=== PATIENT | female | born 1970 | race Two or more races ===

== ENCOUNTER 2020-06-28 10:24 | Outpatient (REF) | payer OTHER, SELFPAY ==
--- NOTE | 2020-06-28 10:35 | XR_ITS ---
EXAMINATION: XR KNEE, LEFT CLINICAL INFORMATION: Left knee pain. COMPARISON: None TECHNIQUE: Four views of the left knee. FINDINGS: Left knee joint spaces are maintained. No acute fracture or dislocation is seen. There is minimal spurring about the medial joint space compartment. No effusion is seen. There is mild spurring undersurface of the patella. XR/XR knee LT 4V IMPRESSION: No acute fracture or effusion of the left knee. Mild degenerative change patellofemoral joint.
== END 2020-06-28 10:25 | disposition home or self-care (01) ==
LOC: HO.XRAY 10:24
PROVIDERS: PCP Internal Medicine; Visit Provider Nurse Practitioner Family
DX: M25.562 Pain in left knee (principal)
CPT/HCPCS: 73564

== ENCOUNTER 2020-06-29 10:03 | Outpatient (REF) | payer OTHER, SELFPAY ==
[2020-06-29 12:09] LABS: Alanine Aminotransferase 20 U/L (0-31); Albumin Level 4.3 g/dL (3.5-5.0); Alkaline Phosphatase 37 U/L (39-117); Anion Gap 13 (12-20); Aspartate Amino Transferase 14 U/L (5-31); Bilirubin Total 0.3 mg/dL (0.0-1.0); Blood Urea Nitrogen 19 mg/dL (9-16); Calcium 9.6 mg/dL (8.4-10.2); Carbon Dioxide 28 mmol/L (22-29); Chloride 104 mmol/L (96-108); Cholesterol 229 mg/dL; Estimated Glomerular Filt Rate > 60; Glucose Fasting 83 mg/dL (60-99); HDL Cholesterol 54 mg/dL; LDL Cholesterol Calculated 155 mg/dl; Potassium 4.3 mmol/l (3.3-5.1); Sodium 141 mmol/L (135-145); Triglycerides 101 mg/dL
[2020-07-03 12:47] LABS: Vitamin D 25-OH, D2 <4 ng/mL; Vitamin D 25-OH, D3 21 ng/mL; Vitamin D 25-OH, Total 21 ng/mL (30-100)
== END 2020-06-29 10:04 | disposition home or self-care (01) ==
LOC: HO.LAB 10:03
PROVIDERS: PCP Internal Medicine; Visit Provider Internal Medicine
DX: E55.9 Vitamin D deficiency, unspecified (principal); M25.50 Pain in unspecified joint; E78.00 Pure hypercholesterolemia, unspecified; E11.9 Type 2 diabetes mellitus without complications
CPT/HCPCS: 36415; 80053; 80061; 82306

== ENCOUNTER 2020-08-25 20:12 | Emergency (ER) | payer OTHER, SELFPAY ==
--- NOTE | ~2020-08-25 | CT_ITS ---
EXAMINATION: CT ABDOMEN AND PELVIS WITHOUT CONTRAST CLINICAL INFORMATION: Left flank pain. COMPARISON: CT scan abdomen pelvis 10/06/2016. TECHNIQUE: Multidetector volumetric imaging was performed from the superior aspect of the liver through the pubic symphysis. Sagittal and coronal reformatted images were obtained on the technologist's workstation. This CT examination was performed using dose optimization techniques as appropriate, variously including the following: *Automated exposure control *Adjustment of mA and/or kV according to patient size (this includes techniques or standardized protocols for targeted exams where dose is matched to indication/reason for exam; i.e. extremities or head) *Use of iterative reconstruction technique DLP: 575 mGy-cm FINDINGS: LUNG BASES: The visualized lung bases are unremarkable. LIVER, GALLBLADDER, AND BILIARY TREE: Mild diffuse low attenuation of liver parenchyma due to fatty change. There is no focal liver lesion. There is no intrahepatic bile duct dilatation. The right lobe of liver measures 17 cm superior inferior. Status post cholecystectomy. PANCREAS: Unremarkable. SPLEEN: Unremarkable. ADRENAL GLANDS: Unremarkable. KIDNEYS AND URETERS: The kidneys are normal in size, shape, and attenuation. No hydronephrosis, hydroureter, or calculi seen. No perinephric stranding. BLADDER: Unremarkable. GASTROINTESTINAL TRACT: There are a few scattered diverticula of the sigmoid colon and left colon. There is no diverticulitis. There is no bowel wall thickening /edema. There is no bowel obstruction. There is a moderate volume of stool in the colon. The appendix is normal . The small bowel loops are unremarkable. The stomach is normal. There is no hiatal hernia. ABDOMINAL WALL: Small fat-containing umbilical hernia. LYMPH NODES: Normal. VASCULAR: Unremarkable. PELVIC VISCERA: Status post hysterectomy. OSSEOUS STRUCTURES: Mild degenerative spondylosis of thoracic spine. CT/CT abdomen pelvis wo con IMPRESSION: 1. No acute abnormality. Normal kidneys, ureter and bladder. 2. Diverticulosis of the colon. There is no acute change of the bowel. 3. Diffuse fatty change of liver. 4. Status post cholecystectomy.
[2020-08-25 20:14] VITALS: BP 123/85; PULSE 102; RESP 18; TEMP 36.8; O2SAT 100; BMI 31.8
--- NOTE | 2020-08-25 20:51 | ED.ABDPAIN ---
HPI - Abdominal Pain General Chief Complaint: Back Pain/Injury Stated Complaint: Flank Pain Time Seen by Provider: 08/25/20 20:51 Source: patient Mode of arrival: ambulatory Limitations: no limitations History of Present Illness HPI narrative: Patient's history of kidney stone in the past noticed sudden onset of sharp stabbing pain in left flank area since morning today radiating to the left lower abdomen associated with nausea no vomiting no fever patient does not have any history of back pain in the past MD elicited complaint: flank pain Pertinent past history: kidney stones Onset (ago): hour(s) Pain Consistency: constant Location: L flank Severity: moderate Quality: stabbing Radiation: LLQ Exacerbating factors: nothing Relieving factors: nothing Associated symptoms: nausea Treatments prior to arrival: NSAIDs Related Data Home Medications Medication Instructions Recorded Confirmed tolterodine 4 mg capsule,extended 4 mg PO DAILY 05/22/20 05/22/20 release 24 hr Previous Rx's Medication Instructions Recorded cholecalciferol (vitamin D3) 50 50 mcg PO DAILY 90 Days #90 cap 05/22/20 mcg (2,000 unit) capsule pantoprazole 40 mg tablet,delayed 40 mg PO DAILY 90 Days #90 tab 05/22/20 release tramadol 50 mg tablet 50 mg PO Q8H PRN 30 Days #90 tab 05/22/20 zolpidem 10 mg tablet 10 mg PO BEDTIME PRN 30 Days #30 05/22/20 tab cyclobenzaprine 10 mg tablet 10 mg PO BEDTIME 30 Days #30 tab 06/26/20 ibuprofen 800 mg tablet 800 mg PO Q8H PRN 10 Days #30 tab 06/26/20 prednisone 10 mg tablet 10 mg PO DAILY 9 Days #18 tab 06/26/20 tolterodine 4 mg capsule,extended 4 mg PO DAILY 90 Days #90 cap 08/17/20 release 24 hr duloxetine 30 mg capsule,delayed 30 mg PO DAILY 90 Days #90 cap 08/21/20 release cyclobenzaprine 10 mg PO Q8H #20 tab 08/25/20 tramadol 50 mg PO Q6H PRN #20 tab 08/25/20 Allergies Allergy/AdvReac Type Severity Reaction Status Date / Time trazodone Allergy Unknown Insomnia Verified 08/25/20 20:14 Review of Systems Review of Systems Constitutional : No Weight loss, No Fever, No Chills ENT/Mouth : No sore throat, No Rhinorrhea Eyes: No Eye Pain, No Swelling Cardiovascular : No Chest Pain, no palpitations Respiratory : No Cough, No Sputum, no shortness of breath Gastrointestinal : +Nausea, No Vomiting, No Diarrhea, ++ abdominal Pain, no black stools Genitourinary : No Dysuria, No Urinary Frequency Musculoskeletal : No joint pain, No Myalgias, No Joint Swelling Skin : No Skin Lesions, No rash Neuro : No Weakness, No Numbness, No Dizziness, No Headache Psych : No Anxiety/Panic, No Depression Heme/Lymph: No Bruising, No Lymphadenopathy Endocrine : No Polyuria, No Polydipsia All other systems reviewed and are negative Physical Exam Vital Signs: Vital Signs: Last Vital Signs Temp 98.3 F 08/25/20 20:14 Pulse 102 H 08/25/20 20:14 Resp 18 08/25/20 20:14 BP 123/85 08/25/20 20:14 Pulse Ox 100 08/25/20 20:14 Body Mass Index 31.8 Appearance: Alert. Oriented X3. In moderate distress. Eyes: Pupils equal, round and reactive to light. ENT: Pharynx normal. Neck: Normal inspection. Neck supple. CVS: Normal heart rate and rhythm. Pulses normal. Respiratory: No respiratory distress. Breath sounds normal. Abdomen: Soft and nontender. Bowel sounds are present, no mass palpable, left CVA tenderness ++ Skin: Skin warm and dry. Normal skin color. Normal skin turgor. Extremities: No lower extremity edema. Neuro: Oriented X 3. No motor deficit. No sensory deficit. MDM - Abdominal Pain MDM Narrative Medical decision making narrative: Patient with left flank pain urine showed slight amount of blood but CT scan is negative for any kidney stone likely muscular pain. Will discharge patient home on pain medication muscle relaxers Differential Diagnosis Differential diagnosis: Likely calculus of kidney Lab Data Attestation: I reviewed the patient's lab results. Result diagrams: 08/25/20 21:23 08/25/20 21:23 Labs: Lab Results 08/25/20 08/25/20 Range/Units 20:25 21:23 WBC 6.3 (4.8-10.8) X10*3/uL RBC 4.33 (4.20-5.50) X10*6/uL Hgb 12.7 (12.0-16.0) g/dl Hct 38.5 (37-47) % MCV 88.9 (80-98) fL MCH 29.3 (27.0-33.0) pg MCHC 33.0 (31.0-35.0) g/dl RDW 12.9 (11.0-16.0) % Plt Count 250 (160-400) X10*3/uL MPV 10.7 (9.4-12.3) fL Immature Gran % (Auto) 0.2 (0.0-0.4) % Neut % (Auto) 46.3 (45-73) % Lymph % (Auto) 41.1 H (20-40) % [place] % (Auto) 8.8 (2-11) % Eos % (Auto) 3.0 (0-4) % Baso % (Auto) 0.6 (0-2) % Lymph # (Auto) 2.6 (1.2-4.9) X10*3/uL [place] # (Auto) 0.6 (0.1-1.2) X10*3/uL Eos # (Auto) 0.2 (0.0-0.4) X10*3/uL Baso # (Auto) 0.0 (0.0-0.2) X10*3/uL Abs Immat Gran (auto) 0.01 (0.00-0.03) X10*3/uL Absolute Neuts (auto) 2.9 (2.0-8.3) X10*3/uL Absolute Nucleated RBC 0.000 (0.0-0.012) X10*3/uL Nucleated RBC % (auto) 0.0 (0.0-0.2) /100WBC Urine Color YELLOW Urine Appearance CLEAR Urine pH 6.0 (5.0-8.0) Ur Specific [place] 1.025 (1.005-1.025) Urine Protein NEG (NEG-TRACE) MG/DL Urine Glucose (UA) NEG (NEG) MG/DL Urine Ketones 5 (NEG) MG/DL Urine Blood 1+ H (NEG) Urine Nitrite NEG (NEG) Ur Leukocyte Esterase NEG (NEG) Urine RBC 10-14 H (0) /HPF Urine WBC 1-4 (0-4) /HPF Ur Squamous Epith Cells 4+ /LPF Urine Bacteria NONE /LPF Urine Mucus 1+ /LPF Discharge Plan Discharge Clinical Impression: Strain of lumbar region Qualifiers: Encounter type: initial encounter Qualified Code(s): S39.012A - Strain of muscle, fascia and tendon of lower back, initial encounter Patient Disposition: Home, Self-Care Instructions: Acute Low Back Pain (ED) Additional Instructions: Your back pain likely is muscular. Take pain medication and muscle relaxant as prescribed. Apply ice pack. Follow with PCP if not better Prescriptions: New tramadol 50 mg tablet 50 mg PO Q6H PRN (Reason: pain) Qty: 20 RF: 0 cyclobenzaprine 10 mg tablet 10 mg PO Q8H Qty: 20 RF: 0 No Action tolterodine 4 mg capsule,extended release 24hr 4 mg PO DAILY 90 Days Qty: 90 RF: 2 duloxetine 30 mg capsule,delayed release(DR/EC) 30 mg PO DAILY 90 Days Qty: 90 RF: 1 tolterodine 4 mg capsule,extended release 24hr 4 mg PO DAILY RF: 0 zolpidem 10 mg tablet 10 mg PO BEDTIME PRN (Reason: insomnia) 30 Days Qty: 30 RF: 0 tramadol 50 mg tablet 50 mg PO Q8H PRN (Reason: pain) 30 Days Qty: 90 RF: 0 pantoprazole 40 mg tablet,delayed release (DR/EC) 40 mg PO DAILY 90 Days Qty: 90 RF: 3 cholecalciferol (vitamin D3) 50 mcg (2,000 unit) capsule 50 mcg PO DAILY 90 Days Qty: 90 RF: 3 ibuprofen 800 mg tablet 800 mg PO Q8H PRN (Reason: pain) 10 Days Qty: 30 RF: 0 prednisone 10 mg tablet 10 mg PO DAILY 9 Days Qty: 18 RF: 0 cyclobenzaprine 10 mg tablet 10 mg PO BEDTIME 30 Days Qty: 30 RF: 0 PMFSH Past Medical History Medical History (Updated 08/25/20 @ 22:20 by Larry Krishnamurthy MD) Arnold-Chiari malformation GERD (gastroesophageal reflux disease) History of renal calculi Hypovitaminosis D Insomnia Kidney stone Knee pain, left Polyarthralgia Pure hypercholesterolemia Surgical History History of cholecystectomy History of cryosurgery S/P RUBÉN (total abdominal hysterectomy) Family History Family History Father Diabetes Hypertension Mother Cancer Breast cancer Maternal Grandmother Stroke Maternal Grandfather Cancer Esophageal cancer Paternal Grandfather Cancer Maternal Uncle Cancer Brain cancer Sister Breast cancer Social History Social History Smoking Status: Unknown if ever smoked Tobacco Type: Cigarette Cigarettes Per Day: 10 Use of substances other than those prescribed or required for medical reasons: Unknown Advance Directives: No
[2020-08-25 20:58] LABS: Glucose Urine UA NEG (NEG); Leukocyte Esterase Urine NEG (NEG); Nitrite Urine NEG (NEG); Specific Gravity - Urine 1.025 (1.005-1.025); Urine Blood 1+ (NEG); Urine Ketones 5 MG/DL (NEG); Urine Protein NEG (NEG-TRACE)
[2020-08-25 21:00] LABS: Appearance Urine CLEAR; Color Urine YELLOW
[2020-08-25 21:10] LABS: Mucus Urine 1+ /LPF; Squamous Epithelial Cell Urine 4+ /LPF
[2020-08-25] MEDS: 0.9 % Sodium Chloride 1,000 ML 999 ML IVCONT (21:14)
[2020-08-25 21:29] LABS: MANUAL DIFF FLAG NO
[2020-08-25 21:31] LABS: Basophils Percent Auto 0.6 % (0-2); Eosinophils Absolute Auto 0.2 X10*3/uL (0.0-0.4); Hematocrit 38.5 % (37-47); Hemoglobin 12.7 g/dl (12.0-16.0); Imm Gran Abs Auto 0.01 X10*3/uL (0.00-0.03); Imm Gran Pct Auto 0.2 % (0.0-0.4); Lymphocytes Absolute Auto 2.6 X10*3/uL (1.2-4.9); Lymphocytes Percent Auto 41.1 % (20-40); Mean Corpuscular Hemoglobin 29.3 pg (27.0-33.0); Mean Corpuscular Volume 88.9 fL (80-98); Mean Platelet Volume 10.7 fL (9.4-12.3); Monocytes Absolute Auto 0.6 X10*3/uL (0.1-1.2); Monocytes Percent Auto 8.8 % (2-11); Neutrophils Absolute Auto 2.9 X10*3/uL (2.0-8.3); Neutrophils Percent Auto 46.3 % (45-73); Platelet Count 250 X10*3/uL (160-400); Red Blood Count 4.33 X10*6/uL (4.20-5.50); Red Cell Distribution Width 12.9 % (11.0-16.0); White Blood Count 6.3 X10*3/uL (4.8-10.8)
[2020-08-25] MEDS: ondansetron HCL 4 MG/2 ML VIAL IVPUSH (21:32)
[2020-08-25] MEDS: Morphine Sulfate 4 MG/ML CARTRIDGE IVPUSH (21:32)
[2020-08-25] MEDS: Ketorolac Tromethamine 30 MG/ML VIAL IVPUSH (21:32)
[2020-08-25 22:24] LABS: Anion Gap 11 (12-20); Blood Urea Nitrogen 16 mg/dL (9-16); Calcium 8.6 mg/dL (8.4-10.2); Carbon Dioxide 25 mmol/L (22-29); Chloride 108 mmol/L (96-108); Creatinine Clr Calc Pharmacy 82.9; Estimated Glomerular Filt Rate > 60; Glucose Random 95 mg/dL (60-115); Potassium 3.7 mmol/L (3.3-5.1); Sodium 140 mmol/L (135-145)
== END 2020-08-25 23:10 | disposition home or self-care (01) ==
PROVIDERS: Emergency Provider Internal Medicine; PCP Internal Medicine
DX: S39.012A Strain of muscle, fascia and tendon of lower back, initial encounter (principal); X58.XXXA Exposure to other specified factors, initial encounter; Z87.442 Personal history of urinary calculi; Y93.9 Activity, unspecified; Y92.9 Unspecified place or not applicable; Y99.9 Unspecified external cause status; Z90.49 Acquired absence of other specified parts of digestive tract
CPT/HCPCS: 36415; 74176; 80048; 81001; 85025; 96361; 96374; 96375; 99284; J1885; J2270; J2405

== ENCOUNTER 2020-08-28 08:54 | Outpatient (REF) | payer OTHER, SELFPAY ==
--- NOTE | ~2020-08-28 | XR_ITS ---
EXAMINATION: XR LUMBOSACRAL SPINE CLINICAL INFORMATION: Low back pain COMPARISON: Lumbar spine 02/15/2020 TECHNIQUE: Three views of the lumbosacral spine. FINDINGS: The vertebral bodies and posterior elements are normal. The disc spaces are preserved and the vertebral alignment is normal. The paraspinal soft tissues are normal. XR/XR lumbar spine 2-3V IMPRESSION: Unremarkable lumbar spine exam.
[2020-08-28 10:00] LABS: MANUAL DIFF FLAG NO
[2020-08-28 10:15] LABS: Basophils Percent Auto 0.5 % (0-2); Eosinophils Absolute Auto 0.2 X10*3/uL (0.0-0.4); Hematocrit 42.8 % (37-47); Hemoglobin 13.9 g/dl (12.0-16.0); Imm Gran Abs Auto 0.03 X10*3/uL (0.00-0.03); Imm Gran Pct Auto 0.5 % (0.0-0.4); Lymphocytes Absolute Auto 1.9 X10*3/uL (1.2-4.9); Lymphocytes Percent Auto 29.2 % (20-40); Mean Corpuscular HGB Conc 32.5 g/dl (31.0-35.0); Mean Corpuscular Hemoglobin 28.8 pg (27.0-33.0); Mean Corpuscular Volume 88.8 fL (80-98); Mean Platelet Volume 10.6 fL (9.4-12.3); Monocytes Absolute Auto 0.5 X10*3/uL (0.1-1.2); Monocytes Percent Auto 7.1 % (2-11); Neutrophils Percent Auto 59.7 % (45-73); Platelet Count 256 X10*3/uL (160-400); Red Blood Count 4.82 X10*6/uL (4.20-5.50); Red Cell Distribution Width 13.2 % (11.0-16.0); White Blood Count 6.6 X10*3/uL (4.8-10.8)
[2020-08-28 11:22] LABS: Alanine Aminotransferase 24 U/L (0-31); Albumin Level 4.3 g/dL (3.5-5.0); Alkaline Phosphatase 36 U/L (39-117); Anion Gap 13 (12-20); Aspartate Amino Transferase 19 U/L (5-31); Bilirubin Total 0.8 mg/dL (0.0-1.0); Blood Urea Nitrogen 14 mg/dL (9-16); C Reactive Protein 0.14 mg/dL (< or = 0.50); Calcium 9.5 mg/dL (8.4-10.2); Carbon Dioxide 29 mmol/L (22-29); Chloride 103 mmol/L (96-108); Estimated Glomerular Filt Rate > 60; Glucose Random 108 mg/dL (60-115); Potassium 4.7 mmol/L (3.3-5.1); Rheumatoid Factor < 15.0 IU/mL (<15.0); Sodium 140 mmol/L (135-145); Total Protein 6.9 g/dL (6.5-8.0)
[2020-08-28 12:19] LABS: Erythrocyte Sedimentation Rate 6 MM/HR (0-20)
[2020-08-29 06:31] LABS: Lyme Abs Screen <0.90 index
[2020-08-29 15:46] LABS: Cyclic Citrullinated Peptide <16 UNITS
[2020-08-29 20:57] LABS: Anti Nuclear Antibody Screen NEGATIVE (NEGATIVE)
[2020-09-01 08:41] LABS: Vitamin D 25-OH, D2 <4 ng/mL; Vitamin D 25-OH, D3 22 ng/mL; Vitamin D 25-OH, Total 22 ng/mL (30-100)
== END 2020-08-28 08:55 | disposition home or self-care (01) ==
LOC: HO.LAB 08:54
PROVIDERS: PCP Internal Medicine; Visit Provider Student in an Organized Health Care Education/Training Program
DX: M25.50 Pain in unspecified joint (principal)
CPT/HCPCS: 36415; 72100; 80053; 82306; 84443; 85025; 85652; 86038; 86039; 86140; 86200; 86431; 86618; 99202

== ENCOUNTER → 2020-09-25 14:36 | Outpatient (BNVA) | payer OTHER, SELFPAY | PROVIDERS: PCP Internal Medicine; Visit Provider Student in an Organized Health Care Education/Training Program | DX: M25.50 Pain in unspecified joint (principal); M79.7 Fibromyalgia | CPT/HCPCS: 99212 ==

== ENCOUNTER 2020-12-19 17:30 | Emergency (ER) | payer OTHER, SELFPAY ==
[2020-12-19 18:08] VITALS: BP 141/77; PULSE 90; RESP 17; TEMP 35.8; O2SAT 99; BMI 32.8
[2020-12-19] MEDS: Ibuprofen 800 MG TABLET PO (18:31)
[2020-12-19] MEDS: cephALEXin 500 MG CAPSULE PO (18:31)
[2020-12-19] MEDS: Lidocaine HCl 1 % MPF 5 ML VIAL SUBCUT (18:31)
--- NOTE | 2020-12-19 18:39 | ED.SKABFB ---
HPI - Skin/Abscess/Foreign Bdy General Chief complaint: Skin/Abscess/Foreign Body Stated complaint: abscess? Time Seen by Provider: 12/19/20 18:00 Source: patient Mode of arrival: ambulatory Limitations: no limitations History of Present Illness MD complaint: abscess/boil Onset (ago): day(s) ( 3 days) Location: RLE Severity: severe Severity scale (1-10): >10 Quality: stabbing, aching, sharp and constant Pain Consistency: constant Relieving factors: none Exacerbating factors: palpation and movement Context: none Associated symptoms: denies other symptoms Treatments prior to arrival: none Related Data Previous Rx's Medication Instructions Recorded cholecalciferol (vitamin D3) 50 50 mcg PO DAILY 90 Days #90 cap 05/22/20 mcg (2,000 unit) capsule tolterodine 4 mg capsule,extended 4 mg PO DAILY 90 Days #90 cap 08/17/20 release 24 hr zolpidem 10 mg tablet 10 mg PO BEDTIME PRN 30 Days #30 09/27/20 tab tramadol 50 mg tablet 50 mg PO Q8H PRN 30 Days #90 tab 10/17/20 cyclobenzaprine 10 mg tablet 10 mg PO Q8H 30 Days #90 tab 11/12/20 ibuprofen 800 mg tablet 800 mg PO Q8H PRN 90 Days #270 tab 11/13/20 sennosides 8.6 mg capsule 8.6 mg PO BEDTIME PRN 90 Days #90 11/13/20 cap amitriptyline 25 mg tablet 25 mg PO BEDTIME #30 tab 12/08/20 acetaminophen [Tylenol Extra 1,000 mg PO QID PRN #14 tab 12/19/20 Strength] cephalexin 500 mg PO QID 10 Days #40 cap 12/19/20 doxycycline monohydrate 100 mg PO BID 10 Days #20 cap 12/19/20 ibuprofen 800 mg PO Q8H PRN #14 tab 12/19/20 oxycodone 5 mg PO BID PRN #10 tab 12/19/20 Allergies Allergy/AdvReac Type Severity Reaction Status Date / Time trazodone Allergy Intermediate Insomnia Verified 10/17/20 09:13 Review of Systems Review of Systems: Constitutional : No Fever, No Chills, Cardiovascular : No Chest Pain, No SOB Respiratory : No Dyspnea Gastrointestinal : No abdominal pain Musculoskeletal : No Joint Swelling Skin : positive abscess with surrounding erythema, no skin laceration, No Foreign bodies, No rash Neuro : No Weakness, No Numbness/tingling Psych : No SI/HI/thoughts of self injury Yes all other systems are reviewed and are negative [facility] Past Medical History Attestation statement: The following information was validated with the patient. Medical History Arnold-Chiari malformation Depression GERD (gastroesophageal reflux disease) History of renal calculi Hypovitaminosis D Insomnia Kidney stone Knee pain, left Obese Polyarthralgia Pure hypercholesterolemia Surgical History History of cholecystectomy History of cryosurgery S/P RUBÉN (total abdominal hysterectomy) Family History Family History Father Diabetes Hypertension Mother Cancer Breast cancer Maternal Grandmother Stroke Maternal Grandfather Cancer Esophageal cancer Paternal Grandfather Cancer Maternal Uncle Cancer Brain cancer Sister Breast cancer Social History Social History Alcohol intake: never Cigarettes Per Day: 10 Years Smoked: 20 Advance Directives: No Advance Directives Information Provided: No Patient : No Physical Exam Vital Signs: Vital Signs: Last Vital Signs Temp 96.5 F L 12/19/20 18:08 Pulse 90 12/19/20 18:08 Resp 17 12/19/20 18:08 BP 141/77 H 12/19/20 18:08 Pulse Ox 99 12/19/20 18:08 Body Mass Index 32.8 vital signs have been reviewed as normal and appeared to be correct. Blood pressure normal. Heart rate normal. Respiration rate normal. Temperature normal. Oxygen saturation normal. Appearance: Alert. Oriented X3. No acute distress. Head: Normal external exam. Normocephalic. Atraumatic. Eyes: PERRLA. EOMI. Conjunctiva and sclera normal. Eyelids normal. ENT: Pharynx normal. Uvula midline. Moist mucous membranes. Neck: Normal inspection. Neck supple. FROM. No adenopathy. No meningeal signs. CVS: Normal heart rate and rhythm. Respiratory: No respiratory distress. Painless inspiration. Back: Full range of motion noted. No rashes/lesion/induration/fluctuance or signs of infection noted. Skin: Skin warm and dry. Normal skin color. Normal skin turgor. No rashes/lesions/lacerations noted. tender small fluctuant abscess to right inner thigh with mild surrounding erythema. No streaking noted. No foreign bodies noted. Extremities: Extremities exhibit normal range of motion. Extremities nontender. Neuro: Oriented X 3. No motor deficit. No sensory deficit. Reflexes normal. Normal steady gait. No focal neuro deficits noted. Course Course Course Narrative: Patient is status post I&D of abscess. patient tolerated procedure well. No complications. No packing inserted. Will DC home with antibiotics and symptomatic treatment instructions to return if any new or worsening symptoms to follow up with primary care provider. Patient understands agrees with this plan. Procedures Abscess I/D Site: lower extremity Side (if applicable): right Local Anesthetic: lidocaine 1% Amount of anesthesia used (mL): 3 Technique: needle aspiration and incised with blade Amount of fluid expressed (mL): 3 Sent for culture/gram staining?: No Irrigation: Yes Packing used?: none Complications: other ( No complications) MDM - Skin/Abscess/Foreign Bdy Medical Records Attestation: I reviewed the patient's medical records. Discharge Plan Discharge Clinical Impression: Cellulitis, Abscess of skin or subcutaneous tissue Patient Disposition: Home, Self-Care Instructions: Cellulitis (ED), Abscess (ED) Prescriptions: New ibuprofen 800 mg tablet 800 mg PO Q8H PRN (Reason: pain) Qty: 14 RF: 0 acetaminophen [Tylenol Extra Strength] 500 mg tablet 1,000 mg PO QID PRN (Reason: fever or pain) Qty: 14 RF: 0 doxycycline monohydrate 100 mg capsule 100 mg PO BID 10 Days Qty: 20 RF: 0 cephalexin 500 mg capsule 500 mg PO QID 10 Days Qty: 40 RF: 0 oxycodone 5 mg tablet 5 mg PO BID PRN (Reason: pain) Qty: 10 RF: 0 No Action tolterodine 4 mg capsule,extended release 24hr 4 mg PO DAILY 90 Days Qty: 90 RF: 2 zolpidem 10 mg tablet 10 mg PO BEDTIME PRN (Reason: insomnia) 30 Days Qty: 30 RF: 0 cyclobenzaprine 10 mg tablet 10 mg PO Q8H 30 Days Qty: 90 RF: 6 senna 8.6 mg capsule 8.6 mg PO BEDTIME PRN (Reason: constipation) 90 Days Qty: 90 RF: 2 ibuprofen 800 mg tablet 800 mg PO Q8H PRN (Reason: pain) 90 Days Qty: 270 RF: 0 amitriptyline 25 mg tablet 25 mg PO BEDTIME Qty: 30 RF: 0 cholecalciferol (vitamin D3) 50 mcg (2,000 unit) capsule 50 mcg PO DAILY 90 Days Qty: 90 RF: 3 tramadol 50 mg tablet 50 mg PO Q8H PRN (Reason: pain) 30 Days Qty: 90 RF: 0 Referrals: Jayna Rodriguez MD [Primary Care Provider] - 2 days Print Language: Arabic
[2020-12-19] MEDS: oxyCODONE HCl Immed Release 5 MG TABLET PO (18:57)
== END 2020-12-19 19:01 | disposition home or self-care (01) ==
PROVIDERS: Emergency Provider Emergency Medicine; PCP Internal Medicine
DX: L02.415 Cutaneous abscess of right lower limb (principal); L03.115 Cellulitis of right lower limb
CPT/HCPCS: 10060; 99283; 99284

== ENCOUNTER 2021-02-01 08:11 | Outpatient (REF) | payer OTHER, SELFPAY ==
--- NOTE | 2021-02-01 08:26 | ECG_ITS ---
Test Reason : E78.00 Blood Pressure : / mmHG Vent. Rate : 073 BPM Atrial Rate : 073 BPM P-R Int : 130 ms QRS Dur : 086 ms QT Int : 388 ms P-R-T Axes : 049 008 013 degrees QTc Int : 427 ms Normal sinus rhythm Inferior infarct , age undetermined Abnormal ECG When compared with ECG of 01-MAY-2015 11:02, No significant change was found Referred By: Jayna Chaudhry Electronically Signed By:MARIAELENA RIVERA
[2021-02-01 09:38] LABS: Alanine Aminotransferase 34 U/L (0-31); Albumin Level 4.3 g/dL (3.5-5.0); Alkaline Phosphatase 40 U/L (39-117); Anion Gap 13 (12-20); Aspartate Amino Transferase 21 U/L (5-31); Bilirubin Total 0.6 mg/dL (0.0-1.0); Blood Urea Nitrogen 12 mg/dL (9-16); Calcium 9.6 mg/dL (8.4-10.2); Carbon Dioxide 27 mmol/L (22-29); Chloride 106 mmol/L (96-108); Cholesterol 218 mg/dL; Estimated Glomerular Filt Rate 56; Glucose Fasting 120 mg/dL (60-99); HDL Cholesterol 38 mg/dL; LDL Cholesterol Calculated 146 mg/dl; Potassium 4.5 mmol/L (3.3-5.1); Sodium 141 mmol/L (135-145); Total Protein 7.1 g/dL (6.5-8.0); Triglycerides 172 mg/dL
[2021-02-06 19:25] LABS: Vitamin D 25-OH, D2 <4 ng/mL; Vitamin D 25-OH, D3 30 ng/mL; Vitamin D 25-OH, Total 30 ng/mL (30-100)
== END 2021-02-01 08:12 | disposition home or self-care (01) ==
LOC: HO.LAB 08:11
PROVIDERS: PCP Internal Medicine; Visit Provider Internal Medicine
DX: E78.00 Pure hypercholesterolemia, unspecified (principal); E78.5 Hyperlipidemia, unspecified; E55.9 Vitamin D deficiency, unspecified
CPT/HCPCS: 36415; 80053; 80061; 82306; 93005

== ENCOUNTER 2021-02-26 08:56 | Outpatient (REF) | payer OTHER, SELFPAY ==
--- NOTE | ~2021-02-26 | XR_ITS ---
EXAMINATION: XR BILATERAL HIP CLINICAL INFORMATION: Pain bilaterally. COMPARISON: None. TECHNIQUE: AP pelvis and 2 views each hips. FINDINGS: AP Pelvis: There is normal symmetry of bilateral hip joints and SI joints. The pelvic bones are unremarkable without any fracture. There are multiple phleboliths in the pelvis. No mass or soft tissue abnormality seen. Right Hip: No visible acute fracture, dislocation or subluxation. No bony erosive changes. The soft tissues are normal. Left Hip: There is no visible acute fracture, dislocation or bony erosive changes. The soft tissues are normal. XR/XR hip RT min 2V IMPRESSION: Unremarkable AP pelvis and bilateral hip exam.
--- NOTE | ~2021-02-26 | XR_ITS ---
EXAMINATION: XR BILATERAL HIP CLINICAL INFORMATION: Pain bilaterally. COMPARISON: None. TECHNIQUE: AP pelvis and 2 views each hips. FINDINGS: AP Pelvis: There is normal symmetry of bilateral hip joints and SI joints. The pelvic bones are unremarkable without any fracture. There are multiple phleboliths in the pelvis. No mass or soft tissue abnormality seen. Right Hip: No visible acute fracture, dislocation or subluxation. No bony erosive changes. The soft tissues are normal. Left Hip: There is no visible acute fracture, dislocation or bony erosive changes. The soft tissues are normal. XR/XR hip LT min 2V IMPRESSION: Unremarkable AP pelvis and bilateral hip exam.
--- NOTE | ~2021-02-26 | FL_ITS ---
EXAMINATION: XR GI SERIES CLINICAL INFORMATION: Epigastric pain. COMPARISON: None TECHNIQUE: Routine upper GI air-contrast study is performed. FINDINGS: Following oral administration of thick barium and effervescent granules there is normal propagation of bolus from the oral cavity through the esophagus into stomach without any evidence of obstruction, narrowing or stricture. On placing patient supine and prone lying the course, caliber and peristalsis of the stomach and the duodenal bulb is normal. The mucosal pattern of the stomach and the duodenum is normal. Incidental note is made of a moderate size gastroesophageal reflux without hiatal hernia. FLUOROSCOPY TIME: 1.7 minutes DOSE AREA PRODUCT: 24.431 uGy-m2 (microgray-meter squared) FL/FL upper GI series IMPRESSION: Moderate gastroesophageal reflux without hiatal hernia.
== END 2021-02-26 08:57 | disposition home or self-care (01) ==
LOC: HO.XRAY 08:56
PROVIDERS: PCP Internal Medicine; Visit Provider Internal Medicine
DX: R10.13 Epigastric pain (principal); M25.551 Pain in right hip; M25.552 Pain in left hip
CPT/HCPCS: 73502; 74240

== ENCOUNTER 2021-03-15 07:09 | Outpatient (REF) | payer OTHER, SELFPAY ==
--- NOTE | ~2021-03-15 | XR_ITS ---
EXAMINATION: XR BOTH KNEES AP STANDING XR RIGHT KNEE, 2 VIEWS XR LEFT KNEE, 2 VIEWS CLINICAL INFORMATION: Pain. COMPARISON: Left knee radiographs dated 06/28/2020. Radiographs dated 03/16/2015. TECHNIQUE: Standing AP view of both knees and lateral and sunrise views of the right and left knee. FINDINGS: Right Knee: Mild medial compartment joint space narrowing. Small tricompartmental marginal osteophytes. No osseous erosion. No fracture or dislocation. No abnormal soft tissue calcification. Small joint effusion. Left Knee: Mild medial compartment joint space narrowing. Small tricompartmental marginal osteophytes. No osseous erosion. No fracture or dislocation. No abnormal soft tissue calcification. No significant joint effusion. XR/XR knee RT 2V IMPRESSION: RIGHT KNEE: Mild tricompartmental osteoarthritis, progressed when compared to the prior radiographs. Small joint effusion. LEFT KNEE: Mild tricompartmental osteoarthritis, unchanged.
--- NOTE | ~2021-03-15 | XR_ITS ---
EXAMINATION: XR BOTH KNEES AP STANDING XR RIGHT KNEE, 2 VIEWS XR LEFT KNEE, 2 VIEWS CLINICAL INFORMATION: Pain. COMPARISON: Left knee radiographs dated 06/28/2020. Radiographs dated 03/16/2015. TECHNIQUE: Standing AP view of both knees and lateral and sunrise views of the right and left knee. FINDINGS: Right Knee: Mild medial compartment joint space narrowing. Small tricompartmental marginal osteophytes. No osseous erosion. No fracture or dislocation. No abnormal soft tissue calcification. Small joint effusion. Left Knee: Mild medial compartment joint space narrowing. Small tricompartmental marginal osteophytes. No osseous erosion. No fracture or dislocation. No abnormal soft tissue calcification. No significant joint effusion. XR/XR knee LT 2V IMPRESSION: RIGHT KNEE: Mild tricompartmental osteoarthritis, progressed when compared to the prior radiographs. Small joint effusion. LEFT KNEE: Mild tricompartmental osteoarthritis, unchanged.
--- NOTE | ~2021-03-15 | XR_ITS ---
EXAMINATION: XR BOTH KNEES AP STANDING XR RIGHT KNEE, 2 VIEWS XR LEFT KNEE, 2 VIEWS CLINICAL INFORMATION: Pain. COMPARISON: Left knee radiographs dated 06/28/2020. Radiographs dated 03/16/2015. TECHNIQUE: Standing AP view of both knees and lateral and sunrise views of the right and left knee. FINDINGS: Right Knee: Mild medial compartment joint space narrowing. Small tricompartmental marginal osteophytes. No osseous erosion. No fracture or dislocation. No abnormal soft tissue calcification. Small joint effusion. Left Knee: Mild medial compartment joint space narrowing. Small tricompartmental marginal osteophytes. No osseous erosion. No fracture or dislocation. No abnormal soft tissue calcification. No significant joint effusion. XR/XR knee standing BI IMPRESSION: RIGHT KNEE: Mild tricompartmental osteoarthritis, progressed when compared to the prior radiographs. Small joint effusion. LEFT KNEE: Mild tricompartmental osteoarthritis, unchanged.
== END 2021-03-15 07:10 | disposition home or self-care (01) ==
LOC: HO.HOSX 07:09
PROVIDERS: Visit Provider Physician Assistant
DX: M17.0 Bilateral primary osteoarthritis of knee (principal)
CPT/HCPCS: 20610; 73560; 73565; 99202; J1040

== ENCOUNTER 2021-04-25 16:00 | Outpatient (RCR) | payer OTHER, SELFPAY ==
--- NOTE | 2021-04-03 12:52 | MHC.PT.EP ---
[facility] [place] [facility] [place] [facility] [place] [facility] [address] [phone] F: [phone] F: [phone] F: [phone] F: [phone] Physical Therapy Plan of Care Date of Evaluation: Date of Surgery: Diagnosis: Bilateral primary osteoarthritis of the knee Assessment: Pt is a 50yo F who presents with B knee pain. Pt reports initially she only had L knee pain but now it is bilateral. She also reports she recently had injections to B knees ~2-3 weeks ago and has had some relief. She presents today with current impairments in pain, decreased ROM, decreased strength, soft tissue restrictions, decreased muscle length, impaired body mechanics, and decreased balance. She is limited functionally by bending, squatting, prolonged standing, prolonged ambulation, and stair navigation. She is a good candidate for skilled PT services to address current impairments in order to facilitate return to OF. She will benefit from skilled PT services 2x/week for 4 weeks and will be reassessed at that time to determine if further PT services are necessary. Frequency and Duration: The patient will be seen 2x/week for 4 weeks Short Term Goals: Pt will be I with HEP to promote self management of symptoms Pt will improve AROM knee flexion by 5 degrees B Snf Goals: Pt will improve hip ABD strength by 1 grade to assist with standing functional tasks Pt will tolerate ambulation > 1 hour with pain < 3/10 Pt will demonstrate improvements in functional mobility as evidenced by statistically significant improvement in LEFI outcome measure. Treatment Plan: Modalities to reduce pain, spasms and effusion. Manual therapy to restore motion and function. Therapeutic exercise to improve strength and flexibility. Neuromuscular re-education for posture and balance. Therapeutic activities to return to functional activities of daily living. Electronically signed by: Viky Hameed, PT, DPT Please sign and return to therapist. Thank you for your referral.
--- NOTE | 2021-05-15 16:42 | MHC.PT.DC ---
[facility] [place] Office [place] Office [place] Office [address] Pablo Marcial [address] [phone] F: [phone] F: [phone] F: [phone] F: [phone] Physical Therapy Discharge Report Diagnosis: Bilateral primary osteoarthritis of the knee Date of Surgery: Date of Evaluation: 04/02/21 Date of Discharge: 05/15/21 Treatments to Date: 5 Cancellations to Date: 3 No Shows to Date: 1 Discharge Status: Visit Non-compliance Discharge Summary: Pt made good progress since SOC and was seen for PT from 04/02/21-04/25/21. Pt has had 3 cancellations and 1 no-show since SOC. Her last attended visit was 04/25/21 and she had a no-show for her last scheduled appointment. Pt is being D/C from skilled PT services at this time. Pt current level of function unknown at this time. Electronically signed by: Viky Hameed, PT, DPT Please sign and return to therapist. Thank you for your referral.
== END 2021-05-15 16:41 | disposition home or self-care (01) ==
LOC: HO.PT 16:00
PROVIDERS: PCP Internal Medicine; Visit Provider Physician Assistant
DX: M17.0 Bilateral primary osteoarthritis of knee (principal)
CPT/HCPCS: 97110; 97162; 97530

== ENCOUNTER → 2021-04-26 09:05 | Outpatient (BNVA) | payer OTHER, SELFPAY | PROVIDERS: PCP Internal Medicine; Visit Provider Physician Assistant | DX: M17.0 Bilateral primary osteoarthritis of knee (principal) | CPT/HCPCS: 99212 ==

== ENCOUNTER 2021-06-24 06:07 | Outpatient (REF) | payer OTHER, SELFPAY ==
[2021-06-24 06:16] LABS: MANUAL DIFF FLAG NO
[2021-06-24 07:44] LABS: Basophils Absolute Auto 0.1 X10*3/uL (0.0-0.2); Basophils Percent Auto 0.8 % (0-2); Eosinophils Absolute Auto 0.2 X10*3/uL (0.0-0.4); Eosinophils Percent Auto 2.8 % (0-4); Hematocrit 42.3 % (37.0-47.0); Hemoglobin 13.7 g/dl (12.0-16.0); Imm Gran Abs Auto 0.02 X10*3/uL (0.00-0.03); Imm Gran Pct Auto 0.3 % (0.0-0.4); Lymphocytes Percent Auto 38.6 % (20-40); Mean Corpuscular HGB Conc 32.4 g/dl (31.0-35.0); Mean Corpuscular Hemoglobin 28.9 pg (27.0-33.0); Mean Corpuscular Volume 89.2 fL (80.0-98.0); Mean Platelet Volume 10.9 fL (9.4-12.3); Monocytes Absolute Auto 0.7 X10*3/uL (0.1-1.2); Neutrophils Absolute Auto 3.8 x10*3/uL (2.0-8.3); Neutrophils Percent Auto 48.5 % (45-73); Platelet Count 260 X10*3/uL (160-400); Red Blood Count 4.74 X10*6/uL (4.20-5.50); Red Cell Distribution Width 13.6 % (11.0-16.0); White Blood Count 7.8 X10*3/uL (4.8-10.8)
[2021-06-24 08:06] LABS: Alanine Aminotransferase 23 U/L (0-31); Albumin Level 4.1 g/dL (3.5-5.0); Alkaline Phosphatase 44 U/L (39-117); Anion Gap 11 (12-20); Aspartate Amino Transferase 16 U/L (5-31); Bilirubin Total 0.7 mg/dL (0.0-1.0); Blood Urea Nitrogen 13 mg/dL (9-16); Calcium 9.8 mg/dL (8.4-10.2); Carbon Dioxide 26 mmol/L (22-29); Chloride 107 mmol/L (96-108); Cholesterol 195 mg/dL; Estimated Glomerular Filt Rate > 60; Glucose Fasting 109 mg/dL (60-99); HDL Cholesterol 41 mg/dL; LDL Cholesterol Calculated 126 mg/dl; Potassium 4.4 mmol/L (3.3-5.1); Sodium 140 mmol/L (135-145); Triglycerides 141 mg/dL
[2021-06-28 15:37] LABS: Vitamin D 25-OH, D2 <4 ng/mL; Vitamin D 25-OH, D3 24 ng/mL; Vitamin D 25-OH, Total 24 ng/mL (30-100)
== END 2021-06-24 06:08 | disposition home or self-care (01) ==
LOC: HO.LAB 06:07
PROVIDERS: PCP Internal Medicine; Visit Provider Internal Medicine
DX: E55.9 Vitamin D deficiency, unspecified (principal); F33.0 Major depressive disorder, recurrent, mild; E78.5 Hyperlipidemia, unspecified; D64.9 Anemia, unspecified
CPT/HCPCS: 36415; 80053; 80061; 82306; 85025

== ENCOUNTER 2021-10-08 11:37 | Emergency (ER) | payer OTHER, SELFPAY ==
--- NOTE | ~2021-10-08 | US_ITS ---
EXAMINATION: US PELVIS CLINICAL INFORMATION: Lower abdominal pain. Ovarian cyst on CT with free fluid COMPARISON: CT scan performed earlier today TECHNIQUE: Ultrasound of the pelvis is performed using both transabdominal and transvaginal transducers along with Doppler. Transvaginal imaging is performed due to inadequate visualization transabdominally. FINDINGS: Uterus: Surgically removed Adnexa: Both ovaries are visualized. There is normal color flow to the adnexa. There is no ovarian torsion. Right ovary measures 3.2 x 1.5 x 2.0 cm for a volume of 5.3 mL which includes a complex appearing 1.9 x 1.6 x 1.2 cm cyst. Left ovary measures 1.9 x 1.7 x 2.1 cm for a volume of 3.8 mL which includes a 1.3 x 1.0 x 1.1 cm complex left ovarian cyst. A small amount of free fluid is present in the cul-de-sac. US/US pelvic and transvaginal IMPRESSION: 1. Bilateral complex small ovarian cysts. 2. Small amount of free fluid in the cul-de-sac.
--- NOTE | ~2021-10-08 | CT_ITS ---
EXAMINATION: CT ABDOMEN AND PELVIS WITH CONTRAST CLINICAL INFORMATION: Diffuse abdominal tenderness COMPARISON: CT abdomen pelvis 08/25/2020 TECHNIQUE: Multidetector volumetric images were obtained from the superior aspect of the liver through the pubic symphysis following administration 85 mL of Omnipaque 350 intravenous contrast. Sagittal and coronal reformatted images were obtained on the technologist's workstation. Oral contrast: No This CT examination was performed using dose optimization techniques as appropriate, variously including the following: *Automated exposure control *Adjustment of mA and/or kV according to patient size (this includes techniques or standardized protocols for targeted exams where dose is matched to indication/reason for exam; i.e. extremities or head) *Use of iterative reconstruction technique DLP: 674 mGy-cm FINDINGS: LUNG BASES: Some minimal groundglass changes are present at the right lung base which appear improved compared with the prior LIVER, GALLBLADDER, AND BILIARY TREE: The liver attenuation is decreased suggesting hepatic steatosis. The liver is of normal size and contour. No focal hepatic lesion or biliary ductal dilatation is present. The gallbladder is surgically absent PANCREAS: Unremarkable. SPLEEN: Unremarkable. ADRENAL GLANDS: Unremarkable. KIDNEYS AND URETERS: The kidneys are normal in size, shape, and attenuation. No hydronephrosis, hydroureter, or calculi seen. No perinephric stranding. BLADDER: Unremarkable. GASTROINTESTINAL TRACT: The small and large bowel are unremarkable aside from colonic diverticula without diverticulitis.. The appendix is unremarkable. ABDOMINAL WALL: No significant hernia is appreciated. LYMPH NODES: Shotty retroperitoneal lymph nodes are seen but there is no adenopathy. VASCULAR: Unremarkable. Innumerable phleboliths are noted in the pelvis. PELVIC VISCERA: Status post hysterectomy. The ovaries appear to be present. A cyst is present in the right ovary measuring about 2 cm in size. A small amount of free intraperitoneal fluid is present in the pelvis. OSSEOUS STRUCTURES: Unremarkable. CT/CT abdomen pelvis w con IMPRESSION: 1. There is a right ovarian cyst present and new free intraperitoneal fluid. Status post hysterectomy. 2. Hepatic steatosis 3. Colonic diverticulosis without diverticulitis. Fleischner guidelines were followed.
[2021-10-08 11:39] VITALS: BP 152/103; PULSE 91; RESP 18; TEMP 36.7; O2SAT 98; BMI 32.8
--- NOTE | 2021-10-08 12:14 | ED_ITS ---
HPI - Abdominal Pain General Chief Complaint: Abdominal Pain Stated Complaint: abd pain Time Seen by Provider: 10/08/21 12:01 Source: patient Mode of arrival: ambulatory History of Present Illness HPI narrative: 50-year-old female with a past medical history of depression, diverticulitis, GERD, renal stones, polyarthralgia, HLD, s/p RUBÉN and cholecystectomy presenting to the ED complaining of lower abdominal pain x4hrs with associated co nstipation. Reports last BM 4 days ago, denies passing flatus. Denies fever, chills, nausea, vomiting, diarrhea, dysuria/hematuria MD elicited complaint: abdominal pain Pertinent past history: constipation Onset (ago): hour(s) Related Data Home Medications Medication Instructions Recorded Confirmed hydroxyzine HCl 25 mg tablet 12.5 - 25 mg PO TID PRN 02/19/21 07/10/21 lorazepam 1 mg tablet 0 mg PO 04/26/21 07/10/21 Previous Rx's Medication Instructions Recorded ibuprofen 800 mg tablet 800 mg PO Q8H PRN #14 tab 12/19/20 atorvastatin 10 mg tablet 10 mg PO BEDTIME 90 Days #90 tab 07/10/21 bupropion HCl 300 mg 24 hr tablet, 300 mg PO QAM 90 Days #90 tab 07/10/21 extended release cholecalciferol (vitamin D3) 50 50 mcg PO DAILY 90 Days #90 cap 07/10/21 mcg (2,000 unit) capsule cyclobenzaprine 10 mg tablet 10 mg PO Q8H 30 Days #90 tab 07/10/21 pantoprazole 40 mg tablet,delayed 40 mg PO DAILY 90 Days #90 tab 07/10/21 release sennosides 8.6 mg capsule (senna) 8.6 mg PO BEDTIME PRN 90 Days #90 07/10/21 cap tolterodine 4 mg capsule,extended 4 mg PO DAILY 90 Days #90 cap 07/10/21 release 24 hr tramadol 50 mg tablet 50 mg PO Q8H PRN 30 Days #90 tab 08/23/21 zolpidem 10 mg tablet 10 mg PO BEDTIME PRN 30 Days #30 08/23/21 tab sucralfate 1 gram tablet (Carafate) 1 g PO BID 30 Days #60 tab 09/28/21 Allergies Allergy/AdvReac Type Severity Reaction Status Date / Time trazodone Allergy Intermediate Insomnia Verified 10/08/21 11:38 Review of Systems Review of Systems Constitutional: No Fever, No Chills,No Fatigue, No Malaise ENT/Mouth: No Ear Pain, No Nasal Congestion, No sore throat, No Rhinorrhea, No Swallowing Difficulty Eyes: No Eye Pain, No Swelling, No Redness Cardiovascular: No Chest Pain, No SOB, No Edema, No Palpitations Respiratory: No Cough, No Sputum, No Dyspnea Gastrointestinal: No Nausea, No Vomiting, No Diarrhea, + Constipation, + Abdominal pain Genitourinary: No irregular bleeding, No Dysuria, No Urinary Frequency, No Hematuria, No Urinary Incontinence,No Flank Pain Musculoskeletal: No joint pain, No Myalgias, No Joint Swelling Skin: No Skin Lesions, No rash Neuro: No Weakness, No Dizziness, No Headache Yes all other systems are reviewed and are negative [facility] Past Medical History Attestation statement: The following information was validated with the patient. Medical History Arnold-Chiari malformation Bloody stools Depression Diverticulitis Epigastric pain GERD (gastroesophageal reflux disease) History of renal calculi Hypovitaminosis D Insomnia Kidney stone Knee pain Knee pain, left Left hip pain Mild recurrent major depression Obese Polyarthralgia Pure hypercholesterolemia Right hip pain Surgical History History of cholecystectomy History of cryosurgery S/P RUBÉN (total abdominal hysterectomy) Family History Family History Father Diabetes Hypertension Mother Cancer Breast cancer Maternal Grandmother Stroke Maternal Grandfather Cancer Esophageal cancer Paternal Grandfather Cancer Maternal Uncle Cancer Brain cancer Sister Breast cancer Social History Social History Alcohol intake: never Patient Tobacco Use Status: Current everyday Tobacco user Tobacco use type: Cigarette Cigarettes Per Day: 7 Years Smoked: 20 Advance Directives: No Advance Directives Information Provided: No Current occupational status: employed 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 Physical Exam ED Vital Signs: Vital Signs - 24 hr 10/08/21 11:39 10/08/21 12:35 10/08/21 14:22 Temperature 98.0 F 98.7 F 99.1 F Pulse Rate 91 67 76 Respiratory Rate 18 16 17 Blood Pressure 152/103 H 142/84 H 118/70 Pulse Oximetry 98 97 97 BMI result Body Mass Index 32.8 Const General: cooperative, healthy appearing and no acute distress Orientation/consciousness: patient oriented x3 Limitations: no limitations HENMT Head: Yes normal to inspection and Yes atraumatic Ears: hearing grossly normal bilaterally General nose exam: Normal external nose present Face and sinus: Yes normal facial exam Eyes General: appearance normal, both eyes and all related structures EOM: EOMs intact bilaterally Neck Neck: Yes normal visual inspection and Yes no meningeal signs Resp Effort & Inspection: normal respiratory effort and no respiratory distress Auscultation: clear to auscultation bilaterally, no rhonchi and no wheezes Cardio Rate: regular rate Heart sounds: S1 normal heart sound present and S2 normal heart sound present GI Inspection: Yes normal to inspection Palpation (GI): Soft to palpation, Tenderness to palpation present (GI) (Diffuse tenderness) in the LLQ and in the RLQ; Negative for with no rebound tenderness, no guarding and not rigid General: Yes no CVA tenderness Back/Spine/Pelvis Back: no CVA tenderness Skin Rashes: no rashes Wounds: no wounds Neuro General: patient oriented x3, tone normal and no meningeal signs Gait exam (Neuro): Normal gait present Extrem General: Yes normal to inspection Course Course Course Narrative: -1450--hypertension resolved with pain medication. No leukocytosis. Labs otherwise unremarkable -UA with RBCs/not infected CT abdomen pelvis w con IMPRESSION: 1.? There is a right ovarian cyst present and new free intraperitoneal fluid. Status post hysterectomy. 2.? Hepatic steatosis 3.? Colonic diverticulosis without diverticulitis. >> will obtain pelvic ultrasound for further evaluation US pelvic and transvaginal IMPRESSION: 1.? Bilateral complex small ovarian cysts. 2.? Small amount of free fluid in the cul-de-sac. >> results discussed with patient with park interpreter including worrisome signs and symptoms and strict return precautions and need follow-up with OBGYN. She verbalized understanding feel safe for discharge MDM - Abdominal Pain MDM Narrative Medical decision making narrative: 50-year-old female with a past medical history of depression, diverticulitis, GERD, renal stones, polyarthralgia, HLD, s/p RUBÉN and cholecystectomy presenting to the ED complaining of lower abdominal pain x4hrs with associated constipa tion. On exam hypertensive likely from pain, NAD, abdomen soft diffusely tender greatest and in a LLQ/RLQ, no rebound or guarding. Return for diverticulitis vs colitis vs SBO vs appendicitis vs cholecystitis/lithiasis. Lower concern for UTI/renal stone Plan: Labs, UA, CT, IVF, pain management, re-evaluate Medical Records Attestation: I reviewed the patient's medical records. Lab Data Attestation: I reviewed the patient's lab results. Result diagrams: 10/08/21 12:17 10/08/21 12:17 Labs: Lab Results 10/08/21 10/08/21 10/08/21 Range/Units 12:17 12:17 13:27 WBC 10.8 (4.8-10.8) X10*3/uL RBC 5.23 (4.20-5.50) X10*6/uL Hgb 14.9 (12.0-16.0) g/dl Hct 45.7 (37.0-47.0) % MCV 87.4 (80.0-98.0) fL MCH 28.5 (27.0-33.0) pg MCHC 32.6 (31.0-35.0) g/dl RDW 13.8 (11.0-16.0) % Plt Count 253 (160-400) X10*3/uL MPV 10.7 (9.4-12.3) fL Immature Gran % (Auto) 0.5 H (0.0-0.4) % Neut % (Auto) 80.0 H (45-73) % Lymph % (Auto) 12.9 L (20-40) % [place] % (Auto) 4.9 (2-11) % Eos % (Auto) 1.2 (0-4) % Baso % (Auto) 0.5 (0-2) % Lymph # (Auto) 1.4 (1.2-4.9) X10*3/uL [place] # (Auto) 0.5 (0.1-1.2) X10*3/uL Eos # (Auto) 0.1 (0.0-0.4) X10*3/uL Baso # (Auto) 0.1 (0.0-0.2) X10*3/uL Abs Immat Gran (auto) 0.05 H (0.00-0.03) X10*3/uL Absolute Neuts (auto) 8.6 H (2.0-8.3) x10*3/uL Absolute Nucleated RBC 0.000 (0.0-0.012) X10*3/uL Nucleated RBC % (auto) 0.0 (0.0-0.2) /100WBC Sodium 138 (135-145) mmol/L Potassium 4.6 (3.3-5.1) mmol/L Chloride 107 (96-108) mmol/L Carbon Dioxide 24 (22-29) mmol/L Anion Gap 12 (12-20) BUN 11 (9-16) mg/dL Creatinine 0.88 (0.5-1.4) mg/dL Estim Creat Clear Calc 79.3 Estimated GFR > 60 Random Glucose 111 (60-115) mg/dL Calcium 10.1 (8.4-10.2) mg/dL Magnesium 1.9 (1.6-2.6) mg/dL Total Bilirubin 0.7 (0.0-1.0) mg/dL Direct Bilirubin 0.3 (0.0-0.5) mg/dL AST 27 D (5-31) U/L ALT 39 H (0-31) U/L Alkaline Phosphatase 47 (39-117) U/L Total Protein 7.4 (6.5-8.0) g/dL Albumin 4.4 (3.5-5.0) g/dL Lipase 27 (8-78) U/L Urine Color YELLOW Urine Appearance CLEAR Urine pH 6.0 (5.0-8.0) Ur Specific [place] 1.010 (1.005-1.025) Urine Protein NEG (NEG-TRACE) MG/DL Urine Glucose (UA) NEG (NEG) MG/DL Urine Ketones NEG (NEG) MG/DL Urine Blood 1+ H (NEG) Urine Nitrite NEG (NEG) Ur Leukocyte Esterase NEG (NEG) Urine RBC 5-9 H (0) /HPF Urine WBC 0 (0-4) /HPF Ur Squamous Epith Cells 1+ /LPF Urine Bacteria NONE /LPF Discharge Plan Discharge Clinical Impression: Bilateral ovarian cysts, Free fluid in pelvis Patient Disposition: Home, Self-Care Instructions: Ovarian Cyst (ED) Additional Instructions: It is suspected that you ruptured an ovarian cyst today in the emergency department. Your blood work was otherwise reassuring. Take Tylenol and Motrin at home for pain. Stay hydrated. Please follow-up with her OBGYN If her symptoms persist or worsen, pain becomes unbearable, persistent nausea or vomiting or develops fever please return to the ED Se sospecha que te rompiste un quiste ov?rico hoy en el departamento de emergencias. Por lo dem?s, dunn an?lisis de juid fue tranquilizador. [place] Tylenol y Motrin en casa para el dolor. Mantente hidratado. Por favor, chata un seguimiento con udnn OBGYN Si сергей s?ntomas persisten o empeoran, el dolor se vuelve insoportable, n?useas o v?mitos persistentes o presenta fiebre, regrese al servicio de urgencias. Prescriptions: No Action tramadol 50 mg tablet 50 mg PO Q8H PRN (Reason: pain) 30 Days Qty: 90 0RF zolpidem 10 mg tablet 10 mg PO BEDTIME PRN (Reason: insomnia) 30 Days Qty: 30 0RF sucralfate [Carafate] 1 gram tablet 1 g PO BID 30 Days Qty: 60 0RF ibuprofen 800 mg tablet 800 mg PO Q8H PRN (Reason: pain) Qty: 14 0RF hydroxyzine HCl 25 mg tablet 12.5 - 25 mg PO TID PRN (Reason: anxiety) 0RF atorvastatin 10 mg tablet 10 mg PO BEDTIME 90 Days Qty: 90 1RF bupropion HCl 300 mg tablet extended release 24 hr 300 mg PO QAM 90 Days Qty: 90 1RF cholecalciferol (vitamin D3) 50 mcg (2,000 unit) capsule 50 mcg PO DAILY 90 Days Qty: 90 3RF cyclobenzaprine 10 mg tablet 10 mg PO Q8H 30 Days Qty: 90 6RF tolterodine 4 mg capsule,extended release 24hr 4 mg PO DAILY 90 Days Qty: 90 2RF senna 8.6 mg capsule 8.6 mg PO BEDTIME PRN (Reason: constipation) 90 Days Qty: 90 2RF pantoprazole 40 mg tablet,delayed release (DR/EC) 40 mg PO DAILY 90 Days Qty: 90 1RF lorazepam 1 mg tablet 0 mg PO 0RF Referrals: Ariel Cevallos MD [Physician] - 5 days Print Language: German
[2021-10-08] MEDS: Morphine Sulfate 2 MG/ML CARTRIDGE IVPUSH (12:15)
[2021-10-08] MEDS: 0.9 % Sodium Chloride 1,000 ML 999 ML IV (12:15)
[2021-10-08 12:23] LABS: MANUAL DIFF FLAG NO
[2021-10-08 12:25] LABS: Basophils Absolute Auto 0.1 X10*3/uL (0.0-0.2); Basophils Percent Auto 0.5 % (0-2); Eosinophils Absolute Auto 0.1 X10*3/uL (0.0-0.4); Eosinophils Percent Auto 1.2 % (0-4); Hematocrit 45.7 % (37.0-47.0); Hemoglobin 14.9 g/dl (12.0-16.0); Imm Gran Abs Auto 0.05 X10*3/uL (0.00-0.03); Imm Gran Pct Auto 0.5 % (0.0-0.4); Lymphocytes Absolute Auto 1.4 X10*3/uL (1.2-4.9); Lymphocytes Percent Auto 12.9 % (20-40); Mean Corpuscular HGB Conc 32.6 g/dl (31.0-35.0); Mean Corpuscular Hemoglobin 28.5 pg (27.0-33.0); Mean Corpuscular Volume 87.4 fL (80.0-98.0); Mean Platelet Volume 10.7 fL (9.4-12.3); Monocytes Absolute Auto 0.5 X10*3/uL (0.1-1.2); Monocytes Percent Auto 4.9 % (2-11); Neutrophils Absolute Auto 8.6 x10*3/uL (2.0-8.3); Platelet Count 253 X10*3/uL (160-400); Red Blood Count 5.23 X10*6/uL (4.20-5.50); Red Cell Distribution Width 13.8 % (11.0-16.0); White Blood Count 10.8 X10*3/uL (4.8-10.8)
[2021-10-08 12:35] VITALS: BP 142/84; PULSE 67; RESP 16; TEMP 37.1; O2SAT 97
[2021-10-08 13:06] LABS: Alanine Aminotransferase 39 U/L (0-31); Albumin Level 4.4 g/dL (3.5-5.0); Alkaline Phosphatase 47 U/L (39-117); Anion Gap 12 (12-20); Aspartate Amino Transferase 27 U/L (5-31); Bilirubin Direct 0.3 mg/dL (0.0-0.5); Bilirubin Total 0.7 mg/dL (0.0-1.0); Blood Urea Nitrogen 11 mg/dL (9-16); Calcium 10.1 mg/dL (8.4-10.2); Carbon Dioxide 24 mmol/L (22-29); Chloride 107 mmol/L (96-108); Creatinine Clr Calc Pharmacy 79.3; Estimated Glomerular Filt Rate > 60; Glucose Random 111 mg/dL (60-115); Lipase 27 U/L (8-78); Magnesium 1.9 mg/dL (1.6-2.6); Potassium 4.6 mmol/L (3.3-5.1); Sodium 138 mmol/L (135-145); Total Protein 7.4 g/dL (6.5-8.0)
[2021-10-08 13:39] LABS: Appearance Urine CLEAR; Color Urine YELLOW; Glucose Urine UA NEG (NEG); Leukocyte Esterase Urine NEG (NEG); Nitrite Urine NEG (NEG); UACC Culture Trigger NO; Urine Blood 1+ (NEG); Urine Ketones NEG (NEG); Urine Protein NEG (NEG-TRACE)
[2021-10-08] MEDS: iohexoL 350 MG/ML 100 ML INFUS..BTL IV (13:39)
[2021-10-08 14:05] LABS: Squamous Epithelial Cell Urine 1+ /LPF; WBC Urine 0 /HPF (0-4)
[2021-10-08 14:22] VITALS: BP 118/70; PULSE 76; RESP 17; TEMP 37.3; O2SAT 97
[2021-10-08 17:06] VITALS: BP 102/66; PULSE 63; RESP 14; TEMP 36.6; O2SAT 97
[2021-10-08] MEDS: Ketorolac Tromethamine 15 MG/ML VIAL IVPUSH (17:08)
--- NOTE | 2021-10-08 17:13 | PC.NURSE ---
Pt alert and oriented x4, calm and cooperative. States 4/10 lower abd pain, received IV pain meds prior to dc. IV removed. Vitals stable. pt ambulating steady on her feet. Educated on dc and stated an understanding. Left in private car without issues.
== END 2021-10-08 17:31 | disposition home or self-care (01) ==
PROVIDERS: Physician Assistant; Emergency Provider Student in an Organized Health Care Education/Training Program; PCP Internal Medicine
DX: N83.202 Unspecified ovarian cyst, left side (principal); N83.201 Unspecified ovarian cyst, right side; R93.5 Abnormal findings on diagnostic imaging of other abdominal regions, including retroperitoneum; K59.00 Constipation, unspecified; F17.210 Nicotine dependence, cigarettes, uncomplicated; Z90.49 Acquired absence of other specified parts of digestive tract; Z90.710 Acquired absence of both cervix and uterus
CPT/HCPCS: 36415; 74177; 76830; 76856; 80048; 80076; 81001; 83690; 83735; 85025; 96361; 96374; 96375; 99284; 99285; J1885; J2270; Q9967

== ENCOUNTER → 2022-01-28 12:32 | Outpatient (BNVA) | payer OTHER, SELFPAY | PROVIDERS: PCP Internal Medicine; Visit Provider Physician Assistant | DX: M17.0 Bilateral primary osteoarthritis of knee (principal) | CPT/HCPCS: 20610; 99212; J1040 ==

== ENCOUNTER → 2022-02-07 12:21 | Outpatient (BNVA) | payer OTHER, SELFPAY | PROVIDERS: PCP Internal Medicine; Visit Provider Internal Medicine Gastroenterology | DX: K92.1 Melena (principal); R10.13 Epigastric pain; K59.01 Slow transit constipation | CPT/HCPCS: 99202 ==

== ENCOUNTER 2022-02-07 12:59 | Outpatient (REF) | payer OTHER, SELFPAY ==
[2022-02-11 11:27] LABS: H Pylori Breath Test Negative (Negative)
== END 2022-02-07 13:00 | disposition home or self-care (01) ==
LOC: HO.LNP 12:59
PROVIDERS: Visit Provider Internal Medicine Gastroenterology
DX: K21.9 Gastro-esophageal reflux disease without esophagitis (principal); K92.1 Melena
CPT/HCPCS: 83013

== ENCOUNTER 2022-03-01 11:21 | Emergency (ER) | payer OTHER, SELFPAY ==
--- NOTE | ~2022-03-01 | US_ITS ---
EXAMINATION: US PELVIS CLINICAL INFORMATION: Sudden onset of left lower quadrant ovarian pain. COMPARISON: Previous dated 10/08/2021 TECHNIQUE: Ultrasound of the pelvis is performed using both transabdominal and transvaginal transducers along with Doppler. Transvaginal imaging is performed due to inadequate visualization transabdominally. FINDINGS: Uterus: The uterus has been removed. Ovaries are not visualized here. There is a small amount of free fluid present. US/US pelvic ovarian doppler IMPRESSION: Uterus has been removed. The ovaries are not visualized here. There is a small amount of free fluid
--- NOTE | ~2022-03-01 | CT_ITS ---
EXAMINATION: CT ABDOMEN AND PELVIS WITHOUT CONTRAST CLINICAL INFORMATION: Quadrant pain with history of stones and blood on urinalysis COMPARISON: 10/08/2021 TECHNIQUE: Multidetector volumetric imaging was performed from the superior aspect of the liver through the pubic symphysis. Sagittal and coronal reformatted images were obtained on the technologist's workstation. This CT examination was performed using dose optimization techniques as appropriate, variously including the following: *Automated exposure control *Adjustment of mA and/or kV according to patient size (this includes techniques or standardized protocols for targeted exams where dose is matched to indication/reason for exam; i.e. extremities or head) *Use of iterative reconstruction technique DLP: 593 mGy-cm FINDINGS: LUNG BASES: Mild right basilar atelectasis/infiltrate LIVER, GALLBLADDER, AND BILIARY TREE: The liver is normal in size, shape, and attenuation. No focal hepatic lesion or biliary ductal dilatation is present. Status post cholecystectomy PANCREAS: Unremarkable. SPLEEN: Unremarkable. ADRENAL GLANDS: Unremarkable. KIDNEYS AND URETERS: Nonhydronephrotic. No stone. BLADDER: Unremarkable. GASTROINTESTINAL TRACT: Abnormal soft tissue stranding adjacent to the proximal to mid sigmoid. This emanates to the pelvic sidewall. Findings would be most consistent with diverticulitis as there are diverticular in the region. Colitis of other etiology would cannot be excluded here. Otherwise the bowel pattern is nonobstructing. ABDOMINAL WALL: No significant hernia is appreciated. LYMPH NODES: Normal. VASCULAR: Unremarkable. PELVIC VISCERA: Unremarkable. OSSEOUS STRUCTURES: Unremarkable. CT/CT abdomen pelvis wo IV con IMPRESSION: Soft tissue stranding around the proximal to mid sigmoid emanating to the left pelvic sidewall and there is a diverticula felt to be present in the region. Findings would be most consistent with diverticulitis. No convincing evidence for drainable collection at this time. Some mild free fluid emanating into the deep pelvis. This may be reactive. Fleischner guidelines were followed.
--- NOTE | ~2022-03-01 | US_ITS ---
Indication: Inadequate exam, unable to see ovaries EXAMINATION: Pelvic ultrasound transabdominal transvaginal. Comparison study same day earlier and CT of 03/01/2022. Again the ovaries are not visualized on this study. There is felt to be a small amount of free fluid present. Patient is status post hysterectomy. US/US pelvic ovarian doppler IMPRESSION: Again the ovaries are not visualized here. If further evaluation of ovarian tissue is warranted recommend pelvic MRI pre and postcontrast
--- NOTE | ~2022-03-01 | US_ITS ---
EXAMINATION: US PELVIS CLINICAL INFORMATION: Sudden onset of left lower quadrant ovarian pain. COMPARISON: Previous dated 10/08/2021 TECHNIQUE: Ultrasound of the pelvis is performed using both transabdominal and transvaginal transducers along with Doppler. Transvaginal imaging is performed due to inadequate visualization transabdominally. FINDINGS: Uterus: The uterus has been removed. Ovaries are not visualized here. There is a small amount of free fluid present. US/US pelvic and transvaginal IMPRESSION: Uterus has been removed. The ovaries are not visualized here. There is a small amount of free fluid
[2022-03-01 12:25] VITALS: BP 130/64; PULSE 86; RESP 16; TEMP 36.4; O2SAT 98; BMI 31.8
[2022-03-01 12:45] LABS: Appearance Urine Clear; Color Urine Dark Yellow; Glucose Urine UA Negative (Negative); Leukocyte Esterase Urine Trace (Negative); Nitrite Urine Negative (Negative); PH 5.5 (5.0-9.0); Specific Gravity - Urine >= 1.030 (1.005-1.025); UMIC TRIGGER UACC YES; Urine Blood Moderate (2+) (Negative); Urine Ketones Trace mg/dL (Negative); Urine Protein Trace mg/dL (Neg-Trace)
[2022-03-01 12:48] LABS: UPreg QC Valid YES; Urine Pregnancy NEGATIVE (NEGATIVE)
[2022-03-01 12:50] LABS: Bacteria Urine None Seen (None Seen); Hyaline Casts Urine 0-2 /LPF (0-2); Squamous Epithelial Cell Urine 0-2 /HPF (0-2); WBC Urine 0-5 /HPF (0-5)
--- NOTE | 2022-03-01 13:22 | PC.NURSE ---
PT EATING CHIPS/DRINKING SODA IN WR
[2022-03-01] MEDS: ondansetron HCL 4 MG/2 ML VIAL IVPUSH (13:39)
[2022-03-01] MEDS: Morphine Sulfate 4 MG/ML CARTRIDGE IVPUSH (13:39)
--- NOTE | 2022-03-01 13:46 | ED_ITS ---
HPI - Abdominal Pain General Chief Complaint: Abdominal Pain Stated Complaint: lower abd pain l side Time Seen by Provider: 03/01/22 13:22 Source: patient Mode of arrival: ambulatory Limitations: no limitations History of Present Illness HPI narrative: 51-year-old female with a past medical history of depression, diverticulitis, GERD, renal stones, polyarthralgia, hyperlipidemia, status post RUBÉN, cholecystectomy and ovarian cyst with rupture presenting to the ER with complaints of sudden onset of left lower quadrant/suprapubic abdominal pain since yesterday. Reports associated subjective fevers. Denies any measured fevers, dizziness, headaches, neck pain/stiffness, trouble swallowing or breathing, sore throat, cough, nausea/vomiting/diarrhea constipation, black or bloody stools, flank pain, back pain, dysuria, hematuria, abnormal vaginal discharge, thoughts of STDs, rashes, recent falls or trauma, or any other symptoms complaints or concerns at this time. MD elicited complaint: abdominal pain Pertinent past history: other (Ovarian cyst with rupture) Onset (ago): day(s) (Since yesterday worse today) Pain Consistency: constant Location: LLQ and suprapubic Severity: severe Pain scale (0-10): 10 Quality: cramping, stabbing, aching and sharp Radiation: none Migration to: no migration Exacerbating factors: other (Palpation) Relieving factors: nothing Associated symptoms: denies other symptoms Related Data Home Medications Medication Instructions Recorded Confirmed hydroxyzine HCl 25 mg tablet 12.5 - 25 mg PO TID PRN anxiety 02/19/21 12/31/21 lorazepam 1 mg tablet 0 mg PO 04/26/21 12/31/21 Previous Rx's Medication Instructions Recorded cholecalciferol (vitamin D3) 50 50 mcg PO DAILY 90 days #90 caps 07/10/21 mcg (2,000 unit) capsule cyclobenzaprine 10 mg tablet 10 mg PO Q8H 30 days #90 tabs 07/10/21 sennosides 8.6 mg capsule (senna) 8.6 mg PO BEDTIME PRN constipation 07/10/21 90 days #90 caps tolterodine 4 mg capsule,extended 4 mg PO DAILY 90 days #90 caps 07/10/21 release 24 hr ibuprofen 800 mg tablet 800 mg PO Q8H PRN pain #14 tabs 05/23/22 sucralfate 1 gram tablet (Carafate) 1 g PO BID 30 days #60 tabs 01/01/22 amitriptyline 25 mg tablet 25 mg PO BEDTIME 90 days #90 tabs 01/03/22 atorvastatin 10 mg tablet 10 mg PO BEDTIME 90 days #90 tabs 01/21/22 pantoprazole 40 mg tablet,delayed 40 mg PO DAILY 90 days #90 tabs 01/21/22 release tramadol 50 mg tablet 50 mg PO Q8H PRN pain 30 days #90 01/25/22 tabs zolpidem 10 mg tablet 10 mg PO BEDTIME PRN insomnia 30 01/25/22 days #30 tabs peg-electrolyte solution 420 gram 240 ml PO Q10M #4,000 mL 02/07/22 oral solution (GaviLyte-N) levofloxacin 750 mg tablet 750 mg PO DAILY Diverticulitis 7 03/01/22 days #7 tabs metronidazole 500 mg tablet 500 mg PO TID Diverticulitis 7 03/01/22 days #21 tabs oxycodone 5 mg tablet 5 mg PO Q6H PRN pain #14 tabs 03/01/22 Allergies Allergy/AdvReac Type Severity Reaction Status Date / Time trazodone Allergy Intermediate Insomnia Verified 01/28/22 12:52 Review of Systems Review of Systems Constitutional : No Weight loss, No Fever, No Chills, No Night Sweats, No Fatigue, No Malaise ENT/Mouth : No Hearing loss, No Ear Pain, No Nasal Congestion, No Sinus Pain, No Hoarseness, No sore throat, No Rhinorrhea, No Swallowing Difficulty Eyes: No Eye Pain, No Swelling, No Redness, No Foreign Body, No Discharge, No Vision Changes Cardiovascular : No Chest Pain, No SOB, No Dyspnea on Exertion, No Orthopnea, No Edema, No Palpitations Respiratory : No Cough, No Sputum, No Wheezing, No Smoke Exposure, No Dyspnea Gastrointestinal : + llq abd pain, No Nausea, No Vomiting, No Diarrhea, No Constipation, No Hematochezia, No Melena Genitourinary : no irregular bleeding, No Dysuria, No Urinary Frequency, No Hematuria, No Urinary Incontinence, No Urgency, No Flank Pain, No Urinary Flow Changes, No Hesitancy Musculoskeletal : No joint pain, No Myalgias, No Joint Swelling Skin : No Skin Lesions, No rash Neuro : No Weakness, No Numbness, No Paresthesias, No Loss of Consciousness, No Dizziness, No Headache Psych : No Anxiety/Panic, No Depression, No SI/HI/AH/VH, No Social Issues, Heme/Lymph: No Bruising, No Bleeding,No Lymphadenopathy Endocrine : No Polyuria, No Polydipsia, No Temperature Intolerance Yes all other systems are reviewed and are negative FOR[facility]LY [facility] Past Medical History Attestation statement: The following information was validated with the patient. Source: old records reviewed and nursing notes reviewed Medical History Arnold-Chiari malformation Bloody stools Depression Diverticulitis Epigastric pain GERD (gastroesophageal reflux disease) History of renal calculi Hypovitaminosis D Insomnia Kidney stone Knee pain Knee pain, left Left hip pain Mild recurrent major depression Obese Polyarthralgia Pure hypercholesterolemia Right hip pain Surgical History History of cholecystectomy History of cryosurgery S/P RUBÉN (total abdominal hysterectomy) Family History Family History Father Diabetes Hypertension Mother Cancer Breast cancer Maternal Grandmother Stroke Maternal Grandfather Cancer Esophageal cancer Paternal Grandfather Cancer Maternal Uncle Cancer Brain cancer Sister Breast cancer Social History Social History Housing: House Alcohol intake: never Patient Tobacco Use Status: Current everyday Tobacco user Tobacco use type: Cigarette Cigarettes Per Day: 7 Years Smoked: 20 e-Cigarette/Vaping Use: Never Used Second Hand Smoke Exposure: No Advance Directives: No Advance Directives Information Provided: Yes service: No Current occupational status: employed 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 Oriented X3. No acute distress. Head: Normal external exam. Normocephalic. Eyes: PERRLA. EOMI. Conjunctiva and sclera normal. Eyelids normal. ENT: Pharynx normal. Uvula midline. Moist mucous membranes. No trismus noted. No drooling noted. No muffled voice noted. Neck: Normal inspection. Neck supple. FROM. No adenopathy. No meningeal signs. CVS: Normal heart rate and rhythm. Heart sound normal. No murmurs noted. Pulses normal throughout. Respiratory: No respiratory distress. Painless inspiration. Breath sounds normal. No wheezes/rales/rhonchi noted. Chest nontender. No accessory muscle usage noted or decreased air movement noted. Abdomen: Soft and moderate tenderness palpation to the left lower quadrant/right lower quadrant/suprapubic area with guarding. Nondistended. No rigidity. Bowel sounds normal in all 4 quadrants. No distention noted. No organomegaly noted. No visible injury noted. No rebound tenderness. Negative Rovsing sign. Neg ative obturator's sign. Negative psoas sign. Negative Bello sign. Back: No CVA tenderness. Full range of motion noted. Skin: Skin warm and dry. Normal skin color. Normal skin turgor. No rashes /lesions/lacerations noted. Extremities: Extremities exhibit normal range of motion. Extremities nontender. Neuro: Oriented X 3. No motor deficit. No sensory deficit. Reflexes normal. Normal steady gait. CN's II-XII intact bilaterally? Course Course Course Narrative: 13:30pm - 51-year-old female with a past medical history of depression, diverticulitis, GERD, renal stones, polyarthralgia, hyperlipidemia, status post RUBÉN, cholecystectomy and ovarian cyst with rupture presenting to the ER with complaints of sudden onset of left lower quadrant/suprapubic abdominal pain since yesterday. Reports associated subjective fevers. Plan: Will obtain labs, UA, UHCG, CT scan abdomen pelvis with IV contrast, ovarian/transvaginal/pelvic ultrasound. Provide 4 mg of Zofran and 4 mg of morphine and re-evaluate. Reevaluation(s) Reevaluation #1: - labs reviewed patient with leukocytosis of 11.4. - carbon dioxide 30. Otherwise all other labs are within normal limits. - UA revealed blood and trace of leukocytes. Urine negative. - transvaginal/ovarian ultrasound revealed uterus has been removed. The ovaries are not visualized here. There is small amount of free fluid. - therefore repeat ultrasound ordered at this time. - still pending CT scan of abdomen pelvis with IV contrast Time: 15:10 Reevaluation #2: CT scan abdomen pelvis revealed diverticulitis without perforation or evidence of an abscess. Ultrasound unable to evaluate or visualize ovaries although patient with diverticulitis elevated white blood cell count and left lower quadrant abdominal pain most likely this is not ovarian torsion this is diverticulitis. I explained to the patient that we will send her home antibiotics and symptomatic treatment instructions return if any new or worsening symptoms follow up with primary care provider. Patient understands ag sebastián with this plan. Time: 17:11 MDM - Abdominal Pain Medical Records Attestation: I reviewed the patient's medical records. Lab Data Attestation: I reviewed the patient's lab results. Result diagrams: 03/01/22 14:39 03/01/22 14:39 Labs: Lab Results 03/01/22 03/01/22 03/01/22 Range/Units 12:36 12:36 14:39 WBC 11.4 H (4.8-10.8) X10*3/uL RBC 5.04 (4.20-5.50) X10*6/uL Hgb 14.4 (12.0-16.0) g/dl Hct 43.9 (37.0-47.0) % MCV 87.1 (80.0-98.0) fL MCH 28.6 (27.0-33.0) pg MCHC 32.8 (31.0-35.0) g/dl RDW 14.4 (11.0-16.0) % Plt Count 218 (160-400) X10*3/uL MPV 10.6 (9.4-12.3) fL Immature Gran % (Auto) 0.3 (0.0-0.4) % Neut % (Auto) 70.6 (45-73) % Lymph % (Auto) 20.4 (20-40) % Cowley % (Auto) 7.3 (2-11) % Eos % (Auto) 1.0 (0-4) % Baso % (Auto) 0.4 (0-2) % Lymph # (Auto) 2.3 (1.2-4.9) X10*3/uL Cowley # (Auto) 0.8 (0.1-1.2) X10*3/uL Eos # (Auto) 0.1 (0.0-0.4) X10*3/uL Baso # (Auto) 0.1 (0.0-0.2) X10*3/uL Abs Immat Gran (auto) 0.03 (0.00-0.03) X10*3/uL Absolute Neuts (auto) 8.1 (2.0-8.3) x10*3/uL Absolute Nucleated RBC 0.000 (0.0-0.012) X10*3/uL Nucleated RBC % (auto) 0.0 (0.0-0.2) /100WBC Sodium (135-145) mmol/L Potassium (3.3-5.1) mmol/L Chloride (96-108) mmol/L Carbon Dioxide (22-29) mmol/L Anion Gap (12-20) BUN (9-16) mg/dL Creatinine (0.5-1.4) mg/dL Estim Creat Clear Calc Estimated GFR Random Glucose (60-115) mg/dL Calcium (8.4-10.2) mg/dL Total Bilirubin (0.0-1.0) mg/dL AST (5-31) U/L ALT (0-31) U/L Alkaline Phosphatase (39-117) U/L Total Protein (6.5-8.0) g/dL Albumin (3.5-5.0) g/dL Urine Color Dark Yellow Urine Appearance Clear Urine pH 5.5 (5.0-9.0) Ur Specific Rio >= 1.030 H (1.005-1.025) Urine Protein Trace (Neg-Trace) mg/dL Urine Glucose (UA) Negative (Negative) mg/dL Urine Ketones Trace (Negative) mg/dL Urine Blood Moderate (2+) H (Negative) Urine Nitrite Negative (Negative) Ur Leukocyte Esterase Trace H (Negative) Urine RBC 11-20 H (0-2) /HPF Urine WBC 0-5 (0-5) /HPF Ur Squamous Epith Cells 0-2 (0-2) /HPF Urine Bacteria None Seen (None Seen) Hyaline Casts 0-2 (0-2) /LPF Urine Test NEGATIVE (NEGATIVE) 03/01/22 Range/Units 14:39 WBC (4.8-10.8) X10*3/uL RBC (4.20-5.50) X10*6/uL Hgb (12.0-16.0) g/dl Hct (37.0-47.0) % MCV (80.0-98.0) fL MCH (27.0-33.0) pg MCHC (31.0-35.0) g/dl RDW (11.0-16.0) % Plt Count (160-400) X10*3/uL MPV (9.4-12.3) fL Immature Gran % (Auto) (0.0-0.4) % Neut % (Auto) (45-73) % Lymph % (Auto) (20-40) % Cowley % (Auto) (2-11) % Eos % (Auto) (0-4) % Baso % (Auto) (0-2) % Lymph # (Auto) (1.2-4.9) X10*3/uL Cowley # (Auto) (0.1-1.2) X10*3/uL Eos # (Auto) (0.0-0.4) X10*3/uL Baso # (Auto) (0.0-0.2) X10*3/uL Abs Immat Gran (auto) (0.00-0.03) X10*3/uL Absolute Neuts (auto) (2.0-8.3) x10*3/uL Absolute Nucleated RBC (0.0-0.012) X10*3/uL Nucleated RBC % (auto) (0.0-0.2) /100WBC Sodium 141 (135-145) mmol/L Potassium 4.0 (3.3-5.1) mmol/L Chloride 102 (96-108) mmol/L Carbon Dioxide 30 H (22-29) mmol/L Anion Gap 13 (12-20) BUN 14 (9-16) mg/dL Creatinine 0.90 (0.5-1.4) mg/dL Estim Creat Clear Calc 75.7 Estimated GFR > 60 Random Glucose 91 (60-115) mg/dL Calcium 9.5 (8.4-10.2) mg/dL Total Bilirubin 0.8 (0.0-1.0) mg/dL AST 21 (5-31) U/L ALT 28 (0-31) U/L Alkaline Phosphatase 53 (39-117) U/L Total Protein 7.1 (6.5-8.0) g/dL Albumin 4.2 (3.5-5.0) g/dL Urine Color Urine Appearance Urine pH (5.0-9.0) Ur Specific Rio (1.005-1.025) Urine Protein (Neg-Trace) mg/dL Urine Glucose (UA) (Negative) mg/dL Urine Ketones (Negative) mg/dL Urine Blood (Negative) Urine Nitrite (Negative) Ur Leukocyte Esterase (Negative) Urine RBC (0-2) /HPF Urine WBC (0-5) /HPF Ur Squamous Epith Cells (0-2) /HPF Urine Bacteria (None Seen) Hyaline Casts (0-2) /LPF Urine Test (NEGATIVE) Imaging Data Ovarian/transvaginal/pelvis ultrasound: Attestation: I personally reviewed and interpreted this imaging study as follows: Radiologist's impression: FINDINGS: Uterus: The uterus has been removed. Ovaries are not visualized here. There is a small amount of free fluid present. US/US pelvic and transvaginal IMPRESSION: Uterus has been removed. The ovaries are not visualized here. There is a small amount of free fluid CT scan abdomen pelvis without IV contrast: Attestation: I personally reviewed and interpreted this imaging study as follows: Radiologist's impression: FINDINGS: LUNG BASES: Mild right basilar atelectasis/infiltrate? LIVER, GALLBLADDER, AND BILIARY TREE: The liver is normal in size, shape, and attenuation. No focal hepatic lesion or biliary ductal dilatation is present. Status post cholecystectomy? PANCREAS: Unremarkable.? SPLEEN: Unremarkable.? ADRENAL GLANDS: Unremarkable.? KIDNEYS AND URETERS: Nonhydronephrotic. No stone.? BLADDER: Unremarkable.? GASTROINTESTINAL TRACT: Abnormal soft tissue stranding adjacent to the proximal to mid sigmoid. This emanates to the pelvic sidewall. Findings would be most consistent with diverticulitis as there are diverticular in the region. Colitis of other etiology would cannot be excluded here. Otherwise the bowel pattern is nonobstructing. ABDOMINAL WALL: No significant hernia is appreciated.? LYMPH NODES: Normal. VASCULAR: Unremarkable. PELVIC VISCERA: Unremarkable.? OSSEOUS STRUCTURES: Unremarkable.? CT/CT abdomen pelvis wo IV con IMPRESSION: Soft tissue stranding around the proximal to mid sigmoid emanating to the left pelvic sidewall and there is a diverticula felt to be present in the region. Findings would be most consistent with diverticulitis. No convincing evidence for drainable collection at this time. Some mild free fluid emanating into the deep pelvis. This may be reactive.? ? Fleischner guidelines were followed. Repeat ovarian ultrasound: Attestation: I personally reviewed and interpreted this imaging study as follows: Radiologist's impression: ndication: Inadequate exam, unable to see ovaries EXAMINATION: Pelvic ultrasound transabdominal transvaginal. Comparison study same day earlier and CT of 03/01/2022. Again the ovaries are not visualized on this study. There is felt to be a small amount of free fluid present. Patient is status post hysterectomy. US/US pelvic ovarian doppler IMPRESSION: Again the ovaries are not visualized here. If further evaluation of ovarian tissue is warranted recommend pelvic MRI pre and postcontrast Critical Care Time Critical Care Time Critical Care Time: Yes Total Critical Care Time: 60 Attestation: I personally attest to this time spent taking care of the patient Discharge Plan Discharge Clinical Impression: Diverticulitis Patient Disposition: Home, Self-Care Instructions: Diverticulitis (ED), Diverticulitis Diet (ED) Prescriptions: New levofloxacin 750 mg tablet 750 mg PO DAILY 7 Days Qty: 7 0RF metronidazole 500 mg tablet 500 mg PO TID 7 Days Qty: 21 0RF oxycodone 5 mg tablet 5 mg PO Q6H PRN (Reason: pain) Qty: 14 0RF Rx Instructions: Partial Fill upon patient request. No Action ibuprofen 800 mg tablet 800 mg PO Q8H PRN (Reason: pain) Qty: 14 0RF sucralfate [Carafate] 1 gram tablet 1 g PO BID 30 Days Qty: 60 0RF amitriptyline 25 mg tablet 25 mg PO BEDTIME 90 Days Qty: 90 1RF atorvastatin 10 mg tablet 10 mg PO BEDTIME 90 Days Qty: 90 1RF pantoprazole 40 mg tablet,delayed release (DR/EC) 40 mg PO DAILY 90 Days Qty: 90 1RF tramadol 50 mg tablet 50 mg PO Q8H PRN (Reason: pain) 30 Days Qty: 90 0RF zolpidem 10 mg tablet 10 mg PO BEDTIME PRN (Reason: insomnia) 30 Days Qty: 30 0RF hydroxyzine HCl 25 mg tablet 12.5 - 25 mg PO TID PRN (Reason: anxiety) cholecalciferol (vitamin D3) 50 mcg (2,000 unit) capsule 50 mcg PO DAILY 90 Days Qty: 90 3RF cyclobenzaprine 10 mg tablet 10 mg PO Q8H 30 Days Qty: 90 6RF tolterodine 4 mg capsule,extended release 24hr 4 mg PO DAILY 90 Days Qty: 90 2RF senna 8.6 mg capsule 8.6 mg PO BEDTIME PRN (Reason: constipation) 90 Days Qty: 90 2RF lorazepam 1 mg tablet 0 mg PO peg-electrolyte soln [GaviLyte-N] 420 gram recon soln 240 ml PO Q10M Qty: 4000 0RF Rx Instructions: until fecal effluent is clear Referrals: Lopez Herrera MD [Physician] - (Call to make a follow-up appointment within the next few weeks) Jayna Rodriguez MD [Primary Care Provider] - 2 days Print Language: Albanian
[2022-03-01 14:44] LABS: MANUAL DIFF FLAG NO
[2022-03-01 14:49] LABS: Basophils Absolute Auto 0.1 X10*3/uL (0.0-0.2); Basophils Percent Auto 0.4 % (0-2); Eosinophils Absolute Auto 0.1 X10*3/uL (0.0-0.4); Hematocrit 43.9 % (37.0-47.0); Hemoglobin 14.4 g/dl (12.0-16.0); Imm Gran Abs Auto 0.03 X10*3/uL (0.00-0.03); Imm Gran Pct Auto 0.3 % (0.0-0.4); Lymphocytes Absolute Auto 2.3 X10*3/uL (1.2-4.9); Lymphocytes Percent Auto 20.4 % (20-40); Mean Corpuscular HGB Conc 32.8 g/dl (31.0-35.0); Mean Corpuscular Hemoglobin 28.6 pg (27.0-33.0); Mean Corpuscular Volume 87.1 fL (80.0-98.0); Mean Platelet Volume 10.6 fL (9.4-12.3); Monocytes Absolute Auto 0.8 X10*3/uL (0.1-1.2); Monocytes Percent Auto 7.3 % (2-11); Neutrophils Absolute Auto 8.1 x10*3/uL (2.0-8.3); Neutrophils Percent Auto 70.6 % (45-73); Platelet Count 218 X10*3/uL (160-400); Red Blood Count 5.04 X10*6/uL (4.20-5.50); Red Cell Distribution Width 14.4 % (11.0-16.0); White Blood Count 11.4 X10*3/uL (4.8-10.8)
[2022-03-01 15:13] LABS: Alanine Aminotransferase 28 U/L (0-31); Albumin Level 4.2 g/dL (3.5-5.0); Alkaline Phosphatase 53 U/L (39-117); Anion Gap 13 (12-20); Aspartate Amino Transferase 21 U/L (5-31); Bilirubin Total 0.8 mg/dL (0.0-1.0); Blood Urea Nitrogen 14 mg/dL (9-16); Calcium 9.5 mg/dL (8.4-10.2); Carbon Dioxide 30 mmol/L (22-29); Chloride 102 mmol/L (96-108); Creatinine Clr Calc Pharmacy 75.7; Estimated Glomerular Filt Rate > 60; Glucose Random 91 mg/dL (60-115); Sodium 141 mmol/L (135-145); Total Protein 7.1 g/dL (6.5-8.0)
[2022-03-01] MEDS: Ketorolac Tromethamine 30 MG/ML VIAL IVPUSH (16:30)
== END 2022-03-01 17:27 | disposition home or self-care (01) ==
PROVIDERS: Emergency Provider Internal Medicine; PCP Internal Medicine
DX: K57.32 Diverticulitis of large intestine without perforation or abscess without bleeding (principal); R10.32 Left lower quadrant pain; E78.00 Pure hypercholesterolemia, unspecified; F17.210 Nicotine dependence, cigarettes, uncomplicated; Z90.49 Acquired absence of other specified parts of digestive tract; Z90.710 Acquired absence of both cervix and uterus; Z79.02 Long term (current) use of antithrombotics/antiplatelets; Z79.899 Other long term (current) drug therapy
CPT/HCPCS: 36415; 74176; 76830; 76856; 80053; 81001; 81025; 85025; 93975; 96374; 96375; 99283; 99284; J1885; J2270; J2405

== ENCOUNTER → 2022-03-06 07:39 | Outpatient (BNVA) | payer OTHER, SELFPAY | PROVIDERS: PCP Internal Medicine; Referring Provider Internal Medicine; Visit Provider Physician Assistant | DX: K57.92 Diverticulitis of intestine, part unspecified, without perforation or abscess without bleeding (principal) | CPT/HCPCS: 99212 ==

== ENCOUNTER 2022-04-28 08:08 | Outpatient (REF) | payer OTHER, SELFPAY ==
[2022-04-28 09:30] LABS: Alanine Aminotransferase 21 U/L (0-31); Albumin Level 4.3 g/dL (3.5-5.0); Alkaline Phosphatase 45 U/L (39-117); Anion Gap 14 (12-20); Aspartate Amino Transferase 20 U/L (5-31); Blood Urea Nitrogen 13 mg/dL (9-16); Calcium 9.7 mg/dL (8.4-10.2); Carbon Dioxide 25 mmol/L (22-29); Chloride 105 mmol/L (96-108); Cholesterol 222 mg/dL; Estimated Glomerular Filt Rate > 60; Glucose Fasting 108 mg/dL (60-99); HDL Cholesterol 48 mg/dL; LDL Cholesterol Calculated 154 mg/dl; Potassium 4.2 mmol/L (3.3-5.1); Sodium 140 mmol/L (135-145); Total Protein 7.1 g/dL (6.5-8.0); Triglycerides 101 mg/dL
[2022-04-28 10:34] LABS: Vitamin D 25-OH Total 23.3 ng/mL (>30)
== END 2022-04-28 08:09 | disposition home or self-care (01) ==
LOC: HO.LAB 08:08
PROVIDERS: PCP Internal Medicine; Visit Provider Internal Medicine
DX: E55.9 Vitamin D deficiency, unspecified (principal); E78.5 Hyperlipidemia, unspecified; E78.00 Pure hypercholesterolemia, unspecified
CPT/HCPCS: 36415; 80053; 80061; 82306

== ENCOUNTER 2022-05-13 07:54 | Day surgery (SDC) | payer OTHER, SELFPAY ==
[2022-05-02 13:37] VITALS: BMI 31.8
--- NOTE | 2022-05-12 10:56 | HO.ANESPROP2 ---
Documented by User: Breanne Graves NP 05/12/22 10:57 HPI - Anesthesia Eval Consult details Narrative: 51yo F for Upper Endoscopy and Colonoscopy PMFSH Active Problems Active Problems: All Active Problems (Updated 05/06/22 @ 13:57 by Jayna Chaudhry MD) Lumbar pain (Acute) Physical exam (Acute) Bartholin cyst (Acute) Fibromyalgia (Acute) Knee pain (Acute) Osteoarthritis of both knees (Acute) Diverticulitis (Acute) Mild recurrent major depression (Acute) Bloody stools (Acute) Epigastric pain (Acute) Right hip pain (Acute) Left hip pain (Acute) Depression (Acute) Obese (Acute) Knee pain, left (Acute) Hypovitaminosis D (Acute) Pure hypercholesterolemia (Acute) Insomnia (Acute) Arnold-Chiari malformation (Acute) GERD (gastroesophageal reflux disease) (Acute) Polyarthralgia (Acute) Past Medical History Medical History Arnold-Chiari malformation Bloody stools Depression Diverticulitis Epigastric pain GERD (gastroesophageal reflux disease) History of renal calculi Hypovitaminosis D Insomnia Kidney stone Knee pain, left Left hip pain Mild recurrent major depression Obese Polyarthralgia Pure hypercholesterolemia Right hip pain Family History Family History Father Diabetes Hypertension Cancer, Onset Age: 78 Mother Cancer Breast cancer Maternal Grandmother Stroke Maternal Grandfather Cancer Esophageal cancer Paternal Grandfather Cancer Maternal Uncle Cancer Brain cancer Sister Breast cancer Surgical History Surgical History H/O colonoscopy History of cholecystectomy History of cryosurgery Hx of cystoscopy S/P RUBÉN (total abdominal hysterectomy) Social History Social History Household Members Other:: Housing: House Alcohol intake: never Patient Tobacco Use Status: Current everyday Tobacco user Tobacco use type: Cigarette Cigarettes Per Day: 6 Years Smoked: 20 e-Cigarette/Vaping Use: Never Used Date Education Initiated: 05/13/22 Second Hand Smoke Exposure: No Use of substances other than those prescribed or required for medical reasons: No Are you DNR?: No Advance Directives: No Advance Directives Information Provided: Yes service: No Current occupational status: employed 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 Current occupational exposures/hazards: No Cognitive needs: No Hearing needs: No Vision needs: No Meds Allergies Allergy/AdvReac Type Severity Reaction Status Date / Time trazodone Allergy Intermediate Insomnia Verified 05/06/22 13:21 Exam Exam Date and Time: May 12, 2022 1056 Height,Weight and Vital Signs: Height 5 ft 3 in Weight 81.647 kg Pertinent Lab Results Pertinent Lab Results: Laboratory Tests 03/01/22 04/28/22 14:39 08:19 WBC 11.4 H Hgb 14.4 Hct 43.9 Plt Count 218 Sodium 140 Potassium 4.2 Chloride 105 Carbon Dioxide 25 BUN 13 Creatinine 0.90 Assessment and Plan Assessment Anesthesia Assessment: Chart Reviewed Documented by User: Bautista Pollack MD 05/13/22 09:39 [facility] Past Medical History Medical History Arnold-Chiari malformation Bloody stools Depression Diverticulitis Epigastric pain GERD (gastroesophageal reflux disease) History of renal calculi Hypovitaminosis D Insomnia Kidney stone Knee pain, left Left hip pain Mild recurrent major depression Obese Polyarthralgia Pure hypercholesterolemia Right hip pain Family History Family History Father Diabetes Hypertension Cancer, Onset Age: 78 Mother Cancer Breast cancer Maternal Grandmother Stroke Maternal Grandfather Cancer Esophageal cancer Paternal Grandfather Cancer Maternal Uncle Cancer Brain cancer Sister Breast cancer Family history of problems with anesthesia: No Surgical History Surgical History H/O colonoscopy History of cholecystectomy History of cryosurgery Hx of cystoscopy S/P RUBÉN (total abdominal hysterectomy) History of Problems with Anesthesia: No Social History Social History Household Members Other:: Housing: House Alcohol intake: never Patient Tobacco Use Status: Current everyday Tobacco user Tobacco use type: Cigarette Cigarettes Per Day: 6 Years Smoked: 20 e-Cigarette/Vaping Use: Never Used Date Education Initiated: 05/13/22 Second Hand Smoke Exposure: No Use of substances other than those prescribed or required for medical reasons: No Are you DNR?: No Advance Directives: No Advance Directives Information Provided: Yes service: No 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 occupational status: employed 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 Current occupational exposures/hazards: No Cognitive needs: No Hearing needs: No Vision needs: No Meds Allergies Allergy/AdvReac Type Severity Reaction Status Date / Time trazodone Allergy Intermediate Insomnia Verified 05/06/22 13:21 Exam Airway Mallampati Class: II TM Dist: >3cm Neck ROM: Full Loose/Missing/Broken Teeth: No Heart: [id number] Lungs: cta b/l Assessment and Plan Assessment Anesthesia Assessment: Anesthesia Plan Discussed Final Anesthetic Review Family History of Problems with Anesthesia: No History of Problems with Anesthesia: No NPO: Yes ASA Class: II Final Preanesthetic Review: No Changes in Pt Med Stat, Meds/Allgs Chart Reviewed, Consent Obtained/Reviewed and Anes Risks/Benef Reviewed Patient Risk: Intermediate Procedure Risk: Intermediate Assessment/Block/Sedation in SS: Assess/Block/Sedation-SS Anesthetic Plan Anesthetic Plan: MAC: and Agree w/ Assess. and Plan Disposition: Standard PACU
[2022-05-13 08:24] VITALS: BMI 31.8
[2022-05-13] MEDS: Lactated Ringers 1,000 ML 100 ML IVCONT (09:00)
[2022-05-13 09:04] VITALS: BP 119/65; PULSE 69; RESP 16; TEMP 37.1; O2SAT 95
--- NOTE | 2022-05-13 09:14 | P.HPSUR_ITS ---
Pre-Procedural Eval Section A Date of Service: 05/13/22 Section B Chief Complaint: Epigastric pain,reflux disease Details of Present Illness: hx of diverticulitis Relevant Family History (Specify if Yes): No Relevant Social History: Tobacco Use Present Medications: see Short Stay Collaborative assessment Medical History: Significant History (Arnold-Chiari malformation Bloody stools Depression Diverticulitis Epigastric pain GERD (gastroesophageal reflux disease) History of renal calculi Hypovitaminosis D Insomnia Kidney stone Knee pain, left Left hip pain Mild recurrent major depression Obese Polyarthralgia Pure hypercholesterolemia Righ) History of Previous Operations: Relevant previous surgery/procedure and date(s) (H/O colonoscopy History of cholecystectomy History of cryosurgery Hx of cystoscopy S/P RUBÉN (total abdominal hysterectomy)) Allergies: Allergies Allergy/AdvReac Type Severity Reaction Status Date / Time trazodone Allergy Intermediate Insomnia Verified 05/06/22 13:21 Review of Systems Sugical H&P ROS: Negative: Constitution, Cardiovascular, Respiratory, Neurological, Psychiatric, Hem-Onc, Allergic/Immunologic, Gastrointestinal, Genitourinary, Musculoskeletal, Integumentary, Endocrine and Eyes/Ears/Nose/Thro at Exam Surgical H&P Exam: Normal: HEENT, Normal: Heart, Normal: Lungs, Normal: Extremities, Normal: Abdomen, Normal: Skin and Normal: Neurological Plan Diagnosis/Plan: Unchanged I have reviewed the history and physical and performed a pertinent physical examination on my patient. No changes have occurred unless specified.
--- NOTE | 2022-05-13 09:16 | P.OP_ITS ---
Operative Note Operative Note Date of Service: 05/13/22 Narrative: Operative Information Procedure Description: EGD, Colonoscopy Indication: reflux, hx of diverticulitis Anesthesia: MAC FLEXIBLE TRANSORAL UPPER GASTROINTESTINAL ENDOSCOPY AND COLONOSCOPY PROCEDURE NOTE UPPER ENDOSCOPY Consent: Indications for the procedure and potential complications of bleeding, perforation, reaction to medications and missed diagnosis were discussed with the patient and informed consent was obtained. Instrument: Olympus GIF H 190 J mid size upper endoscope Monitoring: Vital signs and clinical assessment, continuous EKG monitoring, Pulse oximetry, Carbon Dioxide monitoring and blood pressure monitoring were done throughout the procedure. Procedure: The patient was placed in the left lateral decubitis position and pre-procedure medications were administered and a bite block was placed. The endoscope was inserted into the mouth and advanced under direct vision to the third part of duodenum. A careful inspection was made as the upper endoscope was withdrawn including a retroflexed examination of the proximal stomach; Findings and interventions are described below. Findings: Larynx:normal Esophagus: GE junction at 37 cm, diaphragm hiatus at 37 cm, bogginess and erythema at GEJ bx taken as well as from distal esophagus Stomach: Patchy erythema with few scattered erosions. Biopsies were obtained. Grade 2 flap valve on retroflexed examination of the cardia. Duodenum: Normal bulb and descending duodenum, Intervention: Biopsies as noted above COLONOSCOPY Instrument: Olympus variable stiffness pediatric scope 190L Colonoscopy Monitoring: Vital signs and clinical assessment, continuous EKG monitoring, Pulse oximetry, Carbon Dioxide monitoring and blood pressure monitoring were done throughout the procedure. Colon withdrawal time was 10 minutes. Procedure: The patient was placed in the left lateral decubitis position and pre-procedure medications were administered. After a digital rectal examination of the ano-rectum, the video colonoscope was inserted into the rectum and advanced through the colon to the cecum/TI. The colonoscope was slowly withdrawn in a retrograde panoramic fashion and the colon mucosa was carefully examined including a retroflexed view of the rectum. Findings and interventions are described below. Procedure Difficulty: easy Findings: Terminal Ileum-normal Cecum:normal Ascending Colon: 10 mm sessile polyp removed with cold forceps Transverse Colon -normal Descending Colon:normal Sigmoid Colon: moderate diverticulosis with luminal hypertrophy Rectum: Retroflexion with small inflammed internal hemorrhoids, grade I Anorectum - normal Colon preparation: [place] Bowel Preparation Scale Right colon; 3 Transverse colon: 2 Left colon; 2 (0 = Unprepared colon segment with mucosa not seen due to solid stool that cannot be cleared. 1 = Portion of mucosa of the colon segment seen, but other areas of the colon segment not well seen due to staining, residual stool and/or opaque liquid. 2 = Minor amount of residual staining, small fragments of stool and/or opaque liquid, but mucosa of colon segment seen well. 3 = Entire mucosa of colon segment seen well with no residual staining, small fragments of stool or opaque liquid) Impression and Post Procedure Diagnosis: Endoscopy Findings: esophagitis erosive gastritis Colonoscopy Findings: polyp internal hemorrhoids diverticular disease Plan: Await Pathology results Repeat Colonoscopy in 5 years due to polyp or earlier if clinically indicated High fiber diet leaflet avoid straining at stool, epsom salts and sitz bath, anusol supps or cream if h pylori pos then treat, check for nsaid use, check compliance with PPI Above findings were reviewed with the patient and relevant handouts were provided if indicated.
[2022-05-13 10:04] VITALS: BP 105/61; PULSE 66; RESP 16; TEMP 36.6; O2SAT 97
[2022-05-13 10:19] VITALS: BP 137/77; PULSE 70; RESP 16; TEMP 36.7; O2SAT 98
== END 2022-05-13 11:32 | disposition home or self-care (01) ==
PROVIDERS: PCP Internal Medicine; Visit Provider Internal Medicine Gastroenterology
PROC: (CPT 45380; principal; 2022-05-13 09:50)
DX: K21.00 Gastro-esophageal reflux disease with esophagitis, without bleeding (principal); K29.60 Other gastritis without bleeding; R10.13 Epigastric pain; D12.2 Benign neoplasm of ascending colon; K57.30 Diverticulosis of large intestine without perforation or abscess without bleeding; K64.0 First degree hemorrhoids; Z87.19 Personal history of other diseases of the digestive system; Z88.8 Allergy status to other drugs, medicaments and biological substances
CPT/HCPCS: 45380; 43239; 88305; 88342

== ENCOUNTER → 2022-05-30 11:19 | Outpatient (BNVA) | payer OTHER, SELFPAY | PROVIDERS: PCP Internal Medicine; Referring Provider Internal Medicine; Visit Provider Internal Medicine Gastroenterology | DX: K57.30 Diverticulosis of large intestine without perforation or abscess without bleeding (principal); K64.8 Other hemorrhoids; D12.6 Benign neoplasm of colon, unspecified; K20.90 Esophagitis, unspecified without bleeding; K29.60 Other gastritis without bleeding; Z98.890 Other specified postprocedural states | CPT/HCPCS: 99212 ==

== ENCOUNTER 2022-08-28 16:05 | Emergency (ER) | payer OTHER, SELFPAY ==
--- NOTE | ~2022-08-28 | CT_ITS ---
EXAMINATION: CT ABDOMEN AND PELVIS WITHOUT CONTRAST CLINICAL INFORMATION: Left lower quadrant and left upper quadrant abdominal pain with hematuria. COMPARISON: CT abdomen pelvis 03/01/2020 TECHNIQUE: Multidetector volumetric imaging was performed from the superior aspect of the liver through the pubic symphysis. Sagittal and coronal reformatted images were obtained on the technologist's workstation. This CT examination was performed using dose optimization techniques as appropriate, variously including the following: *Automated exposure control *Adjustment of mA and/or kV according to patient size (this includes techniques or standardized protocols for targeted exams where dose is matched to indication/reason for exam; i.e. extremities or head) *Use of iterative reconstruction technique DLP: 565 mGy-cm FINDINGS: LUNG BASES: The visualized lung bases are unremarkable. Some dependent groundglass changes are seen. LIVER, GALLBLADDER, AND BILIARY TREE: The liver is normal in size and shape but demonstrates markedly decreased attenuation consistent with hepatic steatosis.. No focal hepatic lesion or biliary ductal dilatation is present. Status post cholecystectomy. PANCREAS: Unremarkable. SPLEEN: Unremarkable. ADRENAL GLANDS: Unremarkable. KIDNEYS AND URETERS: The kidneys are normal in size, shape, and attenuation. No hydronephrosis, hydroureter, or calculi seen. No perinephric stranding. BLADDER: Unremarkable. GASTROINTESTINAL TRACT: Diverticular changes are present in the colon with an area of acute uncomplicated diverticulitis seen at the junction of the descending colon and sigmoid colon at the pelvic brim. Inflammatory changes are seen without extraluminal air or pericolonic fluid collections. The small bowel and remainder of the large bowel are unremarkable. The appendix is unremarkable. ABDOMINAL WALL: No significant hernia is appreciated. Tiny periumbilical hernia seen containing only fat. LYMPH NODES: Some shotty retroperitoneal lymph nodes are seen but there is no adenopathy. VASCULAR: Mild aortoiliac calcifications without aneurysm. PELVIC VISCERA: The uterus is not present. An abnormal adnexal mass is not seen. No free intraperitoneal fluid is present. OSSEOUS STRUCTURES: Unremarkable. CT/CT abdomen pelvis wo IV con IMPRESSION: 1. Acute uncomplicated diverticulitis at the junction of the descending and sigmoid colon. 2. Incidental note made of hepatic steatosis, cholecystectomy and hysterectomy. Fleischner guidelines were followed.
--- NOTE | 2022-08-28 16:12 | ED.ABDPAIN ---
HPI - Abdominal Pain General Chief Complaint: Abdominal Pain <ANIL Richards - Last Filed: 08/28/22 20:46> Stated Complaint: L sided abdominal pain/Nausea <ANIL Richards - Last Filed: 08/28/22 20:46> Time Seen by Provider: 08/29/22 01:56 <ANIL Richards - Last Filed: 08/28/22 20:46> Source: patient <Vasu Blair MD - Last Filed: 08/29/22 02:34> Mode of arrival: ambulatory <Vasu Blair MD - Last Filed: 08/29/22 02:34> Limitations: no limitations <Vasu Blair MD - Last Filed: 08/29/22 02:34> History of Present Illness HPI narrative: 51-year-old female who presents emergency department for evaluation of left lower abdominal pain times 2 days. She states the pain came on suddenly and got progressively worse. She describes the pain is a pressure-like pain which is constant and is 8/10. The patient had associated nausea with no vomiting or diarrhea. She states that the pain is worse if she pressures on her left lower side. She does have a history of diverticulitis and states the pain feels similar to her diverticulitis pain. <Vasu Blair MD - Last Filed: 08/29/22 02:34> Related Data Home Medications: Home Medications Medication Instructions Recorded Confirmed atorvastatin 10 mg tablet 10 mg PO DAILY 05/30/22 07/21/22 Previous Rx's Medication Instructions Recorded ibuprofen 800 mg tablet 800 mg PO Q8H PRN pain #14 tabs 11/04/21 peg-electrolyte solution 420 gram 240 ml PO Q10M #4,000 mL 02/07/22 oral solution (GaviLyte-N) cholecalciferol (vitamin D3) 50 50 mcg PO DAILY 90 days #90 caps 05/06/22 mcg (2,000 unit) capsule cyclobenzaprine 10 mg tablet 10 mg PO Q8H 30 days #90 tabs 05/06/22 pantoprazole 40 mg tablet,delayed 40 mg PO DAILY 90 days #90 tabs 05/06/22 release sucralfate 1 gram tablet (Carafate) 1 g PO BID 30 days #60 tabs 05/06/22 bupropion HCl 150 mg 24 hr tablet, 150 mg PO QAM 7 days #7 tabs 07/21/22 extended release pregabalin 50 mg capsule 50 mg PO BEDTIME 30 days #30 caps 07/21/22 tramadol 50 mg tablet 50 mg PO Q8H PRN pain 30 days #90 08/05/22 tabs zolpidem 10 mg tablet 10 mg PO BEDTIME PRN insomnia 30 08/05/22 days #30 tabs linaclotide 145 mcg capsule 145 mcg PO DAILY #30 caps 08/21/22 ciprofloxacin HCl 500 mg tablet 500 mg PO Q12H 7 days #14 tabs 08/29/22 (Cipro) metoclopramide HCl 10 mg tablet 10 mg PO Q6H PRN nausea and 08/29/22 (Reglan) vomiting #14 tabs metronidazole 500 mg tablet 500 mg PO TID 7 days #21 tabs 08/29/22 morphine 15 mg immediate release 15 mg PO Q4-6H PRN pain #10 tabs 08/29/22 tablet <ANIL Richards - Last Filed: 08/28/22 20:46> Allergies/Adverse Reactions: Allergies Allergy/AdvReac Type Severity Reaction Status Date / Time trazodone Allergy Intermediate Insomnia Verified 07/21/22 09:50 gabapentin AdvReac Intermediate dry mouth Verified 07/21/22 11:17 <ANIL Richards - Last Filed: 08/28/22 20:46> Review of Systems Review of Systems Yes all other systems are reviewed and are negative <Vasu Blair MD - Last Filed: 08/29/22 02:34> [facility] Past Medical History [facility] Narrative: Social history: She smokes 1/2 pack of cigarettes per day times many years. She denies alcohol use. She denies more drug use. <Vasu Blair MD - Last Filed: 08/29/22 02:34> Medical History: Medical History Arnold-Chiari malformation Bloody stools Depression Diverticulitis Epigastric pain GERD (gastroesophageal reflux disease) History of renal calculi Hypovitaminosis D Insomnia Kidney stone Knee pain, left Left hip pain Mild recurrent major depression Obese Polyarthralgia Pure hypercholesterolemia Right hip pain <ANIL Richards - Last Filed: 08/28/22 20:46> Surgical History: Surgical History H/O colonoscopy History of cholecystectomy History of cryosurgery History of esophagogastroduodenoscopy (EGD) Hx of cystoscopy S/P RUBÉN (total abdominal hysterectomy) <ANIL Richards - Last Filed: 08/28/22 20:46> Family History Family History: Family History Father Diabetes Hypertension Cancer, Onset Age: 78 Mother Cancer Breast cancer Maternal Grandmother Stroke Maternal Grandfather Cancer Esophageal cancer Paternal Grandfather Cancer Maternal Uncle Cancer Brain cancer Sister Breast cancer <ANIL Richards - Last Filed: 08/28/22 20:46> Social History Social History: Social History Household Members Other:: Housing: House Alcohol intake: never Patient Tobacco Use Status: Current everyday Tobacco user Tobacco use type: Cigarette Cigarettes Per Day: 6 Years Smoked: 20 Smoked in Last 30 Days: Yes e-Cigarette/Vaping Use: Never Used Second Hand Smoke Exposure: No Use of substances other than those prescribed or required for medical reasons: No Advance Directives: No Advance Directives Information Provided: No Patient : No service: No Current occupational status: employed Current occupation: [employer]/rt handed Current occupational exposures/hazards: No Cognitive needs: No Hearing needs: No Vision needs: Yes <ANIL Richards - Last Filed: 08/28/22 20:46> Physical Exam ED Vital Signs: Vital Signs - 24 hr 08/28/22 16:17 08/29/22 00:04 Temperature 97.8 F 98.0 F Pulse Rate 111 H 73 Respiratory Rate 18 13 Blood Pressure 155/97 H 103/55 L Pulse Oximetry 97 94 Oxygen Delivery Method Room Air Room Air BMI result Body Mass Index 30.9 <ANIL Richards - Last Filed: 08/28/22 20:46> Vital Signs - 24 hr 08/28/22 16:08/29/22 00:04 Temperature 97.8 F 98.0 F Pulse Rate 111 H 73 Respiratory Rate 18 13 Blood Pressure 155/97 H 103/55 L Pulse Oximetry 97 94 Oxygen Delivery Method Room Air Room Air BMI result Body Mass Index 30.9 <Vasu Blair MD - Last Filed: 08/29/22 02:34> Const General: cooperative and no acute distress <MD Aniya Jaramillo Last Filed: 08/29/22 02:34> Orientation/consciousness: oriented to person and oriented to place <MD Aniya Jaramillo Last Filed: 08/29/22 02:34> Limitations: no limitations <MD Aniya Jaramillo Last Filed: 08/29/22 02:34> HENMT Head: Yes normal to inspection, Yes normocephalic and Yes atraumatic <MD Aniya Jaramillo Last Filed: 08/29/22 02:34> Ears: external ears normal <MD Aniya Jaramillo Last Filed: 08/29/22 02:34> General nose exam: Normal external nose present <MD Aniya Jaramillo Last Filed: 08/29/22 02:34> Face and sinus: Yes normal facial exam <MD Aniya Jaramillo Last Filed: 08/29/22 02:34> Mouth: Normal oral and palatal mucosa present <MD Aniya Jaramillo Last Filed: 08/29/22 02:34> Throat: Yes posterior oropharynx normal <MD Aniya Jaramillo Last Filed: 08/29/22 02:34> Eyes General: appearance normal, both eyes and all related structures <MD Aniya Jaramillo Last Filed: 08/29/22 02:34> Pupils: Equal, round and reactive pupils present <MD Aniya Jaramillo Last Filed: 08/29/22 02:34> Neck Neck: Yes normal visual inspection, Yes no lymphadenopathy, Yes trachea midline and Yes supple <MD Aniya Jaramillo Last Filed: 08/29/22 02:34> Chest Chest palpation & inspection: normal inspection of the chest and normal palpation of entire chest wall <Vasu Blair MD - Last Filed: 08/29/22 02:34> Resp Effort & Inspection: normal respiratory effort and able to speak in complete sentences <Vasu Blair MD - Last Filed: 08/29/22 02:34> Auscultation: clear to auscultation bilaterally <Vasu Blair MD - Last Filed: 08/29/22 02:34> Cardio Rate: regular rate <Vasu Blair MD - Last Filed: 08/29/22 02:34> Rhythm: regular rhythm <MD Aniya Jaramillo Last Filed: 08/29/22 02:34> Heart sounds: S1 normal heart sound present, S2 normal heart sound present and no murmurs <Vasu Blair MD - Last Filed: 08/29/22 02:34> GI Inspection: Yes normal to inspection <MD Aniya Jaramillo Last Filed: 08/29/22 02:34> Palpation (GI): Soft to palpation, Tenderness to palpation present (GI) in the LLQ (My) and no guarding <Vasu Blair MD - Last Filed: 08/29/22 02:34> Auscultation: normal bowel sounds <MD Aniya Jaramillo Last Filed: 08/29/22 02:34> General: Yes no CVA tenderness <MD Aniya Jaramillo Last Filed: 08/29/22 02:34> Back/Spine/Pelvis Back: no CVA tenderness <MD Aniya Jaramillo Last Filed: 08/29/22 02:34> Skin General skin exam: no rashes or lesions noted <MD nAiya Jaramillo Last Filed: 08/29/22 02:34> Neuro General: oriented to person and oriented to place <MD Aniya Jaramillo Last Filed: 08/29/22 02:34> Cranial nerves: Yes CN's II-XII intact bilaterally and Yes Equal, round and reactive pupils present <MD Aniya Jaramillo Last Filed: 08/29/22 02:34> Cognition (Neuro): normal cognition <Vasu Blair MD - Last Filed: 08/29/22 02:34> Motor exam (neuro): 5/5 motor strength present throughout <Vasu Blair MD - Last Filed: 08/29/22 02:34> Extrem General: Yes normal to inspection <Vasu Blair MD - Last Filed: 08/29/22 02:34> Psych Appearance: grossly normal <Vasu Blair MD - Last Filed: 08/29/22 02:34> Speech and movement: Normal speech and movement present <Vasu Blair MD - Last Filed: 08/29/22 02:34> Affect: normal affect <Vasu Blair MD - Last Filed: 08/29/22 02:34> Attitude: cooperative <Vasu Blair MD - Last Filed: 08/29/22 02:34> Thought process: Normal thought process present <Vasu Blair MD - Last Filed: 08/29/22 02:34> Thought content: Normal thought content present <Vasu Blair MD - Last Filed: 08/29/22 02:34> Course Course Course Narrative: RME--51-year-old female with a PMHxof depression, diverticulitis, GERD, renal stones, polyarthralgia, hyperlipidemia, status post RUBÉN, cholecystectomy and ovarian cyst with rupture presenting to the ED c/o L side abdominal pain since last night with assoc nausea. Denies vomiting/diarrhea, urinary sx abdomen soft with LUQ/LLQ ttp, no rebound or guarding Labs, UA ordered. Likely will need CT w/IV contrast <ANIL Richards - Last Filed: 08/28/22 20:46> Medical Decision Making Medical Decision Making MDM Narrative: 51-year-old female who presents emergency department for evaluation of 2 days of left lower quadrant abdominal pain, patient does have a history of diverticulitis. Patient's examination did reveal left lower quadrant tenderness. Patient's laboratory evaluation included a CBC, CMP and lipase which were not negative. The CT scan of the patient's abdomen pelvis without IV contrast is consistent with descending/sigmoid diverticulitis which is uncomplicated. Patient was given Levaquin 750 mg orally, metronidazole 500 mg orally. Pain was treated with Toradol 60 mg IM. She was discharged home with a prescription for ciprofloxacin either mg twice a day for 7 days and metronidazole 500 mg 3 times a day for 7 days . She was also advised to take Tylenol for pain and morphine for pain not relieved by Tylenol. She was also given prescription for regular in for nausea and vomiting. <Vasu Blair MD - Last Filed: 08/29/22 02:34> Differential Diagnosis Differential Diagnoses: The differential diagnosis associated with the presentation includes <Vasu Blair MD - Last Filed: 08/29/22 02:34> Differential includes was not limited to gastritis,, kidney stone, diverticulitis, pancreatitis <Vasu Blair MD - Last Filed: 08/29/22 02:34> Lab Data [facility] Lab Attestation statement: I reviewed the patient's lab results. <Vasu Blair MD - Last Filed: 08/29/22 02:34> Please see [facility] for discussion <Vasu Blair MD - Last Filed: 08/29/22 02:34> Result Diagrams: 08/28/22 16:35 08/28/22 16:35 <ANIL Richards - Last Filed: 08/28/22 20:46> Labs: Lab Results 08/28/22 08/28/22 08/28/22 Range/Units 16:33 16:35 16:35 WBC 9.4 (4.8-10.8) X10*3/uL RBC 5.07 (4.20-5.50) X10*6/uL Hgb 14.3 (12.0-16.0) g/dl Hct 44.0 (37.0-47.0) % MCV 86.8 (80.0-98.0) fL MCH 28.2 (27.0-33.0) pg MCHC 32.5 (31.0-35.0) g/dl RDW 13.2 (11.0-16.0) % Plt Count 241 (160-400) X10*3/uL MPV 10.6 (9.4-12.3) fL Immature Gran % (Auto) 0.2 (0.0-0.4) % Neut % (Auto) 68.3 (45-73) % Lymph % (Auto) 22.6 (20-40) % [place] % (Auto) 6.9 (2-11) % Eos % (Auto) 1.7 (0-4) % Baso % (Auto) 0.3 (0-2) % Lymph # (Auto) 2.1 (1.2-4.9) X10*3/uL [place] # (Auto) 0.7 (0.1-1.2) X10*3/uL Eos # (Auto) 0.2 (0.0-0.4) X10*3/uL Baso # (Auto) 0.0 (0.0-0.2) X10*3/uL Abs Immat Gran (auto) 0.02 (0.00-0.03) X10*3/uL Absolute Neuts (auto) 6.5 (2.0-8.3) x10*3/uL Absolute Nucleated RBC 0.000 (0.0-0.012) X10*3/uL Nucleated RBC % (auto) 0.0 (0.0-0.2) /100WBC Sodium 142 (135-145) mmol/L Potassium 3.8 (3.3-5.1) mmol/L Chloride 106 (96-108) mmol/L Carbon Dioxide 26 (22-29) mmol/L Anion Gap 14 (12-20) BUN 14 (9-16) mg/dL Creatinine 0.88 (0.5-1.4) mg/dL Estim Creat Clear Calc 76.2 Estimated GFR > 60 Random Glucose 92 (60-115) mg/dL Calcium 9.5 (8.4-10.2) mg/dL Magnesium 1.9 (1.6-2.6) mg/dL Total Bilirubin 0.9 (0.0-1.0) mg/dL Direct Bilirubin 0.3 (0.0-0.5) mg/dL AST 15 (5-31) U/L ALT 20 (0-31) U/L Alkaline Phosphatase 47 (39-117) U/L Total Protein 6.8 (6.5-8.0) g/dL Albumin 4.1 (3.5-5.0) g/dL Lipase 26 (8-78) U/L Urine Color Yellow Urine Appearance Clear Urine pH 6.5 (5.0-9.0) Ur Specific [place] 1.025 (1.005-1.025) Urine Protein Negative (Neg-Trace) mg/dL Urine Glucose (UA) Negative (Negative) mg/dL Urine Ketones Trace (Negative) mg/dL Urine Blood Moderate (2+) H (Negative) Urine Nitrite Negative (Negative) Ur Leukocyte Esterase Negative (Negative) Urine RBC >20 H (0-2) /HPF Urine WBC 0-5 (0-5) /HPF Ur Squamous Epith Cells 0-2 (0-2) /HPF Urine Bacteria None Seen (None Seen) Hyaline Casts 0-2 (0-2) /LPF <ANIL Richards - Last Filed: 08/28/22 20:46> Lab Results 08/28/22 08/28/22 08/28/22 Range/Units 16:33 16:35 16:35 WBC 9.4 (4.8-10.8) X10*3/uL RBC 5.07 (4.20-5.50) X10*6/uL Hgb 14.3 (12.0-16.0) g/dl Hct 44.0 (37.0-47.0) % MCV 86.8 (80.0-98.0) fL MCH 28.2 (27.0-33.0) pg MCHC 32.5 (31.0-35.0) g/dl RDW 13.2 (11.0-16.0) % Plt Count 241 (160-400) X10*3/uL MPV 10.6 (9.4-12.3) fL Immature Gran % (Auto) 0.2 (0.0-0.4) % Neut % (Auto) 68.3 (45-73) % Lymph % (Auto) 22.6 (20-40) % [place] % (Auto) 6.9 (2-11) % Eos % (Auto) 1.7 (0-4) % Baso % (Auto) 0.3 (0-2) % Lymph # (Auto) 2.1 (1.2-4.9) X10*3/uL [place] # (Auto) 0.7 (0.1-1.2) X10*3/uL Eos # (Auto) 0.2 (0.0-0.4) X10*3/uL Baso # (Auto) 0.0 (0.0-0.2) X10*3/uL Abs Immat Gran (auto) 0.02 (0.00-0.03) X10*3/uL Absolute Neuts (auto) 6.5 (2.0-8.3) x10*3/uL Absolute Nucleated RBC 0.000 (0.0-0.012) X10*3/uL Nucleated RBC % (auto) 0.0 (0.0-0.2) /100WBC Sodium 142 (135-145) mmol/L Potassium 3.8 (3.3-5.1) mmol/L Chloride 106 (96-108) mmol/L Carbon Dioxide 26 (22-29) mmol/L Anion Gap 14 (12-20) BUN 14 (9-16) mg/dL Creatinine 0.88 (0.5-1.4) mg/dL Estim Creat Clear Calc 76.2 Estimated GFR > 60 Random Glucose 92 (60-115) mg/dL Calcium 9.5 (8.4-10.2) mg/dL Magnesium 1.9 (1.6-2.6) mg/dL Total Bilirubin 0.9 (0.0-1.0) mg/dL Direct Bilirubin 0.3 (0.0-0.5) mg/dL AST 15 (5-31) U/L ALT 20 (0-31) U/L Alkaline Phosphatase 47 (39-117) U/L Total Protein 6.8 (6.5-8.0) g/dL Albumin 4.1 (3.5-5.0) g/dL Lipase 26 (8-78) U/L Urine Color Yellow Urine Appearance Clear Urine pH 6.5 (5.0-9.0) Ur Specific [place] 1.025 (1.005-1.025) Urine Protein Negative (Neg-Trace) mg/dL Urine Glucose (UA) Negative (Negative) mg/dL Urine Ketones Trace (Negative) mg/dL Urine Blood Moderate (2+) H (Negative) Urine Nitrite Negative (Negative) Ur Leukocyte Esterase Negative (Negative) Urine RBC >20 H (0-2) /HPF Urine WBC 0-5 (0-5) /HPF Ur Squamous Epith Cells 0-2 (0-2) /HPF Urine Bacteria None Seen (None Seen) Hyaline Casts 0-2 (0-2) /LPF <Vasu Blair MD - Last Filed: 08/29/22 02:34> Radiology Impression Discussion of test interpretation with radiology: I have reviewed the radiologist's reading. <Vasu Blair MD - Last Filed: 08/29/22 02:34> Radiologist Impression: CT abdomen pelvis wo IV con IMPRESSION: 1. Acute uncomplicated diverticulitis at the junction of the descending and sigmoid colon. 2. Incidental note made of hepatic steatosis, cholecystectomy and hysterectomy. Fleischner guidelines were followed. Dictated By:Odilon Whitley MDSigned By:<Electronically signed by Odilon Whitley MD in [place]>[id number] <Vasu Blair MD - Last Filed: 08/29/22 02:34> Discharge Plan Discharge Clinical Impression: Diverticulitis of sigmoid colon <ANIL Richards - Last Filed: 08/28/22 20:46> Patient Disposition: Home, Self-Care <ANIL Richards - Last Filed: 08/28/22 20:46> Instructions: Diverticulitis (ED) <ANIL Richards - Last Filed: 08/28/22 20:46> Additional Instructions: Your blood work was unremarkable. Your CT scan is consistent with diverticulitis pain Take ciprofloxacin 500 mg pills, 1 pill every 12 hour for 7 days. Take Flagyl (metronidazole) 500 mg pills, 1 pill 3 times a day for 7 days Take ibuprofen 200 mg pills, 2 pills every 6 hours as needed for pain. Take Tylenol (acetaminophen) 2 pills every 6 hours as needed for pain. For pain not relieved by ibuprofen or Tylenol take morphine 15 mg pills, 1 pill every 4 hours as needed for pain. This medication will make you sleepy, do not drive or work while taking this medication. Morphine is a narcotic medication and can be addicting. If you are concerned about addiction you can ask the pharmacist for less pills or do not get this prescription filled. Stop taking tramadol while taking morphine. Take Reglan (metoclopramide) 10 mg pills, 1 pill every 6-8 hours as needed for nausea and vomiting Follow-up with your doctor in 2 days. Please return to the emergency department if your symptoms get worse or if you develop any symptoms that are concerning to you. <ANIL Richards - Last Filed: 08/28/22 20:46> Prescriptions: New metronidazole 500 mg tablet 500 mg PO TID 7 Days Qty: 21 0RF ciprofloxacin HCl [Cipro] 500 mg tablet 500 mg PO Q12H 7 Days Qty: 14 0RF morphine 15 mg tablet 15 mg PO Q4-6H PRN (Reason: pain) Qty: 10 0RF Rx Instructions: The patient may ask for partial fill; Partial Fill upon patient request. metoclopramide HCl [Reglan] 10 mg tablet 10 mg PO Q6H PRN (Reason: nausea and vomiting) Qty: 14 0RF No Action ibuprofen 800 mg tablet 800 mg PO Q8H PRN (Reason: pain) Qty: 14 0RF zolpidem 10 mg tablet 10 mg PO BEDTIME PRN (Reason: insomnia) 30 Days Qty: 30 0RF tramadol 50 mg tablet 50 mg PO Q8H PRN (Reason: pain) 30 Days Qty: 90 0RF linaclotide 145 mcg capsule 145 mcg PO DAILY Qty: 30 2RF cholecalciferol (vitamin D3) 50 mcg (2,000 unit) capsule 50 mcg PO DAILY 90 Days Qty: 90 3RF cyclobenzaprine 10 mg tablet 10 mg PO Q8H 30 Days Qty: 90 6RF pantoprazole 40 mg tablet,delayed release (DR/EC) 40 mg PO DAILY 90 Days Qty: 90 1RF sucralfate [Carafate] 1 gram tablet 1 g PO BID 30 Days Qty: 60 0RF bupropion HCl 150 mg tablet extended release 24 hr 150 mg PO QAM 7 Days Qty: 7 0RF pregabalin 50 mg capsule 50 mg PO BEDTIME 30 Days Qty: 30 0RF peg-electrolyte soln [GaviLyte-N] 420 gram recon soln 240 ml PO Q10M Qty: 4000 0RF Rx Instructions: until fecal effluent is clear atorvastatin 10 mg tablet 10 mg PO DAILY <ANIL Richards - Last Filed: 08/28/22 20:46>
[2022-08-28 16:17] VITALS: BP 155/97; PULSE 111; RESP 18; TEMP 36.6; O2SAT 97; BMI 30.9
[2022-08-28 16:40] LABS: MANUAL DIFF FLAG NO
[2022-08-28 16:43] LABS: Appearance Urine Clear; Color Urine Yellow; Glucose Urine UA Negative (Negative); Leukocyte Esterase Urine Negative (Negative); Nitrite Urine Negative (Negative); PH 6.5 (5.0-9.0); Specific Gravity - Urine 1.025 (1.005-1.025); UMIC TRIGGER UACC YES; Urine Blood Moderate (2+) (Negative); Urine Ketones Trace mg/dL (Negative); Urine Protein Negative (Neg-Trace)
[2022-08-28 16:45] LABS: Bacteria Urine None Seen (None Seen); Hyaline Casts Urine 0-2 /LPF (0-2); RBC Urine >20 /HPF (0-2); Squamous Epithelial Cell Urine 0-2 /HPF (0-2); WBC Urine 0-5 /HPF (0-5)
[2022-08-28 16:47] LABS: Basophils Percent Auto 0.3 % (0-2); Eosinophils Absolute Auto 0.2 X10*3/uL (0.0-0.4); Eosinophils Percent Auto 1.7 % (0-4); Hemoglobin 14.3 g/dl (12.0-16.0); Imm Gran Abs Auto 0.02 X10*3/uL (0.00-0.03); Imm Gran Pct Auto 0.2 % (0.0-0.4); Lymphocytes Absolute Auto 2.1 X10*3/uL (1.2-4.9); Lymphocytes Percent Auto 22.6 % (20-40); Mean Corpuscular HGB Conc 32.5 g/dl (31.0-35.0); Mean Corpuscular Hemoglobin 28.2 pg (27.0-33.0); Mean Corpuscular Volume 86.8 fL (80.0-98.0); Mean Platelet Volume 10.6 fL (9.4-12.3); Monocytes Absolute Auto 0.7 X10*3/uL (0.1-1.2); Monocytes Percent Auto 6.9 % (2-11); Neutrophils Absolute Auto 6.5 x10*3/uL (2.0-8.3); Neutrophils Percent Auto 68.3 % (45-73); Platelet Count 241 X10*3/uL (160-400); Red Blood Count 5.07 X10*6/uL (4.20-5.50); Red Cell Distribution Width 13.2 % (11.0-16.0); White Blood Count 9.4 X10*3/uL (4.8-10.8)
[2022-08-28 17:00] LABS: Alanine Aminotransferase 20 U/L (0-31); Albumin Level 4.1 g/dL (3.5-5.0); Alkaline Phosphatase 47 U/L (39-117); Anion Gap 14 (12-20); Aspartate Amino Transferase 15 U/L (5-31); Bilirubin Direct 0.3 mg/dL (0.0-0.5); Bilirubin Total 0.9 mg/dL (0.0-1.0); Blood Urea Nitrogen 14 mg/dL (9-16); Calcium 9.5 mg/dL (8.4-10.2); Carbon Dioxide 26 mmol/L (22-29); Chloride 106 mmol/L (96-108); Creatinine Clr Calc Pharmacy 76.2; Estimated Glomerular Filt Rate > 60; Glucose Random 92 mg/dL (60-115); Lipase 26 U/L (8-78); Magnesium 1.9 mg/dL (1.6-2.6); Potassium 3.8 mmol/L (3.3-5.1); Sodium 142 mmol/L (135-145); Total Protein 6.8 g/dL (6.5-8.0)
[2022-08-29 00:04] VITALS: BP 103/55; PULSE 73; RESP 13; TEMP 36.7; O2SAT 94
--- NOTE | 2022-08-29 01:11 | PC.NURSE ---
Patient is alert and oriented x3. She notes LLQ pain that increases upon palpation or when standing straight. Call armando within reach. Will continue to monitor.
[2022-08-29] MEDS: Ketorolac Tromethamine 60 MG/2 ML VIAL IM (02:26)
[2022-08-29] MEDS: levoFLOXacin 750 MG TABLET PO (02:26)
[2022-08-29] MEDS: metroNIDAZOLE 500 MG TABLET PO (02:26)
== END 2022-08-29 02:42 | disposition home or self-care (01) ==
PROVIDERS: Physician Assistant; Emergency Provider Emergency Medicine Emergency Medical Services; PCP Internal Medicine
DX: K57.32 Diverticulitis of large intestine without perforation or abscess without bleeding (principal); R10.32 Left lower quadrant pain; E78.00 Pure hypercholesterolemia, unspecified; F17.210 Nicotine dependence, cigarettes, uncomplicated; Z79.02 Long term (current) use of antithrombotics/antiplatelets; Z79.899 Other long term (current) drug therapy
CPT/HCPCS: 36415; 74176; 80048; 80076; 81001; 83690; 83735; 85025; 96372; 99284; J1885

== ENCOUNTER 2022-09-23 07:40 | Outpatient (REF) | payer OTHER, SELFPAY ==
[2022-09-23 08:45] LABS: Alanine Aminotransferase 24 U/L (0-31); Albumin Level 4.2 g/dL (3.5-5.0); Alkaline Phosphatase 50 U/L (39-117); Anion Gap 12 (12-20); Aspartate Amino Transferase 17 U/L (5-31); Blood Urea Nitrogen 13 mg/dL (9-16); Calcium 9.6 mg/dL (8.4-10.2); Carbon Dioxide 27 mmol/L (22-29); Chloride 107 mmol/L (96-108); Cholesterol 151 mg/dL; Estimated Glomerular Filt Rate > 60; Glucose Fasting 110 mg/dL (60-99); HDL Cholesterol 45 mg/dL; LDL Cholesterol Calculated 89 mg/dl; Potassium 4.1 mmol/L (3.3-5.1); Sodium 142 mmol/L (135-145); Total Protein 6.7 g/dL (6.5-8.0); Triglycerides 89 mg/dL
[2022-09-23 09:16] LABS: Folate 13.6 ng/mL (> or = 4.0); Vitamin B12 287 pg/mL (200-900); Vitamin D 25-OH Total 34.9 ng/mL (>30)
== END 2022-09-23 07:41 | disposition home or self-care (01) ==
LOC: HO.LAB 07:40
PROVIDERS: PCP Internal Medicine; Visit Provider Internal Medicine
DX: E55.9 Vitamin D deficiency, unspecified (principal); E78.5 Hyperlipidemia, unspecified; E53.8 Deficiency of other specified B group vitamins; M54.50 Low back pain, unspecified
CPT/HCPCS: 36415; 80053; 80061; 82306; 82607; 82746

== ENCOUNTER → 2022-09-26 11:02 | Outpatient (BNVA) | payer OTHER, SELFPAY | PROVIDERS: PCP Internal Medicine; Visit Provider Internal Medicine Gastroenterology | DX: K59.00 Constipation, unspecified (principal); K57.90 Diverticulosis of intestine, part unspecified, without perforation or abscess without bleeding; K21.9 Gastro-esophageal reflux disease without esophagitis; Z79.899 Other long term (current) drug therapy | CPT/HCPCS: 99212 ==

== ENCOUNTER 2023-02-24 10:53 | Outpatient (AMB) | payer OTHER, SELFPAY ==
[2023-02-24 11:02] VITALS: BP 114/66; PULSE 80; TEMP 36.7; O2SAT 96; BMI 32.2
--- NOTE | 2023-02-24 11:02 | MHC.OFFVIS ---
Intake Vital Signs 02/24/23 11:02 Height 5 ft 3 in Weight 181 lb 10.574 oz BMI 32.2 BP 114/66 Blood Pressure Location Rt brachial Position Sitting Pulse 80 Pulse Source Pulse Oximeter Temp 98.0 F Temp Source Skin Pulse Oximetry (%) 96 Intake Visit Reasons: Joint Pain Intake Note: New pt presents today for joint pain consult. C/o pain all over. States she saw rheum 2 years ago, and was diagnosed with FM. She was following up with PCP who prescribed Lyrica, per pt PCP informed her that per insurance, if she wants to keep receiving Lyrica she would need to be seen by rheum. Mold Repair Technician Required: Yes Mold Repair Technician Name: Yuri [id number] Information Interpreted: clinical only Accompanied by: Self / Same As Patient Allergies trazodone Allergy (Intermediate, Verified 02/24/23 11:18) Insomnia gabapentin Adverse Reaction (Intermediate, Verified 02/24/23 11:18) dry mouth Medication List - Last Reconciled 02/24/23 by Nicole Osuna MD atorvastatin 10 mg PO DAILY cholecalciferol (vitamin D3) 50 mcg PO DAILY 90 days cyclobenzaprine 10 mg PO Q8H PRN ibuprofen 800 mg PO Q8H PRN linaclotide 145 mcg PO DAILY metoclopramide HCl (Reglan) 10 mg PO Q6H PRN multivitamin 1 tab PO DAILY pantoprazole 40 mg PO DAILY 90 days pregabalin 50 mg PO BEDTIME psyllium husk (Metamucil) 0.4 grams PO BID sucralfate (Carafate) 1 g PO BID 30 days tramadol 50 mg PO Q8H PRN 30 days [wrist splint wear nightly & as much as possible throughout the day] zolpidem 10 mg PO BEDTIME PRN 30 days HPI HPI Comments History of Present Illness Details This is a 52-year-old female who was referred for fibromyalgia evaluation. Patient was started on Lyrica about 6 months ago by her PCP and she was told by her PCP that if she is to continue Lyrica her insurance requires her to be seen by Rheumatology. Patient was evaluated by Dr. Carrillo about 2 years ago and no evidence of autoimmune rheumatic disease was found. Patient states that gabapentin caused dry mouth, she had diarrhea with duloxetine. She feels about 70% improvement in her overall pain with Lyrica but she wakes up with 2 seconds of dizziness that rapidly self-resolved. She would like to continue taking Lyrica. Over the last 2 years she has been having neck stiffness. Worse with certain movements. She was diagnosed with bilateral carpal tunnel syndrome, worse on the right hand. The test was done back in . She was evaluated by hand surgeon who told her they would have to do 1 hand followed by the other hand, patient did not want to go through the surgery as she could not be out of work for such a long period of time. She preferred to do both hands in the same setting. Continues to have bilateral carpal tunnel symptoms. She had wrist splints in the past but she lost them. [facility] Medical History Diverticulitis Mild recurrent major depression Bloody stools Epigastric pain Right hip pain Left hip pain Depression Obese Kidney stone Knee pain, left Hypovitaminosis D Pure hypercholesterolemia History of renal calculi Insomnia Arnold-Chiari malformation GERD (gastroesophageal reflux disease) Polyarthralgia Surgical History History of esophagogastroduodenoscopy (EGD) Hx of cystoscopy H/O colonoscopy S/P RUBÉN (total abdominal hysterectomy) History of cryosurgery History of cholecystectomy Family History Father Diabetes Hypertension Cancer, Onset Age: 78 Mother Cancer Breast cancer Maternal Grandmother Stroke Maternal Grandfather Cancer Esophageal cancer Paternal Grandfather Cancer Maternal Uncle Cancer Brain cancer Sister Breast cancer Social History Household Members Other:: Housing: House Alcohol intake: never Patient Tobacco Use Status: Current everyday Tobacco user Tobacco use type: Cigarette Cigarettes Per Day: 6 Years Smoked: 20 e-Cigarette/Vaping Use: Never Used Second Hand Smoke Exposure: No service: No Current occupational status: employed 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 Current occupational exposures/hazards: No Cognitive needs: No Hearing needs: No Vision needs: Yes Review of Systems ENT Reports neck pain Musc Reports back pain, Reports arthralgias, Reports limited range of motion, Reports neck pain, Reports numbness, Reports stiffness and Reports tingling Neuro Reports numbness and Reports tingling Physical Exam Vital Signs: Last Vital Signs Temp 98.0 F 02/24/23 11:02 Pulse 80 02/24/23 11:02 BP 114/66 02/24/23 11:02 Pulse Ox 96 02/24/23 11:02 BMI result Body Mass Index 32.2 Const General: cooperative, healthy appearing and comfortable Nutritional Appearance: obese Orientation/consciousness: patient oriented x3 Limitations: no limitations HEENT Head: Yes normocephalic and Yes atraumatic Mouth: moist mucous membranes Resp Effort & Inspection: normal respiratory effort and able to speak in complete sentences Neuro General: patient oriented x3 Extrem Other: Positive Tinel sign bilaterally, more severe on the right Positive Spurling's test on the right Few fibromyalgia tender points Assessment & Plan Assessment & Plan (1) Fibromyalgia: Code(s): M79.7 - Fibromyalgia Plan: 52-year-old female with past medical history of fibromyalgia presents for follow-up. She was evaluated by Dr. Carrillo 2 years ago for polyarthralgia and no systemic autoimmune rheumatic disease was found. Clinical picture consistent with fibromyalgia. Patient could not tolerate gabapentin due to dry mouth, could not tolerate duloxetine due to diarrhea. She was prescribed Lyrica 50 mg nightly by her PCP 6 months ago with 70% improvement. Patient would like to continue Continue Lyrica 50 mg nightly. Refill sent (2) Cervicalgia: Code(s): M54.2 - Cervicalgia Plan: Will check a neck x-ray (3) Bilateral carpal tunnel syndrome: Code(s): G56.03 - Carpal tunnel syndrome, bilateral upper limbs Plan: Ordered bilateral wrist splints. Plan I spent 30 minutes reviewing patient's chart, evaluating patient, ordering diagnostic workup, counseling patient and documenting in the chart Orders: Orders XR cervical spine 4V Today M54.2 - Cervicalgia Medications: New [wrist splint] wear nightly & as much as possible throughout the day 2 ea 0RF G56.03 - Carpal tunnel syndrome, bilateral upper limbs Changed From pregabalin 50 mg PO BEDTIME 30 days 30 caps 1RF M79.7 - Fibromyalgia To pregabalin 50 mg PO BEDTIME 90 caps 1RF M79.7 - Fibromyalgia Quality Reporting (2019) Adult ([facility] 138/2) Smoking risk assessment performed?: Yes Patient Tobacco Use Status: Current everyday Tobacco user Coding Level of Care Code Est Pt Level 4 (70256) Diagnoses Fibromyalgia M79.7 Cervicalgia M54.2 Bilateral carpal tunnel syndrome G56.03
== END 2023-02-24 11:40 | disposition home or self-care (01) ==
PROVIDERS: PCP Internal Medicine; Visit Provider Student in an Organized Health Care Education/Training Program
DX: M79.7 Fibromyalgia (principal); M54.2 Cervicalgia; G56.03 Carpal tunnel syndrome, bilateral upper limbs
CPT/HCPCS: 99214

== ENCOUNTER → 2023-02-24 10:53 | Outpatient (BNVA) | payer OTHER, SELFPAY | PROVIDERS: PCP Internal Medicine; Visit Provider Student in an Organized Health Care Education/Training Program | DX: M79.7 Fibromyalgia (principal); M54.2 Cervicalgia; G56.03 Carpal tunnel syndrome, bilateral upper limbs; Z79.899 Other long term (current) drug therapy | CPT/HCPCS: 99212 ==

== ENCOUNTER 2023-03-03 12:19 | Outpatient (REF) | payer OTHER, SELFPAY ==
--- NOTE | ~2023-03-03 | XR_ITS ---
EXAMINATION: XR CERVICAL SPINE CLINICAL INFORMATION: Neck pain. COMPARISON: None available. TECHNIQUE: 6 views of the cervical spine. FINDINGS: Limited visualization of C6 and C7 due to overlying soft tissues. Moderate degenerative changes with hypertrophic change and loss of disc space height at C4-C5, C5-C6 and C6-C7. Facet hypertrophy and neural foraminal encroachment notable at C3-C4, C4-C5 and C5-C6 on the right. XR/XR cervical spine 4V IMPRESSION: Moderate degenerative changes at C4-C5, C5-C6 and C6-C7.
== END 2023-03-03 12:20 | disposition home or self-care (01) ==
LOC: HO.XRAY 12:19
PROVIDERS: PCP Internal Medicine; Visit Provider Student in an Organized Health Care Education/Training Program
DX: M54.2 Cervicalgia (principal)
CPT/HCPCS: 72050

== ENCOUNTER 2023-03-19 10:51 | Outpatient (AMB) | payer OTHER, SELFPAY ==
[2023-03-19 10:54] VITALS: BP 132/90; PULSE 88; BMI 32.2
--- NOTE | 2023-03-19 10:54 | A.OFFPC_ITS ---
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 Allergies trazodone Allergy (Intermediate, Verified 03/19/23 11:44) Insomnia gabapentin Adverse Reaction (Intermediate, Verified 03/19/23 11:44) dry mouth Medication List - Last Reconciled 03/19/23 by THOMAS Lopez atorvastatin 10 mg PO DAILY cholecalciferol (vitamin D3) 50 mcg PO DAILY 90 days cyclobenzaprine 10 mg PO Q8H PRN ibuprofen 800 mg PO Q8H PRN linaclotide 145 mcg PO DAILY metoclopramide HCl (Reglan) 10 mg PO Q6H PRN multivitamin 1 tab PO DAILY pantoprazole 40 mg PO DAILY 90 days pregabalin 50 mg PO BEDTIME psyllium husk (Metamucil) 0.4 grams PO BID sucralfate (Carafate) 1 g PO BID 30 days tramadol 50 mg PO Q8H PRN 30 days [wrist splint wear nightly & as much as possible throughout the day] zolpidem 10 mg PO BEDTIME PRN 30 days Tobacco use date assessed: 03/19/23 Dental Screening Dental Screen Date: 03/19/23 Did you have a dental visit in the last 12 months?: Yes Did you have a dental problem in the last 6 months where you did not have access to dental care?: No Was dental information given to patient?: Patient has dentist HPI Lump on Face 2 HPI0 Details Patient is a 52-year-old female who presents today for an office visit due to left face lump, swelling, pain for the past [address] Wilson. Medical history significant for GERD, hypercholesterolemia, depression, fibromyalgia, hypertension among others. Patient denies left side lump in the past, reports that this is increasing in size, no discharge. Denies ear pain, no teeth pain. Denies injury, no bug bites. [facility] Medical History Diverticulitis Mild recurrent major depression Bloody stools Epigastric pain Right hip pain Left hip pain Depression Obese Kidney stone Knee pain, left Hypovitaminosis D Pure hypercholesterolemia History of renal calculi Insomnia Arnold-Chiari malformation GERD (gastroesophageal reflux disease) Polyarthralgia Surgical History History of esophagogastroduodenoscopy (EGD) Hx of cystoscopy H/O colonoscopy S/P RUBÉN (total abdominal hysterectomy) History of cryosurgery History of cholecystectomy Family History Father Diabetes Hypertension Cancer, Onset Age: 78 Mother Cancer Breast cancer Maternal Grandmother Stroke Maternal Grandfather Cancer Esophageal cancer Paternal Grandfather Cancer Maternal Uncle Cancer Brain cancer Sister Breast cancer Social History Household Members Other:: Housing: House Alcohol intake: never Patient Tobacco Use Status: Current everyday Tobacco user Tobacco use type: Cigarette Cigarettes Per Day: 6 Years Smoked: 20 Packs per year/per ci.00 e-Cigarette/Vaping Use: Never Used Second Hand Smoke Exposure: No service: No Current occupational status: employed 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 How often do you have a drink containing alcohol?: Never Total Score: 0 Score Reviewed/Action Taken: No DIDIER-7 AMB Questionnaire DIDIER-7 Date DIDIER - 7 assessed: 07/21/22 Source: Developed by Drs. Arsh Mcintosh, Kristine Javier, Hemant Mabry and colleagues, with an educational sera from [employer] Review of Systems Const Denies body aches, Denies chills, Denies fever(s) and Denies headache(s) ENT Denies dizziness, Denies otalgia, Denies headache(s), Denies nasal discharge, Denies sinus pain and Denies sore throat Card Denies chest pain, Denies edema, Denies lightheadedness and Denies dyspnea Resp Denies dyspnea and Denies wheezing GI Denies abdominal pain Denies dysuria Musc Denies myalgias Skin/Breast Reports as per HPI and Denies rash Neuro Denies dizziness and Denies headache(s) Aller/Immun Denies wheezing Physical exam (Primary Care) Vital Signs: Last Vital Signs Pulse 88 03/19/23 10:54 BP 132/90 H 03/19/23 10:54 Oxygen Delivery Method Room Air 03/19/23 10:54 BMI result Body Mass Index 32.2 Tobacco/Smoking Status: Tobacco use Status Tobacco use date assessed 03/19/23 03/19/23 10:55 Patient Tobacco Use Status Current everyday Tobacco 03/19/23 10:55 Tobacco use type Cigarette 03/19/23 10:55 e-Cigarette/Vaping Use Never Used 03/19/23 10:55 Thrive Assessment: Date of Thrive Assessment Date Thrive assessed 07/21/22 03/19/23 10:55 Const General: cooperative and no acute distress Orientation/consciousness: patient oriented x3 HENMT Head: Yes normocephalic and Yes atraumatic Face and sinus: Yes sinuses nontender Mouth: oropharynx normal and moist mucous membranes Throat: Yes posterior oropharynx normal Eyes General: appearance normal, both eyes and all related structures Neck Neck: Yes normal visual inspection, Yes full ROM and Yes no lymphadenopathy Resp Effort & Inspection: normal respiratory effort and able to speak in complete sentences Auscultation: clear to auscultation bilaterally, no crackles, no rales, no rhonchi and no wheezes Cardio Rate: regular rate Rhythm: regular rhythm Heart sounds: S1 normal heart sound present and S2 normal heart sound present GI Auscultation: normal bowel sounds Skin Full body images: 2 1. Left distal cheek area raised area about [id number], tenderness noted, mild erythema, skin is intact, no discharge Neuro General: patient oriented x3 Gait exam (Neuro): Normal gait present Extrem General: Yes full ROM and No edema Office Procedures Flu Questionnaire Does the patient have a severe egg allergy?: No Does the patient have severe life threatening allergies?: No Does the patient have a fever or illness today?: No Has the patient ever had Guillain-[place] Syndrome?: No Has the patient ever had any past reaction to a flu shot?: No Immunizations flu vacc [id number] 6mos up(PF) 60 mcg(15 mcgx4)/0.5 mL IM syringe Performing Provider: THOMAS Lopez [place] [facility] [facility] [place] [facility] Documented (not given) by: YELITZA Red on 03/19/23 11:25 Reason Not Given: Patient Refused Assessment and Plan Assessment & Plan (1) Lump of skin: Code(s): R22.9 - Localized swelling, mass and lump, unspecified Plan: Left distal cheek area raised area about 8hmc9kg, tenderness noted, mild erythema, skin is intact, no discharge ? Cyst Start doxycycline b.i.d. for 10 days Encouraged warm compresses q.i.d. p.r.n. Notify office if no improvement after finishing antibiotic, will refer to general surgery for an evaluation Patient agreed with the plan Orders: Orders 2 Influenza [id number] Immunization Today Z23 - Encounter for immunization Medications: New 2 doxycycline hyclate 100 mg PO BID 20 tabs 0RF R22.9 - Localized swelling, mass and lump, unspecified Coding Level of Care Code Est Pt Level 3 (92453) Diagnoses Lump of skin R22.9
== END 2023-03-19 11:55 | disposition home or self-care (01) ==
PROVIDERS: PCP Internal Medicine; Visit Provider Nurse Practitioner Family
DX: R22.9 Localized swelling, mass and lump, unspecified (principal)
CPT/HCPCS: 99213

== ENCOUNTER 2023-03-20 11:19 | Outpatient (AMB) | payer OTHER, SELFPAY ==
--- NOTE | 2023-03-20 11:24 | MHC.OFFVIS ---
Intake Intake Visit Reasons: Incontinence (seen Dr. Simms 2019) Intake Note: New Patient presents for initial visit for incontinence Urology Medications: none Blood Thinner: none PVR: 5ml's Tumbler Machine Operator Required: No Accompanied by: Self / Same As Patient Allergies trazodone Allergy (Intermediate, Verified 03/23/23 15:33) Insomnia gabapentin Adverse Reaction (Intermediate, Verified 03/23/23 15:33) dry mouth Medication List - Last Reconciled 03/23/23 by PRASHANT Will atorvastatin 10 mg PO DAILY cholecalciferol (vitamin D3) 50 mcg PO DAILY 90 days cyclobenzaprine 10 mg PO Q8H PRN doxycycline hyclate 100 mg PO BID ibuprofen 800 mg PO Q8H PRN linaclotide 145 mcg PO DAILY metoclopramide HCl (Reglan) 10 mg PO Q6H PRN mirabegron ER (Myrbetriq) 25 mg PO DAILY 30 days multivitamin 1 tab PO DAILY pantoprazole 40 mg PO DAILY 90 days pregabalin 50 mg PO BEDTIME psyllium husk (Metamucil) 0.4 grams PO BID sucralfate (Carafate) 1 g PO BID 30 days tramadol 50 mg PO Q8H PRN 30 days [wrist splint wear nightly & as much as possible throughout the day] zolpidem 10 mg PO BEDTIME PRN 30 days HPI HPI Comments History of Present Illness Details Ashley is a very pleasant 52-year-old female patient of Dr. Steve Chaudhry. She has a past medical history of diverticulitis, depression, epigastric pain, depression, nephrolithiasis, hypercholesteremia, insomnia, GERD, polyarthralgia, and arnold-chiari malformation. She presents to the office today as a new patient for urinary incontinence. In discussion with the patient today she reports to be doing and feeling well. She reports previously following up with Dr. Gomez in 2019 for microscopic hematuria and urinary incontinence. She reports having had a cystoscopy and bladder biopsy in the past and reports being told biopsy results were negative. She reports having tried oxybutynin and tolderadine and experiencing dry mouth and constipation however did feel lower urinary tract symptoms improved. When asked she reports urinary frequency, urinary urgency, and episodes of incontinence if not near a bathroom. She otherwise denies nocturia, hematuria, dysuria, foul smelling urine, changes to urinary stream, flank pain, fever, and or chills. In office urinalysis results reviewed with the patient today. PVR 5 mL. Microscopic hematuria noted in UA today otherwise WNL. Discussed at length potential causes for microscopic hematuria as well as stress incontinence. When asked she does report a long standing smoking history of over 30 years and is currently smoking approximately 10 cigarettes per day she otherwise denies any known chemical exposure. Discussed obtaining CT urogram, urine cytology, and in office cystoscopy for further assessment evaluation. Discussed at length surveillance monitoring verses further microscopic hematuria workup in the setting of nicotine dependence. [facility] Medical History Diverticulitis Mild recurrent major depression Bloody stools Epigastric pain Right hip pain Left hip pain Depression Obese Kidney stone Knee pain, left Hypovitaminosis D Pure hypercholesterolemia History of renal calculi Insomnia Arnold-Chiari malformation GERD (gastroesophageal reflux disease) Polyarthralgia Surgical History History of esophagogastroduodenoscopy (EGD) Hx of cystoscopy H/O colonoscopy S/P RUBÉN (total abdominal hysterectomy) History of cryosurgery History of cholecystectomy Family History Father Diabetes Hypertension Cancer, Onset Age: 78 Mother Cancer Breast cancer Maternal Grandmother Stroke Maternal Grandfather Cancer Esophageal cancer Paternal Grandfather Cancer Maternal Uncle Cancer Brain cancer Sister Breast cancer Social History Household Members Other:: Housing: House Alcohol intake: never Patient Tobacco Use Status: Current everyday Tobacco user Tobacco use type: Cigarette Cigarettes Per Day: 6 Years Smoked: 20 e-Cigarette/Vaping Use: Never Used Second Hand Smoke Exposure: No service: No Current occupational status: employed 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 Current occupational exposures/hazards: No Cognitive needs: No Hearing needs: No Vision needs: Yes Review of Systems Const Reports as per HPI Eyes Reports no additional complaints ENT Reports no additional complaints Card Reports as per HPI Resp Reports as per HPI GI Reports as per HPI Reports as per HPI Musc Reports as per HPI Neuro Reports no additional complaints Psych Reports as per HPI Endo Reports as per HPI Physical Exam Const General: cooperative, healthy appearing, comfortable, no acute distress, well developed, alert and awake Orientation/consciousness: patient oriented x3 Limitations: no limitations HEENT Head: Yes normal to inspection, Yes normocephalic and Yes atraumatic Ears: hearing grossly normal bilaterally Eyes General: appearance normal, both eyes and all related structures Neck Neck: Yes normal visual inspection and Yes trachea midline Chest Chest palpation & inspection: normal inspection of the chest Resp Effort & Inspection: normal respiratory effort and able to speak in complete sentences Cardio Rate: regular rate GI Inspection: Yes normal to inspection General: Yes no CVA tenderness Back/Spine/Pelvis Back: no CVA tenderness Skin General skin exam: no rashes or lesions noted Neuro General: patient oriented x3 Extrem General: Yes normal to inspection Psych Appearance: grossly normal and well kempt Mental Status: mental status grossly normal Speech and movement: Normal speech and movement present and Clear speech present Affect: normal affect Attitude: cooperative Thought process: Normal thought process present Thought content: Normal thought content present Insight: Fair insight present (Psych) Judgement: Fair judgement present (Psych) Office Procedures Post Void Residual Post Residual Void Post Void Residual (PVR): 5 [id number] Void Residual by ultrasound Results AMB Urinalysis, Automated UA Leukoctes 0 Ena/uL Last Edit by Libersy Angelica on 03/20/23 11:51 UA Nitrite Negative Last Edit by Clifford Thames on 03/20/23 11:51 UA Urobilinogen 0.2 mg/dL Last Edit by Libersy NickiThoora on 03/20/23 11:51 UA Protein 0 mg/dL Last Edit by RFMicronjudit on 03/20/23 11:51 UA pH 6.0 Last Edit by Clifford Thames on 03/20/23 11:51 UA Blood 25 Cristian/uL Last Edit by Libersy NickiThoora on 03/20/23 11:51 UA Specific [place] 1.030 Last Edit by Clifford Thames on 03/20/23 11:51 UA Ketone Negative Last Edit by Clifford Thames on 03/20/23 11:51 UA Bilirubin 0 mg/dL Last Edit by Clifford Thames on 03/20/23 11:51 UA Glucose 0 mg/dL Last Edit by Leesa Dominguez on 03/20/23 11:51 Results Reviewed Results Reviewed: Laboratory Last Values Urine pH (Auto) 6.0 03/20/23 11:27 Specific [place] (Auto) 1.030 03/20/23 11:27 Urine Protein (Auto) 0 mg/dL 03/20/23 11:27 Glucose (UA)(Auto) 0 mg/dL 03/20/23 11:27 Urine Ketones (Auto) Negative 03/20/23 11:27 Urine Blood (Auto) 25 Cristian/uL 03/20/23 11:27 Urine Nitrite (Auto) Negative 03/20/23 11:27 Urine Bilirubin (Auto) 0 mg/dL 03/20/23 11:27 Urine Urobilinogen (Auto) 0.2 mg/dL 03/20/23 11:27 Leukocyte Esterase (Auto) 0 Ena/uL 03/20/23 11:27 Assessment & Plan Assessment & Plan (1) Microhematuria: Code(s): R31.29 - Other microscopic hematuria (2) Mixed incontinence urge and stress: Code(s): N39.46 - Mixed incontinence (3) Urinary frequency: Code(s): R35.0 - Frequency of micturition Plan In office urinalysis results reviewed with the patient today; as noted above; will send for urine cytology. PVR-5ml's Will obtain CT urogram for further assessment evaluation. BUN and creatinine ordered for imaging. Discussed at length importance of limiting/quitting cigarette smoking for overall health and well-being. Discussed at length potential causes for lower urinary tract symptoms patient is experiencing Start Myrbetriq as discussed and prescribed. Discussed pelvic floor therapy. Follow-up in office cystoscopy with imaging and labs to be completed prior; or sooner with any issues, concerns, and or questions. Orders: Orders AMB Urinalysis Automated 03/20/23 Z13.9 - Encounter for screening, unspecified Blood Urea Nitrogen 03/20/23 R31.29 - Other microscopic hematuria Creatinine 03/20/23 R31.29 - Other microscopic hematuria AMB Post Void Residual by ultrasound 03/20/23 Z13.9 - Encounter for screening, unspecified CT urogram 03/20/23 R31.29 - Other microscopic hematuria Urine Cytology 03/20/23 R31.29 - Other microscopic hematuria Medications: New mirabegron ER (Myrbetriq) 25 mg PO DAILY 30 days 30 tabs 1RF N30.10 - Interstitial cystitis (chronic) without hematuria, N32.81 - Overactive bladder, R35.1 - Nocturia, R39.15 - Urgency of urination Patient Instructions: The patient had an opportunity to ask questions regarding the treatment plan. All questions were answered. Physical exam, labs, and imaging were discussed and reviewed in detail. As well as risks, benefits, and discussion of treatment choices. No major barriers to understanding were identified. The patient expressed understanding and agreement with the above treatment plan. The patient was made aware they should contact our office by phone for worsening of their current condition, the appearance of new symptoms, or with any questions or concerns. Compliance is encouraged with any medications and follow up testing that is ordered. It is a privilege to be allowed the opportunity to participate in? your urological care.? Again, if you have any questions or concerns If you have any questions or concerns please do not hesitate to contact me. The office is [phone]. This note is constructed using voice recognition software. While every effort has been made to ensure accuracy tipple oiler errors may have been included. Yours sincerely, THOMAS Will- Quality Reporting (2019) Adult ([facility] 138/08/06/68) Smoking risk assessment performed?: Yes Patient Tobacco Use Status: Current everyday Tobacco user Coding Level of Care Code New Pt Level 4 (16984) Diagnoses Microhematuria R31.29 Mixed incontinence urge and stress N39.46 Urinary frequency R35.0 CPT Codes Post Residual Void - PVR CPT Code: 63012-Poqg Void Residual by ultrasound ([id number])
== END 2023-03-20 12:11 | disposition home or self-care (01) ==
PROVIDERS: PCP Internal Medicine; Visit Provider Nurse Practitioner Family
DX: Z13.9 Encounter for screening, unspecified (principal)
CPT/HCPCS: 99204

== ENCOUNTER 2023-03-20 11:19 | Outpatient (REF) | payer OTHER, SELFPAY | END 2023-03-20 11:20 | disposition home or self-care (01) | LOC: HO.LNP 11:19 | PROVIDERS: PCP Internal Medicine; Visit Provider Nurse Practitioner Family | DX: R31.29 Other microscopic hematuria (principal); R35.0 Frequency of micturition; N39.46 Mixed incontinence | CPT/HCPCS: 51798; 81003; 88112 ==

== ENCOUNTER 2023-03-26 12:05 | Outpatient (REF) | payer OTHER, SELFPAY ==
[2023-03-26 13:00] LABS: Blood Urea Nitrogen 18 mg/dL (9-16); Estimated Glomerular Filt Rate > 60
== END 2023-03-26 12:06 | disposition home or self-care (01) ==
LOC: HO.LAB 12:05
PROVIDERS: PCP Internal Medicine; Visit Provider Nurse Practitioner Family
DX: R31.29 Other microscopic hematuria (principal)
CPT/HCPCS: 36415; 82565; 84520

== ENCOUNTER 2023-04-13 08:11 | Outpatient (REF) | payer OTHER, SELFPAY ==
[2023-04-13 09:23] LABS: Alanine Aminotransferase 23 U/L (0-31); Albumin Level 3.9 g/dL (3.5-5.0); Alkaline Phosphatase 40 U/L (39-117); Anion Gap 14 (12-20); Aspartate Amino Transferase 19 U/L (5-31); Bilirubin Total 0.5 mg/dL (0.0-1.0); Blood Urea Nitrogen 16 mg/dL (9-16); Calcium 9.6 mg/dL (8.4-10.2); Carbon Dioxide 23 mmol/L (22-29); Chloride 109 mmol/L (96-108); Cholesterol 226 mg/dL (<200); Estimated Glomerular Filt Rate > 60; Glucose Fasting 110 mg/dL (60-99); HDL Cholesterol 42 mg/dL (>40); LDL Cholesterol Calculated 168 mg/dL (<100); Potassium 4.3 mmol/L (3.3-5.1); Sodium 142 mmol/L (135-145); Total Protein 6.9 g/dL (6.5-8.0); Triglycerides 84 mg/dL (<150)
[2023-04-13 09:25] LABS: Vitamin D 25-OH Total 25.2 ng/mL (>30)
== END 2023-04-13 08:12 | disposition home or self-care (01) ==
LOC: HO.LAB 08:11
PROVIDERS: PCP Internal Medicine; Visit Provider Internal Medicine
DX: E78.5 Hyperlipidemia, unspecified (principal); E55.9 Vitamin D deficiency, unspecified; M54.50 Low back pain, unspecified
CPT/HCPCS: 36415; 80053; 80061; 82306

== ENCOUNTER 2023-04-22 15:35 | Outpatient (REF) | payer OTHER, SELFPAY ==
--- NOTE | ~2023-04-22 | CT_ITS ---
EXAMINATION: CT UROGRAM WITHOUT AND WITH CONTRAST CLINICAL INFORMATION: Reason for Exam R31.29 - Other microscopic hematuria COMPARISON: CT abdomen and pelvis 08/28/2022 TECHNIQUE: Noncontrast helical scanning was performed with submillimeter collimation through the abdomen and pelvis. Postcontrast helical scanning was then repeated with submillimeter collimation through the abdomen and pelvis in the pyelographic/urographic phase using split dose technique with 85 mL of Omnipaque 350 intravenous contrast. Sagittal and coronal 2-D reconstructions were obtained. 3D POSTPROCESSING: Multiple 3-D volumetric and CPR images were processed from the initial data set by the geodetic surveyor technologist at the modality workstation under concurrent physician supervision. This CT examination was performed using dose optimization techniques as appropriate, variously including the following: *Automated exposure control *Adjustment of mA and/or kV according to patient size (this includes techniques or standardized protocols for targeted exams where dose is matched to indication/reason for exam; i.e. extremities or head) *Use of iterative reconstruction technique DLP: 813 mGycm FINDINGS: KIDNEYS, URETERS, BLADDER: Specific attention was given to the kidneys, ureters, and bladder. The right kidney measures 10.6 cm in size and the left kidney measures 10.4 cm in size. NONCONTRAST: No nephrolithiasis. No ureterolithiasis. Numerous gonadal vein and pelvic phleboliths. POSTCONTRAST NEPHROGRAPHIC/UROGRAPHIC: Symmetric nephrograms. No suspicious renal lesions. Symmetric urinary excretion. No filling defects in the collecting system. BLADDER: No bladder calculus or discrete bladder mass. PELVIC VISCERA: Suspect hysterectomy. No pelvic mass per OTHER: LUNG BASES: Dependent attenuation changes. No suspicious lung nodule. LIVER, GALLBLADDER, AND BILIARY TREE: Hepatic steatosis. No discrete liver mass. Cholecystectomy. No biliary ductal dilatation. PANCREAS: No discrete mass or ductal dilatation. SPLEEN: Unremarkable. ADRENAL GLANDS: No adrenal mass. GASTROINTESTINAL TRACT: The small bowel is normal in caliber. The appendix is normal. Colonic diverticulosis without evidence of acute diverticulitis. ABDOMINAL WALL: Small fat-containing periumbilical hernia. LYMPH NODES: No adenopathy. VASCULAR: No aortic aneurysm. Mild aortoiliac atherosclerosis. OSSEOUS STRUCTURES: Mild degenerative changes. CT/CT urogram IMPRESSION: No explanation for hematuria. No nephrolithiasis. No discrete renal or bladder mass. Normal CT urogram.
[2023-04-22] MEDS: iohexoL 350 MG/ML 100 ML INFUS..BTL IV (16:22)
== END 2023-04-22 15:36 | disposition home or self-care (01) ==
LOC: HO.CT 15:35
PROVIDERS: PCP Internal Medicine; Visit Provider Nurse Practitioner Family
DX: R31.29 Other microscopic hematuria (principal)
CPT/HCPCS: 74178; Q9967

== ENCOUNTER 2023-04-23 13:42 | Outpatient (AMB) | payer OTHER, SELFPAY ==
--- NOTE | 2023-04-23 14:38 | A.OFFVIS_ITS ---
Intake Intake Visit Reasons: 4w/cysto/CT/labs Intake Note: Patient presents today for a CYSTOSCOPY Procedure: Meds: None Allergies to Antibiotic: No Known Allergies Blood Thinner: None Urinalysis test cleared for Cysto Disposable Uro-G Cystoscope Cannula: Lot: [id number] Exp: 10/22/2024 Steam Table Attendant Required: No Information Interpreted: non-clinical & clinical Duct Layer Supervisor: Duct Layer Supervisor Present Accompanied by: Daughter Allergies trazodone Allergy (Intermediate, Verified 06/04/23 14:10) Insomnia gabapentin Adverse Reaction (Intermediate, Verified 06/04/23 14:10) dry mouth HPI HPI Comments History of Present Illness Details Ashley is a 52-year-old female who presents today to the office for a follow-up. 04/23/2023-- She is followed today for a cystoscopy procedure. She was last seen by Jayant Adams on 03/20/2023 for microscopic hematuria. She denies any blood in the urine. She has had CT urogram on 04/22/2023; however, it is pending. I reviewed the CAT scan of the abdomen/pelvis results from 08/28/2022 revealed that there are no kidney stones. I reviewed the cytology report from 03/24/2023 revealed negative for malignant cells. Cystoscopy procedure: Consent was obtained for the procedure. Cystoscopy findings: No suspicious bladder lesions noted. prominent vasculature Review of chart: Last visit: 03/20/2023--Ashley is a very pleasant 52-year-old female patient of Dr. Steve Chaudhry. She has a past medical history of diverticulitis, depression, epigastric pain, depression, nephrolithiasis, hypercholesteremia, insomnia, GERD, polyarthralgia, and arnold-chiari malformation. She presents to the office today as a new patient for urinary incontinence. In discussion with the patient today she reports to be doing and feeling well. She reports previously following up with Dr. Gomez in 2020 for microscopic hematuria and urinary incontinence. She reports having had a cystoscopy and bladder biopsy in the past and reports being told biopsy results were negative. She reports having tried oxybutynin and tolderadine and experiencing dry mouth and constipation however did feel lower urinary tract symptoms improved. When asked she reports urinary frequency, urinary urgency, and episodes of incontinence if not near a bathroom. She otherwise denies nocturia, hematuria, dysuria, foul smelling urine, changes to urinary stream, flank pain, fever, and or chills. In office urinalysis results reviewed with the patient today. PVR 5 mL. Microscopic hematuria noted in UA today otherwise WNL. Discussed at length potential causes for microscopic hematuria as well as stress incontinence. When asked she does report a long standing smoking history of over 30 years and is currently smoking approximately 10 cigarettes per day she otherwise denies any known chemical exposure. Discussed obtaining CT urogram, urine cytology, and in office cystoscopy for further assessment evaluation. Discussed at length surveillance monitoring verses further microscopic hematuria workup in the setting of nicotine dependence. 04/23/2023: Plan: Follow-up with Jayant Adams in 6 months. [facility] Medical History Family history of breast cancer Epidermoid cyst of skin of cheek Diverticulitis Mild recurrent major depression Bloody stools Epigastric pain Right hip pain Left hip pain Depression Obese Kidney stone Knee pain, left Hypovitaminosis D Pure hypercholesterolemia History of renal calculi Insomnia Arnold-Chiari malformation GERD (gastroesophageal reflux disease) Polyarthralgia Surgical History History of removal of cyst (~05/28/23) History of esophagogastroduodenoscopy (EGD) Hx of cystoscopy H/O colonoscopy S/P RUBÉN (total abdominal hysterectomy) History of cryosurgery History of cholecystectomy Family History Father Diabetes Hypertension Cancer, Onset Age: 78 Mother Cancer Breast cancer, Onset Age: 53 Maternal Grandmother Stroke Maternal Grandfather Cancer Esophageal cancer Paternal Grandfather Cancer Maternal Uncle Cancer Brain cancer Sister Breast cancer, Onset Age: 48 Social History Household Members Other:: Housing: House Alcohol intake: never Patient Tobacco Use Status: Current everyday Tobacco user Tobacco use type: Cigarette Cigarettes Per Day: 6 Years Smoked: 20 e-Cigarette/Vaping Use: Never Used Second Hand Smoke Exposure: No service: No Current occupational status: employed 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 Information consent for procedure given to the patient. Discussed technical aspects, risks, benefits and alternatives in full. Addressed all of the patient's questions and concerns regarding the procedure. The patient demonstrated knowledge and understanding. They wish to proceed with this procedure. Preparation The patient was prepped in the usual manner. A bander hand was present and in the room. Genitalia was prepped with betadine solution in a sterile manner. Lidocaine Jelly 2% was placed into the urethra and 16Fr flexible Olympus cystoscope was inserted into the meatus after adequate lubrication. Time out per protocol performed. Bladder Inspection Bladder Inspection: The bladder was inspected in its entirety with utilization retroflexion displaying: Tumor(s): none visualized Trabeculation: N/A Mucosal Erthema: N/A, prominent vasculature Orifices: normal shape and position Urethra: normal Cystoscopy findings: WNL, no suspicious bladder lesions visualized [id number] DISPOSABLE SCOPE URO-G FLEXIBLE SCOPE Procedure code (CPT) selection complete Office Meds lidocaine HCl 2 % mucosal jelly in applicator Performing Provider: Dimitri Skinner MD Performing Location[place] [facility] Administered by: Izabel Gerardo RN on 04/23/23 15:02 Dose Route Admin Location Dispensed Lot Number Expiration Date [facility] [employer] 10 mL intra-urethral 20 mL naproxen 500 mg tablet Performing Provider: Dimitri Skinner MD Performing Location: [facility] Administered by: Izabel Gerardo RN on 04/23/23 15:02 Dose Route Admin Location Dispensed Lot Number Expiration Date [facility] [employer] 500 mg PO 1 tab ciprofloxacin HCl 500 mg tablet Performing Provider: Dimitri Skinner MD Performing Location: [facility] Administered by: Izabel Gerardo RN on 04/23/23 15:02 2 Dose Route Admin Location Dispensed Lot Number Expiration Date [employer] [employer] 500 mg PO 1 tab Results AMB Urinalysis, Automated UA Leukoctes 0 Ena/uL Last Edit by YELITZA Ferrara on 04/23/23 15:17 UA Nitrite Negative Last Edit by Rosio Huerta [facility] on 04/23/23 15:17 UA Urobilinogen 0.2 mg/dL Last Edit by Rosio Huerta [facility] on 04/23/23 15:1 7 UA Protein 0 mg/dL Last Edit by Rosio Huerta [facility] on 04/23/23 15:17 UA pH 6.0 Last Edit by Rosio Huerta [facility] on 04/23/23 15:17 UA Blood 80 Cristian/uL Last Edit by Rosio Huerta [facility] on 04/23/23 15:17 2+ Rosio Huerta 04/23/23 15:17 UA Specific [place] 1.015 Last Edit by Rosio Huerta [facility] on 04/23/23 15: 17 UA Ketone Last Edit by Rosio Huerta [facility] on 04/23/23 15:17 UA Bilirubin 0 mg/dL Last Edit by Rosio Huerta [facility] on 04/23/23 15:17 UA Glucose 0 mg/dL Last Edit by Rosio Huerta [facility] on 04/23/23 15:17 Results Reviewed Results Reviewed: Laboratory Last Values Urine pH (Auto) 6.0 04/23/23 15:06 Specific [place] (Auto) 1.015 04/23/23 15:06 Urine Protein (Auto) 0 mg/dL 04/23/23 15:06 Glucose (UA)(Auto) 0 mg/dL 04/23/23 15:06 Urine Blood (Auto) 80 Cristian/uL 04/23/23 15:06 Urine Nitrite (Auto) Negative 04/23/23 15:06 Urine Bilirubin (Auto) 0 mg/dL 04/23/23 15:06 Urine Urobilinogen (Auto) 0.2 mg/dL 04/23/23 15:06 Leukocyte Esterase (Auto) 0 Ena/uL 04/23/23 15:06 Diagnosis Urine: Negative for high-grade urothelial carcinoma. COMMENT: Examination of a monolayer preparation slide shows many benign squamous cells, occasional benign urothelial cells, few lymphocytes, and few red blood cells. Clinical History Microscopic hematuria Material Received Urine Gross Description 30 cc cloudy yellow fluid Date of Service: 08/28/22 EXAMINATION: CT ABDOMEN AND PELVIS WITHOUT CONTRAST CLINICAL INFORMATION: Left lower quadrant and left upper quadrant abdominal pain with hematuria. COMPARISON: CT abdomen pelvis 03/01/2020 FINDINGS: LUNG BASES: The visualized lung bases are unremarkable. Some dependent groundglass changes are seen. LIVER, GALLBLADDER, AND BILIARY TREE: The liver is normal in size and shape but demonstrates markedly decreased attenuation consistent with hepatic steatosis.. No focal hepatic lesion or biliary ductal dilatation is present. Status post cholecystectomy. PANCREAS: Unremarkable. SPLEEN: Unremarkable. ADRENAL GLANDS: Unremarkable. KIDNEYS AND URETERS: The kidneys are normal in size, shape, and attenuation. No hydronephrosis, hydroureter, or calculi seen. No perinephric stranding. BLADDER: Unremarkable. GASTROINTESTINAL TRACT: Diverticular changes are present in the colon with an area of acute uncomplicated diverticulitis seen at the junction of the descending colon and sigmoid colon at the pelvic brim. Inflammatory changes are seen without extraluminal air or pericolonic fluid collections. The small bowel and remainder of the large bowel are unremarkable. The appendix is unremarkable. ABDOMINAL WALL: No significant hernia is appreciated. Tiny periumbilical hernia seen containing only fat. LYMPH NODES: Some shotty retroperitoneal lymph nodes are seen but there is no adenopathy. VASCULAR: Mild aortoiliac calcifications without aneurysm. PELVIC VISCERA: The uterus is not present. An abnormal adnexal mass is not seen. No free intraperitoneal fluid is present. OSSEOUS STRUCTURES: Unremarkable. IMPRESSION: 1. Acute uncomplicated diverticulitis at the junction of the descending and sigmoid colon. 2. Incidental note made of hepatic steatosis, cholecystectomy and hysterectomy. Assessment & Plan Assessment & Plan (1) Microhematuria: Code(s): R31.29 - Other microscopic hematuria (2) Mixed incontinence urge and stress: Code(s): N39.46 - Mixed incontinence (3) Urinary frequency: Code(s): R35.0 - Frequency of micturition Plan Follow-up with PAPER FOLDING MACHINE OPERATOR. Jayant Solano in 6 months. Orders: Orders AMB Cystoscopy 04/23/23 N39.46 - Mixed incontinence, R31.29 - Other microscopic hematuria AMB Urinalysis Automated 04/23/23 Z13.9 - Encounter for screening, unspecified Patient Instructions: The patient had an opportunity to ask questions regarding treatment plan. All questions were answered. Imaging, Laboratory studies and physical exam results were discussed and reviewed in detail. No major barriers to understanding were identified. The patient expressed understanding and agreement with the above treatment plan. The patient is aware they should contact our office by phone for worsening of their current condition or the appearance of new symptoms. Compliance is encouraged with any medications and followup testing that is ordered. It is a privilege to be allowed the opportunity to participate in the urologic care of your patient. If you have any questions or concerns regarding treatment for the above conditions please do not hesitate to contact me. The office telephone contact is [phone]. This note is constructed in part using voice recognition software. While every effort has been made to ensure accuracy global account executive errors may have been included. Yours sincerely, Dimitri Skinner MD Quality Reporting (2019) Adult ([facility] 138/08/06/68) Smoking risk assessment performed?: Yes Patient Tobacco Use Status: Current everyday Tobacco user Coding Level of Care Code Procedure Only Diagnoses Microhematuria R31.29 Mixed incontinence urge and stress N39.46 Urinary frequency R35.0 CPT Codes Cystoscopy - CPT: 61624-[id number] ([id number])
== END 2023-04-23 15:20 | disposition home or self-care (01) ==
PROVIDERS: PCP Internal Medicine; Visit Provider Urology
DX: N39.46 Mixed incontinence (principal); R31.29 Other microscopic hematuria; Z13.9 Encounter for screening, unspecified
CPT/HCPCS: 52000

== ENCOUNTER → 2023-04-23 13:42 | Outpatient (BNVA) | payer OTHER, SELFPAY | PROVIDERS: PCP Internal Medicine; Visit Provider Urology | DX: R31.29 Other microscopic hematuria (principal); N39.46 Mixed incontinence; R35.0 Frequency of micturition; Z87.442 Personal history of urinary calculi | CPT/HCPCS: 52000; 81003 ==

== ENCOUNTER 2023-05-12 14:23 | Outpatient (AMB) | payer OTHER, SELFPAY ==
--- NOTE | 2023-05-12 14:27 | MHC.PC.OV ---
Vital Signs 05/12/23 14:28 Height 5 ft 3 in Weight 184 lb BMI 32.6 BP 132/80 Blood Pressure Location Lt brachial Position Sitting Intake Visit Reasons: PE Intake Note: Patient here for a physical exam Intake Coordinator Required: No Accompanied by: Self / Same As Patient Allergies trazodone Allergy (Intermediate, Verified 05/12/23 14:50) Insomnia gabapentin Adverse Reaction (Intermediate, Verified 05/12/23 14:50) dry mouth Medication List - Last Reconciled 05/12/23 by Jayna Chaudhry MD atorvastatin 10 mg PO DAILY cholecalciferol (vitamin D3) 50 mcg PO DAILY 90 days cyclobenzaprine 10 mg PO Q8H PRN ibuprofen 800 mg PO Q8H PRN linaclotide 145 mcg PO DAILY metoclopramide HCl (Reglan) 10 mg PO Q6H PRN mirabegron ER (Myrbetriq) 25 mg PO DAILY 30 days multivitamin 1 tab PO DAILY pantoprazole 40 mg PO DAILY 90 days pregabalin 50 mg PO BEDTIME psyllium husk (Metamucil) 0.4 grams PO BID sucralfate (Carafate) 1 g PO BID 30 days tramadol 50 mg PO Q8H PRN 30 days [wrist splint wear nightly & as much as possible throughout the day] zolpidem 10 mg PO BEDTIME PRN 30 days Tobacco use date assessed: 03/19/23 Dental Screening Dental Screen Date: 05/12/23 Did you have a dental visit in the last 12 months?: Yes Did you have a dental problem in the last 6 months where you did not have access to dental care?: No Was dental information given to patient?: Patient has dentist HPI HPI Comments History of Present Illness Details This is a 52-year-old female with mild recurrent major depression and Arnold-Chiari malformation that comes for her physical exam. Last colonoscopy was last year showing tubular adenoma. Last Pap smear was 2021 and was normal. Last mammogram as per patient was February 2023 and was normal in [place]. Depression has been in remission. Last MRI of the brain was over a year ago that she does complain of occasional headaches. No chest pain or shortness of breath. Had a pimple in left side of the chin a while ago and still has the lump. [facility] Medical History Diverticulitis Mild recurrent major depression Bloody stools Epigastric pain Right hip pain Left hip pain Depression Obese Kidney stone Knee pain, left Hypovitaminosis D Pure hypercholesterolemia History of renal calculi Insomnia Arnold-Chiari malformation GERD (gastroesophageal reflux disease) Polyarthralgia Surgical History History of esophagogastroduodenoscopy (EGD) Hx of cystoscopy H/O colonoscopy S/P RUBÉN (total abdominal hysterectomy) History of cryosurgery History of cholecystectomy Family History Father Diabetes Hypertension Cancer, Onset Age: 78 Mother Cancer Breast cancer Maternal Grandmother Stroke Maternal Grandfather Cancer Esophageal cancer Paternal Grandfather Cancer Maternal Uncle Cancer Brain cancer Sister Breast cancer Social History Household Members Other:: Housing: House Alcohol intake: never Patient Tobacco Use Status: Current everyday Tobacco user Tobacco use type: Cigarette Cigarettes Per Day: 6 Years Smoked: 20 e-Cigarette/Vaping Use: Never Used Second Hand Smoke Exposure: No service: No Current occupational status: employed 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 Arsh Mcintosh, Kristine Javier, Hemant Mabry and colleagues, with an educational sera from [employer]. Review of Systems Const All systems reviewed & are unremarkable except as noted in HPI and below Eyes Reports no additional complaints, Denies change in vision and Denies other visual disturbances Card Denies chest pain at rest, Denies chest pain with activity, Denies edema, Denies irregular heart rhythm, Denies claudication, Denies dyspnea, Denies dyspnea on exertion, Denies orthopnea, Denies paroxysmal nocturnal dyspnea and Denies slow heart rate Resp Denies cough, Denies dyspnea and Denies dyspnea on exertion GI Denies abdominal pain, Denies change in bowel habits, Denies excessive flatus, Denies nausea and Denies vomiting Denies urinary incontinence, Denies urinary hesitancy and Denies urinary urgency Musc Denies abnormal gait, Denies atrophy, Denies deformity and Denies limited range of motion Skin/Breast Denies bleeding lesions, Denies changing lesions and Denies rash Neuro Denies abnormal gait, Denies behavioral changes, Denies confusion and Denies lack of coordination Psych Denies behavioral changes and Denies confusion Physical exam (Primary Care) Vital Signs: Last Vital Signs BP 132/80 05/12/23 14:28 BMI result Body Mass Index 32.6 Tobacco/Smoking Status: Tobacco use Status Tobacco use date assessed 03/19/23 05/12/23 14:33 Patient Tobacco Use Status Current everyday Tobacco 05/12/23 14:33 Tobacco use type Cigarette 05/12/23 14:33 e-Cigarette/Vaping Use Never Used 05/12/23 14:33 Thrive Assessment: Date of Thrive Assessment Date Thrive assessed 07/21/22 05/12/23 14:33 Const General: No confusion Orientation/consciousness: patient oriented x3 and No confusion HENMT Head: Yes normal to inspection, Yes normocephalic and Yes atraumatic Ears: external ears normal Eyes General: appearance normal, both eyes and all related structures Eyelids: Yes eyelids normal Conjunctivae: conjunctivae normal Neck Neck: Yes normal visual inspection and Yes supple Resp Effort & Inspection: normal respiratory effort Auscultation: clear to auscultation bilaterally Cardio Jugular venous distension: no JVD Rate: regular rate Rhythm: regular rhythm Heart sounds: S1 normal heart sound present and S2 normal heart sound present GI Inspection: Yes normal to inspection Palpation (GI): Soft to palpation and nontender Auscultation: normal bowel sounds Skin Other: lump in face located in lest side of the jaw Neuro General: patient oriented x3, no focal motor deficits and No confusion Extrem General: Yes full ROM Psych Appearance: grossly normal Office Procedures Flu Questionnaire Does the patient have a severe egg allergy?: No Immunizations flu vacc [id number] 6mos up(PF) 60 mcg(15 mcgx4)/0.5 mL IM syringe Performing Provider: Jayna Chaudhry MD [facility] Documented (not given) by: YELITZA Mcknight on 05/12/23 15:06 Reason Not Given: Patient Refused Assessment and Plan Assessment & Plan (1) Physical exam: Code(s): Z00.00 - Encounter for general adult medical examination without abnormal findings Plan: Repeat in a year. (2) Mild recurrent major depression: Code(s): F33.0 - Major depressive disorder, recurrent, mild Plan: In remission. (3) Arnold-Chiari malformation: Code(s): Q07.00 - Arnold-Chiari syndrome without spina bifida or hydrocephalus Plan: MRI of the brain ordered. Orders: Orders MR head/brain wo con Today Q07.00 - Arnold-Chiari syndrome without spina bifida or hydrocephalus Influenza 2006-1051 Immunization Today Z23 - Encounter for immunization Coding Level of Care Code Est Pt Prev Care 40-64y(60544) Diagnoses Physical exam Z00.00 Mild recurrent major depression F33.0 Arnold-Chiari malformation Q07.00 Time Spent (min) 35
[2023-05-12 14:28] VITALS: BP 132/80; BMI 32.6
== END 2023-05-12 15:06 | disposition home or self-care (01) ==
PROVIDERS: Visit Provider Internal Medicine
DX: Z00.00 Encounter for general adult medical examination without abnormal findings (principal); F33.0 Major depressive disorder, recurrent, mild; Q07.00 Arnold-Chiari syndrome without spina bifida or hydrocephalus
CPT/HCPCS: 99396

== ENCOUNTER 2023-05-18 08:36 | Outpatient (AMB) | payer OTHER, SELFPAY ==
--- NOTE | 2023-05-18 08:41 | A.OFFVIS_ITS ---
Intake Vital Signs 05/18/23 08:46 Height 5 ft 3 in Weight 186 lb BMI 32.9 BP 135/74 Blood Pressure Location Rt brachial Position Sitting Pulse 75 Intake Visit Reasons: cutaneous abscess of face Intake Note: This patient presents for an assessment for cutaneous abscess of the face. Patient c/o; Onset over 3 months, reports increase in size, reports completing one round of antibiotics but was not effective. Distribution Coordinator Required: No Accompanied by: Self / Same As Patient Allergies trazodone Allergy (Intermediate, Verified 05/18/23 08:47) Insomnia gabapentin Adverse Reaction (Intermediate, Verified 05/18/23 08:47) dry mouth Medication List - Last Reconciled 05/18/23 by Jaylan Álvarez MD atorvastatin 10 mg PO DAILY cholecalciferol (vitamin D3) 50 mcg PO DAILY 90 days cyclobenzaprine 10 mg PO Q8H PRN ibuprofen 800 mg PO Q8H PRN linaclotide 145 mcg PO DAILY metoclopramide HCl (Reglan) 10 mg PO Q6H PRN mirabegron ER (Myrbetriq) 25 mg PO DAILY 30 days multivitamin 1 tab PO DAILY pantoprazole 40 mg PO DAILY 90 days pregabalin 50 mg PO BEDTIME psyllium husk (Metamucil) 0.4 grams PO BID sucralfate (Carafate) 1 g PO BID 30 days tramadol 50 mg PO Q8H PRN 30 days [wrist splint wear nightly & as much as possible throughout the day] zolpidem 10 mg PO BEDTIME PRN 30 days HPI cutaneous abscess of face HPI Details 52-year-old female referred for a cyst o n the face. She has noticed this lump on the left side of her cheek on the lower part for about 3 months now. She feels that this been getting bigger in size. Furthermore, she says that this occasionally get swollen. She says at some point she was on antibiotics but this did not help. She denies any drainage from the area. She denies any insect bite or trauma to the area. [facility] Medical History (Updated 05/18/23 @ 09:09 by Jaylan Álvarez MD) Family history of breast cancer Epidermoid cyst of skin of cheek Diverticulitis Mild recurrent major depression Bloody stools Epigastric pain Right hip pain Left hip pain Depression Obese Kidney stone Knee pain, left Hypovitaminosis D Pure hypercholesterolemia History of renal calculi Insomnia Arnold-Chiari malformation GERD (gastroesophageal reflux disease) Polyarthralgia Surgical History History of esophagogastroduodenoscopy (EGD) Hx of cystoscopy H/O colonoscopy S/P RUBÉN (total abdominal hysterectomy) History of cryosurgery History of cholecystectomy Family History Father Diabetes Hypertension Cancer, Onset Age: 78 Mother Cancer Breast cancer, Onset Age: 53 Maternal Grandmother Stroke Maternal Grandfather Cancer Esophageal cancer Paternal Grandfather Cancer Maternal Uncle Cancer Brain cancer Sister Breast cancer, Onset Age: 48 Social History Household Members Other:: Housing: House Alcohol intake: never Patient Tobacco Use Status: Current everyday Tobacco user Tobacco use type: Cigarette Cigarettes Per Day: 6 Years Smoked: 20 e-Cigarette/Vaping Use: Never Used Second Hand Smoke Exposure: No service: No Current occupational status: employed 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 Current occupational exposures/hazards: No Cognitive needs: No Hearing needs: No Vision needs: Yes Review of Systems Const Denies chills and Denies fever(s) Card Denies chest pain, Denies dyspnea and Denies dyspnea on exertion Resp Denies cough, Denies dyspnea and Denies dyspnea on exertion GI Denies hematochezia and Denies change in bowel habits Denies hematuria Musc Denies back pain and Denies limited range of motion Neuro Denies focal weakness and Denies convulsions Psych Denies depression and Denies mood swings Physical Exam Vital Signs: Last Vital Signs Pulse 75 05/18/23 08:46 BP 135/74 05/18/23 08:46 BMI result Body Mass Index 32.9 Const General: comfortable and no acute distress Orientation/consciousness: patient oriented x3 HEENT Other: Lower part of the left cheek with note of cystic induration, about 1.2 cm in diameter, nonfluctuant, non erythematous at this time, no discharge Neck Neck: Yes no lymphadenopathy Resp Auscultation: clear to auscultation bilaterally Cardio Rhythm: regular rhythm GI Palpation (GI): Soft to palpation, nontender and no guarding Neuro General: patient oriented x3 Assessment & Plan Assessment & Plan (1) Epidermoid cyst of skin of cheek: Code(s): L72.0 - Epidermal cyst Plan: She has this cyst on the left cheek as described above. She wants to proceed with excision. I explained the technique of excision under local anesthesia. I reviewed the risks including but not limited to bleeding, infections, postop pain, poor healing, scar formation, as well as the benefits and alternatives. She understands and wants to proceed This will be done at the minor procedure room under local anesthesia. (2) Family history of breast cancer: Code(s): Z80.3 - Family history of malignant neoplasm of breast Plan: She states that her sister was diagnosed to have breast cancer the age of 48. Her mother was diagnosed of breast cancer in her 70s I explained to her the option of proceeding with neck testing because of this family history. She says that both her family members and already been tested and were negative and she says that she is not interested in any genetic counseling or genetic testing. Quality Reporting (2019) Adult ([facility] 138/08/06/68) Smoking risk assessment performed?: Yes Patient Tobacco Use Status: Current everyday Tobacco user Coding Level of Care Code New Pt Level 4 (85199) Diagnoses Epidermoid cyst of skin of cheek L72.0 Family history of breast cancer Z80.3
[2023-05-18 08:46] VITALS: BP 135/74; PULSE 75; BMI 32.9
== END 2023-05-18 09:07 | disposition home or self-care (01) ==
PROVIDERS: PCP Internal Medicine; Visit Provider Surgery
DX: L72.0 Epidermal cyst (principal); Z80.3 Family history of malignant neoplasm of breast
CPT/HCPCS: 99204

== ENCOUNTER → 2023-05-18 08:36 | Outpatient (BNVA) | payer OTHER, SELFPAY | PROVIDERS: PCP Internal Medicine; Visit Provider Surgery | DX: L72.0 Epidermal cyst (principal); Z80.3 Family history of malignant neoplasm of breast | CPT/HCPCS: 99202 ==

== ENCOUNTER 2023-05-28 10:28 | Outpatient (REF) | payer OTHER, SELFPAY ==
[2023-05-28 10:55] VITALS: BMI 33.8
[2023-05-28 11:01] VITALS: BP 123/75; PULSE 71; RESP 16; TEMP 36.7; O2SAT 99
[2023-05-28 12:14] VITALS: BP 133/78; PULSE 69; RESP 16; O2SAT 97
--- NOTE | 2023-05-28 13:01 | W.PM.OPN ---
Operative Note Operative Note Date of Service: 05/28/23 Narrative: Preop diagnosis: Left cheek cyst Postop diagnosis: The same Procedure: Excision of left cheek cyst under local anesthesia Surgeon: Jaylan Álvarez MD The patient is a 52-year-old female with a cystic induration on the left cheek with and frequent swelling. She understood the technique of excision under local anesthesia. She was aware of the risks, benefits, and alternatives She was brought to the minor procedure room. She was placed supine with the head turned to the right to expose the cystic induration of the left cheek area near the angle of the lip. This was about a 1 cm induration. I infiltrated the area with lidocaine 1%. I made an incision on the skin overlying this cystic induration using blade 15. And carried this incision through the full-thickness of the skin subcutaneous fat. I then used fine scissors to excise this entire indurated area off of the rest of the subcutaneous layer. This was sent as specimen. This was about a 1 cm cystic induration . I irrigated the area of excision and closed the incision with full-thickness nylon 5 0 interrupted sutures. Steri-Strips were applied. The procedure was completed. She tolerated the procedure well. There were no immediate complications. Estimated blood loss about 15 cc. She was given wound care instructions.
== END 2023-05-28 10:29 | disposition home or self-care (01) ==
LOC: HO.MS 10:28
PROVIDERS: PCP Internal Medicine; Visit Provider Surgery
PROC: (CPT 11441; principal; 2023-05-28 11:30)
DX: L72.0 Epidermal cyst (principal)
CPT/HCPCS: 11441; 88304

== ENCOUNTER → 2023-05-28 10:28 | Outpatient (BNV) | payer OTHER, SELFPAY | PROVIDERS: PCP Internal Medicine; Visit Provider Surgery | DX: L72.0 Epidermal cyst (principal) | CPT/HCPCS: 11442 ==

== ENCOUNTER 2023-06-04 13:56 | Outpatient (AMB) | payer OTHER, SELFPAY ==
--- NOTE | 2023-06-04 13:58 | MHC.OFFVIS ---
Intake Intake Visit Reasons: S/P excision of cyst left cheek Intake Note: This patient presents for a post-op assessment status post excision left cheek cyst. Pt c/o; reports no complaints at this time. Society Reporter Required: No Accompanied by: Self / Same As Patient Allergies trazodone Allergy (Intermediate, Verified 06/04/23 14:10) Insomnia gabapentin Adverse Reaction (Intermediate, Verified 06/04/23 14:10) dry mouth HPI S/P excision of cyst left cheek HPI Details She underwent excision of a cyst from the left cheek under local anesthesia last 05/28/2023. She tolerated procedure well. She currently denies significant complaints. [facility] Medical History Family history of breast cancer Epidermoid cyst of skin of cheek Diverticulitis Mild recurrent major depression Bloody stools Epigastric pain Right hip pain Left hip pain Depression Obese Kidney stone Knee pain, left Hypovitaminosis D Pure hypercholesterolemia History of renal calculi Insomnia Arnold-Chiari malformation GERD (gastroesophageal reflux disease) Polyarthralgia Surgical History History of removal of cyst (~05/28/23) History of esophagogastroduodenoscopy (EGD) Hx of cystoscopy H/O colonoscopy S/P RUBÉN (total abdominal hysterectomy) History of cryosurgery History of cholecystectomy Family History Father Diabetes Hypertension Cancer, Onset Age: 78 Mother Cancer Breast cancer, Onset Age: 53 Maternal Grandmother Stroke Maternal Grandfather Cancer Esophageal cancer Paternal Grandfather Cancer Maternal Uncle Cancer Brain cancer Sister Breast cancer, Onset Age: 48 Social History Household Members Other:: Housing: House Alcohol intake: never Patient Tobacco Use Status: Current everyday Tobacco user Tobacco use type: Cigarette Cigarettes Per Day: 6 Years Smoked: 20 e-Cigarette/Vaping Use: Never Used Second Hand Smoke Exposure: No service: No Current occupational status: employed 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 Current occupational exposures/hazards: No Cognitive needs: No Hearing needs: No Vision needs: Yes Review of Systems Const Denies chills and Denies fever(s) Card Denies chest pain, Denies dyspnea and Denies dyspnea on exertion Resp Denies cough, Denies dyspnea and Denies dyspnea on exertion GI Denies hematochezia and Denies change in bowel habits Denies hematuria Musc Denies back pain and Denies limited range of motion Neuro Denies focal weakness and Denies convulsions Psych Denies depression and Denies mood swings Physical Exam Const General: comfortable and no acute distress HEENT Other: Excision site on the left cheek is well healed sutures intact, no evidence of infection Assessment & Plan Assessment & Plan (1) Epidermoid cyst of skin of cheek: Code(s): L72.0 - Epidermal cyst Plan: Status post excision. Her incision is well healed. I removed her sutures. Her path report showed a ruptured epidermal cyst. She can follow up on a p.r.n. basis. Quality Reporting (2020) Adult ([facility] 138/08/06/68) Smoking risk assessment performed?: Yes Patient Tobacco Use Status: Current everyday Tobacco user Coding Level of Care Code Global (79750) Diagnoses Epidermoid cyst of skin of cheek L72.0
== END 2023-06-04 14:29 | disposition home or self-care (01) ==
PROVIDERS: PCP Internal Medicine; Visit Provider Surgery
DX: L72.0 Epidermal cyst (principal)
CPT/HCPCS: 99024

== ENCOUNTER → 2023-06-04 13:56 | Outpatient (BNVA) | payer OTHER, SELFPAY | PROVIDERS: PCP Internal Medicine; Visit Provider Surgery | DX: Z48.817 Encounter for surgical aftercare following surgery on the skin and subcutaneous tissue (principal); Z98.890 Other specified postprocedural states | CPT/HCPCS: 99212 ==

== ENCOUNTER 2023-06-17 10:07 | Outpatient (AMB) | payer OTHER, SELFPAY ==
--- NOTE | 2023-06-17 10:11 | MHC.OFFVIS ---
Intake Vital Signs 06/17/23 10:18 Height 5 ft 2 in Weight 188 lb 14.978 oz BMI 34.6 BP 124/66 Blood Pressure Location Rt brachial Position Sitting Pulse 92 Pulse Source Pulse Oximeter Temp 97.7 F Temp Source Skin Pulse Oximetry (%) 100 Intake Visit Reasons: FMS Intake Note: Patient last seen 02/24/23, presents today for FMS follow up and test results. C/o pain all the time, asking if lyrica dose can be increased Produce Weigher Required: No Accompanied by: Self / Same As Patient Allergies trazodone Allergy (Intermediate, Verified 06/17/23 10:20) Insomnia gabapentin Adverse Reaction (Intermediate, Verified 06/17/23 10:20) dry mouth Medication List - Last Reconciled 06/17/23 by Nicole Osuna MD atorvastatin 10 mg PO DAILY cholecalciferol (vitamin D3) 50 mcg PO DAILY 90 days cyclobenzaprine 10 mg PO Q8H PRN ibuprofen 800 mg PO Q8H PRN linaclotide 145 mcg PO DAILY metoclopramide HCl (Reglan) 10 mg PO Q6H PRN mirabegron ER (Myrbetriq) 25 mg PO DAILY 30 days multivitamin 1 tab PO DAILY pantoprazole 40 mg PO DAILY 90 days pregabalin 100 mg (2 x 50 mg) PO BEDTIME psyllium husk (Metamucil) 0.4 grams PO BID sucralfate (Carafate) 1 g PO BID 30 days tramadol 50 mg PO Q8H PRN 30 days [wrist splint wear nightly & as much as possible throughout the day] zolpidem 10 mg PO BEDTIME PRN 30 days HPI HPI Comments History of Present Illness Details 52-year-old female with fibromyalgia returns for follow-up. She states that she is having diffuse joint pain, especially as the weather is getting colder. She has pain in her neck, hands, knees, lower back. Initial history: This is a 52-year-old female who was referred for fibromyalgia evaluation. Patient was started on Lyrica about 6 months ago by her PCP and she was told by her PCP that if she is to continue Lyrica her insurance requires her to be seen by Rheumatology. Patient was evaluated by Dr. Carrillo about 2 years ago and no evidence of autoimmune rheumatic disease was found. Patient states that gabapentin caused dry mouth, she had diarrhea with duloxetine. She feels about 70% improvement in her overall pain with Lyrica but she wakes up with 2 seconds of dizziness that rapidly self-resolved. She would like to continue taking Lyrica. Over the last 2 years she has been having neck stiffness. Worse with certain movements. She was diagnosed with bilateral carpal tunnel syndrome, worse on the right hand. The test was done back in . She was evaluated by hand surgeon who told her they would have to do 1 hand followed by the other hand, patient did not want to go through the surgery as she could not be out of work for such a long period of time. She preferred to do both hands in the same setting. Continues to have bilateral carpal tunnel symptoms. She had wrist splints in the past but she lost them. [facility] Medical History Family history of breast cancer Epidermoid cyst of skin of cheek Diverticulitis Mild recurrent major depression Bloody stools Epigastric pain Right hip pain Left hip pain Depression Obese Kidney stone Knee pain, left Hypovitaminosis D Pure hypercholesterolemia History of renal calculi Insomnia Arnold-Chiari malformation GERD (gastroesophageal reflux disease) Polyarthralgia Surgical History History of removal of cyst (~05/28/23) History of esophagogastroduodenoscopy (EGD) Hx of cystoscopy H/O colonoscopy S/P RUBÉN (total abdominal hysterectomy) History of cryosurgery History of cholecystectomy Family History Father Diabetes Hypertension Cancer, Onset Age: 78 Mother Cancer Breast cancer, Onset Age: 53 Maternal Grandmother Stroke Maternal Grandfather Cancer Esophageal cancer Paternal Grandfather Cancer Maternal Uncle Cancer Brain cancer Sister Breast cancer, Onset Age: 48 Social History Household Members Other:: Housing: House Alcohol intake: never Patient Tobacco Use Status: Current everyday Tobacco user Tobacco use type: Cigarette Cigarettes Per Day: 6 Years Smoked: 20 e-Cigarette/Vaping Use: Never Used Second Hand Smoke Exposure: No service: No Current occupational status: employed 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 Current occupational exposures/hazards: No Cognitive needs: No Hearing needs: No Vision needs: Yes Review of Systems ENT Reports neck pain Musc Reports back pain, Reports arthralgias, Reports limited range of motion, Reports neck pain and Reports stiffness Physical Exam Vital Signs: Last Vital Signs Temp 97.7 F 06/17/23 10:18 Pulse 92 06/17/23 10:18 BP 124/66 06/17/23 10:18 Pulse Ox 100 06/17/23 10:18 BMI result Body Mass Index 34.6 Const General: cooperative, healthy appearing and comfortable Nutritional Appearance: obese Orientation/consciousness: patient oriented x3 Limitations: no limitations HEENT Head: Yes normocephalic and Yes atraumatic Mouth: moist mucous membranes Resp Effort & Inspection: normal respiratory effort and able to speak in complete sentences Neuro General: patient oriented x3 Extrem Other: Bilateral knee pain with flexion Few fibromyalgia tender points Assessment & Plan Assessment & Plan (1) Fibromyalgia: Code(s): M79.7 - Fibromyalgia Plan: 52-year-old female with past medical history of fibromyalgia presents for follow-up. Her symptoms have been worse since the weather has been colder. Will increase Lyrica to 100 mg nightly and assess response Follow-up in 6 months (2) Cervicalgia: Code(s): M54.2 - Cervicalgia Plan: Neck x-ray showed multilevel degenerative disc disease. Patient is not interested in PT. Advised patient to use a heating pad Plan I spent 18 minutes reviewing patient's chart, evaluating patient, counseling patient and documenting in the chart Medications: Changed From pregabalin 50 mg PO BEDTIME 90 caps 1RF M79.7 - Fibromyalgia To pregabalin 100 mg (2 x 50 mg) PO BEDTIME 180 caps 1RF M79.7 - Fibromyalgia Quality Reporting (2019) Adult ([facility] 138/08/06/68) Smoking risk assessment performed?: Yes Patient Tobacco Use Status: Current everyday Tobacco user Coding Level of Care Code Est Pt Level 3 (67326) Diagnoses Fibromyalgia M79.7 Cervicalgia M54.2
[2023-06-17 10:18] VITALS: BP 124/66; PULSE 92; TEMP 36.5; O2SAT 100; BMI 34.6
== END 2023-06-17 10:45 | disposition home or self-care (01) ==
PROVIDERS: PCP Internal Medicine; Visit Provider Student in an Organized Health Care Education/Training Program
DX: M79.7 Fibromyalgia (principal); M54.2 Cervicalgia
CPT/HCPCS: 99213

== ENCOUNTER → 2023-06-17 10:07 | Outpatient (BNVA) | payer OTHER, SELFPAY | PROVIDERS: PCP Internal Medicine; Visit Provider Student in an Organized Health Care Education/Training Program | DX: M79.7 Fibromyalgia (principal); M54.2 Cervicalgia | CPT/HCPCS: 99212 ==

== ENCOUNTER 2023-06-19 13:19 | Outpatient (REF) | payer OTHER, SELFPAY ==
--- NOTE | ~2023-06-19 | MR_ITS ---
EXAMINATION: MR BRAIN WITHOUT CONTRAST CLINICAL INFORMATION: Arnold-Chiari syndrome without spina bifida or hydrocephalus COMPARISON: MR brain 01/14/2017 TECHNIQUE: MRI of the brain was obtained using routine sequences without contrast. FINDINGS: There is no reduced diffusion to suggest acute infarct. Susceptibility weighted sequence is within normal limits. No midline shift. Redemonstrated low-lying cerebellar tonsils terminating approximately 9 mm below the foramen magnum. The ventricles and sulci are normal in size and configuration. No evidence of acute hydrocephalus. Dilated perivascular space along the inferior right basal ganglia. Intracranial flow voids are preserved. Scattered polypoid mucosal thickening in the paranasal sinuses. The mastoid air cells are well-aerated. Mildly heterogeneous marrow signal without focal expansile/destructive osseous lesion. MR/MR head/brain wo con IMPRESSION: Stable Chiari I malformation and stable ventricular caliber.
== END 2023-06-19 13:20 | disposition home or self-care (01) ==
LOC: HO.MRI 13:19
PROVIDERS: PCP Internal Medicine; Visit Provider Internal Medicine
DX: Q07.00 Arnold-Chiari syndrome without spina bifida or hydrocephalus (principal)
CPT/HCPCS: 70551

== ENCOUNTER 2023-10-05 14:26 | Outpatient (AMB) | payer OTHER, SELFPAY ==
[2023-10-05 14:27] VITALS: BP 122/80; PULSE 91; BMI 34.7
--- NOTE | 2023-10-05 14:27 | MHC.OFFVIS ---
Vital Signs 10/05/23 14:27 Height 5 ft 2 in Weight 190 lb BMI 34.7 BP 122/80 Blood Pressure Location Rt brachial Position Sitting Pulse 91 Intake Visit Reasons: recurrent cyst left cheek Intake Note: This patient presents for an assessment for recurrent cyst left cheek. Pt c/o; Onset Jun 2023, reports mass, reports drainage. Offset Platemaker Required: Yes Offset Platemaker Language: Orthopedic Assistant Name: Sabas Information Interpreted: non-clinical & clinical Accompanied by: Self / Same As Patient Allergies trazodone Allergy (Intermediate, Verified 10/05/23 14:34) Insomnia gabapentin Adverse Reaction (Intermediate, Verified 10/05/23 14:34) dry mouth Medication List - Last Reconciled 10/05/23 by Jaylan Álvarez MD atorvastatin 10 mg PO DAILY cholecalciferol (vitamin D3) 50 mcg PO DAILY 90 days cyclobenzaprine 10 mg PO Q8H PRN ibuprofen 800 mg PO Q8H PRN linaclotide 145 mcg PO DAILY metoclopramide HCl (Reglan) 10 mg PO Q6H PRN mirabegron ER (Myrbetriq) 25 mg PO DAILY 30 days multivitamin 1 tab PO DAILY pantoprazole 40 mg PO DAILY 90 days pregabalin 100 mg (2 x 50 mg) PO BEDTIME psyllium husk (Metamucil) 0.4 grams PO BID sucralfate (Carafate) 1 g PO BID 30 days tramadol 50 mg PO Q8H PRN 30 days [wrist splint wear nightly & as much as possible throughout the day] zolpidem 10 mg PO BEDTIME PRN 30 days HPI HPI recurrent cyst left cheek: Details: 52-year-old female here for recurrent cyst on the left cheek. She would undergone excision of a cyst from the left cheek last May,. However, she says that this has recurred and she wants this removed again She denies any other issues. Her path report from last year shows granulation tissue transected at the margins. This was consistent with a ruptured epidermal cyst. [facility] Medical History Family history of breast cancer Epidermoid cyst of skin of cheek Diverticulitis Mild recurrent major depression Bloody stools Epigastric pain Right hip pain Left hip pain Depression Obese Kidney stone Knee pain, left Hypovitaminosis D Pure hypercholesterolemia History of renal calculi Insomnia Arnold-Chiari malformation GERD (gastroesophageal reflux disease) Polyarthralgia Surgical History History of removal of cyst (~05/28/23) History of esophagogastroduodenoscopy (EGD) Hx of cystoscopy H/O colonoscopy S/P RUBÉN (total abdominal hysterectomy) History of cryosurgery History of cholecystectomy Family History Father Diabetes Hypertension Cancer, Onset Age: 78 Mother Cancer Breast cancer, Onset Age: 53 Maternal Grandmother Stroke Maternal Grandfather Cancer Esophageal cancer Paternal Grandfather Cancer Maternal Uncle Cancer Brain cancer Sister Breast cancer, Onset Age: 48 Social History Household Members Other:: Housing: House Alcohol intake: never Patient Tobacco Use Status: Current everyday Tobacco user Tobacco use type: Cigarette Cigarettes Per Day: 6 Years Smoked: 20 e-Cigarette/Vaping Use: Never Used Second Hand Smoke Exposure: No service: No Current occupational status: employed 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 Current occupational exposures/hazards: No Cognitive needs: No Hearing needs: No Vision needs: Yes Review of Systems Const Denies chills and Denies fever(s) Card Denies chest pain, Denies dyspnea and Denies dyspnea on exertion Resp Denies cough, Denies dyspnea and Denies dyspnea on exertion GI Denies hematochezia and Denies change in bowel habits Denies hematuria Musc Denies back pain and Denies limited range of motion Neuro Denies focal weakness and Denies convulsions Psych Denies depression and Denies mood swings Physical Exam Const General: comfortable and no acute distress Orientation/consciousness: patient oriented x3 HEENT Other: On the left cheek near the angle of the lip is note of a cystic induration, about 1.2 cm in diameter, home based assistant with an epidermal cyst Neck Neck: Yes no lymphadenopathy Resp Auscultation: clear to auscultation bilaterally Cardio Rhythm: regular rhythm GI Palpation (GI): Soft to palpation, nontender and no guarding Neuro General: patient oriented x3 Quality Reporting (2019) Adult ([facility] 138/08/06/68) Smoking risk assessment performed?: Yes Patient Tobacco Use Status: Current everyday Tobacco user Assessment & Plan Assessment & Plan (1) Epidermoid cyst of skin of cheek: Code(s): L72.0 - Epidermal cyst Category: Medical Plan: She has a recurrent cyst on the left cheek as described above. She wants this removed again. I explained the technique of excision under local anesthesia. I reviewed the risks including but not limited to bleeding, infections, poor healing and scabbing, as well as the benefits and alternatives. She wants to proceed. This will be scheduled as an office procedure under local anesthesia.
== END 2023-10-05 14:49 | disposition home or self-care (01) ==
LOC: HO.HGS 14:26
PROVIDERS: PCP Internal Medicine; Visit Provider Surgery
DX: L72.0 Epidermal cyst (principal)
CPT/HCPCS: 99213

== ENCOUNTER → 2023-10-05 14:26 | Outpatient (BNVA) | payer OTHER, SELFPAY | PROVIDERS: PCP Internal Medicine; Visit Provider Surgery | DX: L72.0 Epidermal cyst (principal) | CPT/HCPCS: 99212 ==

== ENCOUNTER 2023-10-14 09:43 | Outpatient (REF) | payer OTHER, SELFPAY | END 2023-10-14 09:44 | disposition home or self-care (01) | LOC: HO.LNP 09:43 | PROVIDERS: PCP Internal Medicine; Visit Provider Surgery | DX: L72.0 Epidermal cyst (principal) | CPT/HCPCS: 11442; 88304 ==

== ENCOUNTER 2023-10-14 09:43 | Outpatient (AMB) | payer OTHER, SELFPAY ==
--- NOTE | 2023-10-14 09:52 | A.OFFVIS_ITS ---
Intake Visit Reasons: excision (L) cheek cyst Intake Note: In office procedure: excision (L) cheek cyst. Executive Sous Chef Required: Yes Executive Sous Chef Language: Car Checker Name: Sabas Information Interpreted: non-clinical & clinical Accompanied by: Self / Same As Patient Allergies trazodone Allergy (Intermediate, Verified 10/14/23 09:53) Insomnia gabapentin Adverse Reaction (Intermediate, Verified 10/14/23 09:53) dry mouth HPI HPI excision (L) cheek cyst: Details: She is here for excision of a left cheek cyst. [facility], LAT[facility] Medical History Family history of breast cancer Epidermoid cyst of skin of cheek Diverticulitis Mild recurrent major depression Bloody stools Epigastric pain Right hip pain Left hip pain Depression Obese Kidney stone Knee pain, left Hypovitaminosis D Pure hypercholesterolemia History of renal calculi Insomnia Arnold-Chiari malformation GERD (gastroesophageal reflux disease) Polyarthralgia Surgical History History of removal of cyst (~05/28/23) History of esophagogastroduodenoscopy (EGD) Hx of cystoscopy H/O colonoscopy S/P RUBÉN (total abdominal hysterectomy) History of cryosurgery History of cholecystectomy Family History Father Diabetes Hypertension Cancer, Onset Age: 78 Mother Cancer Breast cancer, Onset Age: 53 Maternal Grandmother Stroke Maternal Grandfather Cancer Esophageal cancer Paternal Grandfather Cancer Maternal Uncle Cancer Brain cancer Sister Breast cancer, Onset Age: 48 Social History Household Members Other:: Housing: House Alcohol intake: never Patient Tobacco Use Status: Current everyday Tobacco user Tobacco use type: Cigarette Cigarettes Per Day: 6 Years Smoked: 20 e-Cigarette/Vaping Use: Never Used Second Hand Smoke Exposure: No service: No Current occupational status: employed 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 Lidocaine 1% was used for local anesthesia. I made an elliptical incision on this area of induration using blade 15 and this was carried down through the full-thickness of the skin and subcutaneous fat to excise this entire indurated tissue. An area measuring about 1.7 by 1 cm was removed. The incision was closed with full-thickness nylon 5-0 interrupted sutures. Dressings were applied using Steri-Strips.. She tolerated the procedure well. There were no immediate complications. 88206-[place] face/ear/eyelid/nose/lip/mucous membrane 1.1cm-2cm Procedure code (CPT) selection complete Quality Reporting (2019) Adult ([facility] 138/08/06/68) Smoking risk assessment performed?: Yes Patient Tobacco Use Status: Current everyday Tobacco user Assessment & Plan Assessment & Plan (1) Epidermoid cyst of skin of cheek: Code(s): L72.0 - Epidermal cyst Category: Medical Plan: Excision was done under local anesthesia in the office. She tolerated procedure well. She was given wound care instructions. She will be seen in the office next week for removal sutures. Coding Level of Care Code Procedure Only Diagnoses Epidermoid cyst of skin of cheek L72.0 CPT Codes Face/Ear/Eyelid/Nose/Lip/Mucous Membrane - CPT: 44266-[place] face/ear/eyelid/nose/lip/mucous membrane 1.1cm-2cm ([id number])
== END 2023-10-14 10:13 | disposition home or self-care (01) ==
PROVIDERS: PCP Internal Medicine; Visit Provider Surgery
DX: L72.0 Epidermal cyst (principal)
CPT/HCPCS: 11442

== ENCOUNTER 2023-10-22 08:21 | Outpatient (AMB) | payer OTHER, SELFPAY ==
--- NOTE | 2023-10-22 08:25 | MHC.OFFVIS ---
Intake Visit Reasons: s/p excision (L) cheek cyst Intake Note: This patient presents for a post-op assessment status post excision left cheek cyst. Patient c/o; reports no complaints. Tread Tuber Machine Operator Required: Yes Tread Tuber Machine Operator Language: Kiln Packer Name: Sabas Information Interpreted: non-clinical & clinical Accompanied by: Self / Same As Patient Allergies trazodone Allergy (Intermediate, Verified 10/22/23 08:29) Insomnia gabapentin Adverse Reaction (Intermediate, Verified 10/22/23 08:29) dry mouth HPI HPI s/p excision (L) cheek cyst: Details: She underwent excision of a left cheek cyst last week under local anesthesia. She tolerated the procedure well. She currently denies complaints. [facility] Medical History Family history of breast cancer Epidermoid cyst of skin of cheek Diverticulitis Mild recurrent major depression Bloody stools Epigastric pain Right hip pain Left hip pain Depression Obese Kidney stone Knee pain, left Hypovitaminosis D Pure hypercholesterolemia History of renal calculi Insomnia Arnold-Chiari malformation GERD (gastroesophageal reflux disease) Polyarthralgia Surgical History History of removal of cyst (~05/28/23) History of esophagogastroduodenoscopy (EGD) Hx of cystoscopy H/O colonoscopy S/P RUBÉN (total abdominal hysterectomy) History of cryosurgery History of cholecystectomy Family History Father Diabetes Hypertension Cancer, Onset Age: 78 Mother Cancer Breast cancer, Onset Age: 53 Maternal Grandmother Stroke Maternal Grandfather Cancer Esophageal cancer Paternal Grandfather Cancer Maternal Uncle Cancer Brain cancer Sister Breast cancer, Onset Age: 48 Social History Household Members Other:: Housing: House Alcohol intake: never Patient Tobacco Use Status: Current everyday Tobacco user Tobacco use type: Cigarette Cigarettes Per Day: 6 Years Smoked: 20 e-Cigarette/Vaping Use: Never Used Second Hand Smoke Exposure: No service: No Current occupational status: employed 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 Current occupational exposures/hazards: No Cognitive needs: No Hearing needs: No Vision needs: Yes Review of Systems Const Denies chills and Denies fever(s) Card Denies chest pain, Denies dyspnea and Denies dyspnea on exertion Resp Denies cough, Denies dyspnea and Denies dyspnea on exertion GI Denies hematochezia and Denies change in bowel habits Denies hematuria Musc Denies back pain and Denies limited range of motion Neuro Denies focal weakness and Denies convulsions Psych Denies depression and Denies mood swings Physical Exam Const General: comfortable and no acute distress HEENT Other: Excision site on the left cheek is well healed, not infected, sutures intact Quality Reporting (2019) Adult ([facility] 13808/06/68) Smoking risk assessment performed?: Yes Patient Tobacco Use Status: Current everyday Tobacco user Assessment & Plan Assessment & Plan (1) Epidermoid cyst of skin of cheek: Code(s): L72.0 - Epidermal cyst Category: Medical Plan: Status post excision. The incision is well healed. I removed all her sutures. Her path report shows a ruptured epidermal cyst. She can follow up on a p.r.n. basis Coding Level of Care Code Global (32289) Diagnoses Epidermoid cyst of skin of cheek L72.0
== END 2023-10-22 08:47 | disposition home or self-care (01) ==
PROVIDERS: PCP Internal Medicine; Visit Provider Surgery
DX: L72.0 Epidermal cyst (principal)
CPT/HCPCS: 99024

== ENCOUNTER 2023-10-22 08:21 | Outpatient (REF) | payer OTHER, SELFPAY ==
[2023-10-22 16:54] LABS: Urine Cytology See Pathology rpt
== END 2023-10-22 08:22 | disposition home or self-care (01) ==
LOC: HO.LAB 08:21
PROVIDERS: Urology; PCP Internal Medicine; Visit Provider Surgery
DX: R31.29 Other microscopic hematuria (principal); N39.46 Mixed incontinence; R35.0 Frequency of micturition; L72.0 Epidermal cyst
CPT/HCPCS: 81003; 88112; 99212

== ENCOUNTER 2023-10-22 11:19 | Outpatient (AMB) | payer OTHER, SELFPAY ==
--- NOTE | 2023-10-22 11:23 | A.OFFVIS_ITS ---
Intake Visit Reasons: 6m follow up Intake Note: Patient presents today for a 6 months follow-up: FAUSTO Meds- Myrbetriq Allergies to Antibiotic- No Known Allergies Blood Thinner- None Vegetable Farm Manager Required: No Accompanied by: Self / Same As Patient Allergies trazodone Allergy (Intermediate, Verified 10/22/23 11:25) Insomnia gabapentin Adverse Reaction (Intermediate, Verified 10/22/23 11:25) dry mouth Medication List - Last Reconciled 10/22/23 by Dimitri Skinner MD atorvastatin 10 mg PO DAILY cholecalciferol (vitamin D3) 50 mcg PO DAILY 90 days cyclobenzaprine 10 mg PO Q8H PRN ibuprofen 800 mg PO Q8H PRN linaclotide 145 mcg PO DAILY metoclopramide HCl (Reglan) 10 mg PO Q6H PRN multivitamin 1 tab PO DAILY pantoprazole 40 mg PO DAILY 90 days pregabalin 100 mg (2 x 50 mg) PO BEDTIME psyllium husk (Metamucil) 0.4 grams PO BID sucralfate (Carafate) 1 g PO BID 30 days tolterodine ER 4 mg PO DAILY tramadol 50 mg PO Q8H PRN 30 days [wrist splint wear nightly & as much as possible throughout the day] zolpidem 10 mg PO BEDTIME PRN 30 days HPI Comments Details: 10/22/23--Ashley is a 52-year-old female past medical history of diverticulitis, depression, epigastric pain, depression, nephrolithiasis, hypercholesteremia, insomnia, GERD, polyarthralgia, and arnold-chiari malformation, who presents today to the office for a follow-up for persistent microscopic hematuria, h/o nicotine use. Denies gross hematuria. She complains of urinary urgency and frequency. She was prescribed Myrbetriq end-stage she was not able to fill the prescription because it was too expensive. She states that she used tolterodine in the past which helped a little. I will restart tolterodine but increase it to b.i.d.. Review of chart: 04/23/2023-- She is followed today for a cystoscopy procedure. She was last seen by Jayant Adams on 03/20/2023 for microscopic hematuria. She denies any blood in the urine. She has had CT urogram on 04/22/2023; however, it is pending. I reviewed the CAT scan of the abdomen/pelvis results from 08/28/2022 revealed that there are no kidney stones. I reviewed the cytology report from 03/24/2023 revealed negative for malignant cells. Cystoscopy procedure: Consent was obtained for the procedure. Cystoscopy findings: No suspicious bladder lesions noted. prominent vasculature 03/20/2023--Ashley is a very pleasant 52-year-old female patient of Dr. Steve Chaudhry. She has a past medical history of diverticulitis, depression, epigastric pain, depression, nephrolithiasis, hypercholesteremia, insomnia, GERD, polyarthralgia, and arnold-chiari malformation. She presents to the office today as a new patient for urinary incontinence. In discussion with the patient today she reports to be doing and feeling well. She reports previously following up with Dr. Gomez in 2019 for microscopic hematuria and urinary incontinence. She reports having had a cystoscopy and bladder biopsy in the past and reports being told biopsy results were negative. She reports having tried oxybutynin and tolderadine and experiencing dry mouth and constipation however did feel lower urinary tract symptoms improved. When asked she reports urinary frequency, urinary urgency, and episodes of incontinence if not near a bathroom. She otherwise denies nocturia, hematuria, dysuria, foul smelling urine, changes to urinary stream, flank pain, fever, and or chills. In office urinalysis results reviewed with the patient today. PVR 5 mL. Microscopic hematuria noted in UA today otherwise WNL. Discussed at length potential causes for microscopic hematuria as well as stress incontinence. When asked she does report a long standing smoking history of over 30 years and is currently smoking approximately 10 cigarettes per day she otherwise denies any known chemical exposure. Discussed obtaining CT urogram, urine cytology, and in office cystoscopy for further assessment evaluation. Discussed at length surveillance monitoring verses further microscopic hematuria workup in the setting of nicotine dependence. 10/22/23: Plan: urine for cytology. Tolterodine 4 mg b.i.d. follow-up in 4 months. PFSH Medical History Family history of breast cancer Epidermoid cyst of skin of cheek Diverticulitis Mild recurrent major depression Bloody stools Epigastric pain Right hip pain Left hip pain Depression Obese Kidney stone Knee pain, left Hypovitaminosis D Pure hypercholesterolemia History of renal calculi Insomnia Arnold-Chiari malformation GERD (gastroesophageal reflux disease) Polyarthralgia Surgical History History of removal of cyst (~05/28/23) History of esophagogastroduodenoscopy (EGD) Hx of cystoscopy H/O colonoscopy S/P RUBÉN (total abdominal hysterectomy) History of cryosurgery History of cholecystectomy Family History Father Diabetes Hypertension Cancer, Onset Age: 78 Mother Cancer Breast cancer, Onset Age: 53 Maternal Grandmother Stroke Maternal Grandfather Cancer Esophageal cancer Paternal Grandfather Cancer Maternal Uncle Cancer Brain cancer Sister Breast cancer, Onset Age: 48 Social History Household Members Other:: Housing: House Alcohol intake: never Patient Tobacco Use Status: Current everyday Tobacco user Tobacco use type: Cigarette Cigarettes Per Day: 6 Years Smoked: 20 e-Cigarette/Vaping Use: Never Used Second Hand Smoke Exposure: No service: No Current occupational status: employed 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 Current occupational exposures/hazards: No Cognitive needs: No Hearing needs: No Vision needs: Yes Review of Systems Const All systems reviewed & are unremarkable except as noted in HPI and below Reports no additional complaints Eyes Reports no additional complaints ENT Reports no additional complaints Card Reports no additional complaints Resp Reports no additional complaints GI Reports no additional complaints Reports as per HPI Musc Reports no additional complaints Skin/Breast Reports system reviewed and no additional complaints, except as documented Neuro Reports no additional complaints Psych Reports no additional complaints Endo Reports no additional complaints Bay/Lymph Reports no additional complaints Aller/Immun Reports no additional complaints Results AMB Urinalysis, Automated UA Leukoctes 0 Ena/uL Last Edit by Rosio Huerta Shan on 10/22/23 11:36 UA Nitrite Negative Last Edit by Rosio Huerta Shan on 10/22/23 11:36 UA Urobilinogen 0 mg/dL Last Edit by Rosio Huerta A on 10/22/23 11:36 UA Protein 15 mg/dL Last Edit by Rosio Huerta A on 10/22/23 11:36 UA pH 6.0 Last Edit by Rosio Huerta A on 10/22/23 11:36 UA Blood 10 Cristian/uL Last Edit by Rosio Huerta Shan on 10/22/23 11:36 UA Specific [place] 1.030 Last Edit by Rosio Huerta Shan on 10/22/23 11: 36 UA Ketone Negative Last Edit by Rosio Huerta Shan on 10/22/23 11:36 UA Bilirubin 0 mg/dL Last Edit by Rosio Huerta Shan on 10/22/23 11:36 UA Glucose 0 mg/dL Last Edit by Rosio Huerta [facility] on 10/22/23 11:36 Quality Reporting (2019) Adult ([facility] 138/08/06/68) Smoking risk assessment performed?: Yes Patient Tobacco Use Status: Current everyday Tobacco user Results Reviewed Results Reviewed: Laboratory Last Values Urine pH (Auto) 6.0 10/22/23 11:35 Specific [place] (Auto) 1.030 10/22/23 11:35 Urine Protein (Auto) 15 mg/dL 10/22/23 11:35 Glucose (UA)(Auto) 0 mg/dL 10/22/23 11:35 Urine Ketones (Auto) Negative 10/22/23 11:35 Urine Blood (Auto) 10 Cristian/uL 10/22/23 11:35 Urine Nitrite (Auto) Negative 10/22/23 11:35 Urine Bilirubin (Auto) 0 mg/dL 10/22/23 11:35 Urine Urobilinogen (Auto) 0 mg/dL 10/22/23 11:35 Leukocyte Esterase (Auto) 0 Ena/uL 10/22/23 11:35 Diagnosis Urine: Negative for high-grade urothelial carcinoma. COMMENT: Examination of a monolayer preparation slide shows many benign squamous cells, occasional benign urothelial cells, few lymphocytes, and few red blood cells. Clinical History Microscopic hematuria Material Received Urine Gross Description 30 cc cloudy yellow fluid Date of Service: 08/28/22 EXAMINATION: CT ABDOMEN AND PELVIS WITHOUT CONTRAST CLINICAL INFORMATION: Left lower quadrant and left upper quadrant abdominal pain with hematuria. COMPARISON: CT abdomen pelvis 03/01/2020 FINDINGS: LUNG BASES: The visualized lung bases are unremarkable. Some dependent groundglass changes are seen. LIVER, GALLBLADDER, AND BILIARY TREE: The liver is normal in size and shape but demonstrates markedly decreased attenuation consistent with hepatic steatosis.. No focal hepatic lesion or biliary ductal dilatation is present. Status post cholecystectomy. PANCREAS: Unremarkable. SPLEEN: Unremarkable. ADRENAL GLANDS: Unremarkable. KIDNEYS AND URETERS: The kidneys are normal in size, shape, and attenuation. No hydronephrosis, hydroureter, or calculi seen. No perinephric stranding. BLADDER: Unremarkable. GASTROINTESTINAL TRACT: Diverticular changes are present in the colon with an area of acute uncomplicated diverticulitis seen at the junction of the descending colon and sigmoid colon at the pelvic brim. Inflammatory changes are seen without extraluminal air or pericolonic fluid collections. The small bowel and remainder of the large bowel are unremarkable. The appendix is unremarkable. ABDOMINAL WALL: No significant hernia is appreciated. Tiny periumbilical hernia seen containing only fat. LYMPH NODES: Some shotty retroperitoneal lymph nodes are seen but there is no adenopathy. VASCULAR: Mild aortoiliac calcifications without aneurysm. PELVIC VISCERA: The uterus is not present. An abnormal adnexal mass is not seen. No free intraperitoneal fluid is present. OSSEOUS STRUCTURES: Unremarkable. IMPRESSION: 1. Acute uncomplicated diverticulitis at the junction of the descending and sigmoid colon. 2. Incidental note made of hepatic steatosis, cholecystectomy and hysterectomy. Assessment & Plan Assessment & Plan (1) Microhematuria: Code(s): R31.29 - Other microscopic hematuria Category: Medical (2) Mixed incontinence urge and stress: Code(s): N39.46 - Mixed incontinence Category: Medical (3) Urinary frequency: Code(s): R35.0 - Frequency of micturition Category: Medical Plan urine for cytology. Tolterodine 4 mg b.i.d. follow-up in 4 months. Orders: Orders AMB Urinalysis Automated Today Z13.9 - Encounter for screening, unspecified Urine Cytology Today R31.29 - Other microscopic hematuria Medications: New tolterodine ER 4 mg PO DAILY 60 caps 3RF Discontinued mirabegron ER (Myrbetriq) Discontinued Reason: Patient Refused 25 mg PO DAILY 30 days 30 tabs 1RF N30.10 - Interstitial cystitis (chronic) without hematuria, N32.81 - Overactive bladder, R35.1 - Nocturia, R39.15 - Urgency of urination Patient Instructions: The patient had an opportunity to ask questions regarding treatment plan. The patient expressed understanding and agreement with the above treatment plan. The patient is aware they should contact our office by phone for worsening of their current condition or the appearance of new symptoms. Compliance is encouraged with any medications and followup testing that is ordered. It is a privilege to be allowed the opportunity to participate in the urologic care of your patient. If you have any questions or concerns regarding treatment for the above conditions please do not hesitate to contact me. The office telephone contact is [phone]. This note is constructed in part using voice recognition software. While every effort has been made to ensure accuracy shade cutter errors may have been included. Yours sincerely, Dimitri Skinner MD Coding Level of Care Code Est Pt Level 4 (48447) Diagnoses Microhematuria R31.29 Mixed incontinence urge and stress N39.46 Urinary frequency R35.0
== END 2023-10-22 11:48 | disposition home or self-care (01) ==
PROVIDERS: PCP Internal Medicine; Visit Provider Urology
DX: R31.29 Other microscopic hematuria (principal); N39.46 Mixed incontinence; R35.0 Frequency of micturition; Z13.9 Encounter for screening, unspecified
CPT/HCPCS: 99214

== ENCOUNTER 2023-11-16 14:01 | Outpatient (AMB) | payer OTHER, SELFPAY ==
[2023-11-16 14:08] VITALS: BP 130/86; BMI 34.7
--- NOTE | 2023-11-16 14:08 | A.OFFPC_ITS ---
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 Technician Required: No Accompanied by: Self / Same As Patient Allergies trazodone Allergy (Intermediate, Verified 11/16/23 14:32) Insomnia gabapentin Adverse Reaction (Intermediate, Verified 11/16/23 14:32) dry mouth Medication List - Last Reconciled 11/16/23 by Jayna Chaudhry MD atorvastatin 10 mg PO DAILY cholecalciferol (vitamin D3) 50 mcg PO DAILY 90 days cyclobenzaprine 10 mg PO Q8H PRN ibuprofen 800 mg PO Q8H PRN linaclotide 145 mcg PO DAILY pantoprazole 40 mg PO DAILY 90 days pregabalin 100 mg (2 x 50 mg) PO BEDTIME tolterodine ER 4 mg PO DAILY tramadol 50 mg PO Q8H PRN 30 days [wrist splint wear nightly & as much as possible throughout the day] zolpidem 10 mg PO BEDTIME PRN 30 days Tobacco use date assessed: 11/16/23 Dental Screening Dental Screen Date: 11/16/23 Did you have a dental visit in the last 12 months?: Yes Did you have a dental problem in the last 6 months where you did not have access to dental care?: No Was dental information given to patient?: Patient has dentist HPI HPI Comments History of Present Illness Details This is a 53-year-old female with mild recurrent major depression in remission, GERD, fibromyalgia, pure hypercholesterolemia, Arnold-Chiari malformation type 1 and chronic idiopathic constipation that comes today for follow-up on her conditions. Depression has been in remission and she declines any treatment. GERD stable with PPIs. Fibromyalgia well controlled with Lyrica and tramadol but does admit that she can not use Lyrica on a daily basis because if she takes it at bedtime she wakes up dizzy for about 30 minutes. On statins for elevated cholesterol. Had an MRI of the brain in 2023 showing a stable Arnold-Chiari malformation type 1 showing no symptoms. Constipation stable with Linzess. Denies any chest pain or shortness on breath. She does have diffuse joint pain due to fibromyalgia and makes her work slower and gets tired more easily. [facility] Medical History (Updated 11/16/23 @ 15:40 by Jayna Chaudhry MD) Family history of breast cancer Epidermoid cyst of skin of cheek Diverticulitis Mild recurrent major depression Bloody stools Epigastric pain Right hip pain Left hip pain Depression Obese Kidney stone Knee pain, left Hypovitaminosis D Pure hypercholesterolemia History of renal calculi Insomnia Arnold-Chiari malformation GERD (gastroesophageal reflux disease) Polyarthralgia Surgical History History of removal of cyst (~05/28/23) History of esophagogastroduodenoscopy (EGD) Hx of cystoscopy H/O colonoscopy S/P RUBÉN (total abdominal hysterectomy) History of cryosurgery History of cholecystectomy Family History Father Diabetes Hypertension Cancer, Onset Age: 78 Mother Cancer Breast cancer, Onset Age: 53 Maternal Grandmother Stroke Maternal Grandfather Cancer Esophageal cancer Paternal Grandfather Cancer Maternal Uncle Cancer Brain cancer Sister Breast cancer, Onset Age: 48 Social History Household Members Other:: Housing: House Alcohol intake: never Patient Tobacco Use Status: Current everyday Tobacco user Tobacco use type: Cigarette Cigarettes Per Day: 6 Years Smoked: 20 Packs per year/per ci.00 e-Cigarette/Vaping Use: Never Used Second Hand Smoke Exposure: No service: No Current occupational status: employed 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 1. Little interest or pleasure in doing things: not at all 2. Feeling down, depressed, or hopeless: not at all 3. Trouble falling or staying asleep, or sleeping too much: not at all 4. Feeling tired or having little energy: not at all 5. Poor appetite or overeating: not at all 6. Feeling bad about yourself - or that you are a failure or have let yourself or your family down: not at all 7. Trouble concentrating on things, such as reading the newspaper or watching television: not at all 8. Moving or speaking so slowly that other people could have noticed. Or the opposite - being so fidgety or restless that you have been moving around a lot more than usual: not at all 9. Thoughts that you would be better off or of hurting yourself in some way: not at all Total score: 0 Depression Screening Interpretation: Negative Depression Screening Done: Yes 11395 - PHQ-9 Billing: Yes Source: Developed by Drs. Arsh Mcintosh, Kristine Javier, Hemant Mabry and colleagues, with an educational sera from [employer]. Thrive Questionnaire Date Thrive assessed: 11/16/23 I am a: Patient What is your living situation today?: I have a steady place to live Within the past 12 months, did the food you bought not last and you didn't have the money to get more?: Never true Within the past 12 months, did you worry whether your food would run out before you got money to buy more?: Never true Do you have trouble paying for medicines?: No Do you have trouble getting transportation to medical appointments?: No Do you have trouble paying your heating and electricity bill?: No Do you have trouble taking care of your child, family member or friend?: No Do you have trouble with day-to-day activities such as bathing, preparing meals, shopping, managing finances, etc.?: No Are you currently unemployed and looking for a job?: No Are you interested in more education?: No Please select the resources that you would like help with: None Currently or been in a relationship where the following occur: no concerns reported THRIVE Score: 0 AUDIT C Alcohol Use Questionnaire (AUDIT-C) 1. How often do you have a drink containing alcohol?: Never Total Score: 0 Score Reviewed/Action Taken: No DIDIER-7 AMB Questionnaire DIDIER-7 Date DIDIER - 7 assessed: 11/16/23 Feeling nervous, anxious, or on edge: 0 = Not at all Not being able to stop or control worryin = Not at all Worrying too much about different things: 0 = Not at all Trouble relaxin = Not at all Being so restless that it is hard to sit still: 0 = Not at all Becoming easily annoyed or irritable: 0 = Not at all Feeling afraid as if something awful might happen: 0 = Not at all Total DIDIER-7 score (0-4 normal; 5-9 mild; 10-14 moderate; 15-21 severe): 0 Source: Developed by Drs. Arsh Mcintosh, Kristine Javier, Hemant Mabry and colleagues, with an educational sera from [employer]. DIDIER-7 Assessment Billing DIDIER-7 Assessment Tool: DIDIER-7 Assessment 41302 Review of Systems Const All systems reviewed & are unremarkable except as noted in HPI and below Card Denies chest pain at rest, Denies chest pain with activity, Denies edema, Denies irregular heart rhythm, Denies claudication, Denies dyspnea, Denies dyspnea on exertion, Denies orthopnea, Denies paroxysmal nocturnal dyspnea and Denies slow heart rate Resp Denies cough, Denies dyspnea and Denies dyspnea on exertion Musc Denies atrophy, Denies deformity and Denies limited range of motion Physical exam (Primary Care) Vital Signs: Last Vital Signs BP 130/86 11/16/23 14:08 BMI result Body Mass Index 34.7 Tobacco/Smoking Status: Tobacco use Status Tobacco use date assessed 11/16/23 11/16/23 14:20 Patient Tobacco Use Status Current everyday Tobacco 11/16/23 14:20 Tobacco use type Cigarette 11/16/23 14:20 e-Cigarette/Vaping Use Never Used 11/16/23 14:20 PHQ-9: PHQ-9 Score PHQ-9: Total score 0 11/16/23 14:44 Depression Screening Interpretation: Negative Thrive Assessment: Date of Thrive Assessment Date Thrive assessed 11/16/23 11/16/23 14:20 Currently or been in a relationship where the following occur: no concerns reported Resp Effort & Inspection: normal respiratory effort Auscultation: clear to auscultation bilaterally Cardio Jugular venous distension: no JVD Rate: regular rate Rhythm: regular rhythm Heart sounds: S1 normal heart sound present and S2 normal heart sound present Extrem General: Yes full ROM Assessment and Plan Assessment & Plan (1) Mild recurrent major depression: Code(s): F33.0 - Major depressive disorder, recurrent, mild Plan: In remission. (2) Arnold-Chiari malformation: Code(s): Q07.00 - Arnold-Chiari syndrome without spina bifida or hydrocephalus Plan: Continue yearly MRIs of the brain. (3) GERD (gastroesophageal reflux disease): Code(s): K21.9 - Gastro-esophageal reflux disease without esophagitis Qualifiers: Esophagitis presence: esophagitis presence not specified Qualified Code(s): K21.9 - Gastro-esophageal reflux disease without esophagitis Plan: Continue PPIs (4) Pure hypercholesterolemia: Code(s): E78.00 - Pure hypercholesterolemia, unspecified Plan: Continue statins. Advise low-cholesterol diet. (5) Fibromyalgia: Code(s): M79.7 - Fibromyalgia Plan: Continue Lyrica and tramadol. (6) Chronic idiopathic constipation: Code(s): K59.04 - Chronic idiopathic constipation Plan: Continue Linzess. Orders: Orders Lipid Panel Today E78.5 - Hyperlipidemia, unspecified Vitamin D 25-OH Total Today E55.9 - Vitamin D deficiency, unspecified Comprehensive [place]. Panel Fast Today M79.7 - Fibromyalgia Medications: New clotrimazole 1% 1 appl topical BID 30 grams 1RF 4 weeks Coding Level of Care Code Est Pt Level 4 (21785) Complex EM visit Add On G2211 Diagnoses Mild recurrent major depression F33.0 Arnold-Chiari malformation Q07.00 Gastroesophageal reflux disease, unspecified whether esophagitis present K21.9 Esophagitis presence: esophagitis presence not specified Pure hypercholesterolemia E78.00 Fibromyalgia M79.7 Chronic idiopathic constipation K59.04 Additional Codes DIDIER-7 Assessment Billing - DIDIER-7 Assessment Tool: DIDIER-7 Assessment 88484 ([id number]) Time Spent (min) 24
== END 2023-11-16 14:50 | disposition home or self-care (01) ==
PROVIDERS: PCP Internal Medicine; Visit Provider Internal Medicine
DX: E78.00 Pure hypercholesterolemia, unspecified (principal); F33.0 Major depressive disorder, recurrent, mild; Q07.00 Arnold-Chiari syndrome without spina bifida or hydrocephalus; K21.9 Gastro-esophageal reflux disease without esophagitis; M79.7 Fibromyalgia; K59.04 Chronic idiopathic constipation
CPT/HCPCS: 99214; G2211

== ENCOUNTER 2023-12-21 10:36 | Outpatient (AMB) | payer OTHER, SELFPAY ==
--- NOTE | 2023-12-21 10:38 | MHC.OFFVIS ---
Vital Signs 12/21/23 10:43 Height 5 ft 2 in Weight 190 lb 0.615 oz BMI 34.8 BP 124/80 Blood Pressure Location Lt brachial Position Sitting Pulse 74 Pulse Source Pulse Oximeter Pulse Oximetry (%) 98 Oxygen Delivery Method Room Air Intake Visit Reasons: FMS Intake Note: Patient presents for FMS. Feeling higher pain than before and feeling very fatigue. Feeling numbness on fingers on right hand. Allergies trazodone Allergy (Intermediate, Verified 12/21/23 10:43) Insomnia gabapentin Adverse Reaction (Intermediate, Verified 12/21/23 10:43) dry mouth Medication List - Last Reconciled 12/21/23 by Nicole Osuna MD atorvastatin 10 mg PO DAILY cholecalciferol (vitamin D3) 50 mcg PO DAILY 90 days clotrimazole 1% 1 appl topical BID 4 weeks cyclobenzaprine 10 mg PO Q8H PRN ibuprofen 800 mg PO Q8H PRN linaclotide 145 mcg PO DAILY pantoprazole 40 mg PO DAILY 90 days pregabalin 100 mg (2 x 50 mg) PO BEDTIME tolterodine ER 4 mg PO DAILY tramadol 50 mg PO Q8H PRN 30 days [wrist splint wear nightly & as much as possible throughout the day] zolpidem 10 mg PO BEDTIME PRN 30 days HPI Comments Details: 53-year-old female with fibromyalgia returns for follow-up. She states that increasing the Lyrica from 50 mg to 100 mg nightly was helpful. She continues to have diffuse pain however. She has been having right hand tingling and numbness. She stated that years ago she had the nerve conduction test and was told that she has carpal tunnel syndrome, surgery was suggested and she declined. She stated that wrist splints make her more numb and itchy. She has been having neck pain. Difficulty with range of motion of her neck. Has done PT in the past and it did not help. Initial history: This is a 52-year-old female who was referred for fibromyalgia evaluation. Patient was started on Lyrica about 6 months ago by her PCP and she was told by her PCP that if she is to continue Lyrica her insurance requires her to be seen by Rheumatology. Patient was evaluated by Dr. Carrillo about 2 years ago and no evidence of autoimmune rheumatic disease was found. Patient states that gabapentin caused dry mouth, she had diarrhea with duloxetine. She feels about 70% improvement in her overall pain with Lyrica but she wakes up with 2 seconds of dizziness that rapidly self-resolved. She would like to continue taking Lyrica. Over the last 2 years she has been having neck stiffness. Worse with certain movements. She was diagnosed with bilateral carpal tunnel syndrome, worse on the right hand. The test was done back in . She was evaluated by hand surgeon who told her they would have to do 1 hand followed by the other hand, patient did not want to go through the surgery as she could not be out of work for such a long period of time. She preferred to do both hands in the same setting. Continues to have bilateral carpal tunnel symptoms. She had wrist splints in the past but she lost them. [facility] Medical History Family history of breast cancer Epidermoid cyst of skin of cheek Diverticulitis Mild recurrent major depression Bloody stools Epigastric pain Right hip pain Left hip pain Depression Obese Kidney stone Knee pain, left Hypovitaminosis D Pure hypercholesterolemia History of renal calculi Insomnia Arnold-Chiari malformation GERD (gastroesophageal reflux disease) Polyarthralgia Surgical History History of removal of cyst (~05/28/23) History of esophagogastroduodenoscopy (EGD) Hx of cystoscopy H/O colonoscopy S/P RUBÉN (total abdominal hysterectomy) History of cryosurgery History of cholecystectomy Family History Father Diabetes Hypertension Cancer, Onset Age: 78 Mother Cancer Breast cancer, Onset Age: 53 Maternal Grandmother Stroke Maternal Grandfather Cancer Esophageal cancer Paternal Grandfather Cancer Maternal Uncle Cancer Brain cancer Sister Breast cancer, Onset Age: 48 Social History Household Members Other:: Housing: House Alcohol intake: never Patient Tobacco Use Status: Current everyday Tobacco user Tobacco use type: Cigarette Cigarettes Per Day: 6 Years Smoked: 20 e-Cigarette/Vaping Use: Never Used Second Hand Smoke Exposure: No service: No Current occupational status: employed 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 Current occupational exposures/hazards: No Cognitive needs: No Hearing needs: No Vision needs: Yes Review of Systems ENT Reports neck pain Musc Reports back pain, Reports arthralgias, Reports limited range of motion, Reports neck pain, Reports numbness and Reports stiffness Neuro Reports numbness Physical Exam Vital Signs: Last Vital Signs Pulse 74 12/21/23 10:43 BP 124/80 12/21/23 10:43 Pulse Ox 98 12/21/23 10:43 Oxygen Delivery Method Room Air 12/21/23 10:43 BMI result Body Mass Index 34.8 Const General: cooperative, healthy appearing and comfortable Nutritional Appearance: obese Orientation/consciousness: patient oriented x3 Limitations: no limitations HEENT Head: Yes normocephalic and Yes atraumatic Mouth: moist mucous membranes Resp Effort & Inspection: normal respiratory effort and able to speak in complete sentences Neuro General: patient oriented x3 Extrem Other: Few fibromyalgia tender points Positive Tinel sign bilaterally Quality Reporting (2019) Adult ([facility] 138/08/06/68) Smoking risk assessment performed?: Yes Patient Tobacco Use Status: Current everyday Tobacco user Assessment & Plan Assessment & Plan (1) Fibromyalgia: Code(s): M79.7 - Fibromyalgia Category: Medical Plan: 53-year-old female with past medical history of fibromyalgia presents for follow-up. Fibromyalgia symptoms improved since Lyrica was increased to 100 mg nightly Continue Lyrica 100 mg nightly Refilled. Follow-up in 6 months (2) Cervicalgia: Code(s): M54.2 - Cervicalgia Category: Medical Plan: Neck x-ray showed multilevel degenerative disc disease. Patient is not interested in PT. provided patient with a printout of home exercises (3) Bilateral carpal tunnel syndrome: Code(s): G56.03 - Carpal tunnel syndrome, bilateral upper limbs Category: Medical Plan: She stated that years ago she had the nerve conduction test and was told that she has carpal tunnel syndrome, surgery was suggested and she declined.? She stated that wrist splints make her more numb and itchy. Will check a repeat EMG/NCV of both upper extremities. If positive, will refer to hand surgeon Plan I spent 28 minutes reviewing patient's chart, evaluating patient, ordering diagnostic workup, counseling patient and documenting in the chart Orders: Orders [place] electromyogram (EMG) Today G56.03 - Carpal tunnel syndrome, bilateral upper limbs Medications: Refilled pregabalin 100 mg (2 x 50 mg) PO BEDTIME 180 caps 1RF M79.7 - Fibromyalgia Coding Level of Care Code Est Pt Level 4 (27111) Diagnoses Fibromyalgia M79.7 Cervicalgia M54.2 Bilateral carpal tunnel syndrome G56.03
[2023-12-21 10:43] VITALS: BP 124/80; PULSE 74; O2SAT 98; BMI 34.8
== END 2023-12-21 10:57 | disposition home or self-care (01) ==
PROVIDERS: PCP Internal Medicine; Visit Provider Student in an Organized Health Care Education/Training Program
DX: M79.7 Fibromyalgia (principal); M54.2 Cervicalgia; G56.03 Carpal tunnel syndrome, bilateral upper limbs
CPT/HCPCS: 99214

== ENCOUNTER → 2023-12-21 10:36 | Outpatient (BNVA) | payer OTHER, SELFPAY | PROVIDERS: PCP Internal Medicine; Visit Provider Student in an Organized Health Care Education/Training Program | DX: M79.7 Fibromyalgia (principal); M54.2 Cervicalgia; G56.03 Carpal tunnel syndrome, bilateral upper limbs; Z79.899 Other long term (current) drug therapy | CPT/HCPCS: 99212 ==

== ENCOUNTER 2024-01-05 08:09 | Outpatient (REF) | payer OTHER, SELFPAY ==
--- NOTE | 2024-01-05 08:11 | EMG_ITS ---
Bilateral median and ulnar motor and sensory studies were performed. Bilateral radial sensory studies were performed and paraspinal muscles were tested with a needle. IMPRESSION: 1. Moderately severe bilateral median neuropathy across carpal tunnel. 2. Mild bilateral ulnar neuropathy across cubital tunnel. MD TRAN Benson/GARY / [id number]
== END 2024-01-05 08:10 | disposition home or self-care (01) ==
LOC: HO.NEURO 08:09
PROVIDERS: PCP Internal Medicine; Visit Provider Student in an Organized Health Care Education/Training Program
DX: G56.03 Carpal tunnel syndrome, bilateral upper limbs (principal)
CPT/HCPCS: 95886; 95911

== ENCOUNTER 2024-01-22 14:10 | Outpatient (AMB) | payer OTHER, SELFPAY ==
--- NOTE | 2024-01-22 14:12 | A.OFFVIS_ITS ---
Intake Visit Reasons: 3m follow up Intake Note: Patient presents today for a 3 months follow-up: Meds- Tolterodine Allergies to Antibiotic- No Known Allergies Blood Thinner- None Manuscripts Archivist Required: No Accompanied by: Self / Same As Patient Allergies trazodone Allergy (Intermediate, Verified 02/12/24 10:44) Insomnia gabapentin Adverse Reaction (Intermediate, Verified 02/12/24 10:44) dry mouth HPI Comments Details: 01/22/24--FU regarding urinary symptoms urgency and incontinence. She was seen last on 10/22/23 and prescribed detrol, she states she has been taking the medication one daily and has less pressure and pain in the bladder area but still is leaking. She is instructed to take detrol bid, if no improvement di scussed further eval with urod. Review of chart: 10/22/23--Ashley is a 52-year-old female past medical history of diverticulitis, depression, epigastric pain, depression, nephrolithiasis, hypercholesteremia, insomnia, GERD, polyarthralgia, and arnold-chiari malformation, who presents today to the office for a follow-up for persistent microscopic hematuria, h/o nicotine use. Denies gross hematuria. She complains of urinary urgency and frequency. She was prescribed Myrbetriq end-stage she was not able to fill the prescription because it was too expensive. She states that she used tolterodine in the past which helped a little. I will restart tolterodine but increase it to b.i.d.. 04/23/2023-- She is followed today for a cystoscopy procedure. She was last seen by Jayant Adams on 03/20/2023 for microscopic hematuria. She denies any blood in the urine. She has had CT urogram on 04/22/2023; however, it is pending. I reviewed the CAT scan of the abdomen/pelvis results from 08/28/2022 revealed that there are no kidney stones. I reviewed the cytology report from 03/24/2023 revealed negative for malignant cells. Cystoscopy procedure: Consent was obtained for the procedure. Cystoscopy findings: No suspicious bladder lesions noted. prominent vasculature 03/20/2023--Ashley is a very pleasant 52-year-old female patient of Dr. Steve Chaudhry. She has a past medical history of diverticulitis, depression, epigastric pain, depression, nephrolithiasis, hypercholesteremia, insomnia, GERD, polyarthralgia, and arnold-chiari malformation. She presents to the office today as a new patient for urinary incontinence. In discussion with the patient today she reports to be doing and feeling well. She reports previously following up with Dr. Gomez in 2019 for microscopic hematuria and urinary incontinence. She reports having had a cystoscopy and bladder biopsy in the past and reports being told biopsy results were negative. She reports having tried oxybutynin and tolderadine and experiencing dry mouth and constipation however did feel lower urinary tract symptoms improved. When asked she reports urinary frequency, urinary urgency, and episodes of incontinence if not near a bathroom. She otherwise denies nocturia, hematuria, dysuria, foul smelling urine, changes to urinary stream, flank pain, fever, and or chills. In office urinalysis results reviewed with the patient today. PVR 5 mL. Microscopic hematuria noted in UA today otherwise WNL. Discussed at length potential causes for microscopic hematuria as well as stress incontinence. When asked she does report a long standing smoking history of over 30 years and is currently smoking approximately 10 cigarettes per day she otherwise denies any known chemical exposure. Discussed obtaining CT urogram, urine cytology, and in office cystoscopy for further assessment evaluation. Discussed at length surveillance monitoring verses further microscopic hematuria workup in the setting of nicotine dependence. [facility] Medical History Family history of breast cancer Epidermoid cyst of skin of cheek Diverticulitis Mild recurrent major depression Bloody stools Epigastric pain Right hip pain Left hip pain Depression Obese Kidney stone Knee pain, left Hypovitaminosis D Pure hypercholesterolemia History of renal calculi Insomnia Arnold-Chiari malformation GERD (gastroesophageal reflux disease) Polyarthralgia Surgical History History of removal of cyst (~05/28/23) History of esophagogastroduodenoscopy (EGD) Hx of cystoscopy H/O colonoscopy S/P RUBÉN (total abdominal hysterectomy) History of cryosurgery History of cholecystectomy Family History Father Diabetes Hypertension Cancer, Onset Age: 78 Mother Cancer Breast cancer, Onset Age: 53 Maternal Grandmother Stroke Maternal Grandfather Cancer Esophageal cancer Paternal Grandfather Cancer Maternal Uncle Cancer Brain cancer Sister Breast cancer, Onset Age: 48 Social History Household Members Other:: Housing: House Alcohol intake: never Patient Tobacco Use Status: Current everyday Tobacco user Tobacco use type: Cigarette Cigarettes Per Day: 6 Years Smoked: 20 e-Cigarette/Vaping Use: Never Used Second Hand Smoke Exposure: No service: No Current occupational status: employed 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 Current occupational exposures/hazards: No Cognitive needs: No Hearing needs: No Vision needs: Yes Review of Systems Const All systems reviewed & are unremarkable except as noted in HPI and below Reports no additional complaints Eyes Reports no additional complaints ENT Reports no additional complaints Card Reports no additional complaints Resp Reports no additional complaints GI Reports no additional complaints Reports as per HPI Musc Reports no additional complaints Skin/Breast Reports system reviewed and no additional complaints, except as documented Neuro Reports no additional complaints Psych Reports no additional complaints Endo Reports no additional complaints Bay/Lymph Reports no additional complaints Aller/Immun Reports no additional complaints Results AMB Urinalysis, Automated UA Leukoctes 0 Ena/uL Last Edit by Supriya Rodrigues CMA on 01/22/24 14:22 UA Nitrite Negative Last Edit by Supriya Rodrigues CMA on 01/22/24 14:22 UA Urobilinogen 0.2 mg/dL Last Edit by Supriya Rodrigues CMA on 01/22/24 14:22 UA Protein 15 mg/dL Last Edit by Supriya Rodrigues CMA on 01/22/24 14:22 UA pH 6.5 Last Edit by Supriya Rodrigues CMA on 01/22/24 14:22 UA Blood 10 Cristian/uL Last Edit by Supriya Rodrigues CMA on 01/22/24 14:22 UA Specific Bomont 1.020 Last Edit by Supriya Rodrigues CMA on 01/22/24 14:22 UA Ketone Negative Last Edit by Supriya Rodrigues CMA on 01/22/24 14:22 UA Bilirubin 0 mg/dL Last Edit by Supriya Rodrigues CMA on 01/22/24 14:22 UA Glucose 0 mg/dL Last Edit by Supriya Rodrigues CMA on 01/22/24 14:22 Quality Reporting (2019) Adult ([facility] 138/08/06/68) Smoking risk assessment performed?: Yes Patient Tobacco Use Status: Current everyday Tobacco user Results Reviewed Results Reviewed: Laboratory Last Values Urine pH (Auto) 6.5 01/22/24 14:16 Specific Bomont (Auto) 1.020 01/22/24 14:16 Urine Protein (Auto) 15 mg/dL 01/22/24 14:16 Glucose (UA)(Auto) 0 mg/dL 01/22/24 14:16 Urine Ketones (Auto) Negative 01/22/24 14:16 Urine Blood (Auto) 10 Cristian/uL 01/22/24 14:16 Urine Nitrite (Auto) Negative 01/22/24 14:16 Urine Bilirubin (Auto) 0 mg/dL 01/22/24 14:16 Urine Urobilinogen (Auto) 0.2 mg/dL 01/22/24 14:16 Leukocyte Esterase (Auto) 0 Ena/uL 01/22/24 14:16 Diagnosis Urine: Negative for high-grade urothelial carcinoma. COMMENT: Examination of a monolayer preparation slide shows many benign squamous cells, occasional benign urothelial cells, few lymphocytes, and few red blood cells. Clinical History Microscopic hematuria Material Received Urine Gross Description 30 cc cloudy yellow fluid Date of Service: 08/28/22 EXAMINATION: CT ABDOMEN AND PELVIS WITHOUT CONTRAST CLINICAL INFORMATION: Left lower quadrant and left upper quadrant abdominal pain with hematuria. COMPARISON: CT abdomen pelvis 03/01/2020 FINDINGS: LUNG BASES: The visualized lung bases are unremarkable. Some dependent groundglass changes are seen. LIVER, GALLBLADDER, AND BILIARY TREE: The liver is normal in size and shape but demonstrates markedly decreased attenuation consistent with hepatic steatosis.. No focal hepatic lesion or biliary ductal dilatation is present. Status post cholecystectomy. PANCREAS: Unremarkable. SPLEEN: Unremarkable. ADRENAL GLANDS: Unremarkable. KIDNEYS AND URETERS: The kidneys are normal in size, shape, and attenuation. No hydronephrosis, hydroureter, or calculi seen. No perinephric stranding. BLADDER: Unremarkable. GASTROINTESTINAL TRACT: Diverticular changes are present in the colon with an area of acute uncomplicated diverticulitis seen at the junction of the descending colon and sigmoid colon at the pelvic brim. Inflammatory changes are seen without extraluminal air or pericolonic fluid collections. The small bowel and remainder of the large bowel are unremarkable. The appendix is unremarkable. ABDOMINAL WALL: No significant hernia is appreciated. Tiny periumbilical hernia seen containing only fat. LYMPH NODES: Some shotty retroperitoneal lymph nodes are seen but there is no adenopathy. VASCULAR: Mild aortoiliac calcifications without aneurysm. PELVIC VISCERA: The uterus is not present. An abnormal adnexal mass is not seen. No free intraperitoneal fluid is present. OSSEOUS STRUCTURES: Unremarkable. IMPRESSION: 1. Acute uncomplicated diverticulitis at the junction of the descending and sigmoid colon. 2. Incidental note made of hepatic steatosis, cholecystectomy and hysterectomy. Assessment & Plan Assessment & Plan (1) Microhematuria: Code(s): R31.29 - Other microscopic hematuria Category: Medical (2) Mixed incontinence urge and stress: Code(s): N39.46 - Mixed incontinence Category: Medical (3) Urinary frequency: Code(s): R35.0 - Frequency of micturition Category: Medical Plan Tolterodine 4 mg b.i.d. follow-up in 4 months. Orders: Orders AMB Urinalysis Automated 01/22/24 R31.29 - Other microscopic hematuria Medications: Changed From tolterodine ER 4 mg PO DAILY 60 caps 3RF To tolterodine ER 4 mg PO BID 60 caps 3RF 30 days Patient Instructions: The patient had an opportunity to ask questions regarding treatment plan. The patient expressed understanding and agreement with the above treatment plan. The patient is aware they should contact our office by phone for worsening of their current condition or the appearance of new symptoms. Compliance is encouraged with any medications and followup testing that is ordered. It is a privilege to be allowed the opportunity to participate in the urologic care of your patient. If you have any questions or concerns regarding treatment for the above conditions please do not hesitate to contact me. The office telephone contact is [phone]. This note is constructed in part using voice recognition software. While every effort has been made to ensure accuracy gymnasium teacher errors may have been included. Yours sincerely, Dimitri Skinner MD Coding Level of Care Code Est Pt Level 4 (73791) Diagnoses Microhematuria R31.29 Mixed incontinence urge and stress N39.46 Urinary frequency R35.0
== END 2024-01-22 14:41 | disposition home or self-care (01) ==
PROVIDERS: PCP Internal Medicine; Visit Provider Urology
DX: R31.29 Other microscopic hematuria (principal); N39.46 Mixed incontinence; R35.0 Frequency of micturition
CPT/HCPCS: 99214

== ENCOUNTER → 2024-01-22 14:10 | Outpatient (BNVA) | payer OTHER, SELFPAY | PROVIDERS: PCP Internal Medicine; Visit Provider Urology | DX: R31.29 Other microscopic hematuria (principal); N39.46 Mixed incontinence; R35.0 Frequency of micturition; Z87.442 Personal history of urinary calculi | CPT/HCPCS: 81003; 99212 ==

== ENCOUNTER 2024-02-12 10:03 | Outpatient (AMB) | payer OTHER, SELFPAY ==
--- NOTE | 2024-02-12 10:38 | MHC.OFFVIS ---
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 EMG done on 01/05/24. Patient reports her symptoms started years ago and is now gradually getting worse. She expresses pain, numbness and tingling everyday. She experiences the most numbness at night when she is asleep or when she is driving. She expresses she feels electric shocks when she goes to grab objects and lift. She says she drops everything she picks up. She has difficulty w/ lifting, gripping, and grasping. When she extends her arms she says she has pain in her bilateral elbows. She has utilized braces in the past but found no relief. She is here today to also discuss surgery. She would like to start with her right. 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 Patient reports that she continues to experience numbness, tingling, pain in bilateral hands, right worse than left. Symptoms are intermittent, but daily, and worse at night. Patient reports that all digits of bilateral hands are involved in the numbness and tingling. Patient reports that she knows that the EMG was positive for both carpal and cubital tunnel syndromes bilaterally, and then she is familiar with the treatment options, as her father had to undergo the same procedure many years ago. Patient would like to proceed with surgery on the right side 1st. No other acute complaints or concerns at this time. [facility] Medical History Family history of breast cancer Epidermoid cyst of skin of cheek Diverticulitis Mild recurrent major depression Bloody stools Epigastric pain Right hip pain Left hip pain Depression Obese Kidney stone Knee pain, left Hypovitaminosis D Pure hypercholesterolemia History of renal calculi Insomnia Arnold-Chiari malformation GERD (gastroesophageal reflux disease) Polyarthralgia Surgical History History of removal of cyst (~05/28/23) History of esophagogastroduodenoscopy (EGD) Hx of cystoscopy H/O colonoscopy S/P RUBÉN (total abdominal hysterectomy) History of cryosurgery History of cholecystectomy Family History Father Diabetes Hypertension Cancer, Onset Age: 78 Mother Cancer Breast cancer, Onset Age: 53 Maternal Grandmother Stroke Maternal Grandfather Cancer Esophageal cancer Paternal Grandfather Cancer Maternal Uncle Cancer Brain cancer Sister Breast cancer, Onset Age: 48 Social History Household Members Other:: Housing: House Alcohol intake: never Patient Tobacco Use Status: Current everyday Tobacco user Tobacco use type: Cigarette Cigarettes Per Day: 6 Years Smoked: 20 e-Cigarette/Vaping Use: Never Used Second Hand Smoke Exposure: No service: No Current occupational status: employed 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 No thenar or intrinsic wasting. Slightly weakened APB muscle firing on the right when compared to the left Good finger cross. Vascular: Capillary refill brisk. ROM: Patient can make a fist and extend all their digits. Skin: No lacerations or abrasions noted. General: No ecchymosis. No erythema or evidence of infection. Positive Tinel's at the right wrist Quality Reporting (2019) Adult ([facility] 138/08/06/68) Smoking risk assessment performed?: Yes Patient Tobacco Use Status: Current everyday Tobacco user Results Reviewed Results Reviewed: IMPRESSION: 1. Moderately severe bilateral median neuropathy across carpal tunnel. 2. Mild bilateral ulnar neuropathy across cubital tunnel. MD TRAN Benson/GARY Assessment & Plan Assessment & Plan (1) Cubital tunnel syndrome, bilateral: Code(s): G56.23 - Lesion of ulnar nerve, bilateral upper limbs Category: Medical (2) Bilateral carpal tunnel syndrome: Code(s): G56.03 - Carpal tunnel syndrome, bilateral upper limbs Category: Medical Plan 1. Carpal tunnel syndrome, right 2. Cubital tunnel syndrome, right Symptoms intermittent, but daily, worse at night I educated the patient about the condition. I discussed both operative and nonoperative treatment options. The patient would like to proceed with surgery. The risks and benefits of operative treatment were discussed with the patient and the patient wishes to proceed with surgery. These risks include, but are not limited to, risk of damage to blood vessels, nerves, tendons, infection, recurrence, incomplete relief of preoperative symptoms, persistent pain, possible need for further surgery, and the risks associated with regional blocks and/or anesthesia. Plan is to take the patient to the operating room at some point in the next few weeks for the following procedures: 1. Cubital tunnel release, right, under general anesthesia 2. Carpal tunnel syndrome, right, under general anesthesia All of the preoperative paperwork including the consent was discussed today. All of the patient's questions were answered in the clinic today. The patient understands that they will be in contact with our regional vice president surgical sales to discuss scheduling their procedure. Patient denies diabetes, blood thinners, asthma, heart issues, lung issues, kidney issues Patient reports current smoking, but then she will stop smoking prior to surgery and during the recovery period. Patient will follow-up preoperatively, sooner with any acute concerns 3. Cubital tunnel syndrome, left 4. Carpal tunnel syndrome, left Symptoms intermittent, but daily, worse night The patient would like to proceed with operative treatment on the right side 1st, as she finds the side more bothersome We will discuss operative treatment of the left side on the patient's entered the recovery period for the procedure on the right side Patient is amenable to this plan Coding Level of Care Code Est Pt Level 4 (54223) Diagnoses Cubital tunnel syndrome, bilateral G56.23 Bilateral carpal tunnel syndrome G56.03
== END 2024-02-12 11:25 | disposition home or self-care (01) ==
PROVIDERS: PCP Internal Medicine
DX: G56.23 Lesion of ulnar nerve, bilateral upper limbs (principal); G56.03 Carpal tunnel syndrome, bilateral upper limbs
CPT/HCPCS: 99214

== ENCOUNTER → 2024-02-12 10:03 | Outpatient (BNVA) | payer OTHER, SELFPAY | PROVIDERS: PCP Internal Medicine | DX: G56.03 Carpal tunnel syndrome, bilateral upper limbs (principal); G56.23 Lesion of ulnar nerve, bilateral upper limbs | CPT/HCPCS: 99212 ==

== ENCOUNTER 2024-04-13 11:14 | Outpatient (AMB) | payer OTHER, SELFPAY ==
--- NOTE | 2024-04-13 11:21 | A.OFFVIS_ITS ---
Intake Visit Reasons: Pre-Rt Cubital/Rt CTR 04/18/24 Intake Note: Ashley is a 53 yo right hand dominant female who presents today pre-operatively for a right cubital and right carpal tunnel release scheduled for 04/18/[address] Case. Consent signed in office today. Allergies trazodone Allergy (Intermediate, Verified 04/13/24 11:29) Insomnia gabapentin Adverse Reaction (Intermediate, Verified 04/13/24 11:29) dry mouth HPI HPI Pre-Rt Cubital/Rt CTR 04/18/24: Details: Ashley is a 53 year old right hand dominant woman who presents to discuss her right carpal & cubital tunnel syndrome. She complains of numbness to all digits of her right hand. Symptoms constant in the median nerve distribution, and somewhat better in the small finger. Symptoms worse at night or with activities. PFSH Medical History Family history of breast cancer Epidermoid cyst of skin of cheek Diverticulitis Mild recurrent major depression Bloody stools Epigastric pain Right hip pain Left hip pain Depression Obese Kidney stone Knee pain, left Hypovitaminosis D Pure hypercholesterolemia History of renal calculi Insomnia Arnold-Chiari malformation GERD (gastroesophageal reflux disease) Polyarthralgia Surgical History History of removal of cyst (~05/28/23) History of esophagogastroduodenoscopy (EGD) Hx of cystoscopy H/O colonoscopy S/P RUBÉN (total abdominal hysterectomy) History of cryosurgery History of cholecystectomy Family History Father Diabetes Hypertension Cancer, Onset Age: 78 Mother Cancer Breast cancer, Onset Age: 53 Maternal Grandmother Stroke Maternal Grandfather Cancer Esophageal cancer Paternal Grandfather Cancer Maternal Uncle Cancer Brain cancer Sister Breast cancer, Onset Age: 48 Social History Household Members Other:: Housing: House Alcohol intake: never Patient Tobacco Use Status: Current everyday Tobacco user Tobacco use type: Cigarette Cigarettes Per Day: 6 Years Smoked: 20 e-Cigarette/Vaping Use: Never Used Second Hand Smoke Exposure: No service: No Current occupational status: employed 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 Current occupational exposures/hazards: No Cognitive needs: No Hearing needs: No Vision needs: Yes Review of Systems Const All systems reviewed & are unremarkable except as noted in HPI and below Physical Exam Const General: cooperative, healthy appearing and no acute distress Orientation/consciousness: patient oriented x3 HEENT Head: Yes normocephalic and Yes atraumatic Eyes EOM: EOMs intact bilaterally Resp Effort & Inspection: normal respiratory effort and able to speak in complete sentences Cardio Jugular venous distension: no JVD Skin General skin exam: turgor normal Rashes: no rashes Neuro General: patient oriented x3 Extrem Other: Evaluation of Right Upper Extremity: The patient is alert, oriented, and in no acute distress Neuro: Dense numbness in the median nerve distribution. Normal sensation to the small finger Vascular: Cap refill brisk ROM: She can make a fist and extend all her digits Skin: No lacerations or abrasions. General: No Ecchymosis. No Erythema or evidence of infection. Nerve Conduction Study: IMPRESSION: 1. Moderately severe bilateral median neuropathy across carpal tunnel. 2. Mild bilateral ulnar neuropathy across cubital tunnel. Henok Lentz MD 01/05/2024 Psych Appearance: grossly normal Affect: normal affect Attitude: cooperative Quality Reporting (2019) Adult ([facility] 138/08/06/68) Smoking risk assessment performed?: Yes Patient Tobacco Use Status: Current everyday Tobacco user Assessment & Plan Assessment & Plan (1) Cubital tunnel syndrome, bilateral: Code(s): G56.23 - Lesion of ulnar nerve, bilateral upper limbs Category: Medical (2) Bilateral carpal tunnel syndrome: Code(s): G56.03 - Carpal tunnel syndrome, bilateral upper limbs Category: Medical Plan Assessment & Plan: 1. Right carpal tunnel syndrome, moderate-severe With dense numbness 2. Right cubital tunnel syndrome, mild Symptoms intermittent, but daily, worse at night I educated her about this condition I discussed operative and non-operative treatment options The patient would like to proceed with surgery I explained the risks of her sensation not returning, but that surgery is important to maintain muscle function and preserve any sensation possible. She expressed understanding I explained that it may take up to 9 months post-operatively for any sensation to return. The risks and benefits of operative treatment were discussed with the patient and the patient wishes to proceed with surgery. These risks include, but are not limited to risk of damage to blood vessels, nerves, tendons, infection, recurrence, incomplete relief of preoperative symptoms, persistent pain, possible need for further surgery and the risks associated with regional blocks and anesthesia. The plan is to take the patient to the operating room sometime on 04/18/24for the following procedures: 1. Right cubital tunnel release vs transposition, under general 2. Right carpal tunnel release, under general All of the preoperative paperwork including the consent was reviewed today. All the patient's questions were answered. The patient understands that they will be contacted by our phlebotomy director soon to schedule this procedure She denies Diabetes, blood thinners, asthma, heart, lung, kidney issues 3. Left carpal tunnel syndrome, moderate-severe 4. Left cubital tunnel syndrome, mild Not assessed today in clinic We can discuss this at a future appointment Scribed for Eda Case MD by Clif Hanna, medical assistant per diem, on 04/13/24 at 11:35 AM, EST. Coding Level of Care Code Est Pt Level 4 (38022) Diagnoses Cubital tunnel syndrome, bilateral G56.23 Bilateral carpal tunnel syndrome G56.03
== END 2024-04-13 12:10 | disposition home or self-care (01) ==
LOC: HO.HOS 11:15
PROVIDERS: PCP Internal Medicine; Visit Provider Orthopaedic Surgery
DX: G56.23 Lesion of ulnar nerve, bilateral upper limbs (principal); G56.03 Carpal tunnel syndrome, bilateral upper limbs
CPT/HCPCS: 99214

== ENCOUNTER → 2024-04-13 11:14 | Outpatient (BNVA) | payer OTHER, SELFPAY | PROVIDERS: PCP Internal Medicine; Visit Provider Orthopaedic Surgery | DX: G56.23 Lesion of ulnar nerve, bilateral upper limbs (principal); G56.03 Carpal tunnel syndrome, bilateral upper limbs | CPT/HCPCS: 99212 ==

== ENCOUNTER 2024-04-18 05:58 | Day surgery (SDC) | payer OTHER, SELFPAY ==
[2024-04-14 08:53] VITALS: BMI 34.7
[2024-04-18] VITALS (7 sets, daily range): BP systolic 131–152; BP diastolic 80–94; PULSE 70–91; RESP 15–18; TEMP 36.1–36.9; O2SAT 94–99; BMI 35.2
[2024-04-18] MEDS: Lactated Ringers 1,000 ML 50 ML IVCONT (06:31)
--- NOTE | 2024-04-18 07:27 | HO.ANESPROP2 ---
HPI - Anesthesia Eval Consult details Narrative: cubital tunnel PMFSH Active Problems Active Problems: All Active Problems Cubital tunnel syndrome, bilateral (Acute) Chronic idiopathic constipation (Acute) Abscess of face (Acute) Urinary frequency (Acute) Mixed incontinence urge and stress (Acute) Microhematuria (Acute) Lump of skin (Acute) Cervicalgia (Acute) Bilateral carpal tunnel syndrome (Acute) Hypertension (Acute) Lumbar pain (Acute) Physical exam (Acute) Osteoarthritis of both knees (Acute) Knee pain (Acute) Fibromyalgia (Acute) Bartholin cyst (Acute) Family history of breast cancer (Acute) Epidermoid cyst of skin of cheek (Acute) Diverticulitis (Acute) Mild recurrent major depression (Acute) Bloody stools (Acute) Epigastric pain (Acute) Right hip pain (Acute) Left hip pain (Acute) Depression (Acute) Obese (Acute) Knee pain, left (Acute) Hypovitaminosis D (Acute) Pure hypercholesterolemia (Acute) Insomnia (Acute) Arnold-Chiari malformation (Acute) GERD (gastroesophageal reflux disease) (Acute) Polyarthralgia (Acute) Past Medical History Medical History Family history of breast cancer Epidermoid cyst of skin of cheek Diverticulitis Mild recurrent major depression Bloody stools Epigastric pain Right hip pain Left hip pain Depression Obese Kidney stone Knee pain, left Hypovitaminosis D Pure hypercholesterolemia History of renal calculi Insomnia Arnold-Chiari malformation GERD (gastroesophageal reflux disease) Polyarthralgia Family History Family History Father Diabetes Hypertension Cancer, Onset Age: 78 Mother Cancer Breast cancer, Onset Age: 53 Maternal Grandmother Stroke Maternal Grandfather Cancer Esophageal cancer Paternal Grandfather Cancer Maternal Uncle Cancer Brain cancer Sister Breast cancer, Onset Age: 48 Family history of problems with anesthesia: No Surgical History Surgical History History of removal of cyst (~05/28/23) History of esophagogastroduodenoscopy (EGD) Hx of cystoscopy H/O colonoscopy S/P RUBÉN (total abdominal hysterectomy) History of cryosurgery History of cholecystectomy History of Problems with Anesthesia: No Social History Social History Household Members Other:: Housing: House Alcohol intake: never Patient Tobacco Use Status: Current everyday Tobacco user Tobacco use type: Cigarette Cigarettes Per Day: 6 Years Smoked: 20 e-Cigarette/Vaping Use: Never Used Second Hand Smoke Exposure: No Have you been hit, kicked, punched, or otherwise hurt by someone within the past year? 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 Current occupational exposures/hazards: No Cognitive needs: No Hearing needs: No Vision needs: Yes Meds Allergies Allergy/AdvReac Type Severity Reaction Status Date / Time trazodone Allergy Intermediate Insomnia Verified 04/13/24 11:29 gabapentin AdvReac Intermediate dry mouth Verified 04/13/24 11:29 Active Medications: Current Medications Lactated Ringer's (Lr) 1,000 mls @ 50 mls/hr IVCONT .Q20H HOSSEIN Last Admin: 04/18/24 06:31 Dose: 50 mls/hr Exam Height,Weight and Vital Signs: Height 5 ft 2 in Weight 87.23 kg Last Vital Signs Temp 98.5 F 04/18/24 06:05 Pulse 75 04/18/24 06:05 Resp 18 04/18/24 06:05 BP 143/85 H 04/18/24 06:05 Pulse Ox 97 04/18/24 06:05 O2 Del Method Room Air 04/18/24 06:05 Airway Mallampati Class: II TM Dist: >3cm Heart: rrr Lungs: cta Assessment and Plan Assessment Anesthesia Assessment: Anesthesia Plan Discussed Final Anesthetic Review Family History of Problems with Anesthesia: No History of Problems with Anesthesia: No NPO: Yes ASA Class: III Final Preanesthetic Review: No Changes in Pt Med Stat, Meds/Allgs Chart Reviewed, Consent Obtained/Reviewed and Anes Risks/Benef Reviewed Patient Risk: Intermediate Procedure Risk: Low Anesthetic Plan Anesthetic Plan: GA Disposition: Standard PACU
--- NOTE | 2024-04-18 07:45 | P.OP_ITS ---
Operative Note Operative Note Date of Service: 04/18/24 Narrative: Operative Note Narrative: Preop diagnosis: 1. Right Cubital tunnel syndrome 2. Right carpal tunnel syndrome Postop diagnosis: Same Procedure: 1. Right cubital tunnel release 2. Right carpal tunnel release Surgeon: Eda Case MD Service Dispatcher: None Anesthesia: General Anesthesia Findings: Thickening and fibrosis about the ulnar nerve at the cubital tunnel Implants: none Tourniquet time: 54 minutes EBL: 5.0 ml Specimen: none Drains: None Complications: None Disposition: Brought to the recovery room in stable condition Plan: Follow-up in 10-14 days for wound check, and suture removal Indications: The patient is 53 years old with right cubital tunnel syndrome and carpal tunnel syndrome . The risks and benefits of operative treatment, including but not limited to risk of damage to blood vessels, nerves, tendons, infection, recurrence, persistent pain or numbness, incomplete resolution of preoperative symptoms, or need for further surgery were discussed with the patient and they wished to proceed with surgery. Procedure: Once consent was obtained patient was brought back to the operating suite and placed in the operating table in a supine position. Perioperative antibiotics and anesthesia was administered by the anesthesia team. The limb was prepped and draped in a standard surgical fashion, and a sterile tourniquet applied to the proximal aspect of the right upper extremity. The limb was elevated exsanguinated with Esmarch bandage and the tourniquet inflated to 250 mm of mercury for a total tourniquet time of 54 minutes. Once assured that we had a good block, a 2.0 cm longitudinal incision was made centered over the right carpal tunnel. The incision was made through the skin to the subcutaneous tissues using a #15 blade. Dissection was made down to the level of the transverse carpal ligament with care being taken to protect the palmar cutaneous nerve. Once the transverse carpal ligament was clearly visualized, a longitudinal incision was made in the transverse carpal ligament 1st using a #15 blade, then using tenotomy scissors under direct visualization. Care was taken to look for and protect the motor branch of the median nerve when seen in this area. Once satisfied with our carpal tunnel release the wound was irrigated with normal saline. A 6 cm gently curved but longitudinally oriented incision was made centered over the cubital tunnel of the right upper extremity. Incision was made through the skin to the subcutaneous tissues using a # 15 Blade. I then dissected down to the level of the medial epicondyle and the cubital tunnel using tenotomy scissors. Care was taken to protect the medial antebrachial cutaneous nerve. The ulnar nerve was identified just posterior to the medial intermuscular septu m. The ulnar nerve was released in a proximal to distal direction using tenotomy in iris scissors while directly visualizing and protecting the ulnar nerve. Thickening and fibrosis was appreciated about the ulnar nerve as it passed through the cubital tunnel, and the patient was noted to have a rather deep groove between the olecranon and the medial epicondyle. The ulnar nerve was assessed as I passed the elbow through full flexion and extension and was found to remain stable within its groove. At this point the tourniquet was deflated and hemostasis obtained with a brief period of local pressure and bipolar electrocautery. The wound was copiously irrigated with normal saline. The subcutaneous layer was closed with 4-0 Vicryl suture, and the skin edges were reapproximated with 5-0 nylon suture. The wound was infiltrated with some 0.25% plain Marcaine for postop pain control and sterile dressings and a posterior splint was applied. The patient appears to have tolerated the procedure well and with no complications. All digits were well vascularized at the conclusion of the case.
--- NOTE | 2024-04-18 07:45 | MHC.SHP ---
Pre-Procedural Eval Section A - 24 Hr Update-Section A only Date of Service: 04/18/24 The patient is an INPATIENT: No Changes since office visit: No Cold of Flu in the past 2 weeks, No New Medical Problems, No Changes in Medication and No Patient answered all questions The patient has been examined within 24 hours of the surgical procedure. The History & Physical has been completed within 30 days and I have reviewed it.: Yes Section B - Complete if H&P > 30 days Chief Complaint: carpal tunnel,lesion of ulnar nerve Allergies: Allergies Allergy/AdvReac Type Severity Reaction Status Date / Time trazodone Allergy Intermediate Insomnia Verified 04/13/24 11:29 gabapentin AdvReac Intermediate dry mouth Verified 04/13/24 11:29 Plan I have reviewed the history and physical and performed a pertinent physical examination on my patient. No changes have occurred unless specified. Time Spent With Patient Time: Total time managing care of this patient today ____ minutes.
== END 2024-04-18 11:27 | disposition home or self-care (01) ==
PROVIDERS: PCP Internal Medicine; Visit Provider Orthopaedic Surgery
PROC: (CPT 64718; principal; 2024-04-18 07:30)
PROC: (CPT 64721; 2024-04-18 07:30)
DX: G56.01 Carpal tunnel syndrome, right upper limb (principal); G56.21 Lesion of ulnar nerve, right upper limb; R20.0 Anesthesia of skin; M25.50 Pain in unspecified joint; E78.00 Pure hypercholesterolemia, unspecified; E55.9 Vitamin D deficiency, unspecified; F33.0 Major depressive disorder, recurrent, mild; Q07.00 Arnold-Chiari syndrome without spina bifida or hydrocephalus; Z79.899 Other long term (current) drug therapy; Z88.8 Allergy status to other drugs, medicaments and biological substances; Z98.890 Other specified postprocedural states; F17.210 Nicotine dependence, cigarettes, uncomplicated
CPT/HCPCS: 64721; 64718; J0690; J1100; J2003; J2004; J2250; J2405; J2704; J2795; J3010

== ENCOUNTER → 2024-04-18 05:58 | Outpatient (BNV) | payer OTHER, SELFPAY | PROVIDERS: PCP Internal Medicine; Visit Provider Orthopaedic Surgery | DX: G56.21 Lesion of ulnar nerve, right upper limb (principal); G56.01 Carpal tunnel syndrome, right upper limb | CPT/HCPCS: 64718; 64721 ==

== ENCOUNTER 2024-05-03 10:54 | Outpatient (AMB) | payer OTHER, SELFPAY ==
--- NOTE | 2024-05-03 11:03 | MHC.OFFVIS ---
Vital Signs 05/03/24 11:04 Height 5 ft 2 in Weight 185 lb BMI 33.8 Handedness Right Intake Visit Reasons: PO-Rt Cubital/Rt CTR 04/18/24 Intake Note: Ashley is a 53 year old right hand dominant female who presents today post operatively s/p right carpal tunnel and right cubital release w/ Dr Case DOS:04/18/2024. Patient reports she feels great. Her numbness and tingling has resolved. She denies any locking or cramping of her right hand and fingers. She would like to discuss a left carpal tunnel release. Allergies trazodone Allergy (Intermediate, Verified 05/03/24 11:04) Insomnia gabapentin Adverse Reaction (Intermediate, Verified 05/03/24 11:04) dry mouth HPI HPI PO-Rt Cubital/Rt CTR 04/18/24: Details: Patient is a 53-year-old female who presents for postoperative evaluation status post right cubital and carpal tunnel releases, DOS 04/18/2024. Patient states that she has been recovering very well, and she has no complaints or concerns at this time. Patient denies any ongoing numbness or tingling in the right hand. PFSH Medical History Family history of breast cancer Epidermoid cyst of skin of cheek Diverticulitis Mild recurrent major depression Bloody stools Epigastric pain Right hip pain Left hip pain Depression Obese Kidney stone Knee pain, left Hypovitaminosis D Pure hypercholesterolemia History of renal calculi Insomnia Arnold-Chiari malformation GERD (gastroesophageal reflux disease) Polyarthralgia Surgical History History of removal of cyst (~05/28/23) History of esophagogastroduodenoscopy (EGD) Hx of cystoscopy H/O colonoscopy S/P RUBÉN (total abdominal hysterectomy) History of cryosurgery History of cholecystectomy Family History Father Diabetes Hypertension Cancer, Onset Age: 78 Mother Cancer Breast cancer, Onset Age: 53 Maternal Grandmother Stroke Maternal Grandfather Cancer Esophageal cancer Paternal Grandfather Cancer Maternal Uncle Cancer Brain cancer Sister Breast cancer, Onset Age: 48 Social History Household Members Other:: Housing: House Alcohol intake: never Patient Tobacco Use Status: Current everyday Tobacco user Tobacco use type: Cigarette Cigarettes Per Day: 6 Years Smoked: 20 e-Cigarette/Vaping Use: Never Used Second Hand Smoke Exposure: No service: No Current occupational status: employed 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 Current occupational exposures/hazards: No Cognitive needs: No Hearing needs: No Vision needs: Yes Review of Systems Const All systems reviewed & are unremarkable except as noted in HPI and below Physical Exam Vital Signs: BMI result Body Mass Index 33.8 Const General: cooperative, healthy appearing and no acute distress Orientation/consciousness: patient oriented x3 HEENT Head: Yes normocephalic and Yes atraumatic Eyes EOM: EOMs intact bilaterally Resp Effort & Inspection: normal respiratory effort and able to speak in complete sentences Cardio Jugular venous distension: no JVD Skin General skin exam: turgor normal Rashes: no rashes Neuro General: patient oriented x3 Extrem Other: Evaluation of Right Upper Extremity: The patient is alert, oriented, and in no acute distress Neuro: Normal Sensation of the tips of all digits of the right hand at this time Vascular: Cap refill brisk ROM: She can make a fist and extend all her digits Skin: No lacerations or abrasions. General: No Ecchymosis. No Erythema or evidence of infection. Psych Appearance: grossly normal Affect: normal affect Attitude: cooperative Quality Reporting (2019) Adult ([facility] 138/08/06/68) Smoking risk assessment performed?: Yes Patient Tobacco Use Status: Current everyday Tobacco user Assessment & Plan Assessment & Plan (1) Cubital tunnel syndrome, bilateral: Code(s): G56.23 - Lesion of ulnar nerve, bilateral upper limbs Category: Medical (2) Bilateral carpal tunnel syndrome: Code(s): G56.03 - Carpal tunnel syndrome, bilateral upper limbs Category: Medical Plan 1. Right cubital tunnel syndrome status post cubital tunnel release 2. Right carpal tunnel syndrome status post carpal tunnel DOS 04/18/2024 Patient appears to be recovering well postoperatively Patient is educated about the typical recovery course Patient appears to be recovering very well from her right-sided surgery, and is offered the opportunity to get signed up for left-sided surgery at this time However, patient states she would prefer to hold off on left-sided surgery due to time off from work and symptoms not bothering her nearly as much Patient is educated on potential risks of waiting to on carpal and cubital tunnel releases, namely dense numbness Patient states understanding Patient will follow-up when she is ready it was left-sided surgery, sooner with any acute concerns Coding Level of Care Code Global ([id number]) Diagnoses Cubital tunnel syndrome, bilateral G56.23 Bilateral carpal tunnel syndrome G56.03
[2024-05-03 11:04] VITALS: BMI 33.8
== END 2024-05-03 11:17 | disposition home or self-care (01) ==
PROVIDERS: PCP Internal Medicine
DX: G56.23 Lesion of ulnar nerve, bilateral upper limbs (principal); G56.03 Carpal tunnel syndrome, bilateral upper limbs
CPT/HCPCS: 99024

== ENCOUNTER → 2024-05-03 10:54 | Outpatient (BNVA) | payer OTHER, SELFPAY | PROVIDERS: PCP Internal Medicine | DX: Z47.89 Encounter for other orthopedic aftercare (principal); Z98.890 Other specified postprocedural states; Z86.69 Personal history of other diseases of the nervous system and sense organs | CPT/HCPCS: 99212 ==

== ENCOUNTER 2024-05-11 08:22 | Outpatient (REF) | payer OTHER, SELFPAY ==
[2024-05-11 09:50] LABS: Alanine Aminotransferase 26 U/L (0-31); Albumin Level 4.1 g/dL (3.5-5.0); Alkaline Phosphatase 52 U/L (39-117); Anion Gap 14 (12-20); Aspartate Amino Transferase 22 U/L (5-31); Bilirubin Total 0.5 mg/dL (0.0-1.0); Blood Urea Nitrogen 15 mg/dL (9-16); Calcium 9.3 mg/dL (8.4-10.2); Carbon Dioxide 25 mmol/L (22-29); Chloride 107 mmol/L (96-108); Cholesterol 160 mg/dL (<200); Estimated Glomerular Filt Rate > 60; Glucose Fasting 120 mg/dL (60-99); HDL Cholesterol 46 mg/dL (>40); LDL Cholesterol Calculated 92 mg/dL (<100); Potassium 4.2 mmol/L (3.3-5.1); Sodium 142 mmol/L (135-145); Triglycerides 114 mg/dL (<150)
[2024-05-11 09:52] LABS: Vitamin D 25-OH Total 24.3 ng/mL (>30)
== END 2024-05-11 08:23 | disposition home or self-care (01) ==
LOC: HO.LAB 08:22
PROVIDERS: PCP Internal Medicine; Visit Provider Internal Medicine
DX: M79.7 Fibromyalgia (principal); E55.9 Vitamin D deficiency, unspecified; E78.5 Hyperlipidemia, unspecified
CPT/HCPCS: 36415; 80053; 80061; 82306

== ENCOUNTER 2024-05-17 14:22 | Outpatient (AMB) | payer OTHER, SELFPAY ==
--- NOTE | 2024-05-17 14:23 | A.OFFPC_ITS ---
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 Accompanied by: Self / Same As Patient Allergies trazodone Allergy (Intermediate, Verified 05/17/24 14:43) Insomnia gabapentin Adverse Reaction (Intermediate, Verified 05/17/24 14:43) dry mouth Medication List - Last Reconciled 05/17/24 by Jayna Chaudhry MD atorvastatin 10 mg PO DAILY cholecalciferol (vitamin D3) 50 mcg PO DAILY 90 days linaclotide (Linzess) 145 mcg PO DAILY oxycodone-acetaminophen 5-325 mg 1 tab PO Q6H PRN pantoprazole 40 mg PO DAILY 90 days pregabalin 100 mg (2 x 50 mg) PO BEDTIME tolterodine ER 4 mg PO BID 30 days tramadol 50 mg PO Q8H PRN 30 days [wrist splint wear nightly & as much as possible throughout the day] zolpidem 10 mg PO BEDTIME PRN 30 days Tobacco use date assessed: 11/16/23 Dental Screening Dental Screen Date: 11/16/23 HPI HPI Comments History of Present Illness Details The patient is a 53-year-old female presenting for an annual physical examination. She has a history of several chronic conditions, including pre- diabetes, with a recent blood sugar level of 120 indicating proximity to the diabetes diagnostic threshold. She has been informed of the necessity to monitor her glucose levels and repeat testing in four months. The patient reports insomnia exacerbated by Trazodone, and she uses Zolpidem for sleep as well as Linzess for constipation. She has experienced surgeries, including bilateral carpal tunnel release and cyst removal. Gastroesophageal reflux disease is managed with Pantoprazole. The patient has a significant maternal and paternal history of breast and prostate cancer, respectively. She expresses a desire to cease smoking, having reduced her tobacco consumption significantly over the years. - Recommended low-dose CT for lung cance r screening due to smoking history. - Recent mammography performed this year with normal results. - Colonoscopy conducted in 2021; to be r epeated in five years. - Vitamin D supplementation recommended due to deficiency (current level 24.5). [facility] History Family history of breast cancer Epidermoid cyst of skin of cheek Diverticulitis Mild recurrent major depression Bloody stools Epigastric pain Right hip pain Left hip pain Depression Obese Kidney stone Knee pain, left Hypovitaminosis D Pure hypercholesterolemia History of renal calculi Insomnia Arnold-Chiari malformation GERD (gastroesophageal reflux disease) Polyarthralgia Surgical History Cubital tunnel syndrome, bilateral History of removal of cyst (~05/28/23) History of esophagogastroduodenoscopy (EGD) Hx of cystoscopy H/O colonoscopy S/P RUBÉN (total abdominal hysterectomy) History of cryosurgery History of cholecystectomy Family History Father Diabetes Hypertension Cancer, Onset Age: 78 Mother Cancer Breast cancer, Onset Age: 53 Maternal Grandmother Stroke Maternal Grandfather Cancer Esophageal cancer Paternal Grandfather Cancer Maternal Uncle Cancer Brain cancer Sister Breast cancer, Onset Age: 48 Social History Household Members Other:: Housing: House Alcohol intake: never Patient Tobacco Use Status: Current everyday Tobacco user Tobacco use type: Cigarette Cigarettes Per Day: 6 Years Smoked: 20 e-Cigarette/Vaping Use: Never Used Second Hand Smoke Exposure: No service: No Current occupational status: employed 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 1. Little interest or pleasure in doing things: not at all 2. Feeling down, depressed, or hopeless: not at all 3. Trouble falling or staying asleep, or sleeping too much: more than half the days 4. Feeling tired or having little energy: more than half the days 5. Poor appetite or overeating: more than half the days 6. Feeling bad about yourself - or that you are a failure or have let yourself or your family down: not at all 7. Trouble concentrating on things, such as reading the newspaper or watching television: not at all 8. Moving or speaking so slowly that other people could have noticed. Or the opposite - being so fidgety or restless that you have been moving around a lot more than usual: not at all 9. Thoughts that you would be better off or of hurting yourself in some way: not at all Total score: 6 Depression Screening Interpretation: Positive Depression Screening Follow-up: Existing condition, In treatment and Follow-up Visit Requested Depression Screening Done: Yes 41229 - PHQ-9 Billing: Yes Source: Developed by Drs. Arsh Mcintosh, Kristine Javier, Hemant Mabry and colleagues, with an educational sera from [employer]. Thrive Questionnaire Date Thrive assessed: 05/17/24 I am a: Patient What is your living situation today?: I have a steady place to live Within the past 12 months, did the food you bought not last and you didn't have the money to get more?: Never true Within the past 12 months, did you worry whether your food would run out before you got money to buy more?: Never true Do you have trouble paying for medicines?: No Do you have trouble getting transportation to medical appointments?: No Do you have trouble paying your heating and electricity bill?: No Do you have trouble taking care of your child, family member or friend?: No Do you have trouble with day-to-day activities such as bathing, preparing meals, shopping, managing finances, etc.?: No Are you currently unemployed and looking for a job?: No Are you interested in more education?: No Please select the resources that you would like help with: None Currently or been in a relationship where the following occur: No concerns reported THRIVE Score: 0 AUDIT C Alcohol Use Questionnaire (AUDIT-C) 1. How often do you have a drink containing alcohol?: Never Total Score: 0 Score Reviewed/Action Taken: No DIDIER-7 AMB Questionnaire DIDIER-7 Date DIDIER - 7 assessed: 05/17/24 Feeling nervous, anxious, or on edge: 0 = Not at all Not being able to stop or control worryin = Several days Worrying too much about different things: 1 = Several days Trouble relaxin = Several days Being so restless that it is hard to sit still: 0 = Not at all Becoming easily annoyed or irritable: 0 = Not at all Feeling afraid as if something awful might happen: 0 = Not at all Total DIDIER-7 score (0-4 normal; 5-9 mild; 10-14 moderate; 15-21 severe): 3 Source: Developed by Drs. Arsh Mcintosh, Kristine Javier, Hemant Mabry and colleagues, with an educational sera from [employer]. DIDIER-7 Assessment Billing DIDIER-7 Assessment Tool: DIDIER-7 Assessment 38058 Review of Systems Const All systems reviewed & are unremarkable except as noted in HPI and below Card Denies chest pain at rest, Denies chest pain with activity, Denies edema, Denies irregular heart rhythm, Denies claudication, Denies dyspnea, Denies dyspnea on exertion, Denies orthopnea, Denies paroxysmal nocturnal dyspnea and Denies slow heart rate Resp Denies cough, Denies dyspnea and Denies dyspnea on exertion GI Denies abdominal pain, Denies change in bowel habits, Denies excessive flatus, Denies nausea and Denies vomiting Physical exam (Primary Care) Vital Signs: Last Vital Signs BP 122/80 05/17/24 14:24 BMI result Body Mass Index 34.4 BMI Assessment/Plan discussion: High BMI High, discussed plan: lifestyle, weight reduction, dietary and physical activity Tobacco/Smoking Status: Tobacco use Status Tobacco use date assessed 11/16/23 05/17/24 14:31 Patient Tobacco Use Status Current everyday Tobacco 05/17/24 14:31 Tobacco use type Cigarette 05/17/24 14:31 e-Cigarette/Vaping Use Never Used 05/17/24 14:31 Are you ready to quit: No Tobacco cessation counseling provided: Yes Items discussed: Nicotine replacement and QuitWorks Relapse Prevention: discussed the importance of a supportive environment, discussed negative mood or depression after quitting, weight gain after smoking is common and discussed dietary, exercise and/or lifestyle changes Number of minutes spent counselin CPT code: 10585 - 4-10 Minutes PHQ-9: PHQ-9 Score PHQ-9: Total score 6 05/18/24 07:54 Depression Screening Interpretation: Positive Depression Screening Follow-up: Existing condition, In treatment and Follow-up Visit Requested Thrive Assessment: Date of Thrive Assessment Date Thrive assessed 05/17/24 05/17/24 14:35 Currently or been in a relationship where the following occur: No concerns reported HENCT Head: Yes normal to inspection, Yes normocephalic and Yes atraumatic Ears: external ears normal Eyes General: appearance normal, both eyes and all related structures Eyelids: Yes eyelids normal Conjunctivae: conjunctivae normal Neck Neck: Yes normal visual inspection and Yes supple Resp Effort & Inspection: normal respiratory effort Auscultation: clear to auscultation bilaterally Cardio Jugular venous distension: no JVD Rate: regular rate Rhythm: regular rhythm Heart sounds: S1 normal heart sound present and S2 normal heart sound present GI Inspection: Yes normal to inspection Palpation (GI): Soft to palpation and nontender Auscultation: normal bowel sounds Skin General skin exam: no rashes or lesions noted Neuro General: no focal motor deficits Extrem General: Yes full ROM Psych Appearance: grossly normal Office Procedures Flu Questionnaire Does the patient have a severe egg allergy?: No Immunizations Fluarix Triv 2498-1212 (PF) 45 mcg (15 mcg x 3)/0.5 mL IM syringe Performing Provider: Jayna Chaudhry MD [place] [facility] Documented (not given) by: YELITZA Mcknight on 05/17/24 14:36 Reason Not Given: Patient Refused Coding Level of Care Code Est Pt Prev Care 40-64y(27047) Diagnoses Physical exam Z00.00 Mild recurrent major depression F33.0 Additional Codes DIDIER-7 Assessment Billing - DIDIER-7 Assessment Tool: DIDIER-7 Assessment 37876 ([id number]) PHQ-9 - 38134 - PHQ-9 Billing: Yes ([id number]) Vital Signs *Quality* - CPT code: 77964 - 4-10 Minutes ([id number]) Time Spent (min) 35 Assessment & Plan Assessment & Plan (1) Physical exam: Code(s): Z00.00 - Encounter for general adult medical examination without abnormal findings Category: Medical (2) Mild recurrent major depression: Code(s): F33.0 - Major depressive disorder, recurrent, mild Category: Medical Plan - Pre-diabetes: Monitor blood glucose levels; follow-up testing in four months. - Dyslipidemia: Continue Atorvastatin 10 mg daily; lipid profile shows improvement. - Vitamin D deficiency: Initiate vitamin D supplementation. - Gastroesophageal Reflux Disease: Continue Pantoprazole as prescribed. - Chronic spinal pain: Continue Lyrica and monitor for side effects; advise on gradual progression with exercise. - Nicotine dependence: Encourage smoking cessation and support systems. - Ensure timely completion of health maintenance procedures including lung cancer screening. Patient was informed and verbally consented to the use of an ambient scribe for clinic note documentation during this visit. I informed the patient of her pre-diabetic status, emphasizing the importance of monitoring glucose levels and re-evaluation after four months. We discussed the risks associated with smoking and the benefits of cessation, and she expressed willingness to reduce intake further. We reviewed the importance of vitamin D supplementation given the current deficiency and its implications. I explained the necessity of continued management of GERD with Pantoprazole and confirmed the effectiveness of Linzess for constipation. Discussions around pain management included the effectiveness of Lyrica, with monitoring for any adverse effects. I recommended ongoing surveillance through regular healthcare maintenance and screenings as necessary. Orders: Orders Influenza [id number] Immunization 05/17/24 Z23 - Encounter for immunization Comprehensive [place]. Panel Fast 4 Months K59.04 - Chronic idiopathic constipati on Vitamin D 25-OH Total 4 Months E55.9 - Vitamin D deficiency, unspecified Lipid Panel 4 Months E78.5 - Hyperlipidemia, unspecified Referrals Lung Cancer Screening Referral F17.200 - Nicotine dependence, unspecified, uncomplicated Medications: Refilled pantoprazole 40 mg PO DAILY 90 days 90 tabs 1RF cholecalciferol (vitamin D3) 50 mcg PO DAILY 90 days 90 caps 3RF E55.9 - Vitamin D deficiency, unspecified atorvastatin 10 mg PO DAILY 90 tabs 0RF tramadol 50 mg PO Q8H 30 days PRN 90 tabs 0RF pain zolpidem 10 mg PO BEDTIME 30 days PRN 30 tabs 0RF insomnia G47.00 - Insomnia, unspecified Patient Instructions: - Take vitamin D supplementation as advised. - Continue current medications including Atorvastatin, Lyrica, Zolpidem, and Pantoprazole. - Commence lung cancer screening given smoking history. - Monitor blood glucose levels and return for follow-up testing in four months. - Gradually introduce more exercise into daily routine to manage spinal pain, ensuring proper posture. - Continue reducing smoking; pursue smoking cessation support. - Return for regular health screenings as advised.
[2024-05-17 14:24] VITALS: BP 122/80; BMI 34.4
== END 2024-05-17 14:59 | disposition home or self-care (01) ==
PROVIDERS: PCP Internal Medicine; Visit Provider Internal Medicine
DX: Z00.00 Encounter for general adult medical examination without abnormal findings (principal); F33.0 Major depressive disorder, recurrent, mild

== ENCOUNTER → 2024-05-17 14:22 | Outpatient (BNVA) | payer OTHER, SELFPAY | PROVIDERS: PCP Internal Medicine; Visit Provider Internal Medicine | DX: Z00.00 Encounter for general adult medical examination without abnormal findings (principal); F33.0 Major depressive disorder, recurrent, mild | CPT/HCPCS: 90471; 96127; 99396 ==

== ENCOUNTER 2024-06-22 10:06 | Outpatient (AMB) | payer OTHER, SELFPAY ==
--- NOTE | 2024-06-22 10:11 | MHC.OFFVIS ---
Vital Signs 06/22/24 10:15 Height 5 ft 2 in Weight 191 lb 9.307 oz BMI 35.0 BP 130/90 H Blood Pressure Location Lt brachial Position Sitting Pulse 69 Pulse Source Pulse Oximeter Pulse Oximetry (%) 99 Oxygen Delivery Method Room Air Intake Visit Reasons: SLE Intake Note: Patient presents for SLE. Allergies trazodone Allergy (Intermediate, Verified 06/22/24 10:14) Insomnia gabapentin Adverse Reaction (Intermediate, Verified 06/22/24 10:14) dry mouth Medication List - Last Reconciled 06/22/24 by Nicole Osuna MD atorvastatin 10 mg PO DAILY cholecalciferol (vitamin D3) 50 mcg PO DAILY 90 days linaclotide (Linzess) 145 mcg PO DAILY oxycodone-acetaminophen 5-325 mg 1 tab PO Q6H PRN pantoprazole 40 mg PO DAILY 90 days pregabalin 75 mg PO BEDTIME tolterodine ER 4 mg PO BID 30 days tramadol 50 mg PO Q8H PRN 30 days [wrist splint wear nightly & as much as possible throughout the day] zolpidem 10 mg PO BEDTIME PRN 30 days HPI Comments Details: 53-year-old female with fibromyalgia returns for follow-up. She had her right carpal tunnel release and cubital tunnel release procedures. Per patient she feels much better. She is planning to do the left hand as well but not right now. She states that she continues to use the Lyrica, she can not take it every day as it causes some dizziness and lightheadedness in the morning, but it does help her pain, she uses it about 3 days a week. She continues to have diffuse pain. Her told her that she snores at night Initial history: This is a 52-year-old female who was referred for fibromyalgia evaluation. Patient was started on Lyrica about 6 months ago by her PCP and she was told by her PCP that if she is to continue Lyrica her insurance requires her to be seen by Rheumatology. Patient was evaluated by Dr. Carrillo about 2 years ago and no evidence of autoimmune rheumatic disease was found. Patient states that gabapentin caused dry mouth, she had diarrhea with duloxetine. She feels about 70% improvement in her overall pain with Lyrica but she wakes up with 2 seconds of dizziness that rapidly self-resolved. She would like to continue taking Lyrica. Over the last 2 years she has been having neck stiffness. Worse with certain movements. She was diagnosed with bilateral carpal tunnel syndrome, worse on the right hand. The test was done back in . She was evaluated by hand surgeon who told her they would have to do 1 hand followed by the other hand, patient did not want to go through the surgery as she could not be out of work for such a long period of time. She preferred to do both hands in the same setting. Continues to have bilateral carpal tunnel symptoms. She had wrist splints in the past but she lost them. [facility] Medical History Family history of breast cancer Epidermoid cyst of skin of cheek Diverticulitis Mild recurrent major depression Bloody stools Epigastric pain Right hip pain Left hip pain Depression Obese Kidney stone Knee pain, left Hypovitaminosis D Pure hypercholesterolemia History of renal calculi Insomnia Arnold-Chiari malformation GERD (gastroesophageal reflux disease) Polyarthralgia Surgical History Cubital tunnel syndrome, bilateral History of removal of cyst (~05/28/23) History of esophagogastroduodenoscopy (EGD) Hx of cystoscopy H/O colonoscopy S/P RUBÉN (total abdominal hysterectomy) History of cryosurgery History of cholecystectomy Family History Father Diabetes Hypertension Cancer, Onset Age: 78 Mother Cancer Breast cancer, Onset Age: 53 Maternal Grandmother Stroke Maternal Grandfather Cancer Esophageal cancer Paternal Grandfather Cancer Maternal Uncle Cancer Brain cancer Sister Breast cancer, Onset Age: 48 Social History Household Members Other:: Housing: House Alcohol intake: never Patient Tobacco Use Status: Current everyday Tobacco user Tobacco use type: Cigarette Cigarettes Per Day: 6 Years Smoked: 20 e-Cigarette/Vaping Use: Never Used Second Hand Smoke Exposure: No service: No Current occupational status: employed 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 Current occupational exposures/hazards: No Cognitive needs: No Hearing needs: No Vision needs: Yes Review of Systems Musc Reports back pain, Reports arthralgias, Reports limited range of motion and Reports stiffness Physical Exam Vital Signs: Last Vital Signs Pulse 69 06/22/24 10:15 BP 130/90 H 06/22/24 10:15 Pulse Ox 99 06/22/24 10:15 Oxygen Delivery Method Room Air 06/22/24 10:15 BMI result Body Mass Index 35.0 Const General: cooperative, healthy appearing and comfortable Nutritional Appearance: obese Orientation/consciousness: patient oriented x3 Limitations: no limitations HEENT Head: Yes normocephalic and Yes atraumatic Mouth: moist mucous membranes Resp Effort & Inspection: normal respiratory effort and able to speak in complete sentences Neuro General: patient oriented x3 Extrem Other: multiple fibromyalgia tender points Quality Reporting (2019) Adult ([facility] 138/08/06/68) Smoking risk assessment performed?: Yes Patient Tobacco Use Status: Current everyday Tobacco user Assessment & Plan Assessment & Plan (1) Fibromyalgia: Code(s): M79.7 - Fibromyalgia Category: Medical Plan: 53-year-old female with past medical history of fibromyalgia presents for follow-up. Discussed management of fibromyalgia. Advised patient to incorporate some light exercises, consider aquatherapy, swimming or light weights. Advised patient to get request a sleep study from her PCP to rule out CESAR She is currently on Lyrica 100 mg nightly. She states that Lyrica does provide reasonable relief but she can not take it every day as it causes dizziness and lightheadedness in the morning, she takes it 3 days a week Reduce Lyrica dose to 75 mg nightly Follow-up in 6 months Plan I spent 18 minutes reviewing patient's chart, evaluating patient, counseling patient and documenting in the chart Medications: Changed From pregabalin 100 mg (2 x 50 mg) PO BEDTIME 180 caps 1RF M79.7 - Fibromyalgia To pregabalin 75 mg PO BEDTIME 90 caps 1RF M79.7 - Fibromyalgia Refilled pregabalin 75 mg PO BEDTIME 30 caps 5RF M79.7 - Fibromyalgia Coding Level of Care Code Est Pt Level 3 (57375) Diagnoses Fibromyalgia M79.7
[2024-06-22 10:15] VITALS: BP 130/90; PULSE 69; O2SAT 99; BMI 35.0
== END 2024-06-22 10:33 | disposition home or self-care (01) ==
PROVIDERS: PCP Internal Medicine; Visit Provider Student in an Organized Health Care Education/Training Program
DX: M79.7 Fibromyalgia (principal)
CPT/HCPCS: 99213

== ENCOUNTER → 2024-06-22 10:06 | Outpatient (BNVA) | payer OTHER, SELFPAY | PROVIDERS: PCP Internal Medicine; Visit Provider Student in an Organized Health Care Education/Training Program | DX: M79.7 Fibromyalgia (principal) | CPT/HCPCS: 99212 ==

== ENCOUNTER 2024-07-19 07:49 | Outpatient (REF) | payer OTHER, SELFPAY ==
--- NOTE | ~2024-07-19 | XR_ITS ---
CLINICAL HISTORY: M25.569 - Pain in unspecified knee 3 view left knee Comparison: None Findings: No fractures or dislocations. No significant arthritic change or erosions. No joint effusion. No radiopaque foreign body. IMPRESSION: 1. No acute findings. This document has been electronically signed by: Chaitanya Barahona MD on 07/20/2024 19:06:28
--- OUTSIDE RECORDS SUMMARY | 2024-07-19 07:52 | XMS_ITS | Encounter Summary ---
Author Organization [facility] Address [address] [place] [address] Care Team Providers Care Fixed Income Analyst Name Role Phone Jayna Chaudhry MD Primary Care Provider [phone] Reason for Visit * Reason Onset Date Comments Appointment 07/06/2024 Encounter Details Date Type Department Care Team ([facility] st Contact Info) Description 07/06/2024 Telephone Obstetrics and Gynecology [address] [phone] Marbella Mcclain MD [address], [place] Appointment Social History Tobacco Use Types Packs/Day Years Used Date Smoking Tobacco: Every Day Cigarettes Smokeless Tobacco: Never Alcohol Use Standard Drinks/Week Comments No 0 (1 standard drink = 0.6 oz pur e alcohol) Sex and Gender Information Value Date Recorded Sex Assigned at Not on file Gender Identity Not on file Sexual Orientation Not on file Job Start Date Occupation Industry Not on file Not on file Not on file documented as of this encounter Progress Notes * Priscilla Shaffer MA - 07/07/2024 10:53 AM EST Appt was made 07/12/24 * Sangeetha Jarrett - 07/06/2024 11:11 AM EST Pt calling, states was giving an appt saul/ soham on 09/15/24, but she is unable to make it as she has appt with pcp same day. Pls advise documented in this encounter Plan of Treatment Upcoming Encounters Date Type Department Care Team (Late st Contact Info) Description 08/23/2024 2:30 PM EDT Office Visit Obstetrics and Gynecology - [address] [phone] Marbella Mcclain MD [address], [place] 11/21/2024 9:45 AM EDT Office Visit Obstetrics and Gynecology - [address] [phone] Melinda Solitario, [address] 02/14/2025 3:30 PM EDT Appointment Radiology Department - [address] [phone] documented as of this encounter Visit Diagnoses Not on filedocumented in this encounter Care Teams Fixed Income Analyst Relationship Specialty Start Date End Date Jayna Chaudhry MD [address] [place] [address] , [address] Physician Associ D/B/A: [facility] [place] PCP - General Internal Medicine 07/20/14 documented as of this encounter
--- OUTSIDE RECORDS SUMMARY | 2024-07-19 07:52 | XMS_ITS | Encounter Summary ---
Author Organization [facility] Address [address] [place] [address] Care Team Providers Care Bond Analyst Name Role Phone Jayna Chaudhry MD Primary Care Provider [phone] Encounter Details Date Type Department Care Team ([facility] st Contact Info) Description 07/13/2024 Telephone Obstetrics and Gynecology - [place] [id number] [place], [place] [phone] Marbella Mcclain MD [address] [place], [place] Social History Tobacco Use Types Packs/Day Years Used Date Smoking Tobacco: Every Day Cigarettes Smokeless Tobacco: Never Alcohol Use Standard Drinks/Week Comments No 0 (1 standard drink = 0.6 oz pur e alcohol) Housing Instability Answer Date Recorde d Are you worried that in the next 2 months you may not have stable housing? No 07/11/2024 Food Access & Nutrition Answer Date Rec orded Do you have access to a vari ety of food including fruits and vegetables? Yes 07/11/2024 Access to Healthcare Answer Date Record ed Within the last 3 months, ho w many times did you visit the emergency department for your medical care? 0 07/11/2024 Health Literacy Answer Date Recorded How often do you need to hav e someone help you when you read instructions, pamphlets, or other written material from your doctor or pharmacy? Never 07/11/2024 Caregiver: How often do you need to have someone help you when you read instructions, pamphlets, or other written material from your doctor or pharmacy? Not on file 07/11/2024 Financial Risk Answer Date Recorded How hard is it for you to pa y for the very basics like food, housing, medical care, and air conditioning / heating? Not very hard 07/11/2024 Transportation Answer Date Recorded Has the lack of transportati on kept you from meetings, work, or from getting things needed for daily living? No Has the lack of transportati on kept you from medical appointments or from getting medications? No 07/11/2024 Social Isolation Answer Date Recorded How often do you feel lonely or isolated from th ose around you? Never 07/11/2024 Food Risk Answer Date Recorded Within the past 12 months we worried whether our food would run out before we got money to buy more. Never true 07/11/2024 Within the past 12 months th e food we bought just didn't last and we didn't have money to get more. Never true 07/11/2024 Dependent Care Answer Date Recorded Do you need help finding or paying for care for your loved ones. For example, child care education coordinator or elderly care for an older adult? No 07/11/2024 Education Answer Date Recorded Do you think completing more education or training, like finishing a GED, going to college, or learning a trade, would be helpful for you? No 07/11/2024 Employment and Income Answer Date Recor ded During the last four weeks, have you been actively looking for work? No 07/11/2024 Living Situation Answer Date Recorded What is your living situation? 0 07/11/2024 Sex and Gender Information Value Date Recorded Sex Assigned at Not on file Gender Identity Not on file Sexual Orientation Not on file Job Start Date Occupation Industry Not on file Not on file Not on file documented as of this encounter Ordered Prescriptions Prescription Sig Dispensed Refills Start Date End Da te mometasone (ELOCON) 0.1 % ointment Apply a thin layer to the affected area twice daily for two weeks, then nightly 30 g 07/13/2024 documented in this encounter Progress Notes * Nadia Funez RN - 07/13/2024 4:54 PM EST Called pt to let her know new rx was sent * Nadia Funez RN - 07/13/2024 3:25 PM EST Will send request to provider for different rx * Sangeetha Jarrett - 07/13/2024 2:48 PM EST Pt calling, states the vagina ointment (lidex) rxd yesterday is not covered by her insurance. Pt ask if another rx can be sent. Pls advise documented in this encounter Plan of Treatment Upcoming Encounters Date Type Department Care Team (Late st Contact Info) Description 08/23/2024 2:30 PM EDT Office Visit Obstetrics and Gynecology - [address] [phone] Marbella Mcclain MD [address] [place] [address] 11/21/2024 9:45 AM EDT Office Visit Obstetrics and Gynecology - [address] [phone] Melinda Solitario, [address] 02/14/2025 3:30 PM EDT Appointment Radiology Department - [address] [phone] documented as of this encounter Visit Diagnoses Not on filedocumented in this encounter Discontinued Medications Medication Sig Discontinue Reason Start Date End Da te fluocinonide (LIDEX) 0.05 % ointmentIndications:Lic henification and lichen simplex chronicus Apply a thin layer to the affected area twice daily for two weeks, then nightly 07/12/2024 07/13/2024 documented as of this encounter Additional Health Concerns Assessment Noted Time PHQ-9 Depression Total Score: 0 07/11/19 9:07 PM EST documented as of this encounter Care Teams Bond Analyst Relationship Specialty Start Date End Date Richa, Jayna R, MD [address] [facility] , [address] [facility] D/B/A: [facility] PCP - General Internal Medicine 07/20/14 documented as of this encounter
--- OUTSIDE RECORDS SUMMARY | 2024-07-19 07:52 | XMS_ITS | Clinical Summary ---
Author Organization [facility] [address] [facility] Address [address] [place] [address] Phone Care Team Providers Care Od Grinder Operator Name Role Phone Jayna Chaudhry MD Primary Care Provider [phone] Allergies No known active allergies Medications Medication Sig Dispensed Refills Start Date End Date Status tramadol HCl (TRAMADOL ORAL) Take by mouth. Unknown mg Active omeprazole (PriLOSEC) [address] capsule 11/09/2016 Active zolpidem (AMBIEN) 5 mg tablet Take by mouth at bedtime as needed. Active atorvastatin (LIPITOR) 20 mg tablet Take 1 tablet (20 mg total) by mouth at bedtime. Active pregabalin (LYRICA) 75 mg capsule Take 1 capsule (75 mg total) by mouth 2 (two) times a day. Max Daily Amount: 150 mg Active cholecalciferol (VITAMIN D-3) 10 mcg (400 unit) tablet Take 1 tablet (400 Units total) by mouth 1 (one) time each day. Active hydrOXYzine HCL (ATARAX) 10 mg tablet Take 1 tablet (10 mg total) by mouth at bedtime as needed for itching. 90 tablet 1 07/12/2024 Active mometasone (ELOCON) 0.1 % ointment Apply a thin layer to the affected area twice daily for two weeks, then nightly 30 g 07/13/2024 Active clotrimazole-bet amethasone (LOTRISONE) 1-0.05 % cream Apply to area sparingly twice a day for up to two weeks 01/29/2021 07/12/2024 Discontinued clotrimazole-bet amethasone (LOTRISONE) 1-0.05 % cream Apply a fingertip amount to affected thigh area twice a day for up to two weeks. 10/11/2021 07/12/2024 Discontinued fluocinonide (LIDEX) 0.05 % ointmentIndicati ons:Lichenificat ion and lichen simplex chronicus Apply a thin layer to the affected area twice daily for two weeks, then nightly 30 g 07/12/2024 07/13/2024 Discontinued Active Problems Problem Noted Date Diagnosed Date Encounter for gynecological examination without abnormal finding 07/12/2024 Lichenification and lichen simplex chronicus Assessment & Plan (07/12/2024 2:46 PM EST): Reviewed findings with patient. I reviewed the martinez to overcoming her symptoms is to stop the itching and thin the thickened areas with steroid which will cut down inflammation. I recommended she take hydroxyzine at night to prevent scratching in addition to lidex burst and taper. I reassured her there is no evidence of infection. She was strictly counseled re: [facility] guidelines and given explicit written instructions for changes to make. I reviewed areas of application and amount of medication to use. She will return in 6 weeks. If note improved, will need a biopsy. GERD (gastroesophageal reflux disease) 3 Obesity 11/15/2012 Spider veins 11/15/2012 Encounters Date Type Department Care Team Description 07/13/2024 Telephone Obstetrics and Gynecology - [address] [phone] Marbella Mcclain MD 07/12/2024 2:30 PM EST Office Visit Obstetrics and Gynecology - [address] [phone] Marbella Mcclain MD Encounter for gynecological examination with abnormal finding (Primary Dx); Lichenification and lichen simplex chronicus 07/06/2024 Telephone Obstetrics and Gynecology - [address] [phone] Marbella Mcclain MD Appointment from Last 3 Months Immunizations Name Administration Dates Next Due Tdap Tetanus diptheria acell ular pertussis (Boostrix; Adacel) 7yo and older 11/15/2012 Surgical History Surgery Date Site/Laterality Comments HYSTERECTOMY 2012 PROCEDURE: HISTORICAL VAGINAL HYSTERECTOMY W/O BSO; COMMENT: prolapse (had SEBASTI[facility]N first with cryo), in [place] CHOLECYSTECTOMY PROCEDURE: HISTORICAL CHOLECYSTECTOMY Family History Medical History Relation Name Comments Breast cancer Sister 48y BrCA neg Relation Name Status Comments Father Alive DM Sister 48y Alive Social History Tobacco Use Types Packs/Day Years [...] your loved ones. For example, child care counselor or elderly care for an older adult? [...] file Not on file Not on file Obstetrics History Para Term AB IAB SAB Ectopic Multiple Livin g Live Births 5 4 4 1 1 4 4 Date Outcome GA Total Labor Labor/2nd/3rd Weight Sex Type Anes PTL Yesika A1 A5 Name Clin Term Living Term Living Term Living Term Living SAB Last Filed Vital Signs Vital Sign Reading Time Taken Comments Blood Pressure 112/72 07/12/2024 2:19 PM EST Pulse 80 07/12/2024 2:19 PM EST Temperature - - Respiratory Rate 16 07/12/2024 2:19 PM EST Oxygen Saturation - - Inhaled Oxygen Concentration - - Weight 86.2 kg (190 lb) 07/12/2024 2:19 PM EST Height 160 cm (5' 3 ) 07/12/2024 2:19 PM EST Body Mass Index 33.66 07/12/2024 2:19 PM EST Plan of Treatment Upcoming Encounters Date Type Department Care Team (Late st Contact Info) Description 08/23/2024 2:30 PM EDT Office Visit Obstetrics and Gynecology - [address] [phone] Marbella Mcclain MD [address] [place], [place] 11/21/2024 9:45 AM EDT Office Visit Obstetrics and Gynecology - [address] [phone] Melinda Solitario, [place] [address] [place] [address], [place] [address] 02/14/2025 3:30 PM EDT Appointment Radiology Department - [address] [place] [phone] Health Maintenance Due Date Last Done Comments Pneumococcal Vaccine: Pediatrics (0 to 5 Years) and At-Risk Patients (6 to 64 Years) (1 of 2 - PCV) 10/23/1977 Hepatitis B Vaccines (1 of 3 - 19+ 3-dose series) 10/23/1990 Zoster Vaccines (1 of 2) 10/23/2021 Cholesterol Screening (Lipid Panel) 05/24/2022 11/15/2012 Colorectal Cancer Screening: Colonoscopy 05/24/2022 HIV Screening 05/24/2022 Hepatitis C Screening 05/24/2022 DTaP,Tdap,and Td Vaccines (2 - Td or Tdap) 11/15/2022 11/15/2012 COVID-19 Vaccine ( - season) 2024 Influenza Vaccine (#1) 2024 Depression Screening 07/11/2025 07/11/2024 Social Influencers of Health Screening 07/11/2025 07/11/2024 Breast Cancer Screening 02/09/2026 02/10/20 24, 02/10/2024, 02/06/2023, Additional history exists HIB Vaccines Aged Out No longer eligi ble based on patient's age to complete this topic HPV Vaccines Aged Out No longer eligi ble based on patient's age to complete this topic Hepatitis A Vaccines Aged Out No long er eligible based on patient's age to complete this topic IPV Vaccines Aged Out No longer eligi ble based on patient's age to complete this topic MMR Vaccines Aged Out No longer eligi ble based on patient's age to complete this topic Meningococcal ACWY Vaccine Aged Out N o longer eligible based on patient's age to complete this topic RSV Immunization Patients Under 20 months Aged Out No longer eligible based on patient's age to complete this topic Varicella Vaccines Aged Out No longer eligible based on patient's age to complete this topic Procedures Procedure Name Priority Date/Time Associated Diagnosis Comments SCREENING MAMMOGRAPHY BI 2-VIEW BREAST INC CAD Routine 02/10/2024 1:54 PM EDT Encounter for screening mammogram for malignant neoplasm of breast LIPID PANEL Routine 11/15/2012 from Last 3 Months or Most Recently Relevant to Health Maintenance Results * SCREENING MAMMOGRAPHY BI 2-VIEW BREAST INC CAD (02/10/2024 1:54 PM EDT) Anatomical Region Laterality Modality Radiographic Beth ging 02/06/2023 10:3 0 AM EDT Narrative 02/11/2024 4:28 PM EDT This is a summary report. The complete report is available in the patient's medical record. If you cannot access the medical record, please contact the sending organization for a detailed fax or copy. Exam: Screening mammogram Findings: Digital bilateral full-field screening mammography is performed with tomosynthesis and interpreted with the aid of computer-aided detection. ??Comparison is made with 02/06/2023 and as far back as 01/26/2020. Breast parenchyma is composed of scattered fibroglandular densities. ??No new suspicious mass, architectural distortion, or suspicious calcifications. Impression: No mammographic evidence of malignancy. BI-RADS 1 - negative Procedure Note Gilda Ching MD - 03/30/2024 This is a summary report. The complete report is available in thepatient's medical record. If you cannot access the medical record, pleasecontact the sending organization for a detailed fax or copy. Exam: Screening mammogram Findings: Digital bilateral full-field screening mammography is performedwith tomosynthesis and interpreted with the aid of computer-aideddetection. Comparison is made with 02/06/2023 and as far back as01/26/2020. Breast parenchyma is composed of scattered fibroglandular densities. Nonew suspicious mass, architectural distortion, or suspiciouscalcifications. Impression: No mammographic evidence of malignancy. BI-RADS 1 - negative Jayna Chaudhry MD IMG XR PROCEDURES * (ABNORMAL) Lipid panel (11/15/2012) LDL/HDL Ratio 4 0 - 4 Triglycerides 78 0 - 150 mg/dL Cholesterol 209(A) 0 - 200 mg/dL HDL 56 40 mg/dL LDL Cholesterol 138(A) 0 - 100 mg/dL Blood Venous blood specimen / Unknown Historical Provider LAB BLOOD ORDERAB LES from Last 3 Months or Most Recently Relevant to Health Maintenance Care Teams Od Grinder Operator Relationship Specialty Start Date End Date Jayna Chaudhry MD [address] [place] [address] , [address] [facility] D/B/A: [facility] PCP - General Internal Medicine 07/20/14
--- OUTSIDE RECORDS SUMMARY | 2024-07-19 07:52 | XMS_ITS | Encounter Summary ---
Author Organization [facility] Address [address] [place] [address] Care Team Providers Care Coffee Urn Attendant Name Role Phone Jayna Chaudhry MD Primary Care Provider [phone] Reason for Visit * Reason Comments Annual Exam Encounter Details Date Type Department Care Team (Latest Contact Info) Description 07/12/2024 2:30 PM EST Office Visit Obstetrics and Gynecology - [address] [phone] Marbella Mcclain MD [address] [place], [place] Encounter for gynecological examination with abnormal finding (Primary Dx); Lichenification and lichen simplex chronicus Social History Tobacco Use Types Packs/Day Years [...] Record ed Within the last 3 months, davion hughes many times did you visit the emergency [...] for your loved ones. For example, child and family counselor or elderly care for an older [...] on file documented as of this encounter Last Filed Vital Signs Vital Sign Reading [...] Mass Index 33.66 07/12/2024 2:19 PM EST documented in this encounter Ordered Prescriptions Prescription Sig Dispensed Refills Start Date End Da te hydrOXYzine HCL (ATARAX) 10 mg tablet Take 1 tablet (10 mg total) by mouth at bedtime as needed for itching. 90 tablet 1 07/12/2024 fluocinonide (LIDEX) 0.05 % ointmentIndications:Lich enification and lichen simplex chronicus Apply a thin layer to the affected area twice daily for two weeks, then nightly 30 g 07/12/2024 07/13/2024 documented in this encounter Progress Notes * Marbella Mcclain MD - 07/12/2024 2:44 PM ESTAssociated Problem(s): Lichenification and lichen simplex chronicus Reviewed findings with patient. I reviewed the martinez to overcoming her symptoms is to stop the itching and thin the thickened areas with steroid which will cut down inflammation. I recommended she takehydroxyzine at night to prevent scratching in addition to lidex burst and taper. I reassured her there is no evidence of infection. She was strictly counseled re: [facility] guidelines and given explicit written instructions for changes to make. I reviewed areas of application and amount of medication to use. She will return in 6 weeks. If note improved, will need a biopsy. * Marbella Mcclain MD - 07/12/2024 2:30 PM EST VULVAR SKIN CARE GUIDELINES NOTE: The goal is to promote healthy vulvar skin. This is done by decreasing and removing chemicals, moisture, or rubbing (friction). Products listed below have been suggested for use because of their past success in helping to decrease or relieve vulvar/vaginal burning, irritation, or itching. LAUNDRY PRODUCTS 1. Use the detergent brand ALL FREE CLEAR on all laundry that goes into your washer, every load, every time. NO SUBSTITUTIONS. Use 1/3 to ?? the suggested amount per load. 2. Do not use fabric softeners or dryer sheets in the washer or dryer, even those advertised as ???free?? . If you use a shared washer or dryer, such as a laundromat, apartment, or dorm you must handwash, in ALL FREE CLEAR and line dry your underwear . You can use dryer balls to help soften clothes. 3. Stain removing products (including bleach). Soak and rinse in clear water all underwear and towels on which you have used a stain removing product. Then wash in your regular washing cycle using ALL FREE CLEAR. This removes as much of the product as possible. White vinegar or lemon juice, 1/4 to 1/3 cup per laundry load, can be used to freshen clothing and remove oils. CLOTHING 1. Wear white all cotton underwear, not nylon with a cotton crotch. Cotton allows air in and moisture out. Do not wear underwear when sleeping at night. Do not wear thongs. Loose fitting cotton boxers or cotton pajama bottoms are fine. 2. Avoid pantyhose. If you must wear them, either cut out the matt crotch (if you cut out the crotch be sure to leave about 1/4 inch of fabric from the seam to prevent running) or wear thigh high hose. Many stores now carry thigh high hose. 3. Avoid tight clothing, especially clothing made of synthetic fabrics. Remove wet bathing and exercise clothing as soon as you can. BATHING AND HYGIENE 1. Do not use bath soaps, lotions, gels, etc. which contain perfumes. These may smell nice, but canbe irritating. This includes many baby products and feminine hygiene products marked gentle or mild . DOVE FOR SENSITIVE SKIN, NEUTROGENA, BASIS, AVEENO, OR PEARS are the soaps we suggest. Your partner needs to use one of these soaps also. Do not use soap directly on the vulvar skin. Just warm wa ter and your hand will keep the vulvar area clean without irritating the skin. 2. Do not use bubble bath, bath salts, and scented oils. You may apply a neutral (unscented, non-perfumed) oil or lotion to damp skin after getting out of the tub or shower. Do not apply lotion directly to the vulva. 3. Do not scrub vulvar skin with a washcloth, washing with your hand and warm water is enough for good cleaning. 4. Pat dry rather than rubbing with a towel. Or, use a communications department chair on a cool setting to dry the vulva. 5. Baking Soda soaks. Soak in lukewarm (not hot) bath water with 4-5 tablespoons of baking soda to help soothe vulvar itching and burning. Soak 1 to 3 times a day for 10 minutes. If you are using a sitz bath, use 1 to 2 teaspoons of baking soda. 6. Use white, unscented toilet paper. Do not use toilet paper with aloe. 7. Do not use feminine hygiene sprays, perfumes, adult, or baby wipes. You can use Water Wipes or Tucks hemorrhoid pads to clean if you feel the need. If urine causes burning of the skin, pour lukewarm water over the vulva while urinating. Pat dry rather than wiping. 8. Do not use deodorized pads and tampons. Tampons may be used when the blood flow is heavy enough to soak one tampon in four hours or less. Tampons are safe for most women, but wearing them too longor when the blood flow is light may result in vaginal infection, increased discharge, odor, or toxic shock syndrome. Also, use only pads that have a cotton liner, not nylon mesh weave, that comes in contact with your skin. Nylon traps moisture and keeps blood and discharge against your skin longer.Cotton unscented pads STAYFREE, CAREFREE, or 7th GENERATION. 9. Do not use zisy-nhk-erlrvqx creams or ointments until you ask your health care provider. When buying ointments, be sure that they are paraben and fragrance-free. 10. Small amounts of coconut oil, extra virgin olive oil, vegetable oil, zinc oxide ointment, or plain Vaseline may be applied to your vulva as often as needed to protect the skin. It also helps to decrease skin irritation during your period and when you urinate. 11. Do not douche. Baking soda soaks or rinsing with warm water will help rinse away extra discharge and help with odor. 12. Do not shave or use hair removal products on the vulvar area. You may use scissors to trim the pubic hair close to the vulva. Laser hair removal is an option. 13. Some women may have problems with chronic dampness. Keeping dry is important. Do not wear pads on a daily basis. Choose cotton fabrics whenever you can. Keep an extra pair of underwear with you and change if you become damp. GOLD CASTILLO or ZEASORB powder may be applied to the groin area 1 to 2 times per day to help absorb moisture. Do not use powders that contain cornstarch. 14. Dryness and irritation during intercourse may be helped by using a lubricant. Use a small amount of a pure vegetable oil (solid, liquid, or extra virgin olive oil). These oils contain no chemicals to irritate vulvar/vaginal skin. Vegetable oils will rinse away with water and will not increase your chances of infection. Rhti-dcy-cuevasd water-based lubricants tend to dry out before intercourseis over, causing small tears in the vagina, and may also contain chemicals that can irritate your vulvar skin. It may be helpful to use a non-lubricated, non-spermicidal condom, and use vegetable oilas the lubricant. This will help keep the semen off the skin which can decrease burning and irritation after intercourse. * Marbella Mcclain MD - 07/12/2024 2:30 PM EST Office note: Annual Exam Encounter Date: 07/12/2024 HPI: Ashley Mckinney is a 53 y.o. who presents for routine annual exam. No LMP recorded. Patient has had a hysterectomy. Done for prolapse in [place]. No bleeding since. Sexually active. Follows with PCP. Mood is good. Safe at home and in relationship. She started using a treadmill. Had knee pain. Had an injection. Working to get back to it. Her sister had breast cancer at age 48. She has been in remission for more than 10 years. Had negative genetic testing. Her mother also had breast cancer at age 53. C/o severe itching in one spot on the left labium majus. Has tried everything OTC without improvement. More itchy in the evenings. Sometimes cannot stop scratching. Review of Systems - General ROS: negative Psychological ROS: negative Ophthalmic ROS: negative ENT ROS: negative Allergy and Immunology ROS: negative Hematological and Lymphatic ROS: negative Endocrine ROS: negative Breast ROS: negative for breast lumps Respiratory ROS: no cough, shortness of breath, or wheezing Cardiovascular ROS: no chest pain or dyspnea on exertion Gastrointestinal ROS: no abdominal pain, change in bowel habits, or black or bloody stools Genito-Urinary ROS: no dysuria, trouble voiding, or hematuria Musculoskeletal ROS: negative Neurological ROS: negative Dermatological ROS: negative Health Maintenance and Preventative Care: Health Maintenance: Last mammogram: 02/2024 birads 1, neg Last colonoscopy: 2022, 10 years Immunization History Administered Date(s) Administered Tdap Tetanus diptheria acellular pertussis (Boostrix; Adacel) 7yo and older 11/15/2012 Obstetric and Gynecologic History OB History Para Term AB Living 5 4 4 1 4 SAB IAB Ectopic Multiple Live Births 1 4 # Outcome Date GA Lbr Flo/2nd Weight Sex Type Anes PTL Lv 5 SAB 4 Term BENJAMIN 3 Term BENJAMIN 2 Term BENJAMIN 1 Term BENJAMIN 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 Past Surgical History: Procedure Laterality Date CHOLECYSTECTOMY PROCEDURE: HISTORICAL CHOLECYSTECTOMY HYSTERECTOMY 2011 PROCEDURE: HISTORICAL VAGINAL HYSTERECTOMY W/O BSO; COMMENT: prolapse (had [facility] [facility] [place] Family History Problem Relation Name Age of Onset Breast cancer Sister 48y 48.00 BrCA neg Social History Socioeconomic History Marital status: Spouse name: Not on file Number of children: Not on file Years of education: Not on file Highest education level: Not on file Occupational History Not on file Tobacco Use Smoking status: Every Day Current packs/day: 0.50 Types: Cigarettes Smokeless tobacco: Never Substance and Sexual Activity Alcohol use: No Drug use: No Sexual activity: Yes Partners: Male control/protection: Surgical Comment: Hyst Other Topics Concern Not on file Social History Narrative Not on file No Known Allergies Current Outpatient Medications on File Prior to Visit Medication Sig Dispense Refill omeprazole (PriLOSEC) [address] capsule tramadol HCl (TRAMADOL ORAL) Take by mouth. Unknown mg zolpidem (AMBIEN) 5 mg tablet Take by mouth at bedtime as needed. [DISCONTINUED] clotrimazole-betamethasone (LOTRISONE) 1-0.05 % cream Apply to area sparingly twice a day for up to two weeks atorvastatin (LIPITOR) 20 mg tablet Take 1 tablet (20 mg total) by mouth at bedtime. cholecalciferol (VITAMIN D-3) 10 mcg (400 unit) tablet Take 1 tablet (400 Units total) by mouth 1 (one) time each day. pregabalin (LYRICA) 75 mg capsule Take 1 capsule (75 mg total) by mouth 2 (two) times a day. Max Daily Amount: 150 mg [DISCONTINUED] clotrimazole-betamethasone (LOTRISONE) 1-0.05 % cream Apply a fingertip amount to affected thigh area twice a day for up to two weeks. No current facility-administered medications on file prior to visit. Physical exam: Blood pressure 112/72, pulse 80, resp. rate 16, height 1.6 m (63 ), weight 86.2 kg (190 lb). Body mass index is 33.66 kg/m??. Gen: Alert, cooperative. Well-appearing on today's exam HEENT: head normocephalic without obvious deformity. Cardiovascular: regular rate and rhythm, no m/r/g Lung: clear to auscultation bilaterally, no wheezing, ronchi, normal respiratory effort Breast: Normal appearance, no masses or tenderness, no nipple retraction or dimpling bilaterally. No axillary or supraclavicular lymphadenopathy. Abdomen: Soft,non-tender. No masses palpable, no organomegaly. Extremities: no calf tenderness, discoloration or edema, atraumatic without deformity Skin: Skin color, texture, turgor normal. No rashes or lesions Psych: Mood and affect appropriate. Pelvic: External Genitalia: Exam chaperoned by medical records receptionist. Normal architecture, with lichenified patch about 5 x 3 cm on left labium majus. No other lesions. No inguinal lymphadenopathy. Vagina: Mucosa is pink with normal rugae. No abnormal discharge or lesions. Speculum used for this exam. Cervix and uterus absent. Adnexa: No adnexal masses or tenderness bilaterally. Perianal area without lesions Assessment/Plan: 53 y.o. 1. Health Maintenance and Screening -Reviewed ASCCP guidelines. Pap smear no longer indicated s/p hyst, yearly pelvic exam. -Reviewed and encouraged diet and exercise for cardiovascular health. -Reviewed breast self awareness. Continue yearly mammogram. -Discussed use of 3 times per week weight bearing exercise, Vitamin D3 and 4 servings of dietary calcium daily for osteoporosis prevention. DEXA at age 66. -Continue to follow with PCP for general medical care, immunizations, colon cancer screening -Family and personal history of cancer reviewed. Kimber screening not indicated. Lichenification and lichen simplex chronicus Reviewed findings with patient. I reviewed the martinez to overcoming her symptoms is to stop the itching and thin the thickened areas with steroid which will cut down inflammation. I recommended she takehydroxyzine at night to prevent scratching in addition to lidex burst and taper. I reassured her there is no evidence of infection. She was strictly counseled re: [facility] guidelines and given explicit written instructions for changes to make. I reviewed areas of application and amount of medication to use. She will return in 6 weeks. If note improved, will need a biopsy. No orders of the defined types were placed in this encounter. Follow up in about 6 weeks (around 08/23/2024) for vulvar follow up 15 min any day. Marbella Mcclain MD documented in this encounter Plan of Treatment Upcoming Encounters Date Type Department Care Team (Late st Contact Info) Description 08/23/2024 2:30 PM EDT Office Visit Obstetrics and Gynecology - [address] [phone] Marbella Mcclain MD [address] [place] [address] 11/21/2024 9:45 AM EDT Office Visit Obstetrics and Gynecology - [address] [phone] Melinad Solitario, [address] 02/14/2025 3:30 PM EDT Appointment Radiology Department - [address] [place] [address] documented as of this encounter Visit Diagnoses Diagnosis Encounter for gynecological examination with abnormal finding- Primary Lichenification and lichen simplex chronicus Encounter for screening mammogram for breast cancer documented in this encounter Discontinued Medications Medication Sig Discontinue Reason Start Date End Da te clotrimazole-betamethas one (LOTRISONE) 1-0.05 % cream Apply to area sparingly twice a day for up to two weeks 01/29/2021 07/12/2024 clotrimazole-betamethas one (LOTRISONE) 1-0.05 % cream Apply a fingertip amount to affected thigh area twice a day for up to two weeks. 10/11/2021 07/12/2024 documented as of this encounter Historical Medications * This list may reflect changes made after this encounter. Medication Sig Dispensed Refills Start Date End Date cholecalciferol (VITAMIN D-3) 10 mcg (400 unit) tablet Take 1 tablet (400 Units total) by mouth 1 (one) time each day. pregabalin (LYRICA) 75 mg capsule Take 1 capsule (75 mg total) by mouth 2 (two) times a day. Max Daily Amount: 150 mg atorvastatin (LIPITOR) 20 mg tablet Take 1 tablet (20 mg total) by mouth at bedtime. added in this encounter Additional Health Concerns Assessment Noted Time PHQ-9 Depression Total Score: 0 07/11/19 25 9:07 PM EST documented as of this encounter Care Teams Coffee Urn Attendant Relationship Specialty Start Date End Date Jayna Chaudhry MD [address] [place] [address] , [facility] [address] [facility] Physician Associ D/B/A: Coleman Londonoatisolomon In Internal Medicine [place] PCP - General Internal Medicine 07/20/14 documented as of this encounter
--- OUTSIDE RECORDS SUMMARY | 2024-07-19 07:52 | XMS_ITS | Clinical Summary ---
Author Organization [employer] Address [address] [place] [address] 7 [place] [address] Care Team Providers Care [employer] Medic Name Role Phone Unavailable Primary Care Provider Unavailabl e Social History Tobacco Use Types Packs/Day Years Used Date Smoking Tobacco: Never Assessed Comments Unknown Sex and Gender Information Value Date Recorded Sex Assigned at Female 04/14/2022 10:19 AM EDT Legal Sex Female 10:19 AM EDT Gender Identity Female 12/08/2022 3:21 PM EDT Sexual Orientation Don't know 12/08/2022 3: 21 PM EDT Plan of Treatment Health Maintenance Due Date Last Done Comments CT Colonography 1971 Colonoscopy 1971 Colorectal Cancer Screening 1971 Depression Screening 1971 FIT DNA/Cologuard 1971 FIT 1971 FOBT 1971 HIV Screening 1971 SDOH Screening 1971 Sigmoidoscopy 1971 Alcohol/Substance Use Screening 1983 Tobacco Screening 1983 Family Planning (PISQ) 10/23/1986 Hepatitis C Screening 10/23/1989 DTaP/Tdap/Td Vaccines (1 - Tdap) 10/23/1990 Hepatitis B Vaccines (1 of 3 - 19+ 3-dose series) 10/23/1990 Pap Smear 10/23/1992 Cervical Cancer Screening 10/23/2001 HPV/Cotest 10/23/2001 Mammogram 2011 Pneumococcal Vaccine: 50+ Ye ars (1 of 1 - PCV) 10/23/2021 Zoster Vaccines (1 of 2) 10/23/2021 COVID-19 Vaccine (2023-2 5 season) 2024 Influenza Vaccine (#1) 2024 RSV Patients and Pa tients Aged 60 years or older (1 - 1-dose 75+ series) 10/23/2046 HIB Vaccines Aged Out No longer eligi [...] patient's age to complete this topic Meningococcal Vaccine Aged Out No ravi kamaljit eligible based on patient's age to complete this topic RSV under 20 months Aged Out No longe r eligible based on patient's age to complete this topic Rotavirus Vaccines Aged Out No longer eligible based on patient's age to complete this topic Insurance [facility] STANDARD [facility]
== END 2024-07-19 07:50 | disposition home or self-care (01) ==
LOC: HO.HOSX 07:49
PROVIDERS: Visit Provider Physician Assistant
DX: M25.561 Pain in right knee (principal); M25.562 Pain in left knee; M79.7 Fibromyalgia; M17.12 Unilateral primary osteoarthritis, left knee
CPT/HCPCS: 73562; 99212

== ENCOUNTER 2024-07-19 15:14 | Outpatient (AMB) | payer OTHER, SELFPAY ==
--- OUTSIDE RECORDS SUMMARY | 2024-07-19 15:16 | XMS_ITS | Encounter Summary ---
Author Organization [facility] [address] Address [address] [place] [address] Care Team Providers Care Lead Trainer Name Role Phone Jayna Chaudhry MD Primary Care Provider [phone] Encounter Details Date Type Department Care Team ([facility] st Contact Info) Description 07/13/2024 Telephone Obstetrics and Gynecology - [place] [address] [place], [place] [phone] Marbella Mcclain MD [address] [place], [place] Social History Tobacco Use Types Packs/Day [...] your loved ones. For example, child care nurse or elderly care for an older adult? [...] Office Visit Obstetrics and Gynecology - [address] [phone] Marbella Mcclain MD [address] [place] [address] 11/21/2024 9:45 AM EDT Office Visit Obstetrics and Gynecology - [address] [phone] Melinda Solitario, [address] 02/14/2025 3:30 PM EDT Appointment Radiology Department - [address] [phone] documented as of this encounter Visit Diagnoses [...] documented as of this encounter Care Teams Lead Trainer Relationship Specialty Start Date End Date Richa, Jayna R, MD [facility] , [address] [facility] Physician Associ D/B/A: Coleman Mota In Internal Medicine [place] PCP - General Internal Medicine 07/20/14 documented as of this encounter
--- OUTSIDE RECORDS SUMMARY | 2024-07-19 15:16 | XMS_ITS | Encounter Summary ---
Author Organization [facility] Address [address] [place] [address] Care Team Providers Care Braille Coder Name Role Phone Jayna Chaudhry MD Primary Care Provider [phone] Reason for Visit * Reason Comments Annual Exam Encounter Details Date Type Department Care Team (Latest Contact Info) Description 07/12/2024 2:30 PM EST Office Visit Obstetrics and Gynecology - [address] [phone] Marbella Mcclain MD [address] [place], [place] Encounter for gynecological examination with abnormal [...] for your loved ones. For example, child life therapist or elderly care for an older adult? [...] improved, will need a biopsy. * Marbella Mclcain MD - 07/12/2024 2:30 PM EST VULVAR [...] rubbing with a towel. Or, use a manager hair on a cool setting to dry the [...] or 7th GENERATION. 9. Do not use tpct-buc-dkmdvzc creams or ointments until you ask your [...] will not increase your chances of infection. Fezb-gzi-zcqrfap water-based lubricants tend to dry out before [...] had a hysterectomy. Done for prolapse in [place]. No bleeding since. Sexually active. Follows with [...] BENJAMIN 2 Term BENJAMIN 1 Term BENJAMIN Concrete Inspector History: Last Pap: 2014 neg H/o abnormal Pap: h/o Sebastián 1 s/p cryo in [place] Patient Active Problem List Diagnosis GERD (gastroesophageal reflux disease) Obesity Spider veins Encounter for gynecological examination without abnormal finding Lichenification and lichen simplex chronicus No past medical history on file. Past Surgical History: Procedure Laterality Date CHOLECYSTECTOMY PROCEDURE: HISTORICAL CHOLECYSTECTOMY HYSTERECTOMY 2011 PROCEDURE: HISTORICAL VAGINAL HYSTERECTOMY W/O BSO; COMMENT: prolapse (had [place] [facility] [place] Family History Problem Relation Name Age [...] Pelvic: External Genitalia: Exam chaperoned by medical record librarian. Normal architecture, with lichenified patch about 5 [...] of infection. She was strictly counseled re: [facility] guidelines and given explicit written instructions [...] EDT Office Visit Obstetrics and Gynecology - [address] [phone] Marbella Mcclain MD [address] [place] [address] 11/21/2024 9:45 AM EDT Office Visit Obstetrics and Gynecology - [address] [phone] Melinda Solitario, [address] 02/14/2025 3:30 PM EDT Appointment Radiology Department - [address] [place] [address] documented as of this encounter Visit Diagnoses [...] documented as of this encounter Care Teams Braille Coder Relationship Specialty Start Date End Date Jayna Chaudhry MD [address] [place] [address] , [facility] 101 [facility] Physician Associ D/B/A: Coleman Londonoatisolomon In Internal Medicine [place] PCP - General Internal Medicine 07/20/14 documented as of this encounter
--- OUTSIDE RECORDS SUMMARY | 2024-07-19 15:16 | XMS_ITS | Encounter Summary ---
Author Organization [facility] Address [address] [place] [address] Care Team Providers Care Lead Project Manager Name Role Phone Jayna Chaudhry MD Primary Care Provider [phone] Reason for Visit * Reason Onset Date Comments Appointment 07/06/2024 Encounter Details Date Type Department Care Team ([facility] st Contact Info) Description 07/06/2024 Telephone Obstetrics and Gynecology [address] [phone] Marbella Mcclain MD [address] [place], [place] Appointment Social History Tobacco Use Types [...] EDT Office Visit Obstetrics and Gynecology - [address] [phone] Marbella Mcclain MD [address], [place] 11/21/2024 9:45 AM EDT Office Visit Obstetrics and Gynecology - [address] [phone] Melinda Solitario, [address] 02/14/2025 3:30 PM EDT Appointment Radiology Department - [address] [phone] documented as of this encounter Visit Diagnoses Not on filedocumented in this encounter Care Teams Lead Project Manager Relationship Specialty Start Date End Date Jayna Chaudhry MD [address] [place] [address] , [address] Physician Associ D/B/A: [facility] [place] PCP - General Internal Medicine 07/20/14 documented as of this encounter
--- OUTSIDE RECORDS SUMMARY | 2024-07-19 15:17 | XMS_ITS | Clinical Summary ---
Author Organization [facility] [address] [facility] Address [address] [place] [address] Phone Care Team Providers Care Application Development Intern Name Role Phone Jayna Chaudhry MD Primary Care Provider [phone] Allergies No known active allergies Medications Medication [...] of infection. She was strictly counseled re: [facility] guidelines and given explicit written instructions for changes to make. I reviewed areas of application and amount of medication to use. She will return in 6 weeks. If note improved, will need a biopsy. GERD (gastroesophageal reflux disease) 3 Obesity 11/15/2012 Spider veins 11/15/2012 Encounters Date Type Department Care Team Description 07/13/2024 Telephone Obstetrics and Gynecology - [address] [phone] Marbella Mcclain MD 07/12/2024 2:30 PM EST Office Visit Obstetrics and Gynecology - [address] [phone] Marbella Mcclain MD Encounter for gynecological examination with abnormal finding (Primary Dx); Lichenification and lichen simplex chronicus 07/06/2024 Telephone Obstetrics and Gynecology - [address] [phone] Marbella Mcclain MD Appointment from Last 3 [...] care for your loved ones. For example, child's nurse or elderly care for an older [...] EDT Office Visit Obstetrics and Gynecology - [address] [phone] Marbella Mcclain MD [address] [place], [place] 11/21/2024 9:45 AM EDT Office Visit Obstetrics and Gynecology - [address] [phone] [place]ario, [place] [address] [place] [address], [place] [address] 02/14/2025 3:30 PM EDT Appointment Radiology Department - [address] [place] [phone] Health Maintenance Due Date Last Done Comments [...] Recently Relevant to Health Maintenance Care Teams Application Development Intern Relationship Specialty Start Date End Date Jayna Chaudhry MD [address] [place] [address] , [address] [facility] Physician Associ D/B/A: [facility] PCP - General Internal Medicine 07/20/14
--- OUTSIDE RECORDS SUMMARY | 2024-07-19 15:17 | XMS_ITS | Clinical Summary ---
Author Organization [employer] Address [address] [place] [address] [address] [place] [address] Care Team Providers Care Ice Guard Tester Name Role Phone Unavailable Primary Care Provider [...] patient's age to complete this topic Insurance [facility] STANDARD [facility] FULL
--- NOTE | 2024-07-19 15:24 | A.OFFVIS_ITS ---
Vital Signs 07/19/24 15:25 Height 5 ft 2 in Weight 191 lb BMI 34.9 Intake Visit Reasons: OV- Left knee pain Intake Note: Ashley is a 53 year old female who presents today for follow up of her left knee pain. Patient reports worsening pains with some limited ROM. Denies numbness or tingling. Denies new injuries to her left knee. She takes tramadol for other health problems. 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 Hank Fowler is a 53-year-old female who presents to the office today for continued left knee pain. She reports that her last appointment roughly 2 years ago when she received cortisone injections gave her great relief. However a couple of weeks ago she felt as though there was a mechanical blockage in her left knee. She went to fully extend the knee forcefully when she felt a clunking sensation extreme pain but then was able to perform full range of motion. Since this episode her pain has declined and she has been able to ambulate normally. However, this type of episode happens frequently and when it does happen it is quite painful and difficult for her to ambulate for a few days after. [facility] Medical History (Updated 07/19/24 @ 15:59 by Evelyn Romeo PA-C) Tubular adenoma of colon Nicotine dependence, cigarettes, uncomplicated Family history of breast cancer Epidermoid cyst of skin of cheek Diverticulitis Mild recurrent major depression Bloody stools Epigastric pain Right hip pain Left hip pain Depression Obese Kidney stone Hypovitaminosis D Pure hypercholesterolemia History of renal calculi Insomnia Arnold-Chiari malformation GERD (gastroesophageal reflux disease) Polyarthralgia Surgical History (Updated 07/07/24 @ 11:08 by Emelyn Liu PA-C) History of carpal tunnel surgery of right wrist History of hysterectomy History of transurethral resection of bladder tumor (TURBT) History of colonoscopy History of removal of cyst History of esophagogastroduodenoscopy (EGD) History of cryosurgery History of cholecystectomy Family History Father Diabetes Hypertension Cancer, Onset Age: 78 Mother Cancer Breast cancer, Onset Age: 53 Maternal Grandmother Stroke Maternal Grandfather Cancer Esophageal cancer Paternal Grandfather Cancer Maternal Uncle Cancer Brain cancer Sister Breast cancer, Onset Age: 48 Social History Household Members Other:: Housing: House Alcohol intake: never Patient Tobacco Use Status: Current everyday Tobacco user Tobacco use type: Cigarette Cigarettes Per Day: 6 Years Smoked: 20 e-Cigarette/Vaping Use: Never Used Second Hand Smoke Exposure: No service: No Current occupational status: employed 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 Current occupational exposures/hazards: No Cognitive needs: No Hearing needs: No Vision needs: Yes Review of Systems Const All systems reviewed & are unremarkable except as noted in HPI and below Physical Exam Vital Signs: BMI result Body Mass Index 34.9 Const General: cooperative and no acute distress Orientation/consciousness: patient oriented x3 Resp Effort & Inspection: normal respiratory effort and able to speak in complete sentences Cardio Rate: regular rate Peripheral pulses: Peripheral pulses 2+ throughout GI Palpation (GI): Soft to palpation Skin General skin exam: no rashes or lesions noted Lesions: no lesions Rashes: no rashes Neuro General: patient oriented x3 Extrem Other: Left knee normal to inspection.? No ecchymosis, redness or edema.? Crepitus felt with knee range of motion.? Negative Bob's. NVI Quality Reporting (2019) Adult ([facility] 138/08/06/68) Smoking risk assessment performed?: Yes Patient Tobacco Use Status: Current everyday Tobacco user Assessment & Plan Assessment & Plan (1) Fibromyalgia: Code(s): M79.7 - Fibromyalgia Category: Medical (2) Osteoarthritis of left knee: Code(s): M17.12 - Unilateral primary osteoarthritis, left knee Category: Medical Plan Ms. Hank Fowler is a 53-year-old female who presents to the office today for continued left knee pain. She reports that her last appointment roughly 2 years ago when she received cortisone injections gave her great relief. However a couple of weeks ago she felt as though there was a mechanical blockage in her left knee. She went to fully extend the knee forcefully when she felt a clunking sensation extreme pain but then was able to perform full range of motion. Since this episode her pain has declined and she has been able to ambulate normally. However, this type of episode happens frequently and when it does happen it is quite painful and difficult for her to ambulate for a few days after. All in the office today, we discussed the role of MRI imaging versus repeat cortisone injection. Due to the patient having a mechanical blockage at the time of her symptoms we have agreed to order an MRI to evaluate the meniscus and the surrounding structures. We have elected to hold off on a cortisone injection at this time until the MRI is obtained. After the MRI is obtained the patient will contact our office and I will follow up with her either by telehealth her in person. X-rays of the left knee which were obtained while in the office today and were reviewed by me, Evelyn Romeo PA-C, revealed no acute fracture dislocation. Arthritic changes noted. Orders: Orders XR knee LT 3V Today M25.569 - Pain in unspecified knee XR knee RT 1V Today M25.569 - Pain in unspecified knee Coding Level of Care Code Est Pt Level 4 (13803) Diagnoses Fibromyalgia M79.7 Osteoarthritis of left knee M17.12
[2024-07-19 15:25] VITALS: BMI 34.9
== END 2024-07-19 15:46 | disposition home or self-care (01) ==
PROVIDERS: PCP Internal Medicine; Visit Provider Physician Assistant
DX: M17.12 Unilateral primary osteoarthritis, left knee (principal); M79.7 Fibromyalgia
CPT/HCPCS: 99214

== ENCOUNTER → 2024-07-19 15:16 | Outpatient (BNV) | payer OTHER, SELFPAY | PROVIDERS: Visit Provider Student in an Organized Health Care Education/Training Program | DX: M25.562 Pain in left knee (principal) | CPT/HCPCS: 73562 ==

== ENCOUNTER 2024-07-28 16:45 | Outpatient (REF) | payer OTHER, SELFPAY ==
--- NOTE | ~2024-07-28 | MR_ITS ---
EXAMINATION: MRI LEFT KNEE WITHOUT CONTRAST HISTORY: M25.562 - Pain in left knee COMPARISON: Correlation is made with plain films of the left knee dated 07/19/2024. TECHNIQUE: Coronal T1 and fat-suppressed proton density, sagittal proton density and fat-suppressed proton density, and axial fat suppressed T2 weighted MR images of the left knee were obtained. FINDINGS: Bone marrow: Bone marrow signal intensity is normal. Joint effusion: There is no joint effusion. Burton's cyst: There is no Burton's cyst. Articular cartilage: There is thinning and fissuring of the patellar cartilage. There is mild irregularity of the cartilage of the medial femoral condyle small osteophyte formation, consistent with osteoarthritis. Muscles/soft tissues: The visualized muscles demonstrate normal signal intensity. Anterior cruciate ligament: Intact Posterior cruciate ligament: Intact Medial collateral ligament: Intact Lateral collateral ligament: Intact Medial meniscus: There is blunting of the free edge of the posterior horn of the meniscus (series 10, images 9-10 and series 12, image 17) consistent with a small radial tear. Lateral meniscus: The lateral meniscus is enlarged and demonstrates an incomplete discoid configuration measuring 17 mm in transverse dimension in the mid coronal plane. No tear is seen. Flexor mechanism: The popliteus, gastrocnemius, and hamstring tendons are intact. Quadriceps tendon: Intact Patellar tendon: Intact Patellar retinacula: Intact MR/MR knee LT wo con IMPRESSION: 1. Mild osteoarthritis of the medial and patellofemoral compartments. 2. Small radial tear involving the free edge of the posterior horn of the medial meniscus. 3. Incomplete discoid configuration of the lateral meniscus without evidence of a tear. Electronically signed by: Arsh Edwards MD 07/29/2024 07:15 AM [facility]
== END 2024-07-28 16:46 | disposition home or self-care (01) ==
LOC: HO.MRI 16:45
PROVIDERS: PCP Internal Medicine; Visit Provider Physician Assistant
DX: M17.12 Unilateral primary osteoarthritis, left knee (principal)
CPT/HCPCS: 73721

== ENCOUNTER → 2024-07-28 16:47 | Outpatient (BNV) | payer OTHER, SELFPAY | PROVIDERS: PCP Internal Medicine; Visit Provider Radiology Diagnostic Radiology | DX: M23.322 Other meniscus derangements, posterior horn of medial meniscus, left knee (principal) | CPT/HCPCS: 73721 ==

== ENCOUNTER 2024-08-22 08:28 | Outpatient (REF) | payer OTHER, SELFPAY ==
--- OUTSIDE RECORDS SUMMARY | 2024-08-22 08:42 | XMS_ITS | Clinical Summary ---
Author Organization [facility] [address] [facility] Address [address] [place] [phone] Phone Care Team Providers Care Shop Assistant Name Role Phone Jayna Chaudhry MD Primary Care Provider [phone] Allergies No known active allergies Medications tramadol HCl (TRAMADOL ORAL) Take by mouth. Unknown mg Active omeprazole (PriLOSEC) [address] capsule 11/09/2016 Activ e zolpidem (AMBIEN) 5 mg tablet Take by [...] weeks, then nightly 30 g 07/13/2024 Active Active Problems Problem Noted Date Diagnosed Date [...] of infection. She was strictly counseled re: [facility] guidelines and given explicit written instructions for changes to make. I reviewed areas of application and amount of medication to use. She will return in 6 weeks. If note improved, will need a biopsy. GERD (gastroesophageal reflux disease) 3 Obesity 11/15/2012 Spider veins 11/15/2012 Encounters Date Type Department Care Team Description 07/13/2024 Telephone Obstetrics and Gynecology - [address] [phone] Marbella Mcclain MD 07/12/2024 2:30 PM EST Office Visit Obstetrics and Gynecology - [address] [phone] Marbella Mcclain MD Encounter for gynecological examination with abnormal finding (Primary Dx); Lichenification and lichen simplex chronicus 07/06/2024 Telephone Obstetrics and Gynecology - [address] [phone] Marbella Mcclain MD Appointment from Last 3 Months Immunizations Name Administration Dates Next Due Tdap Tetanus diptheria acell ular pertussis (Boostrix; Adacel) 7yo and older 11/15/2012 Surgical History Surgery Date Site/Laterality Comments HYSTERECTOMY 2011 PROCEDURE: HISTORICAL VAGINAL HYSTERECTOMY W/O BSO; COMMENT: prolapse (had SEBASTIÁN first with cryo), in [place] CHOLECYSTECTOMY PROCEDURE: HISTORICAL CHOLECYSTECTOMY Family History Medical [...] care for your loved ones. For example, salesperson children's shoes or elderly care for an older adult? [...] What is your living situation? 0 07/11/2024 Comments No Sex and Gender Information Value Date Recorded Sex Assigned at Not on file Legal Sex Female 1:56 PM EST Gender Identity Not on file Sexual Orientation Not on file Obstetrics History Para Term [...] Care Team (Late st Contact Info) Description 11/21/2024 9:45 AM EDT Office Visit Obstetrics and Gynecology - [address] [phone] Melinda Solitario, [address] 02/14/2025 3:30 PM EDT Appointment Radiology Department - [address] [phone] Health Maintenance Due Date Last Done Comments Hepatitis B Vaccines (1 of 3 - 19+ 3-dose series) 10/23/1990 Pneumococcal Vaccine: 50+ Years (1 of 2 - PCV) 10/23/1990 Pneumococcal Vaccine: Pediatrics (0 to 5 Years) and At-Risk Patients (6 to 64 Years) (1 of 2 - PCV) 10/23/1990 Zoster Vaccines (1 of 2) 10/23/2021 Cholesterol Screening (Lipid Panel) 05/24/2022 11/15/2012 Colorectal Cancer Screening: Colonoscopy 05/24/2022 HIV Screening 05/24/2022 Hepatitis C Screening 05/24/2022 DTaP,Tdap,and Td Vaccines (2 - Td or Tdap) 11/15/2022 11/15/2012 COVID-19 Vaccine ( season) 2024 Influenza Vaccine (#1) 2024 Depression [...] patient's age to complete this topic Meningococcal B Vacine Aged Out No lo nger eligible based on patient's age to complete [...] negative Jayna Chaudhry MD IMG XR PROCEDURES Final Result * (ABNORMAL) Lipid panel (11/15/2012) LDL/HDL Ratio 4 0 - 4 Triglycerides 78 0 - 150 mg/dL Cholesterol 209(A) 0 - 200 mg/dL HDL 56 >=40 mg/dL LDL Cholesterol 138(A) 0 - 100 mg/dL Blood Venous blood specimen / Unknown Historical Provider LAB BLOOD ORDERABLES Jyoti l Result from Last 3 Months or Most Recently Relevant to Health Maintenance Insurance * Guarantor: Ashley Mckinney Account Type Relation to Patient Date of Phone Billing Address Personal/Family Self 1970 [address] [facility] [address] [place] [address] [facility] [employer] Care Teams Shop Assistant Relationship Specialty Start Date End Date Jayna Chaudhry MD [address] [place] [address] , [address] [facility] Physician Associ D/B/A: [facility] PCP - General Internal Medicine 07/20/14
--- OUTSIDE RECORDS SUMMARY | 2024-08-22 08:42 | XMS_ITS | Clinical Summary ---
Author Organization [employer] Address [address] [place] [address] [address] [place] [address] Care Team Providers Care Construction Teacher Name Role Phone Unavailable Primary Care Provider [...] patient's age to complete this topic Insurance [facility] STANDARD [facility] FULL
[2024-08-22 09:47] LABS: Alanine Aminotransferase 37 U/L (0-31); Albumin Level 4.2 g/dL (3.5-5.0); Alkaline Phosphatase 55 U/L (39-117); Anion Gap 10 (12-20); Aspartate Amino Transferase 30 U/L (5-31); Bilirubin Total 0.6 mg/dL (0.0-1.0); Blood Urea Nitrogen 17 mg/dL (9-16); Calcium 9.8 mg/dL (8.4-10.2); Carbon Dioxide 25 mmol/L (22-29); Chloride 111 mmol/L (96-108); Cholesterol 223 mg/dL (<200); Estimated Glomerular Filt Rate > 60; Glucose Fasting 110 mg/dL (60-99); HDL Cholesterol 45 mg/dL (>40); LDL Cholesterol Calculated 155 mg/dL (<100); Potassium 4.1 mmol/L (3.3-5.1); Sodium 142 mmol/L (135-145); Total Protein 7.7 g/dL (6.5-8.0); Triglycerides 115 mg/dL (<150)
[2024-08-22 10:07] LABS: Vitamin D 25-OH Total 31.2 ng/mL (>30)
== END 2024-08-22 08:29 | disposition home or self-care (01) ==
LOC: HO.LAB 08:28
PROVIDERS: PCP Internal Medicine; Visit Provider Internal Medicine
DX: K59.04 Chronic idiopathic constipation (principal); E55.9 Vitamin D deficiency, unspecified; E78.5 Hyperlipidemia, unspecified
CPT/HCPCS: 36415; 80053; 80061; 82306

== ENCOUNTER 2024-09-15 14:36 | Outpatient (AMB) | payer OTHER, SELFPAY ==
--- NOTE | 2024-09-15 14:38 | A.OFFPC_ITS ---
Vital Signs 09/15/24 14:40 Height 5 ft 2 in Weight 184 lb BMI 33.7 BP 136/82 Blood Pressure Location Lt brachial Position Sitting Intake Visit Reasons: bp Intake Note: Patient here for a follow up BP Weight Guesser Required: No Accompanied by: Self / Same As Patient Allergies trazodone Allergy (Intermediate, Verified 09/15/24 15:04) Insomnia gabapentin Adverse Reaction (Intermediate, Verified 09/15/24 15:04) dry mouth Medication List - Last Reconciled 09/15/24 by Jayna Chaudhry MD atorvastatin 10 mg PO DAILY cholecalciferol (vitamin D3) 50 mcg PO DAILY 90 days linaclotide (Linzess) 145 mcg PO DAILY pantoprazole 40 mg PO DAILY pregabalin 75 mg PO BEDTIME tolterodine ER 4 mg PO BID 90 days tramadol 50 mg PO Q8H PRN 30 days [wrist splint wear nightly & as much as possible throughout the day] zolpidem 10 mg PO BEDTIME PRN 30 days Tobacco use date assessed: 09/15/24 Dental Screening Dental Screen Date: 09/15/24 Did you have a dental visit in the last 12 months?: Yes Did you have a dental problem in the last 6 months where you did not have access to dental care?: No Was dental information given to patient?: Patient has dentist HPI HPI Comments History of Present Illness Details The patient is a 53-year-old female presenting with concerns regarding possible sleep apnea and knee pain. She has modified her dietary habits, leading to weight loss from 191 lbs to 184 lbs, though her cholesterol level remains unchanged from the previous year at 223 mg/dL. She suffers from mild insomnia and experiences dry mouth due to gabapentin. The patient is allergic to traz odone. There are stable depression and a stable Arnold-Chiari malformation. She reports left knee pain attributed to a small radial tear in the medial meniscus and mild arthritis. She experiences fatigue during specific activities, suggesting potential sleep apnea examined by her life skills coach. She has dyslipidemia and stopped taking atorvastatin therefore has worsened but she restarted. Also has impaired glucose tolerance that has improved. 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 [facility] Medical History (Updated 09/15/24 @ 15:21 by Jayna Chaudhry MD) Tubular adenoma of colon Nicotine dependence, cigarettes, uncomplicated Family history of breast cancer Epidermoid cyst of skin of cheek Diverticulitis Mild recurrent major depression Bloody stools Epigastric pain Right hip pain Left hip pain Depression Obese Kidney stone Hypovitaminosis D Pure hypercholesterolemia History of renal calculi Insomnia Arnold-Chiari malformation GERD (gastroesophageal reflux disease) Polyarthralgia Surgical History History of carpal tunnel surgery of right wrist History of hysterectomy History of transurethral resection of bladder tumor (TURBT) History of colonoscopy History of removal of cyst History of esophagogastroduodenoscopy (EGD) History of cryosurgery History of cholecystectomy Family History Father Diabetes Hypertension Cancer, Onset Age: 78 Mother Cancer Breast cancer, Onset Age: 53 Maternal Grandmother Stroke Maternal Grandfather Cancer Esophageal cancer Paternal Grandfather Cancer Maternal Uncle Cancer Brain cancer Sister Breast cancer, Onset Age: 48 Social History Household Members Other:: Housing: House Alcohol intake: never Patient Tobacco Use Status: Current everyday Tobacco user Tobacco use type: Cigarette Cigarettes Per Day: 6 Years Smoked: 20 e-Cigarette/Vaping Use: Never Used Second Hand Smoke Exposure: No service: No Current occupational status: employed 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 1. Little interest or pleasure in doing things: not at all 2. Feeling down, depressed, or hopeless: not at all 3. Trouble falling or staying asleep, or sleeping too much: several days 4. Feeling tired or having little energy: several days 5. Poor appetite or overeating: not at all 6. Feeling bad about yourself - or that you are a failure or have let yourself or your family down: not at all 7. Trouble concentrating on things, such as reading the newspaper or watching television: not at all 8. Moving or speaking so slowly that other people could have noticed. Or the opposite - being so fidgety or restless that you have been moving around a lot more than usual: not at all 9. Thoughts that you would be better off or of hurting yourself in some way: not at all Total score: 2 Depression Screening Interpretation: Negative Depression Screening Done: Yes 33317 - PHQ-9 Billing: Yes Source: Developed by Drs. Arsh Mcintosh, Kristine Javier, Hemant Mabry and colleagues, with an educational sera from [employer]. Thrive Questionnaire Date Thrive assessed: 09/15/24 I am a: Patient What is your living situation today?: I have a steady place to live Within the past 12 months, did the food you bought not last and you didn't have the money to get more?: Never true Within the past 12 months, did you worry whether your food would run out before you got money to buy more?: Never true Do you have trouble paying for medicines?: No Do you have trouble getting transportation to medical appointments?: No Do you have trouble paying your heating and electricity bill?: No Do you have trouble taking care of your child, family member or friend?: No Do you have trouble with day-to-day activities such as bathing, preparing meals, shopping, managing finances, etc.?: No Are you currently unemployed and looking for a job?: No Are you interested in more education?: No Please select the resources that you would like help with: None Currently or been in a relationship where the following occur: No concerns reported THRIVE Score: 0 AUDIT C Alcohol Use Questionnaire (AUDIT-C) 1. How often do you have a drink containing alcohol?: Never Total Score: 0 Score Reviewed/Action Taken: No DIDIER-7 AMB Questionnaire DIDIER-7 Date DIDIER - 7 assessed: 09/15/24 Feeling nervous, anxious, or on edge: 0 = Not at all Not being able to stop or control worryin = Not at all Worrying too much about different things: 1 = Several days Trouble relaxin = Not at all Being so restless that it is hard to sit still: 0 = Not at all Becoming easily annoyed or irritable: 0 = Not at all Feeling afraid as if something awful might happen: 0 = Not at all Total DIDIER-7 score (0-4 normal; 5-9 mild; 10-14 moderate; 15-21 severe): 1 Source: Developed by Drs. Arsh Mcintosh, Kristine Javier, Hemant Mabry and colleagues, with an educational sera from [employer]. DIDIER-7 Assessment Billing DIDIER-7 Assessment Tool: DIDIER-7 Assessment 41936 Review of Systems Const All systems reviewed & are unremarkable except as noted in HPI and below Card Denies chest pain at rest, Denies chest pain with activity, Denies edema, Denies irregular heart rhythm, Denies claudication, Denies dyspnea, Denies dyspnea on exertion, Denies orthopnea, Denies paroxysmal nocturnal dyspnea and Denies slow heart rate Resp Denies cough, Denies dyspnea and Denies dyspnea on exertion GI Denies abdominal pain, Denies change in bowel habits, Denies excessive flatus, Denies nausea and Denies vomiting Denies urinary incontinence, Denies urinary hesitancy and Denies urinary urgency Musc Denies abnormal gait, Denies atrophy, Denies deformity and Denies limited range of motion Skin/Breast Denies bleeding lesions, Denies changing lesions and Denies rash Neuro Denies abnormal gait and Denies lack of coordination Physical exam (Primary Care) Vital Signs: Last Vital Signs BP 136/82 09/15/24 14:40 BMI result Body Mass Index 33.7 BMI Assessment/Plan discussion: High BMI High, discussed plan: lifestyle, weight reduction, dietary and physical activity Tobacco/Smoking Status: Tobacco use Status Tobacco use date assessed 09/15/24 09/15/24 14:56 Patient Tobacco Use Status Current everyday Tobacco 09/15/24 14:47 Tobacco use type Cigarette 09/15/24 14:47 e-Cigarette/Vaping Use Never Used 09/15/24 14:47 PHQ-9: PHQ-9 Score PHQ-9: Total score 2 09/15/24 14:47 Depression Screening Interpretation: Negative Thrive Assessment: Date of Thrive Assessment Date Thrive assessed 09/15/24 09/15/24 14:47 Currently or been in a relationship where the following occur: No concerns reported Resp Effort & Inspection: normal respiratory effort Auscultation: clear to auscultation bilaterally Cardio Jugular venous distension: no JVD Rate: regular rate Rhythm: regular rhythm Heart sounds: S1 normal heart sound present and S2 normal heart sound present Extrem General: Yes full ROM Coding Level of Care Code Est Pt Level 4 (22084) Complex EM visit Add On G2211 Diagnoses Hypersomnolence G47.10 Primary osteoarthritis of left knee M17.12 Osteoarthritis type: primary Mild recurrent major depression F33.0 Arnold-Chiari malformation Q07.00 Pure hypercholesterolemia E78.00 Primary insomnia F51.01 Insomnia type: primary Hypertension I10 Impaired glucose tolerance R73.02 Additional Codes PHQ-9 - 65420 - PHQ-9 Billing: Yes ([id number]) DIDIER-7 Assessment Billing - DIDIER-7 Assessment Tool: DIDIER-7 Assessment 66131 ([id number]) Time Spent (min) 23 Assessment & Plan Assessment & Plan (1) Hypersomnolence: Code(s): G47.10 - Hypersomnia, unspecified Category: Medical (2) Osteoarthritis of left knee: Code(s): M17.12 - Unilateral primary osteoarthritis, left knee Category: Medical Qualifiers: Osteoarthritis type: primary Qualified Code(s): M17.12 - Unilateral primary osteoarthritis, left knee (3) Mild recurrent major depression: Code(s): F33.0 - Major depressive disorder, recurrent, mild Category: Medical (4) Arnold-Chiari malformation: Code(s): Q07.00 - Arnold-Chiari syndrome without spina bifida or hydrocephalus Category: Medical (5) Pure hypercholesterolemia: Code(s): E78.00 - Pure hypercholesterolemia, unspecified Category: Medical (6) Insomnia: Code(s): G47.00 - Insomnia, unspecified Category: Medical Qualifiers: Insomnia type: primary Qualified Code(s): F51.01 - Primary insomnia (7) Hypertension: Code(s): I10 - Essential (primary) hypertension Category: Medical (8) Impaired glucose tolerance: Code(s): R73.02 - Impaired glucose tolerance (oral) Category: Medical Plan For the patient's hyperlipidemia, we will monitor cholesterol levels and follow- up with labs in four months. An at-home sleep study will be conducted to assess possible sleep apnea, with solpiden use advised. Knee pathology follow-up with orthopedics is noted. Vitamin D levels are to be maintained, while gabapentin scheduling adjustments aim to reduce dry mouth symptoms. The trazodone allergy and liver function will be monitored, with patient education on potential symptoms and adverse reactions. Patient was informed and verbally consented to the use of an ambient scribe for clinic note documentation during this visit. I discussed with the patient her current management strategies, focusing on hyperlipidemia and the importance of regular monitoring. We reviewed the rationale behind using an at-home sleep study for her suspected sleep apnea, explaining the process, benefits, and importance of using solpiden for effective results. Regarding her knee, I advised maintaining follow-up appointments for interpretation of findings and appropriate treatment. A discussion on the continuation of vitamin D supplementation and the careful observation of medication effects, such as those from gabapentin, was detailed, emphasizing sensitivity concerns with trazodone and impact on sleep. Orders: Orders Vitamin D 25-OH Total 4 Months E55.9 - Vitamin D deficiency, unspecified Comprehensive [place]. Panel Fast 4 Months E78.00 - Pure hypercholesterolemia, unspecified Lipid Panel 4 Months E78.5 - Hyperlipidemia, unspecified RT home sleep study Today G47.10 - Hypersomnia, unspecified Patient Instructions: - Continue lifestyle changes to manage hyperlipidemia, with focus on diet and regular monitoring. - Prepare for at-home sleep apnea study, ensuring solpiden is taken as directed. - Follow up with orthopedics for detailed knee examination results. - Maintain vitamin D supplementation as prescribed. - Monitor for dry mouth symptoms; discuss medication schedule changes if necessary. - Avoid trazodone and monitor any liver-related symptoms reported previously.
[2024-09-15 14:40] VITALS: BP 136/82; BMI 33.7
--- OUTSIDE RECORDS SUMMARY | 2024-09-15 16:07 | XMS_ITS | Clinical Summary ---
Author Organization [facility] [address] [facility] Address [address] [place] [id number] Phone Care Team Providers Care Music Publisher Name Role Phone Jayna Chaudhry MD Primary Care Provider [phone] Allergies No known active allergies Medications tramadol HCl (TRAMADOL ORAL) Take by mouth. Unknown mg Active omeprazole (PriLOSEC) [address] capsule 7 Active zolpidem (AMBIEN) 5 mg tablet Take by mouth at bedtime as needed. Active atorvastatin (LIPITOR) 20 mg tablet Take 1 tablet (20 mg total) by mouth at bedtime. Active pregabalin (LYRICA) 75 mg capsule Take 1 capsule (75 mg total) by mouth 2 (two) times a day. Max Daily Amount: 150 mg Active cholecalcifero l (VITAMIN D-3) 10 mcg (400 unit) tablet Take 1 tablet (400 Units total) by mouth 1 (one) time each day. Active hydrOXYzine HCL (ATARAX) 10 mg tablet Take 1 tablet (10 mg total) by mouth at bedtime as needed for itching. 90 tablet 1 5 Active mometasone (ELOCON) 0.1 % ointment Apply a thin layer to the affected area nightly 30 g 5 Active mometasone (ELOCON) 0.1 % ointment Apply a thin layer to the affected area twice daily for two weeks, then nightly 30 g 5 025 Discontinued Active Problems Problem Noted Date Diagnosed [...] Description 07/13/2024 Telephone Obstetrics and Gynecology - [address] [phone] Marbella Mcclain MD 07/12/2024 2:30 PM EST Office Visit Obstetrics and Gynecology - [address] [phone] Marbella Mcclain MD Encounter for gynecological examination with abnormal finding (Primary Dx); Lichenification and lichen simplex chronicus 07/06/2024 Telephone Obstetrics and Gynecology - [address] [phone] Marbella Mcclain MD Appointment from Last 3 Months Immunizations Name Administration Dates Next Due Tdap Tetanus diptheria acell ular pertussis (Boostrix; Adacel) 7yo and older 11/15/2012 Surgical History Surgery Date Site/Laterality Comments HYSTERECTOMY 2011 PROCEDURE: HISTORICAL VAGINAL HYSTERECTOMY W/O BSO; COMMENT: prolapse (had SEBASTIÁN first with cryo), in [place] CHOLECYSTECTOMY PROCEDURE: HISTORICAL CHOLECYSTECTOMY Family History Medical [...] care for your loved ones. For example, early childhood education worker or elderly care for an older adult? [...] EDT Office Visit Obstetrics and Gynecology - [address] [phone] Melinda Solitario, [address] [address] 02/14/2025 3:30 PM EDT Appointment Radiology Department - [address] [phone] Health Maintenance Due Date Last Done Comments [...] Td or Tdap) 11/15/2022 11/15/2012 COVID-19 Vaccine (1 - season) 2024 Influenza Vaccine (#1) 2024 [...] Phone Billing Address Personal/Family Self 1970 [address] [place] [address] [facility] Care Teams Music Publisher Relationship Specialty Start Date End Date Jayna Chaudhry MD [facility] [address] [place] [address] Physician Associ D/B/A: [facility] PCP - General Internal Medicine 07/20/14
--- OUTSIDE RECORDS SUMMARY | 2024-09-15 16:07 | XMS_ITS | Clinical Summary ---
Author Organization [employer] Address [address] [place] [address] [address] [place] [address] Care Team Providers Care Community Relations Rep Name Role Phone Unavailable Primary Care Provider [...] patient's age to complete this topic Insurance [facility] STANDARD [facility] FULL
== END 2024-09-15 15:15 | disposition home or self-care (01) ==
LOC: HO.HMCH 14:37
PROVIDERS: PCP Internal Medicine; Visit Provider Internal Medicine
DX: G47.10 Hypersomnia, unspecified (principal); M17.12 Unilateral primary osteoarthritis, left knee; F33.0 Major depressive disorder, recurrent, mild; Q07.00 Arnold-Chiari syndrome without spina bifida or hydrocephalus; E78.00 Pure hypercholesterolemia, unspecified; F51.01 Primary insomnia; I10 Essential (primary) hypertension; R73.02 Impaired glucose tolerance (oral)

== ENCOUNTER → 2024-09-15 14:36 | Outpatient (BNVA) | payer OTHER, SELFPAY | PROVIDERS: PCP Internal Medicine; Visit Provider Internal Medicine | DX: G47.10 Hypersomnia, unspecified (principal); M17.12 Unilateral primary osteoarthritis, left knee; F33.0 Major depressive disorder, recurrent, mild; Q07.00 Arnold-Chiari syndrome without spina bifida or hydrocephalus; E78.00 Pure hypercholesterolemia, unspecified; F51.01 Primary insomnia; I10 Essential (primary) hypertension; R73.02 Impaired glucose tolerance (oral); E55.9 Vitamin D deficiency, unspecified | CPT/HCPCS: 96127; 99212 ==

== ENCOUNTER 2024-10-10 10:37 | Emergency (ER) | payer OTHER, SELFPAY ==
[2024-10-10 11:09] VITALS: BP 140/79; PULSE 78; RESP 18; TEMP 36.6; O2SAT 99; BMI 33.6
--- NOTE | 2024-10-10 11:13 | ED_ITS ---
HPI - General Adult General Chief complaint: Dizziness Stated complaint: vertigo, nausea, neck and shoulder pain Related Data Home Medications ?Medication ?Instructions ?Recorded ?Confirmed pantoprazole 40 mg tablet,delayed 40 mg PO DAILY 09/15/24 09/15/24 release Previous Rx's ?Medication ?Instructions ?Recorded wrist splint #2 ea 02/24/23 atorvastatin 10 mg tablet 10 mg PO DAILY #90 tabs 05/17/24 cholecalciferol (vitamin D3) 50 50 mcg PO DAILY 90 days #90 caps 05/17/24 mcg (2,000 unit) capsule zolpidem 10 mg tablet 10 mg PO BEDTIME PRN insomnia 30 05/17/24 days #30 tabs linaclotide 145 mcg capsule 145 mcg PO DAILY #30 caps 06/21/24 (Linzess) pregabalin 75 mg capsule 75 mg PO BEDTIME #30 caps 06/22/24 tolterodine 4 mg capsule,extended 4 mg PO BID 90 days #180 caps 07/14/24 release 24 hr tramadol 50 mg tablet 50 mg PO Q8H PRN pain 30 days #90 08/23/24 tabs Allergies Allergy/AdvReac Type Severity Reaction Status Date / Time trazodone Allergy Intermediate Insomnia Verified 10/10/24 11:11 gabapentin AdvReac Intermediate dry mouth Verified 10/10/24 11:11 PMFSH Past Medical History Medical History Tubular adenoma of colon Nicotine dependence, cigarettes, uncomplicated Family history of breast cancer Epidermoid cyst of skin of cheek Diverticulitis Mild recurrent major depression Bloody stools Epigastric pain Right hip pain Left hip pain Depression Obese Kidney stone Hypovitaminosis D Pure hypercholesterolemia History of renal calculi Insomnia Arnold-Chiari malformation GERD (gastroesophageal reflux disease) Polyarthralgia Surgical History History of carpal tunnel surgery of right wrist History of hysterectomy History of transurethral resection of bladder tumor (TURBT) History of colonoscopy History of removal of cyst History of esophagogastroduodenoscopy (EGD) History of cryosurgery History of cholecystectomy Family History Family History Father Diabetes Hypertension Cancer, Onset Age: 78 Mother Cancer Breast cancer, Onset Age: 53 Maternal Grandmother Stroke Maternal Grandfather Cancer Esophageal cancer Paternal Grandfather Cancer Maternal Uncle Cancer Brain cancer Sister Breast cancer, Onset Age: 48 Social History Social History Household Members Other:: Housing: House Alcohol intake: never Patient Tobacco Use Status: Current everyday Tobacco user Tobacco use type: Cigarette Cigarettes Per Day: 6 Years Smoked: 20 e-Cigarette/Vaping Use: Never Used Second Hand Smoke Exposure: No Advance Directives: No Advance Directives Information Provided: No Do you have a plan to hurt others: No Plan service: No Current occupational status: employed 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 Current occupational exposures/hazards: No Cognitive needs: No Hearing needs: No Vision needs: Yes Physical Exam ED Vital Signs: Vital Signs - 24 hr 10/10/24 11:09 10/10/24 15:57 Temperature 97.9 F 98.0 F Pulse Rate 78 72 Respiratory Rate 18 16 Blood Pressure 140/79 H 120/80 Pulse Oximetry 99 99 Oxygen Delivery Method Room Air Room Air BMI result Body Mass Index 33.6 Course Course Course Narrative: RME, this is a rapid medical exam performed by Thong Carlos please refer to primary provider for complete H&P- 53-year-old female with past medical history significant for vertigo, osteoarthritis, fibromyalgia, depression, hyperlipidemia, GERD presents for evaluation of dizziness. She describes this as room spinning. She has a history of vertigo and reports this feels similar. She woke up 6 hours ago with her symptoms. She reports going to bed around 11:00 p.m. last night feeling well. She also complains of a headache, shoulder and neck pain. NIH stroke score of 0. No pronator drift, no difficulty with [id number] testing. Most likely peripheral vertigo. Plan for labs, EKG Medical Decision Making Lab Data 10/10/24 12:04 10/10/24 12:04 Labs: Lab Results 10/10/24 Range/Units 12:04 WBC 5.9 (4.8-10.8) X10*3/uL RBC 5.26 (4.20-5.50) X10*6/uL Hgb 15.2 (12.0-16.0) g/dl Hct 45.5 (37.0-47.0) % MCV 86.5 (80.0-98.0) fL MCH 28.9 (27.0-33.0) pg MCHC 33.4 (31.0-35.0) g/dl RDW 13.7 (11.0-16.0) % Plt Count 220 (160-400) X10*3/uL MPV 10.6 (9.4-12.3) fL Immature Gran % (Auto) 0.2 (0.0-0.4) % Neut % (Auto) 53.3 (45-73) % Lymph % (Auto) 35.9 (20-40) % [place] % (Auto) 6.7 (2-11) % Eos % (Auto) 3.2 (0-4) % Baso % (Auto) 0.7 (0-2) % Lymph # (Auto) 2.1 (1.2-4.9) X10*3/uL [place] # (Auto) 0.4 (0.1-1.2) X10*3/uL Eos # (Auto) 0.2 (0.0-0.4) X10*3/uL Baso # (Auto) 0.0 (0.0-0.2) X10*3/uL Abs Immat Gran (auto) 0.01 (0.00-0.03) X10*3/uL Absolute Neuts (auto) 3.1 (2.0-8.3) x10*3/uL Absolute Nucleated RBC 0.000 (0.0-0.012) X10*3/uL Nucleated RBC % (auto) 0.0 (0.0-0.2) /100WBC Sodium 139 (135-145) mmol/L Potassium 4.3 (3.3-5.1) mmol/L Chloride 109 H (96-108) mmol/L Carbon Dioxide 22 (22-29) mmol/L Anion Gap 12 (12-20) BUN 14 (9-16) mg/dL Creatinine 0.70 (0.5-1.4) mg/dL Estim Creat Clear Calc 94.1 Estimated GFR > 60 Random Glucose 105 (60-115) mg/dL Calcium 9.5 (8.4-10.2) mg/dL Total Bilirubin 0.5 (0.0-1.0) mg/dL AST 25 (5-31) U/L ALT 35 H (0-31) U/L Alkaline Phosphatase 52 (39-117) U/L Total Protein 7.1 (6.5-8.0) g/dL Albumin 4.1 (3.5-5.0) g/dL Lipase 18 (8-78) U/L Influenza Type A (PCR) NEGATIVE (Negative) Influenza Type B (PCR) NEGATIVE (Negative) RSV RNA Qual (PCR) NEGATIVE (Negative) SARS-CoV-2 RNA (RT-PCR) NEGATIVE (Negative) Discharge Plan Discharge Clinical Impression: Headache Patient Disposition: Left W/O Completing Treatment Prescriptions: No Action Linzess 145 mcg capsule 145 mcg PO DAILY Qty: 30 2RF tolterodine 4 mg capsule,extended release 24hr 4 mg PO BID 90 Days Qty: 180 2RF tramadol 50 mg tablet 50 mg PO Q8H PRN (Reason: pain) 30 Days Qty: 90 0RF pantoprazole 40 mg tablet,delayed release (DR/EC) 40 mg PO DAILY (DME) wrist splint See Rx Instructions .Route .MEDSUPPLY Qty: 2 0RF Rx Instructions: wear nightly & as much as possible throughout the day pregabalin 75 mg capsule 75 mg PO BEDTIME Qty: 30 5RF cholecalciferol (vitamin D3) 50 mcg (2,000 unit) capsule 50 mcg PO DAILY 90 Days Qty: 90 3RF atorvastatin 10 mg tablet 10 mg PO DAILY Qty: 90 0RF zolpidem 10 mg tablet 10 mg PO BEDTIME PRN (Reason: insomnia) 30 Days Qty: 30 0RF Discharge Date/Time: 10/10/24 17:31
--- NOTE | 2024-10-10 11:16 | ECG_ITS ---
Test Reason : dizziness Blood Pressure : */* mmHG Vent. Rate : 66 BPM Atrial Rate : 66 BPM P-R Int : 146 ms QRS Dur : 86 ms QT Int : 384 ms P-R-T Axes : 56 -11 24 degrees QTcB Int : 402 ms Normal sinus rhythm Low voltage QRS Cannot rule out Anterior infarct , age undetermined Abnormal ECG When compared with ECG of 01-Feb-2021 08:29, Criteria for Inferior infarct are no longer Present Referred By: Darwin Carlos Electronically Signed By: Abraham Stephens
[2024-10-10 12:10] LABS: MANUAL DIFF FLAG NO
[2024-10-10 12:18] LABS: Basophils Percent Auto 0.7 % (0-2); Eosinophils Absolute Auto 0.2 X10*3/uL (0.0-0.4); Eosinophils Percent Auto 3.2 % (0-4); Hematocrit 45.5 % (37.0-47.0); Hemoglobin 15.2 g/dl (12.0-16.0); Imm Gran Abs Auto 0.01 X10*3/uL (0.00-0.03); Imm Gran Pct Auto 0.2 % (0.0-0.4); Lymphocytes Absolute Auto 2.1 X10*3/uL (1.2-4.9); Lymphocytes Percent Auto 35.9 % (20-40); Mean Corpuscular HGB Conc 33.4 g/dl (31.0-35.0); Mean Corpuscular Hemoglobin 28.9 pg (27.0-33.0); Mean Corpuscular Volume 86.5 fL (80.0-98.0); Mean Platelet Volume 10.6 fL (9.4-12.3); Monocytes Absolute Auto 0.4 X10*3/uL (0.1-1.2); Monocytes Percent Auto 6.7 % (2-11); Neutrophils Absolute Auto 3.1 x10*3/uL (2.0-8.3); Neutrophils Percent Auto 53.3 % (45-73); Platelet Count 220 X10*3/uL (160-400); Red Blood Count 5.26 X10*6/uL (4.20-5.50); Red Cell Distribution Width 13.7 % (11.0-16.0); White Blood Count 5.9 X10*3/uL (4.8-10.8)
[2024-10-10 12:26] LABS: Alanine Aminotransferase 35 U/L (0-31); Albumin Level 4.1 g/dL (3.5-5.0); Alkaline Phosphatase 52 U/L (39-117); Anion Gap 12 (12-20); Aspartate Amino Transferase 25 U/L (5-31); Bilirubin Total 0.5 mg/dL (0.0-1.0); Blood Urea Nitrogen 14 mg/dL (9-16); Calcium 9.5 mg/dL (8.4-10.2); Carbon Dioxide 22 mmol/L (22-29); Chloride 109 mmol/L (96-108); Creatinine Clr Calc Pharmacy 94.1; Estimated Glomerular Filt Rate > 60; Glucose Random 105 mg/dL (60-115); Lipase 18 U/L (8-78); Potassium 4.3 mmol/L (3.3-5.1); Sodium 139 mmol/L (135-145); Total Protein 7.1 g/dL (6.5-8.0)
[2024-10-10 12:48] LABS: Influenza A PCR NEGATIVE (Negative); Influenza B PCR NEGATIVE (Negative); Resp Syncy Virus RNA Qual PCR NEGATIVE (Negative); SARS COV2 PCR INHOUSE NEGATIVE (Negative)
[2024-10-10 15:57] VITALS: BP 120/80; PULSE 72; RESP 16; TEMP 36.7; O2SAT 99
--- OUTSIDE RECORDS SUMMARY | 2024-10-10 19:11 | XMS_ITS | Clinical Summary ---
Author Organization [facility] [address] [facility] Address [address] [place] [phone] Phone Care Team Providers Care Psychology Tech Name Role Phone Jayna Chaudhry MD Primary Care Provider [phone] Allergies No known active allergies Medications tramadol [...] to the affected area nightly 30 g 08/22/2024 Active Active Problems Problem Noted Date Diagnosed [...] of infection. She was strictly counseled re: [facility] guidelines and given explicit written instructions for changes to make. I reviewed areas of application and amount of medication to use. She will return in 6 weeks. If note improved, will need a biopsy. GERD (gastroesophageal reflux disease) 3 Obesity 11/15/2012 Spider veins 11/15/2012 Encounters Date Type Department Care Team Description 07/13/2024 Telephone Obstetrics and Gynecology - [address] [phone] Marbella Mcclain MD 07/12/2024 2:30 PM EST Office Visit Obstetrics and Gynecology - [address] [phone] Marbella Mcclain MD Encounter for gynecological examination with abnormal finding (Primary Dx); Lichenification and lichen simplex chronicus from Last 3 Months Immunizations Name Administration Dates Next Due Tdap Tetanus diptheria acell ular pertussis (Boostrix; Adacel) 7yo and older 11/15/2012 Surgical History Surgery Date Site/Laterality Comments HYSTERECTOMY 2011 PROCEDURE: HISTORICAL VAGINAL HYSTERECTOMY W/O BSO; COMMENT: prolapse (had SEBASTIÁN first with cryo), in [place] CHOLECYSTECTOMY PROCEDURE: HISTORICAL CHOLECYSTECTOMY Family History Medical [...] for your loved ones. For example, child psychiatrist or elderly care for an older adult? [...] EDT Office Visit Obstetrics and Gynecology - [address] [phone] Melinda Solitario, [facility] [address] [place], [place] 02/14/2025 3:30 PM EDT Appointment Radiology Department - [address] [phone] Health Maintenance Due Date Last Done Comments [...] Vaccine (1 - season) 2024 Influenza Vaccine (Season Ended) 2025 Depression Screening 07/11/2025 07/11/2024 Social Influencers of [...] age to complete this topic Meningococcal B Vaccine Aged Out No l onger eligible based on patient's age to complete [...] Relevant to Health Maintenance Insurance * Guarantor: Hank Ashley Account Type Relation to Patient Date of Phone Billing Address Personal/Family Self 1970 [address] [facility] [address] [place] [address] [facility] Care Teams Psychology Tech Relationship Specialty Start Date End Date Jayna Chaudhry MD [address] [facility] , [address] [facility] D/B/A: [facility] PCP - General Internal Medicine 07/20/14
--- OUTSIDE RECORDS SUMMARY | 2024-10-10 19:11 | XMS_ITS | Clinical Summary ---
Author Organization [employer] Address [address] [place] [address] 7 [place] [address] Care Team Providers Care Agronomy Manager Name Role Phone Unavailable Primary Care Provider [...] Insurance [facility] STANDARD [facility] FULL
== END 2024-10-10 17:31 | disposition left against medical advice (07) ==
PROVIDERS: Physician Assistant; Emergency Provider Emergency Medicine; PCP Internal Medicine
DX: R42 Dizziness and giddiness (principal); M25.512 Pain in left shoulder; M25.511 Pain in right shoulder; R51.9 Headache, unspecified; M54.2 Cervicalgia; R94.31 Abnormal electrocardiogram [ECG] [EKG]; Z03.818 Encounter for observation for suspected exposure to other biological agents ruled out; Z79.899 Other long term (current) drug therapy
CPT/HCPCS: 0241U; 80053; 83690; 85025; 93005; 99283

== ENCOUNTER → 2024-10-10 11:16 | Outpatient (BNV) | payer OTHER, SELFPAY | PROVIDERS: PCP Internal Medicine; Visit Provider Internal Medicine Cardiovascular Disease | DX: R94.31 Abnormal electrocardiogram [ECG] [EKG] (principal); R42 Dizziness and giddiness | CPT/HCPCS: 93010 ==

== ENCOUNTER 2024-10-17 10:38 | Outpatient (AMB) | payer OTHER, SELFPAY ==
--- NOTE | 2024-10-17 10:41 | MHC.OFFVIS ---
Intake Visit Reasons: OV - Left knee MRI review Intake Note: Ashley is a 53 year old female who presents today for an MRI review of the left knee. Allergies trazodone Allergy (Intermediate, Verified 10/10/24 11:11) Insomnia gabapentin Adverse Reaction (Intermediate, Verified 10/10/24 11:11) dry mouth HPI HPI OV - Left knee MRI review: Details: Ashley is a 53 year old female who presents today for an MRI review of the left knee. She describes intermittent pain. She states occasionally she stands from a seated position and feels a pop in the front of her knee. This is occasionally painful. She describes pain behind the kneecap with stairs. She states she has had some injections in the past which have been mildly helpful. Today she had has no pain PFS Medical History Tubular adenoma of colon Nicotine dependence, cigarettes, uncomplicated Family history of breast cancer Epidermoid cyst of skin of cheek Diverticulitis Mild recurrent major depression Bloody stools Epigastric pain Right hip pain Left hip pain Depression Obese Kidney stone Hypovitaminosis D Pure hypercholesterolemia History of renal calculi Insomnia Arnold-Chiari malformation GERD (gastroesophageal reflux disease) Polyarthralgia Surgical History History of carpal tunnel surgery of right wrist History of hysterectomy History of transurethral resection of bladder tumor (TURBT) History of colonoscopy History of removal of cyst History of esophagogastroduodenoscopy (EGD) History of cryosurgery History of cholecystectomy Family History Father Diabetes Hypertension Cancer, Onset Age: 78 Mother Cancer Breast cancer, Onset Age: 53 Maternal Grandmother Stroke Maternal Grandfather Cancer Esophageal cancer Paternal Grandfather Cancer Maternal Uncle Cancer Brain cancer Sister Breast cancer, Onset Age: 48 Social History Household Members Other:: Housing: House Alcohol intake: never Patient Tobacco Use Status: Current everyday Tobacco user Tobacco use type: Cigarette Cigarettes Per Day: 6 Years Smoked: 20 e-Cigarette/Vaping Use: Never Used Second Hand Smoke Exposure: No service: No Current occupational status: employed 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 No effusion. No joint line tenderness. Negative Bob's. Hard to reproduce any pain. Patellofemoral tracking normal. Normal gait. Results Reviewed Results Reviewed: I personally reviewed the MR images. 1. Mild osteoarthritis of the medial and patellofemoral compartments. 2. Small radial tear involving the free edge of the posterior horn of the medial meniscus. 3. Incomplete discoid configuration of the lateral meniscus without evidence of a tear. Assessment & Plan Assessment & Plan (1) Osteoarthritis of left knee: Code(s): M17.12 - Unilateral primary osteoarthritis, left knee Category: Medical Qualifiers: Osteoarthritis type: primary Qualified Code(s): M17.12 - Unilateral primary osteoarthritis, left knee Plan: Mild left knee osteoarthritis that is occasionally painful. Not painful today. I do not recommend arthroscopic surgery. No evidence of mechanical locking. Occasional patellofemoral ?popping?. I recommend strengthening lower extremities. Follow up as needed but no orthopedic intervention warranted at this time. Coding Level of Care Code Est Pt Level 3 (39490) Diagnoses Primary osteoarthritis of left knee M17.12 Osteoarthritis type: primary
--- OUTSIDE RECORDS SUMMARY | 2024-10-17 12:07 | XMS_ITS | Clinical Summary ---
Author Organization [employer] Address [address] [place] [address] 7 [place] [address] Care Team Providers Care Zinc Plate Grainer Name Role Phone Unavailable Primary Care Provider [...] patient's age to complete this topic Insurance [facility] STANDARD [facility] FULL
--- OUTSIDE RECORDS SUMMARY | 2024-10-17 12:07 | XMS_ITS | Clinical Summary ---
Author Organization [facility] [address] [facility] Address [address] [place] [phone] Phone Care Team Providers Care Caregiver Services Home Name Role Phone Jayna Chaudhry MD Primary Care Provider [phone] Allergies No known active allergies Medications tramadol [...] of infection. She was strictly counseled re: [facility] guidelines and given explicit written instructions for changes to make. I reviewed areas of application and amount of medication to use. She will return in 6 weeks. If note improved, will need a biopsy. GERD (gastroesophageal reflux disease) 3 Obesity 11/15/2012 Spider veins 11/15/2012 Immunizations Name Administration Dates Next Due Tdap Tetanus diptheria acell ular pertussis (Boostrix; Adacel) 7yo and older 11/15/2012 Surgical History Surgery Date Site/Laterality Comments HYSTERECTOMY 2011 PROCEDURE: HISTORICAL VAGINAL HYSTERECTOMY W/O BSO; COMMENT: prolapse (had SEBASTIÁN first with cryo), in [place] CHOLECYSTECTOMY PROCEDURE: HISTORICAL CHOLECYSTECTOMY Family History Medical [...] for your loved ones. For example, child development associate teacher or elderly care for an older adult? [...] EDT Office Visit Obstetrics and Gynecology - [address] [phone] Melinda Solitario, CNM [address] [place], [place] 02/14/2025 3:30 PM EDT Appointment Radiology Department - [address] [phone] Health Maintenance Due Date Last Done Comments [...] COVID-19 Vaccine ( season) 2024 Influenza Vaccine (Season Ended) 2025 [...] Phone Billing Address Personal/Family Self 1970 [address] [facility] [address] [place] [address] [facility] Care Teams Caregiver Services Home Relationship Specialty Start Date End Date Jayna Chaudhry MD [address] [place] [address] , [address] [facility] Physician Associ D/B/A: [facility] PCP - General Internal Medicine 07/20/14
== END 2024-10-17 11:01 | disposition home or self-care (01) ==
LOC: HO.HOS 10:39
PROVIDERS: PCP Internal Medicine; Visit Provider Orthopaedic Surgery
DX: M17.12 Unilateral primary osteoarthritis, left knee (principal)
CPT/HCPCS: 99213

== ENCOUNTER → 2024-10-17 10:38 | Outpatient (BNVA) | payer OTHER, SELFPAY | PROVIDERS: PCP Internal Medicine; Visit Provider Orthopaedic Surgery | DX: M17.12 Unilateral primary osteoarthritis, left knee (principal) | CPT/HCPCS: 99212 ==

== ENCOUNTER → 2024-11-29 14:42 | Outpatient (REF) | payer OTHER, SELFPAY ==
--- OUTSIDE RECORDS SUMMARY | 2024-11-29 17:01 | XMS_ITS | Clinical Summary ---
Author Organization [employer] Address [address] [place] [address] 7t [place] [address] Care Team Providers Care Pickling Machine Operator Name Role Phone Unavailable Primary Care Provider [...] Screening 1970 SDOH Screening 1970 Sigmoidoscopy 1970 Disability Screening 1970 Alcohol/Substance Use Screening 1983 Tobacco Screening 1983 Hepatitis C Screening 10/23/1989 DTaP/Tdap/Td Vaccines (1 - Tdap) 10/23/1990 Hepatitis B Vaccines (1 of 3 - 19+ 3-dose series) 10/23/1990 Pap Smear 10/23/1992 Cervical Cancer Screening 10/23/2001 HPV/Cotest 10/23/2001 Mammogram 2011 Pneumococcal Vaccine: 50+ Ye ars (1 of 1 - PCV) 10/23/2021 Zoster Vaccines (1 of 2) 10/23/2021 COVID-19 Vaccine ( - 2023-2 5 season) 2024 Influenza Vaccine (Season Ended) 2025 RSV Patients and Pa tients Aged 60 [...] patient's age to complete this topic Insurance [facility] STANDARD [facility] [place] [address] [place] [address]
== END ==
LOC: HO.SL 14:42
PROVIDERS: PCP Internal Medicine; Visit Provider Internal Medicine
DX: G47.10 Hypersomnia, unspecified (principal); R06.83 Snoring; R40.0 Somnolence
CPT/HCPCS: 95806

== ENCOUNTER → 2024-11-29 14:52 | Outpatient (BNV) | payer OTHER, SELFPAY | PROVIDERS: PCP Internal Medicine; Visit Provider Internal Medicine | DX: R06.83 Snoring (principal) | CPT/HCPCS: 95806 ==

== ENCOUNTER 2024-12-13 16:42 | Outpatient (AMB) | payer OTHER, SELFPAY ==
--- OUTSIDE RECORDS SUMMARY | 2024-12-13 16:45 | XMS_ITS | Clinical Summary ---
Author Organization [facility] [address] [facility] Address [address] [place] [phone] Phone Care Team Providers Care Pearl Glue Drier Name Role Phone Arsh Chavez MD Primary Care Provider [phone] Allergies No known active allergies Medications tramadol [...] by mouth 2 (two) times a day. Active cholecalciferol (VITAMIN D-3) 10 mcg (400 [...] affected area nightly 30 g 5 Active Linzess 145 mcg capsule 5 Active meclizine (ANTIVERT) 25 mg tablet TAKE 1 TABLET BY MOUTH 2 TIMES A DAY NEEDED FOR DIZZINESS FOR 7 DAYS 5 Active Active Problems Problem Noted Date Diagnosed [...] of infection. She was strictly counseled re: C guidelines and given explicit written instructions for [...] Tobacco: Every Day Cigarettes Smokeless Tobacco: Never Tobacco Cessation:Ready to Q uit: Not Asked; Counseling Given: Not Answered Alcohol Use Standard Drinks/Week Comments No 0 [...] loved ones. For example, child and family therapist or elderly care for an older [...] Livin g Live Births 5 4 4 0 1 0 1 0 0 4 4 Date Outcome GA Total Labor Labor/2nd/3rd Weight Sex Type Anes PTL Yesika A1 A5 Name Clin Term Living Term Living Term Living Term Living SAB Last Filed Vital Signs Vital Sign Reading Time Taken Comments Blood Pressure 122/86 11/21/2024 9:40 AM EDT Pulse 70 11/21/2024 9:40 AM EDT Temperature - - Respiratory Rate 14 11/21/2024 9:40 AM EDT Oxygen Saturation - - Inhaled Oxygen Concentration - - Weight 85.5 kg (188 lb 9.6 oz) 11/21/2024 9:40 A M EDT Height 157.5 cm (5' 2 ) 11/21/2024 9:40 AM EDT Body Mass Index 34.5 11/21/2024 9:40 AM EDT Plan of Treatment Upcoming Encounters Date Type Department Care Team (Late st Contact Info) Description 02/14/2025 3:30 PM EDT Appointment Radiology Department [address] [phone] Health Maintenance Due Date Last Done Comments [...] Vaccine ( - season) 2024 Influenza Vaccine (Season Ended) 2025 Social Influencers of Health Screening 07/11/2025 07/11/2024 Depression Screening 11/16/2025 11/16/2024 Breast Cancer Screening 02/09/2026 02/10/20 24, 02/10/2024, [...] interpreted with the aid of computer-aided detection. Comparison is made with 02/06/2023 and as far back as 01/26/2020. Breast parenchyma is composed of scattered fibroglandular densities. No new suspicious mass, architectural distortion, or suspicious [...] Phone Billing Address Personal/Family Self 1970 [address] [facility] [address] [place] [address] [facility] [place] [address] Care Teams Pearl Glue Drier Relationship Specialty Start Date End Date Arsh Chavez MD [address] [facility] [address] [place] [address] PCP - General Oncology 11/18/24
--- OUTSIDE RECORDS SUMMARY | 2024-12-13 16:45 | XMS_ITS | Clinical Summary ---
Author Organization [employer] Address [address] [place] [address] 7 [place] [address] Care Team Providers Care Senior Java Programmer Name Role Phone Unavailable Primary Care Provider [...] patient's age to complete this topic Insurance [facility] STANDARD [facility] [place] [id number] [place] [id number]
--- NOTE | 2024-12-13 16:57 | A.OFFPC_ITS ---
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: No Accompanied by: Self / Same As Patient Allergies trazodone Allergy (Intermediate, Verified 12/13/24 17:31) Insomnia gabapentin Adverse Reaction (Intermediate, Verified 12/13/24 17:31) dry mouth Medication List - Last Reconciled 12/13/24 by Jayna Chaudhry MD atorvastatin 10 mg PO DAILY cholecalciferol (vitamin D3) 50 mcg PO DAILY 90 days linaclotide (Linzess) 145 mcg PO DAILY meclizine 25 mg PO BID PRN 7 days pantoprazole 40 mg PO DAILY pregabalin 75 mg PO BEDTIME tolterodine ER 4 mg PO BID 90 days tramadol 50 mg PO Q8H PRN 30 days [wrist splint wear nightly & as much as possible throughout the day] zolpidem 10 mg PO BEDTIME PRN 30 days Tobacco use date assessed: 09/15/24 Dental Screening Dental Screen Date: 09/15/24 HPI HPI Comments History of Present Illness Details The patient is a 54-year-old female presenting with shoulder and neck pain. The shoulder pain began several months ago and has progressively worsened, particularly with movement such as raising or moving the arm backward. The pain radiates from the shoulder to the neck and occasionally to the head, causing significant discomfort during activities like looking up or moving the arm. Has Arnold-Chiari malformation type 1 in which last MRI of the brain was stable and he was June 2023 and this will be repeated. The neck pain is described as intermittent and exacerbated by certain movements, such as looking up for extended periods. The patient reports that the pain is not constant but occurs with specific movements, impacting her daily activities and comfort. The patient has a history of fibromyalgia, which contributes to her chronic pain experience. She suspects that the shoulder pain might be related to tendinitis, although she is concerned about the involvement of the neck. The patient also experiences weight fluctuations, reporting episodes of weight loss followed by sudden swelling and weight gain. She denies having a good appetite and is concerned about the rapid changes in her weight, which she feels are not related to fluid retention. FOR[facility]LY [facility], [facility] Medical History (Updated 12/13/24 @ 17:47 by Jayna Chaudhry MD) Tubular adenoma of colon Nicotine dependence, cigarettes, uncomplicated Family history of breast cancer Epidermoid cyst of skin of cheek Diverticulitis Mild recurrent major depression Bloody stools Epigastric pain Right hip pain Left hip pain Depression Obese Kidney stone Hypovitaminosis D Pure hypercholesterolemia History of renal calculi Insomnia Arnold-Chiari malformation GERD (gastroesophageal reflux disease) Polyarthralgia Surgical History History of carpal tunnel surgery of right wrist History of hysterectomy History of transurethral resection of bladder tumor (TURBT) History of colonoscopy History of removal of cyst History of esophagogastroduodenoscopy (EGD) History of cryosurgery History of cholecystectomy Family History Father Diabetes Hypertension Cancer, Onset Age: 78 Mother Cancer Breast cancer, Onset Age: 53 Maternal Grandmother Stroke Maternal Grandfather Cancer Esophageal cancer Paternal Grandfather Cancer Maternal Uncle Cancer Brain cancer Sister Breast cancer, Onset Age: 48 Social History Household Members Other:: Housing: House Alcohol intake: never Patient Tobacco Use Status: Current everyday Tobacco user Tobacco use type: Cigarette Cigarettes Per Day: 6 Years Smoked: 20 Packs per year/per ci.00 e-Cigarette/Vaping Use: Never Used Second Hand Smoke Exposure: No service: No Current occupational status: employed 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 1. Little interest or pleasure in doing things: not at all 2. Feeling down, depressed, or hopeless: not at all 3. Trouble falling or staying asleep, or sleeping too much: nearly every day 4. Feeling tired or having little energy: nearly every day 5. Poor appetite or overeating: several days 6. Feeling bad about yourself - or that you are a failure or have let yourself or your family down: not at all 7. Trouble concentrating on things, such as reading the newspaper or watching television: not at all 8. Moving or speaking so slowly that other people could have noticed. Or the opposite - being so fidgety or restless that you have been moving around a lot more than usual: not at all 9. Thoughts that you would be better off or of hurting yourself in some way: not at all Total score: 7 Depression Screening Interpretation: Positive Depression Screening Follow-up: Existing condition, In treatment and Follow-up Visit Requested Depression Screening Done: Yes 88246 - PHQ-9 Billing: Yes Source: Developed by Drs. Arsh Mcintosh, Kristine Javier, Hemant Mabry and colleagues, with an educational sera from [employer]. Thrive Questionnaire Date Thrive assessed: 09/15/24 I am a: Patient What is your living situation today?: I have a steady place to live Within the past 12 months, did the food you bought not last and you didn't have the money to get more?: Never true Within the past 12 months, did you worry whether your food would run out before you got money to buy more?: Never true Do you have trouble paying for medicines?: No Do you have trouble getting transportation to medical appointments?: No Do you have trouble paying your heating and electricity bill?: No Do you have trouble taking care of your child, family member or friend?: No Do you have trouble with day-to-day activities such as bathing, preparing meals, shopping, managing finances, etc.?: No Are you currently unemployed and looking for a job?: No Are you interested in more education?: No Please select the resources that you would like help with: None Currently or been in a relationship where the following occur: I choose not to answer THRIVE Score: 0 AUDIT C Alcohol Use Questionnaire (AUDIT-C) 1. How often do you have a drink containing alcohol?: Never Total Score: 0 Score Reviewed/Action Taken: No DIDIER-7 AMB Questionnaire DIDIER-7 Date DIDIER - 7 assessed: 09/15/24 Feeling nervous, anxious, or on edge: 0 = Not at all Not being able to stop or control worryin = Not at all Worrying too much about different things: 0 = Not at all Trouble relaxin = Not at all Being so restless that it is hard to sit still: 0 = Not at all Becoming easily annoyed or irritable: 0 = Not at all Feeling afraid as if something awful might happen: 0 = Not at all Total DIDIER-7 score (0-4 normal; 5-9 mild; 10-14 moderate; 15-21 severe): 0 Source: Developed by Drs. Arsh Mcintosh, Kristine Javier, Hemant Mabry and colleagues, with an educational sera from [employer]. DIDIER-7 Assessment Billing DIDIER-7 Assessment Tool: DIDIER-7 Assessment 49010 Review of Systems Const All systems reviewed & are unremarkable except as noted in HPI and below ENT Reports neck pain Card Denies chest pain at rest, Denies chest pain with activity, Denies edema, Denies irregular heart rhythm, Denies claudication, Denies dyspnea, Denies dyspnea on exertion, Denies orthopnea, Denies paroxysmal nocturnal dyspnea and Denies slow heart rate Resp Denies cough, Denies dyspnea and Denies dyspnea on exertion GI Denies abdominal pain, Denies change in bowel habits, Denies excessive flatus, Denies nausea and Denies vomiting Denies urinary incontinence, Denies urinary hesitancy and Denies urinary urgency Musc Reports back pain, Reports arthralgias, Reports limited range of motion and Reports neck pain Physical exam (Primary Care) Vital Signs: Last Vital Signs BP 136/84 12/13/24 16:58 BMI result Body Mass Index 34.4 Tobacco/Smoking Status: Tobacco use Status Tobacco use date assessed 09/15/24 12/13/24 17:00 Patient Tobacco Use Status Current everyday Tobacco 12/13/24 17:00 Tobacco use type Cigarette 12/13/24 17:00 e-Cigarette/Vaping Use Never Used 12/13/24 17:00 PHQ-9: PHQ-9 Score PHQ-9: Total score 7 12/13/24 17:33 Depression Screening Interpretation: Positive Depression Screening Follow-up: Existing condition, In treatment and Follow-up Visit Requested Thrive Assessment: Date of Thrive Assessment Date Thrive assessed 09/15/24 12/13/24 17:00 Currently or been in a relationship where the following occur: I choose not to answer Resp Effort & Inspection: normal respiratory effort Auscultation: clear to auscultation bilaterally Cardio Jugular venous distension: no JVD Rate: regular rate Rhythm: regular rhythm Heart sounds: S1 normal heart sound present and S2 normal heart sound present Extrem General: Yes full ROM Coding Level of Care Code Est Pt Level 4 (89961) Complex EM visit Add On G2211 Diagnoses Mild recurrent major depression F33.0 Pure hypercholesterolemia E78.00 Chronic idiopathic constipation K59.04 Gastroesophageal reflux disease, unspecified whether esophagitis present K21.9 Esophagitis presence: esophagitis presence not specified Neck pain M54.2 Left shoulder pain M25.512 Fibromyalgia M79.7 Arnold-Chiari malformation Q07.00 Additional Codes DIDIER-7 Assessment Billing - DIDIER-7 Assessment Tool: DIDIER-7 Assessment 82085 ([id number]) PHQ-9 - 81792 - PHQ-9 Billing: Yes ([id number]) Time Spent (min) 23 Assessment & Plan Assessment & Plan (1) Mild recurrent major depression: Code(s): F33.0 - Major depressive disorder, recurrent, mild Category: Medical (2) Pure hypercholesterolemia: Code(s): E78.00 - Pure hypercholesterolemia, unspecified Category: Medical (3) Chronic idiopathic constipation: Code(s): K59.04 - Chronic idiopathic constipation Category: Medical (4) GERD (gastroesophageal reflux disease): Code(s): K21.9 - Gastro-esophageal reflux disease without esophagitis Category: Medical Qualifiers: Esophagitis presence: esophagitis presence not specified Qualified Code(s): K21.9 - Gastro-esophageal reflux disease without esophagitis (5) Neck pain: Code(s): M54.2 - Cervicalgia Category: Medical (6) Left shoulder pain: Code(s): M25.512 - Pain in left shoulder Category: Medical (7) Fibromyalgia: Code(s): M79.7 - Fibromyalgia Category: Medical (8) Arnold-Chiari malformation: Code(s): Q07.00 - Arnold-Chiari syndrome without spina bifida or hydrocephalus Category: Medical Plan The plan includes obtaining imaging studies for the neck and shoulder to assess the underlying cause of the pain. Referral to an orthopedist is recommended for further evaluation and management of the shoulder pain, with the possibility of ordering an MRI if necessary. The patient is advised to continue current medications, including tramadol and Lyrica, for pain management. Additional laboratory tests to evaluate inflammation markers are suggested to investigate the cause of weight fluctuations. Patient was informed and verbally consented to the use of an ambient scribe for clinic note documentation during this visit. Orders: Orders XR shoulder LT min 2V 12/13/24 M25.512 - Pain in left shoulder XR cervical spine 2V 12/13/24 M54.2 - Cervicalgia Erythrocyte Sedimentation Rate 12/13/24 M54.2 - Cervicalgia C Reactive Protein 12/13/24 M25.50 - Pain in unspecified joint MR head/brain wo con 12/13/24 Q07.00 - Arnold-Chiari syndrome without spina bifida or hydrocephalus
[2024-12-13 16:58] VITALS: BP 136/84; BMI 34.4
== END 2024-12-13 17:47 | disposition home or self-care (01) ==
LOC: HO.HMCH 16:43
PROVIDERS: PCP Internal Medicine; Visit Provider Internal Medicine
DX: E78.00 Pure hypercholesterolemia, unspecified (principal); F33.0 Major depressive disorder, recurrent, mild; Q07.00 Arnold-Chiari syndrome without spina bifida or hydrocephalus; K59.04 Chronic idiopathic constipation; K21.9 Gastro-esophageal reflux disease without esophagitis; M54.2 Cervicalgia; M25.512 Pain in left shoulder; M79.7 Fibromyalgia

== ENCOUNTER → 2024-12-13 16:42 | Outpatient (BNVA) | payer OTHER, SELFPAY | PROVIDERS: PCP Internal Medicine; Visit Provider Internal Medicine | DX: M54.2 Cervicalgia (principal); M25.512 Pain in left shoulder; M79.7 Fibromyalgia; F33.0 Major depressive disorder, recurrent, mild; E78.00 Pure hypercholesterolemia, unspecified; K59.04 Chronic idiopathic constipation; K21.9 Gastro-esophageal reflux disease without esophagitis; Q07.00 Arnold-Chiari syndrome without spina bifida or hydrocephalus | CPT/HCPCS: 96127; 99212 ==

== ENCOUNTER 2024-12-21 08:48 | Outpatient (REF) | payer OTHER, SELFPAY ==
--- NOTE | ~2024-12-21 | XR_ITS ---
EXAMINATION: XR CERVICAL SPINE 2-3 VIEWS HISTORY: M54.2 - Cervicalgia COMPARISON: Comparison is made with the prior examination dated 03/03/2023. FINDINGS: AP, lateral, swimmer's, and open-mouth odontoid views of the cervical spine are submitted. Osseous mineralization is normal. Seven cervical vertebral bodies are identified maintaining normal height and alignment without evidence of fracture or subluxation. There is mild degenerative disc disease with disc space narrowing and osteophyte formation. There is osteoarthritis of the facet joints. The odontoid and lateral masses of C1 are intact. There is no prevertebral soft tissue swelling. Calcifications in the left neck are likely related to the internal carotid artery. XR/XR cervical spine 2V IMPRESSION: Mild degenerative disc disease. Electronically signed by: Arsh Edwards MD 12/21/2024 09:50 AM EDT
--- NOTE | ~2024-12-21 | XR_ITS ---
EXAMINATION: XR SHOULDER 2 OR MORE VIEWS LEFT HISTORY: M25.512 - Pain in left shoulder COMPARISON: There are no prior studies available for comparison. FINDINGS: Four views of the left shoulder are submitted. Osseous mineralization is normal. There is no fracture or dislocation. The glenohumeral joint is maintained. There is mild narrowing of the AC joint. A linear soft tissue calcification adjacent to the greater tuberosity of humerus is likely related to the rotator cuff. XR/XR shoulder LT min 2V IMPRESSION: 1. Mild narrowing of the AC joint. 2. Probable rotator cuff calcification as described. Electronically signed by: Arsh Edwards MD 12/21/2024 09:48 AM EDT
--- OUTSIDE RECORDS SUMMARY | 2024-12-21 09:02 | XMS_ITS | Clinical Summary ---
Author Organization [facility] [address] 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 For example, childbirth educator or elderly care for an older adult? [...] 02/14/2025 3:30 PM EDT Appointment Radiology Department [address] [phone] Health Maintenance Due Date Last Done Comments Hepatitis B Vaccines (1 of 3 - 19+ 3-dose series) 10/23/1990 Pneumococcal Vaccine: 50+ Years (1 of 2 - PCV) 10/23/1990 Pneumococcal Vaccine: Pediatrics (0 to 5 Years) and At-Risk Patients (6 to 49 Years) (1 of 2 - PCV) 10/23/1990 Zoster Vaccines (1 of 2) 10/23/2021 Cholesterol Screening (Lipid Panel) 05/24/2022 11/15/2012 Colorectal Cancer Screening: Colonoscopy 05/24/2022 HIV Screening 05/24/2022 Hepatitis C Screening 05/24/2022 DTaP,Tdap,and Td Vaccines (2 - Td or Tdap) 11/15/2022 11/15/2012 COVID-19 Vaccine ( - season) 2024 Influenza Vaccine (#1) 2025 Social Influencers of Health Screening 07/11/2025 [...] Phone Billing Address Personal/Family Self 1970 [address] [place] [address] [facility] [place] [address] Care Teams Propulsion Motor And Generator Repairer Relationship Specialty Start Date End Date Arsh Chavez MD [address] [facility] [address] [place] [address] PCP - General Oncology 11/18/24
--- OUTSIDE RECORDS SUMMARY | 2024-12-21 09:02 | XMS_ITS | Clinical Summary ---
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 [place] [address] [place] [address]
== END 2024-12-21 08:49 | disposition home or self-care (01) ==
LOC: HO.XRAY 08:48
PROVIDERS: PCP Internal Medicine; Visit Provider Internal Medicine
DX: M50.30 Other cervical disc degeneration, unspecified cervical region (principal); M25.512 Pain in left shoulder
CPT/HCPCS: 36415; 72040; 73030; 85652; 86140

== ENCOUNTER → 2024-12-21 09:02 | Outpatient (BNV) | payer OTHER, SELFPAY | PROVIDERS: PCP Internal Medicine; Visit Provider Radiology Diagnostic Radiology | DX: M54.2 Cervicalgia (principal); M19.012 Primary osteoarthritis, left shoulder | CPT/HCPCS: 72040; 73030 ==

== ENCOUNTER 2024-12-25 19:43 | Outpatient (REF) | payer OTHER, SELFPAY ==
--- NOTE | ~2024-12-25 | MR_ITS ---
CLINICAL HISTORY: Q07.00 - Arnold-Chiari syndrome without spina bifida or hydrocephalus MR Brain without gadolinium Comparison: MR/REG/HI/SR - MR HEAD/BRAIN WO CON - 06/19/23 14:02 EST Findings: No restricted diffusion. No intra-axial mass or hemorrhage. No midline shift. No hydrocephalus. Vascular flow voids are intact. Note again made of protrusion of the cerebellar tonsils through the foramen magnum by approximately 6 mm. The orbits are normal. The sinuses and mastoid air cells are clear. No focal bone lesion. IMPRESSION: No acute findings. Similar appearing Chiari malformation. This document has been electronically signed by: Daniel Duran MD on 12/27/2024 11:28:25
== END 2024-12-25 19:44 | disposition home or self-care (01) ==
LOC: HO.MRI 19:43
PROVIDERS: PCP Internal Medicine; Visit Provider Internal Medicine
DX: Q07.00 Arnold-Chiari syndrome without spina bifida or hydrocephalus (principal)
CPT/HCPCS: 70551

== ENCOUNTER → 2024-12-25 19:56 | Outpatient (BNV) | payer OTHER, SELFPAY | PROVIDERS: PCP Internal Medicine; Visit Provider Radiology Vascular & Interventional Radiology | DX: Q07.00 Arnold-Chiari syndrome without spina bifida or hydrocephalus (principal) | CPT/HCPCS: 70551 ==

== ENCOUNTER 2025-01-04 09:49 | Outpatient (AMB) | payer OTHER, SELFPAY ==
[2025-01-04 10:01] VITALS: BP 140/82; PULSE 72; O2SAT 98; BMI 34.7
--- NOTE | 2025-01-04 10:01 | A.OFFVIS_ITS ---
Vital Signs 01/04/25 10:01 Height 5 ft 2 in Weight 190 lb BMI 34.7 BP 140/82 H Blood Pressure Location Lt brachial Position Sitting Pulse 72 Pulse Source Pulse Oximeter Pulse Oximetry (%) 98 Oxygen Delivery Method Room Air Intake Visit Reasons: FMS Intake Note: Patient presents today for follow up on FMS. Patient complains of left shoulder/arm pain for 2 months. Her PCP ordered x-ray, would like Dr. Scott to check it out. Allergies trazodone Allergy (Intermediate, Verified 01/04/25 10:04) Insomnia gabapentin Adverse Reaction (Intermediate, Verified 01/04/25 10:04) dry mouth Medication List - Last Reconciled 01/04/25 by Michelle Scott MD atorvastatin 10 mg PO DAILY cholecalciferol (vitamin D3) 50 mcg PO DAILY 90 days linaclotide (Linzess) 145 mcg PO DAILY meclizine 25 mg PO BID PRN 7 days pantoprazole 40 mg PO DAILY 90 days pregabalin 75 mg PO BEDTIME tolterodine ER 4 mg PO BID 90 days tramadol 50 mg PO Q8H PRN 30 days [wrist splint wear nightly & as much as possible throughout the day] zolpidem 10 mg PO BEDTIME PRN 30 days HPI Comments Details: Patient is a 54-year-old female with depression, history of for diverticulitis, hypertension, hyperlipidemia, GERD, history of tubular adenoma of the colon, polyarticular osteoarthritis and fibromyalgia here today for follow up Interval History: Patient last seen 06/22/[address] Osuna. - S/p right carpal tunnel and cubital tunnel release procedures - Plans to do the left - continues to have diffuse pain Today - Continues to have diffuse pain - Complaining of left shoulder pain. for the past 2-3 months. At rest there is no pain but pain with movement and even involves the neck. Difficulty with shoulder abduction Rheumatologic History: Initial history: This is a 52-year-old female who was referred for fibromyalgia evaluation. Patient was started on Lyrica about 6 months ago by her PCP and she was told by her PCP that if she is to continue Lyrica her insurance requires her to be seen by Rheumatology. Patient was evaluated by Dr. Carrillo about 2 years ago and no evidence of autoimmune rheumatic disease was found. Patient states that gabapentin caused dry mouth, she had diarrhea with duloxetine. She feels about 70% improvement in her overall pain with Lyrica but she wakes up with 2 seconds of dizziness that rapidly self-resolved. She would like to continue taking Lyrica. Over the last 2 years she has been having neck stiffness. Worse with certain movements. She was diagnosed with bilateral carpal tunnel syndrome, worse on the right hand. The test was done back in . She was evaluated by hand surgeon who told her they would have to do 1 hand followed by the other hand, patient did not want to go through the surgery as she could not be out of work for such a long period of time. She preferred to do both hands in the same setting. Continues to have bilateral carpal tunnel symptoms. She had wrist splints in the past but she lost them. Current Rheumatology Medication(s): Lyrica 75mg nightly PFSH Medical History Tubular adenoma of colon Nicotine dependence, cigarettes, uncomplicated Family history of breast cancer Epidermoid cyst of skin of cheek Diverticulitis Mild recurrent major depression Bloody stools Epigastric pain Right hip pain Left hip pain Depression Obese Kidney stone Hypovitaminosis D Pure hypercholesterolemia History of renal calculi Insomnia Arnold-Chiari malformation GERD (gastroesophageal reflux disease) Polyarthralgia Surgical History History of carpal tunnel surgery of right wrist History of hysterectomy History of transurethral resection of bladder tumor (TURBT) History of colonoscopy History of removal of cyst History of esophagogastroduodenoscopy (EGD) History of cryosurgery History of cholecystectomy Family History Father Diabetes Hypertension Cancer, Onset Age: 78 Mother Cancer Breast cancer, Onset Age: 53 Maternal Grandmother Stroke Maternal Grandfather Cancer Esophageal cancer Paternal Grandfather Cancer Maternal Uncle Cancer Brain cancer Sister Breast cancer, Onset Age: 48 Social History Household Members Other:: Housing: House Alcohol intake: never Patient Tobacco Use Status: Current everyday Tobacco user Tobacco use type: Cigarette Cigarettes Per Day: 6 Years Smoked: 20 e-Cigarette/Vaping Use: Never Used Second Hand Smoke Exposure: No service: No Current occupational status: employed Current occupation: [employer]ING [employer]/rt handed Current occupational exposures/hazards: No Cognitive needs: No Hearing needs: No Vision needs: Yes Review of Systems Const Details: Review of Systems Constitutional: Denies fever, chills, weight loss ENT: Denies vision changes, eye pain or eye redness, dental caries, dry mouth GI: Denies nausea, vomiting, diarrhea, abdominal pain, change in BM Pulm: Denies SOB, ELENA, hemoptysis, wheezing Cards: Denies chest pain, palpitations Skin: Denies Raynaud's, rash, nail changes, photosensitivity, SOCIAL SCIENCES INSTRUCTOR: Denies headaches, weakness, paresthesias, recurrent falls MSK: as per HPI All other systems reviewed and are unremarkable except noted above Physical Exam Exam Exam: Vital signs reviewed Physical Examination CONSTITUITIONAL Patient alert and cooperative. Well appearing and in no apparent painful distress HEENT Conjunctiva and sclera clear. No lymphadenopathy. MSK Hands * Right Hand: Able to make a fist. No swelling or tenderness to palpation of these joints. No deformities noted. * Left Hand: Able to make a fist. No swelling or tenderness to palpation of these joints. No deformities noted. Wrists * Right Wrist: Full ROM. 70 degrees of wrist flexion, 80 degrees of wrist extension. No swelling or TTP * Left Wrist: Full ROM. 70 degrees of wrist flexion, 80 degrees of wrist extens ion. No swelling or TTP Elbows * Right Elbow: Full ROM. No swelling or TTP. No TTP of the medial and lateral epicondyles * Left Elbow: Full ROM. No swelling or TTP. No TTP of the medial and lateral ep icondyles Shoulders * Right shoulder: Decreased ROM. No swelling noted. No TTP of the AC joint, subacromial bursa or posterior shoulder * Left shoulder: Decreased ROM. No swelling noted. No TTP of the AC joint or posterior shoulder. TTP of subacromial bursa Knees * Right knee: Full ROM. No swelling noted. No TTP of the knee joint lie or pes anserine bursa * Left knee: Full ROM. No swelling noted. No TTP of the knee joint lie. TTP of the pes anserine bursa. * Crepitations felt bilaterally Ankles * Right ankle: Good ankle dorsiflexion and plantar flexion. No swelling. No TTP of the ankle joint * Left ankle: Good ankle dorsiflexion and plantar flexion. No swelling. No TTP of the ankle joint Feet * Right foot: Negative squeeze test * Left foot: Negative squeeze test Tender points? * Tenderness to palpation of the bilateral trapezius, supraspinatus, anterior costochondral junctions, bilateral suboccipital muscle insertions SKIN No rashes Vital Signs: Last Vital Signs Pulse 72 01/04/25 10:01 BP 140/82 H 01/04/25 10:01 Pulse Ox 98 01/04/25 10:01 Oxygen Delivery Method Room Air 01/04/25 10:01 BMI result Body Mass Index 34.7 Office Procedures AMB Joint Injection/Aspiration Joint Injection/Aspiration Details: Procedure was explained to the patient and informed consent was obtained. ? Risks associated with the procedure were discussed with the patient including but not limited to bleeding, infection, drug reactions and reactions to the topical anesthetic. Patient made aware of signs to look out for infectious complications. The area of interest was identified and confirmed with patient. ?This was subsequently cleaned with chlorhexidine x 2. ? The area was then anesthetized using ethyl chloride spray. 40 mg Kenalog with 1 cc 1% lidocaine was injected without issue. ?Minimal to no bleeding. ?Patient tolerated procedure. Primary Site: left shoulder Prep: site was prepped using aseptic technique and ethochloride spray was applied Injected: 40 mg of, Kenalog, with 1 mL of, 1% plain lidocaine and in the subcromial space Procedure: The patient tolerated the procedure well Coding 98713 - Large joint Procedure code (CPT) selection complete Office Meds lidocaine (PF) 10 mg/mL (1 %) injection solution Performing Provider: Michelle Scott MD Performing Location: [facility] [place] Rheumatology Administered by: Michelle Scott MD on 01/04/25 11:04 Dose Route Admin Location Dispensed Lot Number Expiration Date [facility] Sample Taker Operator 1 mL Infiltration left subacromial bursa 2 mL [id number] 08/13/26 633 [id number] [employer] Total Dispensed Waste 2 mL 50 % Kenalog 40 mg/mL suspension for injection Performing Provider: Michelle Scott MD Performing Location: [facility] [place] Rheumatology Administered by: Michelle Scott MD on 01/04/25 11:04 Dose Route Admin Location Dispensed Lot Number Expiration Date [facility] Sample Taker Operator 40 mg intrabursal left subacromial bursa 1 mL [id number] 09/13/25 812 [id number] [employer] Total Dispensed Waste 1 mL 0 % Results Reviewed Results Reviewed: XR Left Shoulder 12/2024 FINDINGS: Four views of the left shoulder are submitted. Osseous mineralization is normal. There is no fracture or dislocation. The glenohumeral joint is maintained. There is mild narrowing of the AC joint. A linear soft tissue calcification adjacent to the greater tuberosity of humerus is likely related to the rotator cuff. IMPRESSION: 1. Mild narrowing of the AC joint. 2. Probable rotator cuff calcification as described. Assessment & Plan Assessment & Plan (1) Subacromial bursitis of left shoulder joint: Code(s): M75.52 - Bursitis of left shoulder Plan: #Subacromial bursitis of the left shoulder/Rotator cuff disease Patient with fibromyalgia here today with complaints of left shoulder. XR showing some AC OA and possible calcific tendonitis with calcium deposits noted in the rotator cuff. Discussed that she needs PT and patient willing to go Plan - s/p steroid injection - PT referral (2) Fibromyalgia: Code(s): M79.7 - Fibromyalgia Category: Medical Plan: #Fibromyalgia Patient with fibromyalgia continuing to have widespread pain Discussed light exercises Sister has a pool, encouraged her to do water based exercises Plan - Increase pregabalin to 75mg bid Plan I spent 28 minutes reviewing the record and labs, taking a history, examining the patient, discussing the treatment plan, ordering diagnostic work up, counselling on fibromyalgia and documenting in the medical record Orders: Orders AMB Joint Injection/Aspiration Today M75.52 - Bursitis of left shoulder PT Evaluation and Treatment Today S46.002A - Unspecified injury of muscle(s) and tendon(s) of the rotator cuff of left shoulder, initial encounter Medications: Changed From pregabalin 75 mg PO BEDTIME 30 caps 5RF M79.7 - Fibromyalgia To pregabalin 75 mg PO BID 60 caps 5RF M79.7 - Fibromyalgia Refilled pregabalin 75 mg PO BEDTIME 30 caps 5RF M79.7 - Fibromyalgia Coding Level of Care Code Est Pt Level 3 (50561) Diagnoses Subacromial bursitis of left shoulder joint M75.52 Fibromyalgia M79.7 CPT Codes Coding - 32501 Large joint: 99248 - Large joint ([id number])
--- OUTSIDE RECORDS SUMMARY | 2025-01-04 10:28 | XMS_ITS | Clinical Summary ---
Author Organization [employer] Address [address] [place] [address] [address] [place] [address] Care Team Providers Care Director Information Name Role Phone Unavailable Primary Care Provider [...] patient's age to complete this topic Insurance [facility] STANDARD [facility] [place] [address] [place] [id number]
--- OUTSIDE RECORDS SUMMARY | 2025-01-04 10:28 | XMS_ITS | Clinical Summary ---
Author Organization [facility] [address] [facility] Address [address] [place] [phone] Phone Care Team Providers Care Director Quality Systems Name Role Phone Arsh Chavez MD Primary Care Provider [phone] Allergies No known active allergies Medications tramadol [...] prolapse (had SEBASTIÁN first with cryo), in [place] CHOLECYSTECTOMY PROCEDURE: HISTORICAL CHOLECYSTECTOMY Family History Medical [...] for your loved ones. For example, child psychologist or elderly care for an older adult? [...] 02/14/2025 3:30 PM EDT Appointment Radiology Department [address] [phone] Health Maintenance Due Date Last Done Comments Hepatitis B Vaccines (1 of 3 - 19+ 3-dose series) 10/23/1990 Pneumococcal Vaccine: 50+ Years (1 of 2 - PCV) 10/23/1990 Zoster Vaccines (1 of 2) 10/23/2021 Cholesterol Screening (Lipid Panel) 05/24/2022 11/15/2012 Colorectal Cancer Screening: Colonoscopy 05/24/2022 HIV Screening 05/24/2022 Hepatitis C Screening 05/24/2022 DTaP,Tdap,and Td Vaccines (2 - Td or Tdap) 11/15/2022 11/15/2012 COVID-19 Vaccine (1 - season) 2024 Influenza Vaccine (#1) 2025 Social Influencers of Health Screening 07/11/2025 07/11/2024 Breast Cancer Screening 02/09/2026 02/10/20 24, 02/10/2024, 02/06/2023, Additional history exists Depression Screening Completed 11/16/2024 HIB Vaccines Aged Out No longer eligi [...] Phone Billing Address Personal/Family Self 1970 [address] [place] [address] [facility] [place] [address] Care Teams Director Quality Systems Relationship Specialty Start Date End Date Arsh Chavez MD [address] [facility] [address] [place] [address] PCP - General Oncology 11/18/24
== END 2025-01-04 10:59 | disposition home or self-care (01) ==
LOC: HO.RHE 09:50
PROVIDERS: PCP Internal Medicine; Visit Provider Student in an Organized Health Care Education/Training Program
DX: M75.52 Bursitis of left shoulder (principal); M79.7 Fibromyalgia
CPT/HCPCS: 20610; 99213

== ENCOUNTER → 2025-01-04 09:49 | Outpatient (BNVA) | payer OTHER, SELFPAY | PROVIDERS: PCP Internal Medicine; Visit Provider Student in an Organized Health Care Education/Training Program | DX: M75.52 Bursitis of left shoulder (principal); M79.7 Fibromyalgia | CPT/HCPCS: 20610; 99212; J2003; J3300 ==

== ENCOUNTER 2025-01-16 07:27 | Outpatient (REF) | payer OTHER, SELFPAY ==
--- OUTSIDE RECORDS SUMMARY | 2025-01-16 07:30 | XMS_ITS | Clinical Summary ---
Author Organization [employer] Address [address] [place] [address] [address] [place] [address] Care Team Providers Care Seed Production Field Supervisor Name Role Phone Unavailable Primary Care Provider [...] patient's age to complete this topic Insurance [facility] STANDARD [facility] [place] [address] [place] [address]
--- OUTSIDE RECORDS SUMMARY | 2025-01-16 07:30 | XMS_ITS | Clinical Summary ---
Author Organization [facility] [address] [facility] Address [address] [place] [phone] Phone Care Team Providers Care Turn Out Worker Name Role Phone Arsh Chavez MD Primary Care Provider [phone] Allergies No known active allergies Medications tramadol [...] prolapse (had SEBASTIÁN first with cryo), in [place] CHOLECYSTECTOMY PROCEDURE: HISTORICAL CHOLECYSTECTOMY Family History Medical [...] care for your loved ones. For example, attendant child activity or elderly care for an older adult? [...] 02/14/2025 3:30 PM EDT Appointment Radiology Department [address] [phone] Health Maintenance Due Date Last Done Comments [...] Personal/Family Self [address] [place] [address] [facility] Care Teams Turn Out Worker Relationship Specialty Start Date End Date Arsh Chavez MD [address] [facility] [address] [place] [address] PCP - General Oncology 11/18/24
[2025-01-16 08:43] LABS: Alanine Aminotransferase 28 U/L (0-31); Albumin Level 4.4 g/dL (3.5-5.0); Alkaline Phosphatase 57 U/L (39-117); Anion Gap 12 (12-20); Aspartate Amino Transferase 23 U/L (5-31); Blood Urea Nitrogen 20 mg/dL (9-16); Calcium 9.0 mg/dL (8.4-10.2); Carbon Dioxide 26 mmol/L (22-29); Chloride 110 mmol/L (96-108); Cholesterol 149 mg/dL (<200); Estimated Glomerular Filt Rate > 60; HDL Cholesterol 51 mg/dL (>40); Potassium 4.1 mmol/L (3.3-5.1); Sodium 144 mmol/L (135-145); Total Protein 7.0 g/dL (6.5-8.0); Triglycerides 62 mg/dL (<150)
== END 2025-01-16 07:28 | disposition home or self-care (01) ==
LOC: HO.LAB 07:27
PROVIDERS: PCP Internal Medicine; Visit Provider Internal Medicine
DX: E78.5 Hyperlipidemia, unspecified (principal); E55.9 Vitamin D deficiency, unspecified; E78.00 Pure hypercholesterolemia, unspecified
CPT/HCPCS: 36415; 80053; 80061; 82306

== ENCOUNTER 2025-01-23 14:52 | Outpatient (AMB) | payer OTHER, SELFPAY ==
[2025-01-23 14:55] VITALS: BP 130/62; PULSE 80; RESP 18; O2SAT 96; BMI 33.9
--- NOTE | 2025-01-23 14:55 | A.OFFPC_ITS ---
Vital Signs 01/23/25 14:55 Height 5 ft 2 in Weight 185 lb 2 oz BMI 33.9 BP 130/62 Blood Pressure Location Lt brachial Position Sitting Respiration 18 Pulse 80 Pulse Source Pulse Oximeter Temp Source Temporal Artery Scan Pulse Oximetry (%) 96 Oxygen Delivery Method Room Air Intake Visit Reasons: lipids Chairman Emeritus Required: No Accompanied by: Self / Same As Patient Allergies trazodone Allergy (Intermediate, Verified 01/23/25 15:10) Insomnia gabapentin Adverse Reaction (Intermediate, Verified 01/23/25 15:10) dry mouth Medication List - Last Reconciled 01/23/25 by Jayna Chaudhry MD atorvastatin 10 mg PO DAILY cholecalciferol (vitamin D3) 50 mcg PO DAILY 90 days linaclotide (Linzess) 145 mcg PO DAILY meclizine 25 mg PO BID PRN 7 days pantoprazole 40 mg PO DAILY 90 days pregabalin 75 mg PO BID tolterodine ER 4 mg PO BID 90 days tramadol 50 mg PO Q8H PRN 30 days [wrist splint wear nightly & as much as possible throughout the day] zolpidem 10 mg PO BEDTIME PRN 30 days Tobacco use date assessed: 01/23/25 Dental Screening Dental Screen Date: 01/23/25 Did you have a dental visit in the last 12 months?: Yes Did you have a dental problem in the last 6 months where you did not have access to dental care?: No Was dental information given to patient?: Patient has dentist HPI HPI Comments History of Present Illness Details The patient is a 54-year-old female presenting with the management of multiple chronic conditions, including hyperlipidemia and osteoarthritis. Hyperlipidemia has been managed with atorvastatin 10 mg, which the patient reports has significantly improved her cholesterol levels. The patient adheres to her medication regimen, and recent laboratory results indicate favorable cholesterol levels. The patient has a history of Arnold-Chiari Malformation, which has been stable as per recent MRI findings. No new symptoms have been reported, and the condition remains unchanged. The patient experiences constipation, for which she takes linaclotide as needed. Gastroesophageal reflux disease is managed with pantoprazole, used intermittently to avoid potential side effects. Fibromyalgia is a known condition for the patient, contributing to her chronic pain profile. She reports significant pain in the shoulder, attributed to rotator cuff calcification and osteoarthritis, which limits her range of motion and daily activities. Previous interventions, including corticosteroid injections, have not provided lasting relief. The patient has been post-menopausal since age 41 due to a hysterectomy, and she experiences insomnia, for which zolpidem is used as needed. [facility]LY [facility] Medical History (Updated 01/23/25 @ 15:19 by Jayna Chaudhry MD) Tubular adenoma of colon Nicotine dependence, cigarettes, uncomplicated Family history of breast cancer Epidermoid cyst of skin of cheek Diverticulitis Mild recurrent major depression Bloody stools Epigastric pain Right hip pain Left hip pain Depression Obese Kidney stone Hypovitaminosis D Pure hypercholesterolemia History of renal calculi Insomnia Arnold-Chiari malformation GERD (gastroesophageal reflux disease) Polyarthralgia Surgical History History of carpal tunnel surgery of right wrist History of hysterectomy History of transurethral resection of bladder tumor (TURBT) History of colonoscopy History of removal of cyst History of esophagogastroduodenoscopy (EGD) History of cryosurgery History of cholecystectomy Family History Father Diabetes Hypertension Cancer, Onset Age: 78 Mother Cancer Breast cancer, Onset Age: 53 Maternal Grandmother Stroke Maternal Grandfather Cancer Esophageal cancer Paternal Grandfather Cancer Maternal Uncle Cancer Brain cancer Sister Breast cancer, Onset Age: 48 Social History Household Members Other:: Housing: House Alcohol intake: never Patient Tobacco Use Status: Current everyday Tobacco user Tobacco use type: Cigarette Cigarettes Per Day: 6 Years Smoked: 20 Packs per year/per ci.00 e-Cigarette/Vaping Use: Never Used Second Hand Smoke Exposure: No service: No Current occupational status: employed 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 1. Little interest or pleasure in doing things: not at all 2. Feeling down, depressed, or hopeless: not at all 3. Trouble falling or staying asleep, or sleeping too much: nearly every day 4. Feeling tired or having little energy: nearly every day 5. Poor appetite or overeating: several days 6. Feeling bad about yourself - or that you are a failure or have let yourself or your family down: not at all 7. Trouble concentrating on things, such as reading the newspaper or watching television: not at all 8. Moving or speaking so slowly that other people could have noticed. Or the opposite - being so fidgety or restless that you have been moving around a lot more than usual: not at all 9. Thoughts that you would be better off or of hurting yourself in some way: not at all Total score: 7 Depression Screening Interpretation: Positive Depression Screening Follow-up: Existing condition, In treatment and Follow-up Visit Requested Depression Screening Done: Yes 26333 - PHQ-9 Billing: Yes Source: Developed by Drs. Arsh Mcintosh, Kristine Javier, Hemant Mabry and colleagues, with an educational sera from [employer]. Thrive Questionnaire Date Thrive assessed: 01/23/25 I am a: Patient What is your living situation today?: I have a steady place to live Within the past 12 months, did the food you bought not last and you didn't have the money to get more?: Never true Within the past 12 months, did you worry whether your food would run out before you got money to buy more?: Never true Do you have trouble paying for medicines?: No Do you have trouble getting transportation to medical appointments?: No Do you have trouble paying your heating and electricity bill?: No Do you have trouble taking care of your child, family member or friend?: No Do you have trouble with day-to-day activities such as bathing, preparing meals, shopping, managing finances, etc.?: No Are you currently unemployed and looking for a job?: No Are you interested in more education?: No Please select the resources that you would like help with: None Currently or been in a relationship where the following occur: I choose not to answer THRIVE Score: 0 AUDIT C Alcohol Use Questionnaire (AUDIT-C) 1. How often do you have a drink containing alcohol?: Never 3. How often do you have six or more drinks on one occasion?: Never Total Score: 0 Score Reviewed/Action Taken: No DIDIER-7 AMB Questionnaire DIDIER-7 Date DIDIER - 7 assessed: 01/23/25 Feeling nervous, anxious, or on edge: 0 = Not at all Not being able to stop or control worryin = Not at all Worrying too much about different things: 0 = Not at all Trouble relaxin = Not at all Being so restless that it is hard to sit still: 0 = Not at all Becoming easily annoyed or irritable: 0 = Not at all Feeling afraid as if something awful might happen: 0 = Not at all Total DIDIER-7 score (0-4 normal; 5-9 mild; 10-14 moderate; 15-21 severe): 0 Source: Developed by Drs. Arsh Mcintosh, Kristine Javier, Hemant Mabry and colleagues, with an educational sera from [employer]. DIDIER-7 Assessment Billing DIDIER-7 Assessment Tool: DIDIER-7 Assessment 88141 Review of Systems Const All systems reviewed & are unremarkable except as noted in HPI and below Card Denies chest pain at rest, Denies chest pain with activity, Denies edema, Denies irregular heart rhythm, Denies claudication, Denies dyspnea, Denies dyspnea on exertion, Denies orthopnea, Denies paroxysmal nocturnal dyspnea and Denies slow heart rate Resp Denies cough, Denies dyspnea and Denies dyspnea on exertion GI Denies abdominal pain, Denies change in bowel habits, Denies excessive flatus, Denies nausea and Denies vomiting Physical exam (Primary Care) Vital Signs: Last Vital Signs Pulse 80 01/23/25 14:55 Resp 18 01/23/25 14:55 BP 130/62 01/23/25 14:55 Pulse Ox 96 01/23/25 14:55 Oxygen Delivery Method Room Air 01/23/25 14:55 BMI result Body Mass Index 33.9 BMI Assessment/Plan discussion: High BMI High, discussed plan: lifestyle, weight reduction, dietary and physical activity Tobacco/Smoking Status: Tobacco use Status Tobacco use date assessed 01/23/25 01/23/25 15:02 Patient Tobacco Use Status Current everyday Tobacco 01/23/25 15:02 Tobacco use type Cigarette 01/23/25 15:02 e-Cigarette/Vaping Use Never Used 01/23/25 15:02 Are you ready to quit: No Relapse Prevention: discussed the importance of a supportive environment and discussed extending NRT Number of minutes spent counselin CPT code: Less than 3 minutes PHQ-9: PHQ-9 Score PHQ-9: Total score 7 01/23/25 15:02 Depression Screening Interpretation: Positive Depression Screening Follow-up: Existing condition, In treatment and Follow-up Visit Requested Thrive Assessment: Date of Thrive Assessment Date Thrive assessed 01/23/25 01/23/25 15:02 Currently or been in a relationship where the following occur: I choose not to answer Resp Effort & Inspection: normal respiratory effort Auscultation: clear to auscultation bilaterally Cardio Jugular venous distension: no JVD Rate: regular rate Rhythm: regular rhythm Heart sounds: S1 normal heart sound present and S2 normal heart sound present Extrem Left upper extremity: shoulder/upper arm Details: tenderness and abnormal ROM Details: pain with active ROM Details: in ABduction, in extension, in internal rotation and external rotation- Coding Level of Care Code Est Pt Level 4 (47243) Complex EM visit Add On G2211 Diagnoses Mild recurrent major depression F33.0 Pure hypercholesterolemia E78.00 Hypovitaminosis D E55.9 Gastroesophageal reflux disease, unspecified whether esophagitis present K21.9 Esophagitis presence: esophagitis presence not specified Chronic idiopathic constipation K59.04 Neck pain M54.2 Left shoulder pain M25.512 Arnold-Chiari malformation Q07.00 Additional Codes DIDIER-7 Assessment Billing - DIDIER-7 Assessment Tool: DIDIER-7 Assessment 14308 ([id number]) PHQ-9 - 41161 - PHQ-9 Billing: Yes ([id number]) Time Spent (min) 23 Assessment & Plan Assessment & Plan (1) Mild recurrent major depression: Code(s): F33.0 - Major depressive disorder, recurrent, mild Category: Medical (2) Pure hypercholesterolemia: Code(s): E78.00 - Pure hypercholesterolemia, unspecified Category: Medical (3) Hypovitaminosis D: Code(s): E55.9 - Vitamin D deficiency, unspecified Category: Medical (4) GERD (gastroesophageal reflux disease): Code(s): K21.9 - Gastro-esophageal reflux disease without esophagitis Category: Medical Qualifiers: Esophagitis presence: esophagitis presence not specified Qualified Code(s): K21.9 - Gastro-esophageal reflux disease without esophagitis (5) Chronic idiopathic constipation: Code(s): K59.04 - Chronic idiopathic constipation Category: Medical (6) Neck pain: Code(s): M54.2 - Cervicalgia Category: Medical (7) Left shoulder pain: Code(s): M25.512 - Pain in left shoulder Category: Medical (8) Arnold-Chiari malformation: Code(s): Q07.00 - Arnold-Chiari syndrome without spina bifida or hydrocephalus Category: Medical Plan The management of hyperlipidemia will continue with atorvastatin 10 mg, given the positive response in cholesterol levels. The patient is advised to maintain her current medication regimen and follow up with routine lipid panels to monitor progress. For the shoulder pain associated with rotator cuff calcification and osteoarthritis, a referral to orthopedics is recommended for further evaluation and management. The patient is encouraged to continue using pain management strategies as needed and to report any changes in symptoms. The patient's insomnia will continue to be managed with zolpidem as needed, and she is advised to monitor her sleep patterns and report any persistent issues. Patient was informed and verbally consented to the use of an ambient scribe for clinic note documentation during this visit. Orders: Referrals Orthopedics Referral M25.512 - Pain in left shoulder
--- OUTSIDE RECORDS SUMMARY | 2025-01-23 15:15 | XMS_ITS | Clinical Summary ---
Author Organization [employer] Address [address] [place] [address] [address] [place] [address] Care Team Providers Care Robotic Welder Name Role Phone Unavailable Primary Care Provider [...] patient's age to complete this topic Insurance [facility] STANDARD [facility] [place] [address] [place] [id number]
--- OUTSIDE RECORDS SUMMARY | 2025-01-23 15:15 | XMS_ITS | Clinical Summary ---
Author Organization [facility] [address] [facility] Address [address] [place] [address] Phone Care Team Providers Care Bottling Line Operator Name Role Phone Arsh Chavez MD Primary Care Provider [phone] Allergies No known active allergies Medications tramadol HCl (TRAMADOL ORAL) Take by mouth. Unknown mg Active omeprazole (PriLOSEC) [address] capsule 11/10/19 17 Active zolpidem (AMBIEN) 5 mg tablet Take by mouth at bedtime as needed. Active atorvastatin (LIPITOR) 20 mg tablet Take 1 tablet (20 mg total) by mouth at bedtime. Active pregabalin (LYRICA) 75 mg capsule Take 1 capsule (75 mg total) by mouth 2 (two) times a day. Active cholecalcifero l (VITAMIN D-3) 10 mcg (400 unit) tablet Take 1 tablet (400 Units total) by mouth 1 (one) time each day. Active mometasone (ELOCON) 0.1 % ointment Apply a thin layer to the affected area nightly 30 g 08/23/19 25 Active Linzess 145 mcg capsule 11/21/19 25 Active meclizine (ANTIVERT) 25 mg tablet TAKE 1 TABLET BY MOUTH 2 TIMES A DAY NEEDED FOR DIZZINESS FOR 7 DAYS 10/12/19 25 Active hydrOXYzine HCL (ATARAX) 10 mg tablet TAKE 1 TABLET (10 MG TOTAL) BY MOUTH AT BEDTIME NEEDED FOR ITCHING 30 tablet 5 01/17/20 25 Active hydrOXYzine HCL (ATARAX) 10 mg tablet Take 1 tablet (10 mg total) by mouth at bedtime as needed for itching. 90 tablet 1 07/12/19 25 025 Discontinued Active Problems Problem Noted Date [...] prolapse (had SEBASTIÁN first with cryo), in [place] CHOLECYSTECTOMY PROCEDURE: HISTORICAL CHOLECYSTECTOMY Family History Medical [...] for your loved ones. For example, child welfare assistant or elderly care for an older adult? [...] 02/14/2025 3:30 PM EDT Appointment Radiology Department [address] [address] Health Maintenance Due Date Last Done Comments [...] Billing Address Personal/Family Self [address] [place] [address] [facility] [place] [address] Care Teams Bottling Line Operator Relationship Specialty Start Date End Date Arsh Chavez MD [address] [facility] [address] [place] [address] PCP - General Oncology 11/18/24
== END 2025-01-23 15:26 | disposition home or self-care (01) ==
LOC: HO.HMCH 14:53
PROVIDERS: PCP Internal Medicine; Visit Provider Internal Medicine
DX: E78.00 Pure hypercholesterolemia, unspecified (principal); F33.0 Major depressive disorder, recurrent, mild; Q07.00 Arnold-Chiari syndrome without spina bifida or hydrocephalus; E55.9 Vitamin D deficiency, unspecified; K21.9 Gastro-esophageal reflux disease without esophagitis; K59.04 Chronic idiopathic constipation; M54.2 Cervicalgia; M25.512 Pain in left shoulder

== ENCOUNTER → 2025-01-23 14:52 | Outpatient (BNVA) | payer OTHER, SELFPAY | PROVIDERS: PCP Internal Medicine; Visit Provider Internal Medicine | DX: K21.9 Gastro-esophageal reflux disease without esophagitis (principal); E78.5 Hyperlipidemia, unspecified; Q07.00 Arnold-Chiari syndrome without spina bifida or hydrocephalus; K59.00 Constipation, unspecified; M79.7 Fibromyalgia; F33.0 Major depressive disorder, recurrent, mild; E78.00 Pure hypercholesterolemia, unspecified; E55.9 Vitamin D deficiency, unspecified; K59.04 Chronic idiopathic constipation; M54.2 Cervicalgia; M25.512 Pain in left shoulder; F17.210 Nicotine dependence, cigarettes, uncomplicated | CPT/HCPCS: 96127; 99212 ==

== ENCOUNTER 2025-03-21 14:56 | Outpatient (AMB) | payer OTHER, SELFPAY ==
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
[2025-03-21 15:05] VITALS: BMI 33.8
--- OUTSIDE RECORDS SUMMARY | 2025-03-21 18:15 | XMS_ITS | Clinical Summary ---
Author Organization [employer] Address [address] [place] [address] [address] [place] [address] Care Team Providers Care Systems Integration Manager Name Role Phone Unavailable Primary Care [...] Vaccines (1 of 2) 10/23/2021 COVID-19 Vaccine (1 - 2023-2 5 season) 2025 Influenza Vaccine (#1) 2025 RSV Patients and [...] this topic Insurance [facility] STANDARD [facility] [place] [address] [place] [address]
== END 2025-03-21 15:25 | disposition home or self-care (01) ==
LOC: HO.HOS 14:57
PROVIDERS: PCP Internal Medicine; Visit Provider Physician Assistant
DX: M75.32 Calcific tendinitis of left shoulder (principal)
CPT/HCPCS: 99213

== ENCOUNTER → 2025-03-21 14:56 | Outpatient (BNVA) | payer OTHER, SELFPAY | PROVIDERS: PCP Internal Medicine; Visit Provider Physician Assistant | DX: M75.32 Calcific tendinitis of left shoulder (principal) | CPT/HCPCS: 99212 ==

== ENCOUNTER 2025-03-24 10:25 | Outpatient (AMB) | payer OTHER, SELFPAY ==
[2025-03-24 10:26] VITALS: BP 138/98; PULSE 81; TEMP 36.8; O2SAT 97; BMI 33.8
--- NOTE | 2025-03-24 10:26 | AM.OFFWIN_ITS ---
Intake Vital Signs 03/24/25 10:26 Height 5 ft 2 in Weight 185 lb BMI 33.8 BP 138/98 H Blood Pressure Location Lt brachial Position Sitting Pulse 81 Pulse Source Pulse Oximeter Temp 98.3 F Temp Source Oral Pulse Oximetry (%) 97 Oxygen Delivery Method Room Air Intake Visit Reasons: ep congestion cough chills Intake Note: pt presents with headache, diarrhea, fever, joint pain, chest congestion with cough, sinus congestion Patient Tobacco Use Status: Current everyday Tobacco user Allergies trazodone Allergy (Intermediate, Verified 03/24/25 10:29) Insomnia gabapentin Adverse Reaction (Intermediate, Verified 03/24/25 10:29) dry mouth Do you need a note to return to daycare/school/sports/work: Yes HPI HPI Comments History of Present Illness Details History - The patient is a 54-year-old female pr esenting with symptoms of an acute viral infection. - Symptoms began yesterday, including co ugh, headache, joint pain, diarrhea, and fever. - Reports feeling hot with burning eyes, indicating fever, though temperature was not measured. - Experiences lung pain but denies short ness of breath or wheezing. - History of tobacco use, smoking cigare ttes, which may exacerbate respiratory symptoms. - Reports sinus pain and has been taking [id number]-[id number] sinus medication. - itchy right ear Physical Exam General: Cooperative, healthy appearing, comfortable and no acute distress Orientation/consciousness: Patient oriented x3 Limitations: No limitations Head: Normal to inspection, headache reported Ears: Hearing grossly normal bilaterally, EAC with erythema, no edema. TM's WNL bilaterally Nose: Normal external nose present, Normal nares present and No nasal discharge present Face and sinus: Normal facial exam, slight sinus pain reported Mouth: Normal oral and palatal mucosa present and moist mucous membranes Throat: Yes tonsils normal, Yes uvula midline. Posterior oropharynx erythema, no exudates Eyes: Appearance normal, both eyes and all related structures, burning sensation reported Neck: Normal visual inspection, full ROM Respiratory: Clear to auscultation bilaterally. Normal respiratory effort, able to speak in complete sentences, Actively coughing, no respiratory distress, not tachypneic, no tripod positioning and no use of accessory muscles Cardiovascular: Regular rate and rhythm. Normal S1 and S2, heart rate 81 Skin: No rashes or lesions noted Neuro: Patient oriented x3 Extremities: Normal to inspection and Yes no clubbing, cyanosis or edema Review of Systems - General: Reports fever, headache, join t pain, and diarrhea. - Respiratory: Reports cough and lung pa in. Denies shortness of breath or wheezing. - ENT: Reports sinus pain and itchy ear. Denies ear pain. All systems reviewed and are unremarkable except as noted in HPI [facility] Medical History Tubular adenoma of colon Nicotine dependence, cigarettes, uncomplicated Family history of breast cancer Epidermoid cyst of skin of cheek Diverticulitis Mild recurrent major depression Bloody stools Epigastric pain Right hip pain Left hip pain Depression Obese Kidney stone Hypovitaminosis D Pure hypercholesterolemia History of renal calculi Insomnia Arnold-Chiari malformation GERD (gastroesophageal reflux disease) Polyarthralgia Surgical History History of carpal tunnel surgery of right wrist History of hysterectomy History of transurethral resection of bladder tumor (TURBT) History of colonoscopy History of removal of cyst History of esophagogastroduodenoscopy (EGD) History of cryosurgery History of cholecystectomy Family History Father Diabetes Hypertension Cancer, Onset Age: 78 Mother Cancer Breast cancer, Onset Age: 53 Maternal Grandmother Stroke Maternal Grandfather Cancer Esophageal cancer Paternal Grandfather Cancer Maternal Uncle Cancer Brain cancer Sister Breast cancer, Onset Age: 48 Social History Household Members Other:: Housing: House Alcohol intake: never Patient Tobacco Use Status: Current everyday Tobacco user Tobacco use type: Cigarette Cigarettes Per Day: 6 Years Smoked: 20 e-Cigarette/Vaping Use: Never Used Second Hand Smoke Exposure: No service: No Current occupational status: employed 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 Acute Viral Infection - VSS, pt well appearing and PE unremarkable. - Viral panel sent - Symptomatic treatment with Tylenol for fever and headache recommended. - Increased fluid intake advised to prevent dehydration. - Cough suppressant prescribed to aid sleep and reduce coughing. - Advised to reduce smoking during illness to prevent exacerbation of respiratory symptoms. - Use of xeeo-hxr-iqxdmii decongestants and antihistamines suggested to alleviate symptoms, Rosette Nye recommended Orders: Orders Resp Pathogen Panel - [facility] Today J06.9 - Acute upper respiratory infection, unspecified Medications: New benzonatate 200 mg PO BEDTIME PRN 10 caps 0RF cough Coding Level of Care Code Est Pt Level 3 (60920) Diagnoses URI, acute J06.9
== END 2025-03-24 11:01 | disposition home or self-care (01) ==
PROVIDERS: PCP Internal Medicine; Visit Provider Physician Assistant
DX: J06.9 Acute upper respiratory infection, unspecified (principal)

== ENCOUNTER 2025-03-24 10:25 | Outpatient (REF) | payer OTHER, SELFPAY ==
[2025-03-24 14:44] LABS: Chlamydia pneumoniae PCR Not Detected (Not Detect.); Coronavirus 229E PCR Not Detected (Not Detect.); Coronavirus HKU1 PCR Not Detected (Not Detect.); Coronavirus NL63 PCR Not Detected (Not Detect.); Coronavirus OC43 PCR Not Detected (Not Detect.); RSV PCR Not Detected (Not Detect.); Rhino/Enterovirus PCR Detected (Not Detect.); SARS-CoV-2 PCR Not Detected (Not Detect.)
[2025-03-24 15:31] LABS: Influenza A H1 PCR Not Detected (Not Detect.); Influenza A H1-2009 PCR Not Detected (Not Detect.); Influenza A H3 PCR Not Detected (Not Detect.)
== END 2025-03-24 10:26 | disposition home or self-care (01) ==
LOC: HO.LAB 10:25
PROVIDERS: PCP Internal Medicine; Visit Provider Physician Assistant
DX: J06.9 Acute upper respiratory infection, unspecified (principal); R05.9 Cough, unspecified; R51.9 Headache, unspecified; R50.9 Fever, unspecified; R19.7 Diarrhea, unspecified; R09.89 Other specified symptoms and signs involving the circulatory and respiratory systems; F17.210 Nicotine dependence, cigarettes, uncomplicated; Z71.6 Tobacco abuse counseling
CPT/HCPCS: 87633; 99212

== ENCOUNTER 2025-05-18 11:20 | Outpatient (AMB) | payer OTHER, SELFPAY ==
--- NOTE | 2025-05-18 11:26 | A.OFFVIS_ITS ---
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 Patient was referred by her PCP. At today's visit she states that for the past two years she has had neck pain that is now radiating into the left shoulder. Patient was seen by at their visit she reported that she seen her Microsoft Windows Engineer and that they gave her a cortisone injection in her left shoulder, she stated it did help her. She has had a Cervical spine X Ray done. Patient reports that her ROM with her neck is very limited due to the constant pain. She wanted to add that she has to physically move her head due to the neck pain. 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 Pain scale- 0 Today but a normal 8 (but only when she moves her head back) Allergies trazodone Allergy (Intermediate, Verified 03/24/25 10:29) Insomnia gabapentin Adverse Reaction (Intermediate, Verified 03/24/25 10:29) dry mouth Medication List - Last Reconciled 05/18/25 by Kathy Betancourt MD atorvastatin 10 mg PO DAILY benzonatate 200 mg PO BEDTIME PRN cholecalciferol (vitamin D3) 50 mcg PO DAILY 90 days linaclotide (Linzess) 145 mcg PO DAILY meclizine 25 mg PO BID PRN 7 days pantoprazole 40 mg PO DAILY 90 days pregabalin 75 mg PO BID tolterodine ER 4 mg PO BID 90 days tramadol 50 mg PO Q8H PRN 30 days [wrist splint wear nightly & as much as possible throughout the day] zolpidem 10 mg PO BEDTIME PRN 30 days HPI Comments Details: Previously seen by Orthopedics and Rheumatology, for left shoulder pain. Received left shoulder injection from Rheumatology 01/04/2025. Points to posterior neck as source of pain. It does not radiate to arm. The left shoulder pain is now improved from the injection. Denies numbness. Last PT 2 years ago. Does not really exercise. [facility], [facility] Medical History Tubular adenoma of colon Nicotine dependence, cigarettes, uncomplicated Family history of breast cancer Epidermoid cyst of skin of cheek Diverticulitis Mild recurrent major depression Bloody stools Epigastric pain Right hip pain Left hip pain Depression Obese Kidney stone Hypovitaminosis D Pure hypercholesterolemia History of renal calculi Insomnia Arnold-Chiari malformation GERD (gastroesophageal reflux disease) Polyarthralgia Surgical History History of carpal tunnel surgery of right wrist History of hysterectomy History of transurethral resection of bladder tumor (TURBT) History of colonoscopy History of removal of cyst History of esophagogastroduodenoscopy (EGD) History of cryosurgery History of cholecystectomy Family History Father Diabetes Hypertension Cancer, Onset Age: 78 Mother Cancer Breast cancer, Onset Age: 53 Maternal Grandmother Stroke Maternal Grandfather Cancer Esophageal cancer Paternal Grandfather Cancer Maternal Uncle Cancer Brain cancer Sister Breast cancer, Onset Age: 48 Social History Household Members Other:: Housing: House Alcohol intake: never Patient Tobacco Use Status: Current everyday Tobacco user Tobacco use type: Cigarette Cigarettes Per Day: 6 Years Smoked: 20 e-Cigarette/Vaping Use: Never Used Second Hand Smoke Exposure: No service: No Current occupational status: employed 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 Patient was appropriately conversant and oriented. Good historian. MSK: Inspection reveals appropriate head and neck positioning. Tender and cervical facets bilateral. Cervical ROM was limited on extension and rotation due to pain. Flexion is full and nonpainful. Spurling's sign negative. Bilateral shoulder, elbow and wrist ROM WNL. No ligamentous laxity or crepitance. No increased effusion. No scapular winging. Negative Sierra sign. Strength is 5/5 in all muscle groups tested. No increased tone noted. Neurological: Neurologic examination of the upper and lower extremities was nonfocal with intact sensation, muscle stretch reflexes and without focal motor deficits . Maldonado?s negative bilaterally. Babinski was down going bilaterally. Clonus was negative. Gait is non-antalgic without loss of balance. Vital Signs: BMI result Body Mass Index 32.8 Results Reviewed Results Reviewed: I independently reviewed the results of the following: Perhaps very mild disc space narrowing C6-7 Ordering Physician: Jayna Rodriguez MD Date of Service: 12/21/24 Procedure(s): XR shoulder LT min 2V Accession Number(s): [id number] cc: Jayna Rodriguez MD~ EXAMINATION: XR SHOULDER 2 OR MORE VIEWS LEFT HISTORY: M25.512 - Pain in left shoulder COMPARISON: There are no prior studies available for comparison. FINDINGS: Four views of the left shoulder are submitted. Osseous mineralization is normal. There is no fracture or dislocation. The glenohumeral joint is maintained. There is mild narrowing of the AC joint. A linear soft tissue calcification adjacent to the greater tuberosity of humerus is likely related to the rotator cuff. XR/XR shoulder LT min 2V IMPRESSION: 1. Mild narrowing of the AC joint. 2. Probable rotator cuff calcification as described. Electronically signed by: Arsh Edwards MD 12/21/2024 09:48 AM EDT RP Ordering Physician: Jayna Rodriguez MD Date of Service: 12/21/24 Procedure(s): XR cervical spine 2V Accession Number(s): [id number] cc: Jayna Rodriguez MD~ EXAMINATION: XR CERVICAL SPINE 2-3 VIEWS HISTORY: M54.2 - Cervicalgia COMPARISON: Comparison is made with the prior examination dated 03/03/2023. FINDINGS: AP, lateral, swimmer's, and open-mouth odontoid views of the cervical spine are submitted. Osseous mineralization is normal. Seven cervical vertebral bodies are identified maintaining normal height and alignment without evidence of fracture or subluxation. There is mild degenerative disc disease with disc space narrowing and osteophyte formation. There is osteoarthritis of the facet joints. The odontoid and lateral masses of C1 are intact. There is no prevertebral soft tissue swelling. Calcifications in the left neck are likely related to the internal carotid artery. XR/XR cervical spine 2V IMPRESSION: Mild degenerative disc disease. Electronically signed by: Arsh Edwards MD 12/21/2024 09:50 AM EDT RP I reviewed records from the following: Ortho Rheumatology Assessment & Plan Assessment & Plan (1) Cervicalgia: Code(s): M54.2 - Cervicalgia Category: Medical (2) Pain of cervical facet joint: Code(s): M54.2 - Cervicalgia Category: Medical Plan Cervical facet pain, without signs of cervical radiculopathy or myelopathy. Left shoulder has improved since injection from rheumatology. No trigger points on upper trapezius. Referring her to physical therapy, specifically to work on cervical range of motion. We briefly discussed possibility of cervical facet injections, if not improved with PT. Assessment and plan discussed with patient, and patient was agreeable. All questions were answered thoroughly. Kathy Betancourt MD, CAITLIN Board Certified, [place] Board of Physical Medicine and Rehabilitation (ABPMR) Board Certified, [place] Of [place] Board of Electrodiagnostic Medicine (ABEM) Orders: Orders PT Evaluation and Treatment Today M54.2 - Cervicalgia Coding Level of Care Code New Pt Level 4 (59689) Diagnoses Cervicalgia M54.2 Pain of cervical facet joint M54.2
[2025-05-18 11:29] VITALS: BMI 32.8
== END 2025-05-18 11:47 | disposition home or self-care (01) ==
LOC: HO.HOS 11:20
PROVIDERS: PCP Internal Medicine; Visit Provider Physical Medicine & Rehabilitation
DX: M54.2 Cervicalgia (principal)
CPT/HCPCS: 99203

== ENCOUNTER → 2025-05-18 11:20 | Outpatient (BNVA) | payer OTHER, SELFPAY | PROVIDERS: PCP Internal Medicine; Visit Provider Physical Medicine & Rehabilitation | DX: M54.2 Cervicalgia (principal); Q07.00 Arnold-Chiari syndrome without spina bifida or hydrocephalus | CPT/HCPCS: 99202 ==

== ENCOUNTER 2025-05-19 08:37 | Outpatient (REF) | payer OTHER, SELFPAY ==
[2025-05-19 09:38] LABS: Alanine Aminotransferase 31 U/L (0-31); Albumin Level 4.7 g/dL (3.5-5.0); Alkaline Phosphatase 54 U/L (39-117); Anion Gap 14 (12-20); Aspartate Amino Transferase 29 U/L (5-31); Blood Urea Nitrogen 15 mg/dL (9-16); Calcium 9.7 mg/dL (8.4-10.2); Carbon Dioxide 23 mmol/L (22-29); Chloride 109 mmol/L (96-108); Cholesterol 197 mg/dL (<200); Estimated Glomerular Filt Rate > 60; HDL Cholesterol 48 mg/dL (>40); Potassium 4.1 mmol/L (3.3-5.1); Sodium 142 mmol/L (135-145); Total Protein 7.5 g/dL (6.5-8.0); Triglycerides 121 mg/dL (<150)
[2025-05-19 10:10] LABS: Folate 13.1 ng/mL (> or = 4.0); Vitamin B12 269 pg/mL (200-900)
== END 2025-05-19 08:38 | disposition home or self-care (01) ==
LOC: HO.LAB 08:37
PROVIDERS: PCP Internal Medicine; Visit Provider Internal Medicine
DX: E53.8 Deficiency of other specified B group vitamins (principal); R73.02 Impaired glucose tolerance (oral); E78.5 Hyperlipidemia, unspecified; E55.9 Vitamin D deficiency, unspecified
CPT/HCPCS: 36415; 80053; 80061; 82306; 82607; 82746

== ENCOUNTER 2025-05-23 14:17 | Outpatient (AMB) | payer OTHER, SELFPAY ==
[2025-05-23 14:49] VITALS: BP 134/90; PULSE 63; RESP 18; O2SAT 95; BMI 32.6
--- NOTE | 2025-05-23 14:49 | A.OFFPC_ITS ---
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: No Accompanied by: Self / Same As Patient Allergies trazodone Allergy (Intermediate, Verified 05/23/25 15:21) Insomnia gabapentin Adverse Reaction (Intermediate, Verified 05/23/25 15:21) dry mouth Medication List - Last Reconciled 05/23/25 by Jayna Chaudhry MD atorvastatin 10 mg PO DAILY benzonatate 200 mg PO BEDTIME PRN cholecalciferol (vitamin D3) 50 mcg PO DAILY 90 days linaclotide (Linzess) 145 mcg PO DAILY meclizine 25 mg PO BID PRN 7 days pantoprazole 40 mg PO DAILY 90 days pregabalin 75 mg PO BID tolterodine ER 4 mg PO BID 90 days tramadol 50 mg PO Q8H PRN 30 days [wrist splint wear nightly & as much as possible throughout the day] zolpidem 10 mg PO BEDTIME PRN 30 days Tobacco use date assessed: 05/23/25 Dental Screening Dental Screen Date: 05/23/25 Did you have a dental visit in the last 12 months?: Yes Did you have a dental problem in the last 6 months where you did not have access to dental care?: No Was dental information given to patient?: Patient has dentist HPI HPI Comments History of Present Illness Details The patient is a 54-year-old female presenting for a physical examination. She has a diagnosis of prediabetes, with a previous blood glucose level of 105 mg/dL and a high of 120 mg/dL. Her cholesterol is well-controlled on atorvastatin 10 mg, and her vitamin D level remains low despite supplementation. She reports experiencing significant stress and anxiety, which she believes contributes to a recently returned eye twitch and fibromyalgia symptoms that are exacerbated by cold weather. She has also noted hair loss, which had previously resolved. For an unspecified neck problem, she saw an orthopedist and was referred for physical therapy. Her current medications include atorvastatin, vitamin D, Linzess for constipation, pantoprazole for acid reflux, Lyrica 75 mg twice daily, and tramadol for fibromyalgia. She reports not taking tolterodine for urinary issues. The patient has allergies to trazodone and gabapentin, which caused dry mouth. Her past surgical history is significant for carpal tunnel release, hysterectomy, transurethral resection of a bladder tumor, facial cyst removal, cryosurgery, and cholecystectomy. A head MRI performed this year was stable, showing no change in her known Arnold-Chiari malformation. Her last colonoscopy was in 2021 and is not due until 2026. Family history is positive for breast cancer in her mother and prostate cancer, diabetes, and hypertension in her living father. [facility] Medical History (Updated 05/23/25 @ 21:16 by Jayna Chaudhry MD) Tubular adenoma of colon Nicotine dependence, cigarettes, uncomplicated Family history of breast cancer Epidermoid cyst of skin of cheek Diverticulitis Mild recurrent major depression Bloody stools Epigastric pain Right hip pain Left hip pain Depression Obese Kidney stone Hypovitaminosis D Pure hypercholesterolemia History of renal calculi Insomnia Arnold-Chiari malformation GERD (gastroesophageal reflux disease) Polyarthralgia Surgical History History of carpal tunnel surgery of right wrist History of hysterectomy History of transurethral resection of bladder tumor (TURBT) History of colonoscopy History of removal of cyst History of esophagogastroduodenoscopy (EGD) History of cryosurgery History of cholecystectomy Family History Father Diabetes Hypertension Cancer, Onset Age: 78 Mother Cancer Breast cancer, Onset Age: 53 Maternal Grandmother Stroke Maternal Grandfather Cancer Esophageal cancer Paternal Grandfather Cancer Maternal Uncle Cancer Brain cancer Sister Breast cancer, Onset Age: 48 Social History Household Members Other:: Housing: House Alcohol intake: never Patient Tobacco Use Status: Current everyday Tobacco user Tobacco use type: Cigarette Cigarettes Per Day: 6 Years Smoked: 20 e-Cigarette/Vaping Use: Never Used Second Hand Smoke Exposure: No service: No Current occupational status: employed 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 Current occupational exposures/hazards: No Cognitive needs: No Hearing needs: No Vision needs: Yes Questionnaire Thrive Questionnaire Date Thrive assessed: 05/23/25 I am a: Patient What is your living situation today?: I have a steady place to live Within the past 12 months, did the food you bought not last and you didn't have the money to get more?: Never true Within the past 12 months, did you worry whether your food would run out before you got money to buy more?: Never true Do you have trouble paying for medicines?: No Do you have trouble getting transportation to medical appointments?: No Do you have trouble paying your heating and electricity bill?: No Do you have trouble taking care of your child, family member or friend?: No Do you have trouble with day-to-day activities such as bathing, preparing meals, shopping, managing finances, etc.?: No Are you currently unemployed and looking for a job?: No Are you interested in more education?: No Please select the resources that you would like help with: None Currently or been in a relationship where the following occur: I choose not to answer THRIVE Score: 0 DIDIER-7 AMB Questionnaire DIDIER-7 Date DIDIER - 7 assessed: 01/23/25 Source: Developed by Drs. Arsh Mcintosh, Kristine Javier, Hemant Mabry and colleagues, with an educational sera from [employer]. Review of Systems Const All systems reviewed & are unremarkable except as noted in HPI and below Card Denies chest pain at rest, Denies chest pain with activity, Denies edema, Denies irregular heart rhythm, Denies claudication, Denies dyspnea, Denies dyspnea on exertion, Denies orthopnea, Denies paroxysmal nocturnal dyspnea and Denies slow heart rate Resp Denies cough, Denies dyspnea and Denies dyspnea on exertion GI Denies abdominal pain, Denies change in bowel habits, Denies excessive flatus, Denies nausea and Denies vomiting Physical exam (Primary Care) Vital Signs: Last Vital Signs Pulse 63 05/23/25 14:49 Resp 18 05/23/25 14:49 BP 134/90 H 05/23/25 14:49 Pulse Ox 95 05/23/25 14:49 Oxygen Delivery Method Room Air 05/23/25 14:49 BMI result Body Mass Index 32.6 Tobacco/Smoking Status: Tobacco use Status Tobacco use date assessed 05/23/25 05/23/25 14:53 Patient Tobacco Use Status Current everyday Tobacco 05/23/25 14:53 Tobacco use type Cigarette 05/23/25 14:53 e-Cigarette/Vaping Use Never Used 05/23/25 14:53 Thrive Assessment: Date of Thrive Assessment Date Thrive assessed 05/23/25 05/23/25 14:53 Currently or been in a relationship where the following occur: I choose not to answer [facility] Head: Yes normal to inspection, Yes normocephalic and Yes atraumatic Ears: external ears normal Eyes General: appearance normal, both eyes and all related structures Eyelids: Yes eyelids normal Conjunctivae: conjunctivae normal Neck Neck: Yes normal visual inspection and Yes supple Resp Effort & Inspection: normal respiratory effort Auscultation: clear to auscultation bilaterally Cardio Jugular venous distension: no JVD Rate: regular rate Rhythm: regular rhythm Heart sounds: S1 normal heart sound present and S2 normal heart sound present GI Inspection: Yes normal to inspection Palpation (GI): Soft to palpation and nontender Auscultation: normal bowel sounds Skin General skin exam: no rashes or lesions noted Neuro General: no focal motor deficits Extrem General: Yes full ROM Psych Appearance: grossly normal Coding Level of Care Code Est Pt Level 3 (63811) Est Pt Prev Care 40-64y(64485) Diagnoses Physical exam Z00.00 Mild recurrent major depression F33.0 Arnold-Chiari malformation Q07.00 Hair loss L65.9 Time Spent (min) 35 Assessment & Plan Assessment & Plan (1) Physical exam: Code(s): Z00.00 - Encounter for general adult medical examination without abnormal findings Category: Medical (2) Mild recurrent major depression: Code(s): F33.0 - Major depressive disorder, recurrent, mild Category: Medical (3) Arnold-Chiari malformation: Code(s): Q07.00 - Arnold-Chiari syndrome without spina bifida or hydrocephalus Category: Medical (4) Hair loss: Code(s): L65.9 - Nonscarring hair loss, unspecified Category: Medical Plan Plan 1. Physical exam Repeat in a year. 2. Hair Loss Thyroid labs will be ordered to investigate potential underlying causes of the patient's hair loss. A referral will be placed to dermatology for further evaluation and management, where treatments such as light therapy are available. The vitamin supplement Nutrafol was mentioned as a possible option for hair health. 23 Prediabetes Blood sugar will be checked as part of today's lab work. Orders: Orders Thyroid Stimulating Hormone Today L65.9 - Nonscarring hair loss, unspecified Hemoglobin A1c 4 Months E11.9 - Type 2 diabetes mellitus without complications, R73.02 - Impaired glucose tolerance (oral) Comprehensive [place]. Panel Fast 4 Months R73.02 - Impaired glucose tolerance (oral) Referrals Dermatology Referral L65.9 - Nonscarring hair loss, unspecified Medications: Discontinued tolterodine ER Discontinued Reason: Patient Completed Course 4 mg PO BID 90 days 180 caps 2RF
--- OUTSIDE RECORDS SUMMARY | 2025-05-23 20:17 | XMS_ITS | Clinical Summary ---
Author Organization [facility] [address] [facility] Address [address] [place] [address] Phone Care Team Providers Care Welding Machine Operator Plasma Arc Name Role Phone Arsh Chavez MD Primary Care Provider [phone] Allergies No known active allergies Medications tramadol [...] FOR DIZZINESS FOR 7 DAYS 5 Active hydrOXYzine HCL (ATARAX) 10 mg tablet TAKE 1 TABLET (10 MG TOTAL) BY MOUTH AT BEDTIME NEEDED FOR ITCHING 30 tablet 5 5 Active Active Problems Problem Noted Date [...] Encounters Date Type Department Care Team Description 04/03/2025 Results Follow-Up Obstetrics and Gynecology - [address] [phone] Melinda Solitario CNM 03/30/2025 4:16 PM EDT - 03/30/2025 11:59 PM EDT Hospital Encounter Radiology Department - [address] [phone] Breast screening Discharge Disposition: Home or Self Care from Last 3 Months Immunizations Immunization Administration Dates Next Due Tdap Tetanus diptheria acell ular pertussis (Boostrix; Adacel) 7yo and older 11/15/2012 Surgical History Surgery Date Site/Laterality Comments HYSTERECTOMY 2011 PROCEDURE: HISTORICAL VAGINAL HYSTERECTOMY W/O BSO; COMMENT: prolapse (had SEBASTIÁN first with cryo), in [place] CHOLECYSTECTOMY PROCEDURE: HISTORICAL CHOLECYSTECTOMY Family History Medical History Relation Name Comments Breast cancer Mother 53 Breast cancer Sister 48y BrCA neg Relation Name Status Comments Father Alive DM Mother 53 Sister 48y Alive Social History Tobacco Use [...] care for your loved ones. For example, vocational childcare teacher or elderly care for an older [...] Date Recorded What is your living situation? Unrecognized valu e 07/11/2024 Comments No Sex and Gender Information Value Date Recorded Sex Assigned at Not on file Legal Sex Female 1:56 PM EST Gender Identity Not on file Sexual Orientation Not on file Obstetrics History * This document contains information received from the source organization and may not represent a complete record from that organization. Para Term AB IAB SAB Ectopic Multiple Livin g Live Births 5 4 4 0 0 0 4 4 Date Outcome GA Total Labor Labor/2nd/3rd Weight Sex Type Anes PTL Yesika A1 A5 Name Clin Term Living Term Living Term Living Term Living Last Filed Vital Signs Vital Sign Reading [...] 11/21/2024 9:40 AM EDT Plan of Treatment Health Maintenance Due Date Last Done Comments Colorectal Cancer Screening: Colonoscopy 1970 Hepatitis B Vaccines (1 of 3 - 19+ 3-dose series) 10/23/1990 Pneumococcal Vaccine: 50+ Years (1 of 2 - PCV) 10/23/1990 Zoster Vaccines (1 of 2) 10/23/2021 Cholesterol Screening (Lipid Panel) 05/24/2022 11/15/2012 HIV Screening 05/24/2022 Hepatitis C Screening 05/24/2022 DTaP,Tdap,and Td Vaccines (2 - Td or Tdap) 11/15/2022 11/15/2012 COVID-19 Vaccine (1 - 2024- season) 2025 Influenza Vaccine (#1) 2025 Social Influencers of Health Screening 07/11/2025 07/11/2024 Breast Cancer Screening 03/30/2027 03/30/20 25, 02/10/2024, 02/10/2024, Additional history exists RSV Immunization Adult Patients (1 - 1-dose 75+ series) 10/23/2046 Depression Screening Completed 11/16/2024 HIB Vaccines Aged [...] Procedure Name Priority Date/Time Associated Diagnosis Comments MG MAMMO DIGITAL SCREENING W PRIYANK BILAT Routine 03/30/2025 4:38 PM EDT Breast screening LIPID PANEL Routine 11/15/2012 from Last 3 Months or Most Recently Relevant to Health Maintenance Results * MG Mammo Digital Screening w Priyank bilat (03/30/2025 4:38 PM EDT) Anatomical Region Laterality Modality Breast Bilateral Mammography 04/03/2025 8:21 AM EDT Impressions 04/03/2025 8:24 AM EDT Benign. BI-RADS CATEGORY: 1 - NEGATIVE RECOMMENDATION: Screening bilateral mammogram is recommended in 1 year. Mammo Location: [facility], [address] [place] [address], [id number], . -------- FINAL REPORT -------- Dictated By: Debbie Vicente Dictated Date: 04/03/2025 08:21 ET Assigned Physician: Debbie Vicente Reviewed and Electronically Signed By: Debbie Vicente Signed Date: 04/03/2025 08:24 ET Workstation ID: [id number] Transcribed By: Self Edit Transcribed Date: 04/03/2025 08:21 ET Narrative 04/03/2025 8:24 AM EDT CLINICAL: 54 years old, Female, routine annual exam. COMPARISON: Mammograms dating back to 01/28/2021 with most recent of 02/10/2024. TECHNIQUE: Bilateral MLO and CC views were obtained digitally with 3-D mammogram (digital breast tomosynthesis). Computer-aided detection was utilized in evaluation of this exam (CAD). FINDINGS: There is no evidence of suspicious mass or architectural distortion. No worrisome calcifications are evident. There has been no significant change from prior exam(s). BREAST DENSITY: B - There are scattered areas of fibroglandular density. Procedure Note Debbie Vicente MD - 04/03/2025 CLINICAL: 54 years old, Female, routine annual exam. COMPARISON: Mammograms dating back to 01/28/2021 with most recent of02/10/2024. TECHNIQUE: Bilateral MLO and CC views were obtained digitally with 3-Dmammogram (digital breast tomosynthesis). Computer-aided detection wasutilized in evaluation of this exam (CAD). FINDINGS: There is no evidence of suspicious mass or architectural distortion. Noworrisome calcifications are evident. There has been no significantchange from prior exam(s). BREAST DENSITY: B - There are scattered areas of fibroglandular density. IMPRESSION: Benign. BI-RADS CATEGORY: 1 - NEGATIVE RECOMMENDATION: Screening bilateral mammogram is recommended in 1 year. Mammo Location: [facility], [address] [place] [address], [id number], . -------- FINAL REPORT -------- Dictated By: Debbie Vicente Dictated Date: 04/03/2025 08:21 ET Assigned Physician: Debbie Vicente Reviewed and Electronically Signed By: Debbie Vicente Signed Date: 04/03/2025 08:24 ET Workstation ID: [id number] Transcribed By: Self Edit Transcribed Date: 04/03/2025 08:21 ET Melinda FRANCOIS IMG BI PROCEDURES Final Result * (ABNORMAL) Lipid panel (11/15/2012) LDL/HDL Ratio 4 0 - 4 Triglycerides 78 0 - 150 mg/dL Cholesterol 209(A) 0 - 200 mg/dL HDL 56 >=40 mg/dL LDL Cholesterol 138(A) 0 - 100 mg/dL Blood Venous blood specimen / Unknown us Historical Provider LAB BLOOD ORDERABLES Jyoti l Result from Last 3 Months or Most Recently Relevant to Health Maintenance Insurance * Guarantor: Hank Ashley Account Type Relation to Patient Date of Phone Billing Address Personal/Family Self [address] [place] [address] [facility] [employer] Care Teams Welding Machine Operator Plasma Arc Relationship Specialty Start Date End Date Arsh Chavez MD [address] [facility] [address] [place] [address] PCP - General Oncology 11/18/24
--- OUTSIDE RECORDS SUMMARY | 2025-05-23 20:17 | XMS_ITS | Clinical Summary ---
Author Organization [employer] Address [address] [place] [address] [address] [place] [address] Care Team Providers Care Health Services Information Specialist Name Role Phone Unavailable Primary Care Provider [...] of 2) 10/23/2021 COVID-19 Vaccine ( - 2024-2 6 season) 2025 Influenza Vaccine (#1) 2025 RSV [...] [facility] ST[facility] [place] [address] [place] [address]
--- OUTSIDE RECORDS SUMMARY | 2025-05-23 20:17 | XMS_ITS | Encounter Summary ---
Author Organization [facility] Address [address] [place] [address] Care Team Providers Care Loss Prevention Operations Manager Name Role Phone Arsh Chavez MD Primary Care Provider [phone] Encounter Details Date Type Department Care Team ([facility] Contact Info) Description 04/03/2025 Results Follow-Up Obstetrics and Gynecology - [place] [address] [place], [place] [phone] Melinda Solitario, [facility] [address] [place], [place] Social History Tobacco Use Types Packs/Day [...] for your loved ones. For example, child neurologist or elderly care for an older adult? [...] on file Sexual Orientation Not on file documented as of this encounter Plan of Treatment Not on file documented as of this encounter Visit Diagnoses Not on filedocumented in this encounter Additional Health Concerns Assessment Noted Time PHQ-9 Depression Total Score: 0 11/17/19 25 7:18 PM EDT documented as of this encounter Care Teams Loss Prevention Operations Manager Relationship Specialty Start Date End Date Arsh Chavez MD [address] [address] PCP - General Oncology 11/18/24 documented as of this encounter
== END 2025-05-23 15:38 | disposition home or self-care (01) ==
LOC: HO.HMCH 14:17
PROVIDERS: PCP Internal Medicine; Visit Provider Internal Medicine
DX: Z00.00 Encounter for general adult medical examination without abnormal findings (principal); F33.0 Major depressive disorder, recurrent, mild; Q07.00 Arnold-Chiari syndrome without spina bifida or hydrocephalus; L65.9 Nonscarring hair loss, unspecified

== ENCOUNTER → 2025-05-23 14:17 | Outpatient (BNVA) | payer OTHER, SELFPAY | PROVIDERS: PCP Internal Medicine; Visit Provider Internal Medicine | DX: Z00.00 Encounter for general adult medical examination without abnormal findings (principal); R73.03 Prediabetes; E55.9 Vitamin D deficiency, unspecified; M79.7 Fibromyalgia; L65.9 Nonscarring hair loss, unspecified; K59.00 Constipation, unspecified; F33.0 Major depressive disorder, recurrent, mild; Q07.00 Arnold-Chiari syndrome without spina bifida or hydrocephalus; Z79.899 Other long term (current) drug therapy | CPT/HCPCS: 99212; 99396 ==

== ENCOUNTER 2025-06-02 09:39 | Outpatient (AMB) | payer OTHER, SELFPAY ==
[2025-06-02 09:45] VITALS: BP 130/84; PULSE 78; TEMP 36.8; O2SAT 98; BMI 32.8
--- NOTE | 2025-06-02 09:45 | AM.OFFWIN_ITS ---
Intake Vital Signs 06/02/25 09:45 Height 5 ft 3 in Weight 185 lb BMI 32.8 BP 130/84 Blood Pressure Location Rt brachial Position Sitting Pulse 78 Pulse Source Pulse Oximeter Temp 98.3 F Temp Source Oral Pulse Oximetry (%) 98 Oxygen Delivery Method Room Air Intake Visit Reasons: EP-cough, back pain, headaches, fatigue Intake Note: Patient presents c/o body aches, headache, fever, cough, chest/sinus congestion, nausea x3 days. Patient Tobacco Use Status: Current everyday Tobacco user Allergies trazodone Allergy (Intermediate, Verified 06/02/25 09:48) Insomnia gabapentin Adverse Reaction (Intermediate, Verified 06/02/25 09:48) dry mouth HPI HPI Comments History of Present Illness Details She presents with sister for cold symptoms Thursday + ST and felt terrible Worsening illness since then She said her father is sick at home with the same symptoms x 2 weeks Father was diagnosed with PNA Patient has headaches, cough, lung pain, body aches, fever yesterday (subjective) + chills and fatigue No phlegm Dayquil without relief + congestion + ST continual No covid test [facility] Medical History Tubular adenoma of colon Nicotine dependence, cigarettes, uncomplicated Family history of breast cancer Epidermoid cyst of skin of cheek Diverticulitis Mild recurrent major depression Bloody stools Epigastric pain Right hip pain Left hip pain Depression Obese Kidney stone Hypovitaminosis D Pure hypercholesterolemia History of renal calculi Insomnia Arnold-Chiari malformation GERD (gastroesophageal reflux disease) Polyarthralgia Surgical History History of carpal tunnel surgery of right wrist History of hysterectomy History of transurethral resection of bladder tumor (TURBT) History of colonoscopy History of removal of cyst History of esophagogastroduodenoscopy (EGD) History of cryosurgery History of cholecystectomy Family History Father Diabetes Hypertension Cancer, Onset Age: 78 Mother Cancer Breast cancer, Onset Age: 53 Maternal Grandmother Stroke Maternal Grandfather Cancer Esophageal cancer Paternal Grandfather Cancer Maternal Uncle Cancer Brain cancer Sister Breast cancer, Onset Age: 48 Social History Household Members Other:: Housing: House Alcohol intake: never Patient Tobacco Use Status: Current everyday Tobacco user Tobacco use type: Cigarette Cigarettes Per Day: 6 Years Smoked: 20 e-Cigarette/Vaping Use: Never Used Second Hand Smoke Exposure: No service: No Current occupational status: employed Current occupation: [employer]/rt handed Current occupational exposures/hazards: No Cognitive needs: No Hearing needs: No Vision needs: Yes Review of Systems Const Reports chills, Reports fatigue and Reports fever(s) ENT Denies otalgia, Reports nasal congestion and Reports sore throat Card Denies chest pain and Denies syncope Resp Reports chest congestion and Reports cough GI Denies abdominal pain Neuro Denies syncope Endo Reports fatigue Physical Exam Exam Exam: General: Non-toxic, NAD. Speaking full sentences. Skin: Warm dry throughout Eye: EOMI HENT: Airway patent. Uvula midline. No pharyngeal erythema or edema. No HUMAN RESOURCES TEAM MEMBER. + rhinorrhea Bilateral canals clear. TM non-erythematous, non-bulging. No TM perforation or hemotympanum noted. Respiratory: + rhonchi noted. No accessory muscle use, respiratory distress or stridor Cardiac: RRR. No murmur MSK: Full ROM extremities. Neurology: Alert. No aphasia or facial droop. Gait without abnormality Psych: Good mood and affect Vital Signs: Last Vital Signs Temp 98.3 F 06/02/25 09:45 Pulse 78 06/02/25 09:45 BP 130/84 06/02/25 09:45 Pulse Ox 98 06/02/25 09:45 Oxygen Delivery Method Room Air 06/02/25 09:45 BMI result Body Mass Index 32.8 Assessment & Plan Assessment & Plan (1) Pneumonia: Code(s): J18.9 - Pneumonia, unspecified organism Qualifiers: Pneumonia type: due to unspecified organism Laterality: unspecified laterality Lung location: unspecified part of lung Qualified Code(s): J18.9 - Pneumonia, unspecified organism Plan: Patient seen and evaluated. She is non-toxic appearing and in no respiratory distress She had no significant crackles on exam but has close contact with family member + PNA and in the hospital for it now SHe will be covered with doxycycline to take with food, avoiding alcohol. Increase fluids, rest, tessalon for cough ER for CP, SOB/worsening symptoms Patient and sister gave verbal understanding and had no additional questions or concerns at time of discharge All questions answered Medications: New doxycycline hyclate 100 mg PO BID 14 caps 0RF benzonatate 100 mg PO BID-TID PRN 14 caps 0RF cough Coding Level of Care Code Est Pt Level 3 (42981) Diagnoses Pneumonia due to infectious organism, unspecified laterality, unspecified part of lung J18.9 Pneumonia type: due to unspecified organism Laterality: unspecified laterality Lung location: unspecified part of lung
--- OUTSIDE RECORDS SUMMARY | 2025-06-02 10:27 | XMS_ITS | Clinical Summary ---
Author Organization [employer] Address [address] [place] [address] [address] [place] [address] Care Team Providers Care Regional Dedicated Truck Driver Name Role Phone Unavailable Primary Care Provider [...] complete this topic Insurance [facility] STANDARD [facility] [place] [address] [place] [address]
--- OUTSIDE RECORDS SUMMARY | 2025-06-02 10:27 | XMS_ITS | Clinical Summary ---
Author Organization [facility] [address] [facility] Address [address] [place] [address] Phone Care Team Providers Care Hvac Project Manager Name Role Phone Arsh Chavez MD Primary Care Provider [phone] Allergies No known active allergies Medications tramadol [...] 04/03/2025 Results Follow-Up Obstetrics and Gynecology - [address] [phone] Melinda Solitario CNM 03/30/2025 4:16 PM EDT - 03/30/2025 11:59 PM EDT Hospital Encounter Radiology Department - [address] [phone] Breast screening Discharge Disposition: Home or Self Care from Last 3 Months Immunizations Immunization Administration Dates Next Due Tdap Tetanus diptheria acell ular pertussis (Boostrix; Adacel) 7yo and older 11/15/2012 Surgical History Surgery Date Site/Laterality Comments HYSTERECTOMY 2011 PROCEDURE: HISTORICAL VAGINAL HYSTERECTOMY W/O BSO; COMMENT: prolapse (had SEBASTIÁN first with cryo), in [place] CHOLECYSTECTOMY PROCEDURE: HISTORICAL CHOLECYSTECTOMY Family History Medical [...] your loved ones. For example, early childhood teacher assistant or elderly care for an older [...] Done Comments Colorectal Cancer Screening: Colonoscopy 1970 Drug Screen 1970 Non-Opioid Controlled Substance Agreement 1970 Hepatitis B Vaccines (1 of 3 [...] is recommended in 1 year. Mammo Location: [facility], [address] [place] [address], [address], . -------- FINAL REPORT -------- Dictated By: Debbie Vicente Dictated Date: 04/03/2025 08:21 ET Assigned Physician: Debbie Vicente Reviewed and Electronically Signed By: Debbie Vicente Signed Date: 04/03/2025 08:24 ET Workstation ID: [id number] Transcribed By: Self Edit Transcribed Date: 04/03/2025 [...] is recommended in 1 year. Mammo Location: [facility], [address] [place] [address], [facility], . -------- FINAL REPORT -------- Dictated By: Debbie Vicente Dictated Date: 04/03/2025 08:21 ET Assigned Physician: Debbie Vicente Reviewed and Electronically Signed By: Debbie Vicente Signed Date: 04/03/2025 08:24 ET Workstation ID: [id number] Transcribed By: Self Edit Transcribed Date: 04/03/2025 08:21 ET Melinda Solitario CNM IMG BI PROCEDURES Final Result * (ABNORMAL) [...] Self [address] [place] [address] [facility] [place] [employer] Care Teams Hvac Project Manager Relationship Specialty Start Date End Date Arsh Chavez MD [address] [facility] [address] [place] [address] PCP - General Oncology 11/18/24
--- OUTSIDE RECORDS SUMMARY | 2025-06-02 10:27 | XMS_ITS | Encounter Summary ---
Author Organization [facility] Address [address] [place] [address] Care Team Providers Care Research Chemical Engineer Name Role Phone Arsh Chavez MD Primary Care Provider [phone] Encounter Details Date Type Department Care Team ([facility] Contact Info) Description 04/03/2025 Results Follow-Up Obstetrics and Gynecology - [place] [address] [place], [place] [phone] Melinda Solitario, [facility] [address] [place], [place] Social History Tobacco Use Types Packs/Day [...] loved ones. For example, early childhood education specialist or elderly care for an older adult? [...] documented as of this encounter Care Teams Research Chemical Engineer Relationship Specialty Start Date End Date Arsh Chavez MD [address] [address] PCP - General Oncology 11/18/24 documented as of this encounter
== END 2025-06-02 10:11 | disposition home or self-care (01) ==
PROVIDERS: PCP Internal Medicine; Visit Provider Physician Assistant
DX: J18.9 Pneumonia, unspecified organism (principal)

== ENCOUNTER 2025-06-02 09:39 | Outpatient (REF) | payer OTHER, SELFPAY ==
[2025-06-02 16:32] LABS: Resp Syncy Virus RNA Qual PCR NEGATIVE (Negative); SARS COV2 PCR INHOUSE NEGATIVE (Negative)
== END 2025-06-02 09:40 | disposition home or self-care (01) ==
LOC: HO.LNP 09:39
PROVIDERS: PCP Internal Medicine; Visit Provider Physician Assistant
DX: J18.9 Pneumonia, unspecified organism (principal); R09.89 Other specified symptoms and signs involving the circulatory and respiratory systems; F17.210 Nicotine dependence, cigarettes, uncomplicated
CPT/HCPCS: 87637; 99212